=== PATIENT | male | born 1935 | race African-American/Black ===

== ENCOUNTER 2018-10-07 05:03 | Inpatient (IN) | payer MEDICARE ==
[~2018-10-07] VITALS: Ht 177.8 cm; Wt 68.9 kg
[2018-10-07] VITALS (7 sets, daily range): BP systolic 122–203; BP diastolic 57–186
--- NOTE | 2018-10-07 05:06 | NUR ---
ED Nurse Note: Patient presents [facility] from [facility], with complaints of fall and injury to left hand. Addendum: 10/07/18 at 0527 by MEGHANN ED Nurse Note: Right hand, fourth finger.
[2018-10-07] MEDS ORDERED: Tetanus/Diptheria/Pertussis IM ONE (05:15)
--- NOTE | 2018-10-07 05:27 | Emergency Room Report ---
History of Present Illness General Chief Complaint: Upper Extremity Injury Source: Patient Present Illness HPI Patient is a 82-year-old male who presents after increased finger pain. Patient reports having a recent fall. He states he had injury approximately 1/ 2 hours ago after tripping on a sidewalk. He reports increased pain to the right hand ring finger. He reports falling and hitting his head. He denies any loss of consciousness. He denies any headache. He denies taking any anticoagulation. He denies any numbness. He reports having prior history of CVA as well as hypertension. He states he has had an appendectomy in the past. patient reports having a prior vascular procedure due to CVA at [facility] in [place].Patient reports having increased shortness of breath. He cannot state when this began. He states he had been having increased trouble breathing for several days at least.He reports having prior left-sided weakness resulting from CVA. He normally walks with a cane. Allergies: Coded Allergies: No Known Allergies (Unverified , 10/07/18) Patient History Reviewed Nursing Documentation: PMH: Agreed; PSxH: Agreed Nursing Documentation-PMH Past Medical History: No History, Except For Hx Hypertension: Yes Hx Cerebrovascular Accident: Yes Review of Systems Constitutional: Denies: fever ENT: Reports: hearing loss - longstanding Respiratory: Denies: shortness of breath Cardiovascular: Denies: syncope Gastrointestinal: Denies: no symptoms, see HPI, nausea, vomiting Skin: Reports: other - laceration Neurological: Reports: no symptoms Endocrine: Denies: no symptoms, see HPI, excessive sweating, flushing, intolerance to temperature, increased thirst, increased urine, unexplained weight loss, other Physical Exam Vital Signs Date Time Temp Pulse Resp B/P (MAP) Pulse Ox O2 Delivery O2 Flow Rate FiO2 10/07/18 05:01 98.1 100 14 203/186 (192) 98 Room Air General Appearance: alert, GCS 15, Chronically Ill Head: normocephalic ENT: other - decreased hearing Neck: limited range of motion Respiratory: accessory muscle use, stridor Cardiovascular #1: normal inspection, regular rate, rhythm Gastrointestinal: normal inspection Musculoskeletal: other - kyphosis Neurologic: normal inspection, alert, oriented x3, responsive, motor weakness - left upper extremity slight weakness Psychiatric: normal inspection, judgement/insight normal Skin: normal color, laceration - finger laceration Procedures Joint Reduction Joint Reduction : Consent: Emergent Joint Reduction Site: other - finger Procedural Sedation: No Reduction Attempts: One Pre-Procedure NV Exam: Yes Post-Procedure NV Exam: Yes Post Joint Reduction Film: joint reduced Patient Tolerated: Well Complications: None Medical Decision Making Diagnostic Impression: Primary Impression: Laceration of finger of right hand Additional Impressions: Dislocated finger Stridor History of CVA (cerebrovascular accident) ER Course Patient is an 82-year-old male who presented after fall. Differential diagnosis include was not limited to fracture, dislocation, contusion, strain among others. Because of complexity of patient's case laboratory testing and imaging studies were ordered. X-ray imaging of the right hand 3 views interpreted by me showed dislocation to the ring finger PIP joint. Patient was noted to have laceration overlying this dislocation. Laceration was irrigated copiously with sterile water. Digital block was performed with 3 mL's of 0.5% bupivacaine. Patient tolerated well. Joint was reduced with axial traction. Wound was again irrigated. Patient given IV Ancef. He was noted to have some stridor and was given breathing treatment.Chest x-ray 1 view interpreted by me showed normal cardiac size with vascular congestion. CT of the head read by radiology showed no evidence of acute fracture or intracranial hemorrhage.Dr. Tripp Estevez was contacted for inpatient management. Dr.Raj Willard was contacted for orthopedic consult. Labs Test 10/07/18 06:14 White Blood Count 7.8 K/UL (4.8-10.8) Red Blood Count 3.45 M/UL (4.70-6.10) Hemoglobin 9.2 G/DL (14.2-18.0) Hematocrit 29.8 % (42.0-52.0) Mean Corpuscular Volume 86 FL (80-99) Mean Corpuscular Hemoglobin 26.8 PG (27.0-31.0) Mean Corpuscular Hemoglobin Concent 31.0 G/DL (32.0-36.0) Red Cell Distribution Width 14.0 % (11.6-14.8) Platelet Count 218 K/UL (150-450) Mean Platelet Volume 5.3 FL (6.5-10.1) Neutrophils (%) (Auto) 72.4 % (45.0-75.0) Lymphocytes (%) (Auto) 13.6 % (20.0-45.0) Monocytes (%) (Auto) 9.3 % (1.0-10.0) Eosinophils (%) (Auto) 3.6 % (0.0-3.0) Basophils (%) (Auto) 1.1 % (0.0-2.0) Prothrombin Time 10.2 SEC (9.30-11.50) Prothromb Time International Ratio 1.0 (0.9-1.1) Activated Partial Thromboplast Time 28 SEC (23-33) Sodium Level 140 MMOL/L (136-145) Potassium Level 4.2 MMOL/L (3.5-5.1) Chloride Level 108 MMOL/L (98-107) Carbon Dioxide Level 24 MMOL/L (21-32) Anion Gap 8 mmol/L (5-15) Blood Urea Nitrogen 20 mg/dL (7-18) Creatinine 1.9 MG/DL (0.55-1.30) Estimat Glomerular Filtration Rate mL/min (>60) Glucose Level 90 MG/DL (74-106) Calcium Level 8.8 MG/DL (8.5-10.1) Total Bilirubin 0.5 MG/DL (0.2-1.0) Aspartate Amino Transf (AST/SGOT) 36 U/L (15-37) Alanine Aminotransferase (ALT/SGPT) 27 U/L (12-78) Alkaline Phosphatase 55 U/L (46-116) Total Protein 7.0 G/DL (6.4-8.2) Albumin 3.2 G/DL (3.4-5.0) Globulin 3.8 g/dL Albumin/Globulin Ratio 0.8 (1.0-2.7) Last Vital Signs Date Time Temp Pulse Resp B/P (MAP) Pulse Ox O2 Delivery O2 Flow Rate FiO2 10/07/18 05:07 98.1 78 14 203/186 98 Room Air Status: improved Disposition: ADMITTED INPATIENT Condition: Stable Red Rios MD Oct 07, 2018 05:27
[2018-10-07] MEDS ORDERED: Bupivacaine 0.5% Inj 30 ml vial INJ ONE (05:30)
[2018-10-07] MEDS ORDERED: Albuterol/Ipratropium 3ml neb HHN ONE (06:00)
[2018-10-07] MEDS ORDERED: Bacitracin Oint 15gm Tube TOPIC ONE (06:03)
[2018-10-07] MEDS ORDERED: ceFAZolin 1gm/50ml Premix 50 ML IV ONE (06:15)
[2018-10-07 06:28] LABS: BASOPHILS % (AUTO) 1.1 % (0.0-2.0); EOSINOPHILS % (AUTO) 3.6 % (0.0-3.0); HEMATOCRIT 29.8 % (42.0-52.0); HEMOGLOBIN 9.2 G/DL (14.2-18.0); LYMPHOCYTES % (AUTO) 13.6 % (20.0-45.0); MEAN CORPUSCULAR VOLUME 86 FL (80-99); MONOCYTES % (AUTO) 9.3 % (1.0-10.0); NEUTROPHILS % (AUTO) 72.4 % (45.0-75.0); PLATELET COUNT 218 K/UL (150-450); RED BLOOD COUNT 3.45 M/UL (4.70-6.10); WHITE BLOOD COUNT 7.8 K/UL (4.8-10.8)
[2018-10-07 06:37] LABS: ANION GAP 8 mmol/L (5-15); BLOOD UREA NITROGEN 20 mg/dL (7-18); CALCIUM 8.8 MG/DL (8.5-10.1); CARBON DIOXIDE 24 MMOL/L (21-32); CHLORIDE 108 MMOL/L (98-107); CREATININE 1.9 MG/DL (0.55-1.30); POTASSIUM 4.2 MMOL/L (3.5-5.1); SODIUM 140 MMOL/L (136-145)
[2018-10-07 06:42] LABS: ALANINE AMINOTRANSFERASE 27 U/L (12-78); ALBUMIN 3.2 G/DL (3.4-5.0); ALBUMIN/GLOBULIN RATIO 0.8 (1.0-2.7); ALKALINE PHOSPHATASE 55 U/L (46-116); ASPARTATE AMINO TRANSFERASE 36 U/L (15-37); BILIRUBIN,TOTAL 0.5 MG/DL (0.2-1.0)
[2018-10-07] MEDS ORDERED: Bacitracin Oint 15gm Tube TOPIC STA (07:00)
--- NOTE | 2018-10-07 07:07 | NUR ---
HAND-OFF: Report given to Alban Coburn RN. Patient resting comfortably, belonging sheet completed without patient signature due to dressing.
[2018-10-07] MEDS ORDERED: Solu-MEDROL 125mg Inj IVP ONE (07:15)
--- NOTE | 2018-10-07 07:20 | Diagnostic Imaging Report ---
Indication: Headache Technique: Continuous helical CT scanning of the head was performed utilizing automated exposure control without intravenous contrast material. Axial and coronal reconstructions were obtained. Comparison: None CT dose: Total DLP 1337.05 mGycm; CTDI vol 70.38 mGy Findings: Evaluation limited due to patient motion. Note that subtle abnormalities can be missed. Within these limitations: There is no acute intracranial hemorrhage, mass effect or cortical edema. No shift of the midline structures. The ventricles, cisterns and sulci are prominent consistent with atrophy. Periventricular hypoattenuation is seen, a nonspecific finding. There is a more focal area of encephalomalacia in the right lateral frontal lobe which may be related to chronic ischemia or injury. There is left supraorbital soft tissue swelling. No depressed calvarial fracture. Mastoid air cells and paranasal sinuses clear. Globes are symmetric. No infiltration of the conal fat bilaterally. IMPRESSION: Exam limited by motion artifact. Within this limitations: No evidence of acute intracranial hemorrhage, mass effect or cortical edema. MRI may be obtained for more sensitive evaluation as clinically indicated. Atrophy and nonspecific periventricular hypoattenuation suggestive of chronic ischemic microvascular changes. Likely chronic infarct in the right frontal lobe. Left supraorbital soft tissue swelling. No depressed skull fracture. This corresponds with the statrad preliminary report. The CT scanner at [facility] is accredited by the [employer] and the scans are performed using protocols designed to limit radiation exposure to as low as reasonably achievable to attain images of sufficient resolution adequate for diagnostic evaluation.
--- NOTE | 2018-10-07 08:26 | NUR ---
ED Nurse Note: Received patient in bed receiving breathing treatment by RT at the bedside. pt denied pain. aao x3-4 but fatigued. splint present from previous shift on Rt hand. bp high as documented. ERMD made aware.
--- NOTE | 2018-10-07 08:26 | Diagnostic Imaging Report ---
Indication: Shortness of breath Technique: XRAY Chest 1v Comparison: None Findings: Heart appears borderline enlarged. Hilar prominence is noted which is most likely due to ectatic pulmonary vasculature. Atherosclerotic calcifications are noted in a tortuous aorta. There is mild interstitial prominence, nonspecific. No definite focal consolidation. No pleural effusion or pneumothorax. There are degenerative changes in the spine. No acute osseous abnormality. Impression: * Nonspecific mild interstitial prominence, possibly chronic. * No definite focal consolidation, pleural effusion, pneumothorax or evidence of alveolar edema. * Borderline cardiomegaly, possibly exaggerated by AP technique. * Bilateral hilar prominence most likely related to ectatic pulmonary vasculature. Recommend routine follow-up chest CT to exclude the possibility of mass or lymphadenopathy. * Atherosclerotic disease.
[2018-10-07] MEDS ORDERED: Albuterol ud Inhalation HHN ONE (08:30)
--- NOTE | 2018-10-07 08:30 | Diagnostic Imaging Report ---
Indication: Pain status post injury Technique: XRAY Hand Complete R Comparison: None Findings: There is a dislocation at the fourth proximal interphalangeal joint. No definite/displaced associated acute fracture. There are degenerative changes involving the interphalangeal joints. Alignment of the carpal bones is intact. No radiopaque foreign body. Impression: Dislocation at the fourth proximal interphalangeal joint. No definite/displaced associated acute fracture. Osteoarthrosis. This corresponds with the preliminary interpretation of the treating ER physician, as documented in the electronic medical record.
--- NOTE | 2018-10-07 08:32 | Diagnostic Imaging Report ---
Indication: pain, dislocation s/p reduction Technique: XRAY Hand Ltd 2v R Comparison: Earlier the same day Findings: Status post assess for reduction and splinting of the previously seen dislocation at the fourth proximal interphalangeal joint. No definite/displaced acute fractures identified. Additional findings unchanged from exam earlier today. Impression: Successful reduction of the previously seen dislocation at the fourth proximal interphalangeal joint. No definite/displaced acute fracture.
--- NOTE | 2018-10-07 09:00 | NUR ---
ED Nurse Note: maria teresa Gann, RN accepting RN Nate is on the phone with doctor at this moment. he will call me back.
--- NOTE | 2018-10-07 09:03 | NUR ---
ED Nurse Note: BP 163/71. HEATHERD made aware.
[2018-10-07] MEDS ORDERED: UNOBMED (09:04)
--- NOTE | 2018-10-07 09:15 | NUR ---
ED Nurse Note: report given to [employer] [facility]
--- NOTE | 2018-10-07 09:25 | NUR ---
ED Nurse Note: pt left unit with 1 coating technician and 1 RN in stable condition.
[2018-10-07] MEDS ORDERED: Miralax 17gm pkt ORAL PRN (11:00)
[2018-10-07] MEDS ORDERED: Morphine Sulfate 2mg/ml Inj(IV/IM USE ONLY) IVP PRN (11:00)
[2018-10-07] MEDS ORDERED: Albuterol/Ipratropium 3ml neb HHN PRN (11:00)
[2018-10-07] MEDS: Heparin 5000 units/ml inj SUBQ SCH ×2 (11:30→21:23)
--- NOTE | 2018-10-07 12:21 | Consultation ---
History of Present Illness General Date patient seen: Oct 07, 2018 Present Illness HPI 82-year-old male with hx of HTN, CVA with left sided weaknes , presented to after increased finger pain. He states he had injury approximately 1/2 hours ago after tripping on a sidewalk. He reports falling and hitting his head. Patient reports having increased shortness of breath. He states he had been having increased trouble breathing for several days at least. His CXR showed possible infiltrate. His labs revealed ATN as well. He is admitted to telemetry for further evaluation. Allergies: Coded Allergies: No Known Allergies (Unverified , 10/07/18) Medication History Miscellaneous Medications Unable to Obtain Medications (Unable To Obtain Meds), (Reported) Patient History Healthcare decision maker Resuscitation status Full Code Advanced Directive on File Past Medical/Surgical History Past Medical/Surgical History: (1) History of hypertension (2) Laceration of finger of right hand (3) History of CVA (cerebrovascular accident) Review of Systems All Other Systems: negative except mentioned in HPI Physical Exam General Appearance: thin Lines, tubes and drains: peripheral, PICC HEENT: normocephalic, atraumatic Neck: non-tender, supple Respiratory/Chest: chest wall non-tender, lungs clear Breasts: no masses Cardiovascular/Chest: normal peripheral pulses Abdomen: normal bowel sounds Genitourinary/Rectal: normal genital exam Extremities: normal range of motion Neurologic: custodian manager II-XII grossly normal Last 24 Hour Vital Signs Date Time Temp Pulse Resp B/P (MAP) Pulse Ox O2 Delivery O2 Flow Rate FiO2 10/07/18 12:00 97.6 84 18 169/80 (109) 94 10/07/18 10:53 Room Air 10/07/18 08:51 73 13 100 Room Air 10/07/18 08:42 79 193/67 10/07/18 08:26 98.3 79 18 193/66 100 Room Air 10/07/18 08:24 72 16 100 Room Air 10/07/18 08:12 66 18 Room Air 10/07/18 08:12 98.3 66 18 199/60 99 Room Air 10/07/18 07:26 98.1 78 18 184/57 99 Room Air 10/07/18 06:01 73 20 99 Room Air 21 8/9/19 05:52 89 18 99 Room Air 21 10/07/18 05:52 89 18 99 Room Air 21 10/07/18 05:07 98.1 78 14 203/186 98 Room Air 10/07/18 05:01 98.1 100 14 203/186 (192) 98 Room Air Laboratory Tests Test 10/07/18 06:14 White Blood Count 7.8 K/UL (4.8-10.8) Red Blood Count 3.45 M/UL (4.70-6.10) L Hemoglobin 9.2 G/DL (14.2-18.0) L Hematocrit 29.8 % (42.0-52.0) L Mean Corpuscular Volume 86 FL (80-99) Mean Corpuscular Hemoglobin 26.8 PG (27.0-31.0) L Mean Corpuscular Hemoglobin Concent 31.0 G/DL (32.0-36.0) L Red Cell Distribution Width 14.0 % (11.6-14.8) Platelet Count 218 K/UL (150-450) Mean Platelet Volume 5.3 FL (6.5-10.1) L Neutrophils (%) (Auto) 72.4 % (45.0-75.0) Lymphocytes (%) (Auto) 13.6 % (20.0-45.0) L Monocytes (%) (Auto) 9.3 % (1.0-10.0) Eosinophils (%) (Auto) 3.6 % (0.0-3.0) H Basophils (%) (Auto) 1.1 % (0.0-2.0) Prothrombin Time 10.2 SEC (9.30-11.50) Prothromb Time International Ratio 1.0 (0.9-1.1) Activated Partial Thromboplast Time 28 SEC (23-33) Sodium Level 140 MMOL/L (136-145) Potassium Level 4.2 MMOL/L (3.5-5.1) Chloride Level 108 MMOL/L (98-107) H Carbon Dioxide Level 24 MMOL/L (21-32) Anion Gap 8 mmol/L (5-15) Blood Urea Nitrogen 20 mg/dL (7-18) H Creatinine 1.9 MG/DL (0.55-1.30) H Estimat Glomerular Filtration Rate mL/min (>60) Glucose Level 90 MG/DL (74-106) Calcium Level 8.8 MG/DL (8.5-10.1) Total Bilirubin 0.5 MG/DL (0.2-1.0) Aspartate Amino Transf (AST/SGOT) 36 U/L (15-37) Alanine Aminotransferase (ALT/SGPT) 27 U/L (12-78) Alkaline Phosphatase 55 U/L (46-116) Total Protein 7.0 G/DL (6.4-8.2) Albumin 3.2 G/DL (3.4-5.0) L Globulin 3.8 g/dL Albumin/Globulin Ratio 0.8 (1.0-2.7) L Microbiology Date/Time Source Procedure Growth Status 10/07/18 08:50 Rectum Received Height (Feet): 5 Height (Inches): 10.00 Weight (Pounds): 150 Medications Current Medications Medications (Trade) Dose Ordered Sig/Austin Route PRN Reason Start Time Stop Time Status Last Admin Dose Admin Acetaminophen (Tylenol) 650 mg Q4H PRN ORAL T>100.5 10/07/18 11:00 11/06/18 10:59 Albuterol/ Ipratropium (Albuterol/ Ipratropium) 3 ml Q4H PRN HHN Shortness of Breath 10/07/18 11:00 10/12/18 10:59 Dextrose (Dextrose 50%) 25 ml Q30M PRN IV Hypoglycemia 10/07/18 11:00 11/06/18 10:59 Dextrose (Dextrose 50%) 50 ml Q30M PRN IV Hypoglycemia 10/07/18 11:00 11/06/18 10:59 Heparin Sodium (Porcine) (Heparin 5000 units/ml) 5,000 units EVERY 12 HOURS SUBQ 10/07/18 11:00 11/06/18 10:59 10/07/18 11:30 Morphine Sulfate (Morphine Sulfate) 2 mg Q4H PRN IVP Severe Pain (Pain Scale 7-10) 10/07/18 11:00 10/14/18 10:59 Ondansetron HCl (Zofran) 4 mg Q6H PRN IVP Nausea & Vomiting 10/07/18 11:00 11/06/18 10:59 Polyethylene Glycol (Miralax) 17 gm DAILYPRN PRN ORAL Constipation 10/07/18 11:00 11/06/18 10:59 Vancomycin HCl (Vanco rx to dose) 1 ea DAILY PRN MISC . 10/07/18 11:15 11/06/18 11:14 Vancomycin HCl/ Dextrose 275 ml @ 137.5 mls/ hr ONCE ONCE IVPB 10/07/18 12:30 10/07/18 14:29 Assessment/Plan Problem List: (1) History of hypertension ICD Codes: Z86.79 - Personal history of other diseases of the circulatory system SNOMED: 710834638 (2) Pneumonia ICD Codes: J18.9 - Pneumonia, unspecified organism SNOMED: 842831641 (3) History of CVA (cerebrovascular accident) ICD Codes: Z86.73 - Personal history of transient ischemic attack (TIA), and cerebral infarction without residual deficits SNOMED: 841114040, 123888701 Assessment/Plan: check sputum iv abc respiratory treatment CT of chest to evaluate the abnormality on the CXR social service consult dvt prophylaxis CT of neck to evaluate possible stridor in ER Renal w/u Casie Frye MD Oct 07, 2018 12:21
[2018-10-07] MEDS ORDERED: NORVASC10 MG ORAL (12:27)
[2018-10-07] MEDS ORDERED: Vancomycin 1.5gm Premix IVPB ONE (12:30)
[2018-10-07] MEDS ORDERED: cefTRIAXone 1 GM in D5W 55 ML IVPB SCH (13:00)
[2018-10-07 13:02] LABS: CREATINE KINASE 821 U/L (26-308)
--- NOTE | 2018-10-07 13:04 | Consultation ---
History of Present Illness General Date patient seen: Oct 07, 2018 Chief Complaint: Upper Extremity Injury Present Illness HPI 82 y/o M with hx of CVA w L side weakness, HTN, appendectomy presents to ED on with increased R 4th finger pain; he had an injury ~30 darlene prior to arrival to ED where he tripped on sidewalk and hit his head; denied loss of consciousness. Also SOB for several days. Denied headache, numbness Allergies: Coded Allergies: No Known Allergies (Unverified , 10/07/18) Medication History Scheduled Amlodipine Besylate (Norvasc), 10 MG ORAL DAILY, (Reported) Miscellaneous Medications Unable to Obtain Medications (Unable To Obtain Meds), (Reported) Patient History Healthcare decision maker Resuscitation status Full Code Advanced Directive on File Patient History Narrative Pmhx: as above Shx: reviewed Fhx: non contributory Review of Systems All Other Systems: negative except mentioned in HPI Physical Exam Physical Exam Narrative General Appearance: thin Lines, tubes and drains: peripheral, PICC HEENT: normocephalic, atraumatic Neck: non-tender, supple Respiratory/Chest: chest wall non-tender, lungs clear Cardiovascular/Chest: normal peripheral pulses Abdomen: normal bowel sounds Extremities: , laceration - R 4th finger laceration Last 24 Hour Vital Signs Date Time Temp Pulse Resp B/P (MAP) Pulse Ox O2 Delivery O2 Flow Rate FiO2 10/07/18 12:00 97.6 84 18 169/80 (109) 94 10/07/18 10:53 Room Air 10/07/18 08:51 73 13 100 Room Air 10/07/18 08:42 79 193/67 10/07/18 08:26 98.3 79 18 193/66 100 Room Air 10/07/18 08:24 72 16 100 Room Air 10/07/18 08:12 66 18 Room Air 10/07/18 08:12 98.3 66 18 199/60 99 Room Air 10/07/18 07:26 98.1 78 18 184/57 99 Room Air 10/07/18 06:01 73 20 99 Room Air 10/07/18 05:52 89 18 99 Room Air 10/07/18 05:52 89 18 99 Room Air 10/07/18 05:07 98.1 78 14 203/186 98 Room Air 10/07/18 05:01 98.1 100 14 203/186 (192) 98 Room Air Laboratory Tests Test 10/07/18 06:14 White Blood Count 7.8 K/UL (4.8-10.8) Red Blood Count 3.45 M/UL (4.70-6.10) L Hemoglobin 9.2 G/DL (14.2-18.0) L Hematocrit 29.8 % (42.0-52.0) L Mean Corpuscular Volume 86 FL (80-99) Mean Corpuscular Hemoglobin 26.8 PG (27.0-31.0) L Mean Corpuscular Hemoglobin Concent 31.0 G/DL (32.0-36.0) L Red Cell Distribution Width 14.0 % (11.6-14.8) Platelet Count 218 K/UL (150-450) Mean Platelet Volume 5.3 FL (6.5-10.1) L Neutrophils (%) (Auto) 72.4 % (45.0-75.0) Lymphocytes (%) (Auto) 13.6 % (20.0-45.0) L Monocytes (%) (Auto) 9.3 % (1.0-10.0) Eosinophils (%) (Auto) 3.6 % (0.0-3.0) H Basophils (%) (Auto) 1.1 % (0.0-2.0) Prothrombin Time 10.2 SEC (9.30-11.50) Prothromb Time International Ratio 1.0 (0.9-1.1) Activated Partial Thromboplast Time 28 SEC (23-33) Sodium Level 140 MMOL/L (136-145) Potassium Level 4.2 MMOL/L (3.5-5.1) Chloride Level 108 MMOL/L (98-107) H Carbon Dioxide Level 24 MMOL/L (21-32) Anion Gap 8 mmol/L (5-15) Blood Urea Nitrogen 20 mg/dL (7-18) H Creatinine 1.9 MG/DL (0.55-1.30) H Estimat Glomerular Filtration Rate mL/min (>60) Glucose Level 90 MG/DL (74-106) Uric Acid Pending Calcium Level 8.8 MG/DL (8.5-10.1) Total Bilirubin 0.5 MG/DL (0.2-1.0) Aspartate Amino Transf (AST/SGOT) 36 U/L (15-37) Alanine Aminotransferase (ALT/SGPT) 27 U/L (12-78) Alkaline Phosphatase 55 U/L (46-116) Total Creatine Kinase Pending Total Protein 7.0 G/DL (6.4-8.2) Albumin 3.2 G/DL (3.4-5.0) L Globulin 3.8 g/dL Albumin/Globulin Ratio 0.8 (1.0-2.7) L Microbiology Date/Time Source Procedure Growth Status 10/07/18 08:50 Rectum Received Height (Feet): 5 Height (Inches): 10.00 Weight (Pounds): 150 Medications Current Medications Medications (Trade) Dose Ordered Sig/[place] Route PRN Reason Start Time Stop Time Status Last Admin Dose Admin Acetaminophen (Tylenol) 650 mg Q4H PRN ORAL T>100.5 10/07/18 11:00 11/06/18 10:59 Albuterol/ Ipratropium (Albuterol/ Ipratropium) 3 ml Q4H PRN HHN Shortness of Breath 10/07/18 11:00 10/12/18 10:59 Ceftriaxone Sodium 1 gm/ Dextrose 55 ml @ 110 mls/hr Q24H IVPB 10/07/18 13:00 10/14/18 12:59 Dextrose (Dextrose 50%) 25 ml Q30M PRN IV Hypoglycemia 10/07/18 11:00 11/06/18 10:59 Dextrose (Dextrose 50%) 50 ml Q30M PRN IV Hypoglycemia 10/07/18 11:00 11/06/18 10:59 Heparin Sodium (Porcine) (Heparin 5000 units/ml) 5,000 units EVERY 12 HOURS SUBQ 10/07/18 11:00 11/06/18 10:59 10/07/18 11:30 Morphine Sulfate (Morphine Sulfate) 2 mg Q4H PRN IVP Severe Pain (Pain Scale 7-10) 10/07/18 11:00 10/14/18 10:59 Ondansetron HCl (Zofran) 4 mg Q6H PRN IVP Nausea & Vomiting 10/07/18 11:00 11/06/18 10:59 Polyethylene Glycol (Miralax) 17 gm DAILYPRN PRN ORAL Constipation 10/07/18 11:00 11/06/18 10:59 Vancomycin HCl (Vanco rx to dose) 1 ea DAILY PRN MISC . 10/07/18 11:15 11/06/18 11:14 Vancomycin HCl/ Dextrose 275 ml @ 137.5 mls/ hr ONCE ONCE IVPB 10/07/18 12:30 10/07/18 14:29 Assessment/Plan Assessment/Plan: Abx: Cefepime x1 10/07 Ceftriaxone 10/07- IV Vancomycin 10/07- Assessment: Afebrile No leukocytosis R 4th finger green-2ry to PIP dislocation and laceration, s/p reduction -repeat R hand xray: Successful reduction of the previously seen dislocation at the fourth proximal interphalangeal joint. No definite/displaced acute fracture. -xray R hand: Dislocation at the fourth proximal interphalangeal joint. No definite/displaced associated acute fracture.Osteoarthrosis. s/p Fall -Head CT: Exam limited by motion artifact. Within this limitations:No evidence of acute intracranial hemorrhage, mass effect or cortical edema. MRI maybe obtained for more sensitive evaluation as clinically indicated. Atrophy and nonspecific periventricular hypoattenuation suggestive of chronic ischemic microvascular changes. Likely chronic infarct in the right frontal lobe. Left supraorbital soft tissue swelling. No depressed skull fracture. Dyspnea -CXR: Nonspecific mild interstitial prominence, possibly chronic. No definite focal consolidation, pleural effusion, pneumothorax or evidence of alveolar edema. Borderline cardiomegaly, possibly exaggerated by AP technique.Bilateral hilar prominence most likely related to ectatic pulmonary vasculature. CVA w L side weakness HTN appendectomy Plan: -Switch prophylatic IV Vancomycin and Ceftriaxone #3 to PO Keflex -f/u cx -Monitor CBC/CMP, temperatures -wound care Thank you for this consultation. Will continue to follow along with you. Discussed with Marly Peralta M.D. Oct 07, 2018 13:04
--- NOTE | 2018-10-07 14:22 | History & Physical ---
History and Physical History & Physicial Tripp Estevez MD Oct 07, 2018 14:22
[2018-10-07] MEDS ORDERED: Cefepime HCl 2 GM in D5W 110 ML IV SCH (15:00)
--- NOTE | 2018-10-07 15:04 | NUR ---
Social Work This Sw received a consult due to patient is homeless. This SW met with patient who remains alert/oriented, making his own decisions. Patient remains ambulatory with cane and managing his own ADLs independently. 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 bus). This SW recommended Board/Care placement and contacted [facility] ([phone]) [facility] who explains she has openings and will evaluate patient on Wednesday AM. Patient receives $1800/month in Social Security. Guerita explains she can transport patient to the facility (will need to evaluate patient first). [facility] [place] [address] Pending P.T to evaluate, according to [facility]. If patient requires SNF, please contact Guerita prior to Wednesday AM to inform. [facility] informed.
--- NOTE | 2018-10-07 15:19 | Consultation ---
Consult Note Consult Note asked to eval for renal failure and anemia Patient is a 82-year-old male who presents after increased finger pain. Patient reports having a recent fall. He states he had injury approximately 1/ 2 hours ago after tripping on a sidewalk. He reports increased pain to the right hand ring finger. He reports falling and hitting his head. He denies any loss of consciousness. He denies any headache. He denies taking any anticoagulation. He denies any numbness. He reports having prior history of CVA as well as hypertension. He states he has had an appendectomy in the past. patient reports having a prior vascular procedure due to CVA at [facility] in [place].Patient reports having increased shortness of breath. He cannot state when this began. He states he had been having increased trouble breathing for several days at least.He reports having prior left-sided weakness resulting from CVA. He normally walks with a cane. No Known Allergies (Unverified , 10/07/18) Hx Hypertension: Yes Hx Cerebrovascular Accident: Yes patient interviewed- examined data reviewed Assessment/Plan Renal Failure- ? acute obn top of chronic Anemia HTN h/o CVA Rt 4th finger laceration: reason for admission Anemia hammonds U Na U Analysis BP control Avoid Nephrotoxics Andrade Keenan MD Oct 07, 2018 15:19
[2018-10-07 15:49] LABS: APPEARANCE,URINE CLEAR; BILIRUBIN, URINE NEGATIVE (NEGATIVE); COLOR,URINE PALE YELLOW; GLUCOSE, URINE (UA) NEGATIVE (NEGATIVE); KETONES,URINE 1+ (NEGATIVE); LEUKOCYTE ESTERASE ,URINE NEGATIVE (NEGATIVE); NITRITE,URINE NEGATIVE (NEGATIVE); PH,URINE 6 (4.5-8.0); PROTEIN,URINE 1+ (NEGATIVE); UROBILINOGEN,URINE NORMAL MG/DL (0.0-1.0)
--- NOTE | 2018-10-07 17:00 | Consultation ---
DATE OF CONSULTATION: 10/07/2018 CONSULTING PHYSICIAN: Edgar Willard M.D. REFERRING PHYSICIAN: Tripp Estevez M.D. CHIEF COMPLAINT: Right index PIP joint dislocation. HISTORY OF PRESENT ILLNESS: The patient is a pleasant 82-year-old gentleman, who sustained a mechanical fall, diagnosed with the dislocation of the index finger with an open laceration. He underwent irrigation and debridement and primary closure and reduction in the ER. Orthopedic consultation obtained for further care and recommendation. PAST MEDICAL HISTORY: Significant for COPD. PAST SURGICAL HISTORY: Reviewed in the intake chart. MEDICATIONS: Reviewed in the intake chart. ALLERGIES: Reviewed in the intake chart. SOCIAL HISTORY: Reviewed in the intake chart. PHYSICAL EXAMINATION: GENERAL: The patient is currently in the ER bed. He is resting comfortably in bed. He is getting a breathing treatment. EXTREMITIES: Right hand examination shows a dressing in place. IMAGING: Preop pre-reduction films showed dorsal dislocation of the PIP joint, index finger. Postreduction films showed that the fracture is reduced. ASSESSMENT: Right dorsal dislocation of PIP joint, index finger. DISCUSSION: At this point, it looks like the reduction was successful. He should be maintained on oral Keflex. He needs follow up in about 10 to 14 days for suture removal. Signs and symptoms for infection discussed with the patient, particularly given his recent COPD exacerbation has increased risk of infection, but I think it is pretty vascular and it should respond with IV antibiotics. I have discussed the case with Dr. Estevez. Please re-consult with me as needed during this admission if any new issues arise. Edgar Willard M.D. DR: VALERIA JOB#: [id number] CC:
[2018-10-07] MEDS ORDERED: HydrALAZINE 25mg tab ORAL SCH (18:00)
--- NOTE | 2018-10-07 19:06 | Diagnostic Imaging Report ---
Indication:Elevated Bun and Creatinine. Technique: Grayscale and duplex Doppler imaging of the kidneys performed. Comparison: None Findings: Kidneys are echogenic. There are multiple cysts bilaterally. There is no hydronephrosis.. The right kidney measures 9.4 cm. in length. The left kidney measures 9.4 cm. in length. The IVC is patent. Urinary bladder is unremarkable. Prostate is 4.4 x 3.1 x 4.7 cm and appears heterogeneous. IMPRESSION: Medical renal disease Prostate enlargement
--- NOTE | 2018-10-07 19:30 | NUR ---
NURSE NOTES: Received report from [employer] [place]. Pt is resting in bed. In no acute distress. IV line intact and patent. Bed in lowest position, call light within reach. Will continue plan of care.
[2018-10-07] MEDS: HydrALAZINE 25mg tab ORAL SCH (21:22)
[2018-10-07] MEDS: Cephalexin 500mg cap ORAL SCH (21:22)
[2018-10-07] MEDS ORDERED: Vancomycin 1 GM in D5W 275 ML IV SCH (23:00)
--- NOTE | 2018-10-07 23:30 | History and Physical Report ---
DATE OF ADMISSION: 10/07/2018 CHIEF COMPLAINT: Fall with sustained injury to the right hand. HISTORY OF PRESENT ILLNESS: This is an 82-year-old very delightful gentleman with past medical history significant for hypertension, history of CVA with left-sided weakness, and appendectomy, who has presented to the emergency room complaining about the right fourth finger pain after fall sustaining injury to the right hand. The patient fell about 30 minutes prior to arrival to the emergency room, trip and fall on the sidewalk, hit his head. Denies any loss of consciousness. Denies any bowel or urinary incontinence. Denies any double vision. He complained about the shortness of breath, however, denies any chest pain, nausea, or vomiting. Shortly after initial evaluation in the emergency room, the patient was admitted to the hospital with mechanical fall with right hand fourth finger laceration and the PIP dislocation status post reduction. PAST MEDICAL HISTORY/PAST SURGICAL HISTORY: As above. History of hypertension, CVA with the left-sided weakness, and appendectomy. MEDICATIONS AT HOME: Significant for Norvasc 10 mg p.o. daily. ALLERGIES: No known drug allergies. SOCIAL HISTORY: Denies any smoking, alcohol, or drugs at this time. FAMILY HISTORY: Noncontributory. REVIEW OF SYSTEMS: Mostly as above. Denies any dysuria, frequency, or hematuria. Denies any hemoptysis or hematochezia. Denies any suicidal or homicidal ideation. PHYSICAL EXAMINATION: VITAL SIGNS: On admission from the ER, temperature 98.1, pulse of 100, respirations 14, and initial blood pressure 203/186, repeat blood pressure was 196/80. GENERAL: The patient is awake and responsive, in no acute distress. HEAD AND NECK: Pupils are reactive to light. Extraocular movements intact. NECK: Supple. No JVD. LUNGS: Good air entry. No wheezing or rales. HEART: Reveals S1, S2. Distant heart sounds. No gallops. ABDOMEN: Soft, nondistended, and nontender. Positive bowel sounds. EXTREMITIES: No cyanosis, clubbing, or edema. Right hand fourth finger with laceration and dislocation, finger has been reduced. RECTAL/GENITOURINARY: Refused and deferred. PSYCHIATRIC: Mood and affect is intact. LABORATORY DATA: On admission from the ER is significant for WBC of 7.8, hemoglobin 9.2, hematocrit 29, and platelets is 218,000. Sodium 140, potassium 4.2, chloride 108, bicarbonate 24, BUN 20, and creatinine 1.9. Glucose is 90. Uric acid is 6.7. Calcium is 8.8. Total CK is 821. PT of 10, INR 1.0, and PTT of 28. The patient's x-ray of the hand was noted to be dislocation of the fourth proximal interference joint. No definitive displaced or associated acute fracture or osteoarthritis. The patient had a CT of the head was done, noted to have limitation due to the movement artifact. No evidence of acute intracranial hemorrhage, mass effect, or cortical edema. MRI may be obtained for more sensitivity evaluation, atrophy with nonspecific periventricular hypoattenuation suggestive of the chronic ischemic microvascular disease, chronic infarction in the right frontal lobe, and left supraorbital soft tissue swelling. No depressed skull fracture. Chest x-ray, nonspecific mild interstitial prominence, possible chronic. No definitive focal consolidation, pleural effusion, or pneumothorax. Borderline cardiomegaly, possibly exaggerated by AP technique, and bilateral hilum prominence, most likely related to the cachectic pulmonary vasculature. ASSESSMENT: 1. Status post mechanical fall with the right hand fourth finger laceration as well as dislocation status post reduction. 2. Hypertension, uncontrolled. 3. History of CVA with left hemiparesis. 4. Chronic kidney disease. 5. Anemia. PLAN: Admit the patient to monitor unit. We will follow up with Dr. Frye consultation as well as Dr. Newsome from Infectious Disease. Follow up with 2D echo. Code status is Full Code. DVT prophylaxis with heparin subcutaneous. We will follow up with the anemia workup. We will hold off on aspirin at this time due to the patient's anemia. Follow up with the PT and OT evaluation. Consider discharge to the nursing facility once the patient is ready to go. Tripp Estevez M.D. DR: MELONIE JOB#: [id number] CC:
[2018-10-08] VITALS (7 sets, daily range): BP systolic 149–164; BP diastolic 60–86
[2018-10-08] MEDS: Cephalexin 500mg cap ORAL SCH ×3 (05:53→22:33)
[2018-10-08] MEDS: HydrALAZINE 25mg tab ORAL SCH (05:57)
--- NOTE | 2018-10-08 06:57 | NUR ---
NURSE NOTES: Noted pt's BP was 189/91, gave Hydralazine dose as ordered. Checked BP again after 30 mins, BP decreased to 164/79. Notified Dr. Frye who is in the unit. New orders noted and carried out. also said not to give anything else for now.
--- NOTE | 2018-10-08 06:58 | Pulmonology Progress Note ---
Assessment/Plan Problems: (1) Pneumonia (2) History of hypertension (3) History of CVA (cerebrovascular accident) Assessment/Plan increase amlodipine f/u on CT chest and neck respiratory treatment check electrolytes dvt prophylaxis Subjective ROS Limited/Unobtainable: No Constitutional: Reports: no symptoms HEENT: Repors: no symptoms Respiratory: Reports: no symptoms Allergies: Coded Allergies: No Known Allergies (Unverified , 10/07/18) Objective Last 24 Hour Vital Signs Date Time Temp Pulse Resp B/P (MAP) Pulse Ox O2 Delivery O2 Flow Rate FiO2 10/08/18 05:57 189/91 10/08/18 04:00 71 10/08/18 04:00 98.2 71 18 152/86 (108) 98 10/08/18 00:00 75 10/08/18 00:00 98.6 75 20 149/74 (99) 96 10/07/18 21:22 109/70 10/07/18 21:00 Room Air 10/07/18 20:00 98.8 86 20 157/71 (99) 97 10/07/18 20:00 86 10/07/18 16:00 98.8 85 20 122/90 (101) 95 10/07/18 16:00 84 10/07/18 15:47 84 169/80 10/07/18 12:00 81 10/07/18 12:00 97.6 84 18 169/80 (109) 94 10/07/18 10:53 Room Air 10/07/18 09:25 98.3 79 13 163/82 100 Room Air 10/07/18 08:51 73 13 100 Room Air 21 10/07/18 08:42 79 193/67 10/07/18 08:26 98.3 79 18 193/66 100 Room Air 10/07/18 08:24 72 16 100 Room Air 21 10/07/18 08:12 66 18 Room Air 21 10/07/18 08:12 98.3 66 18 199/60 99 Room Air 21 10/07/18 07:26 98.1 78 18 184/57 99 Room Air 21 Intake and Output 10/07/18 10/08/18 19:00 07:00 Intake Total 140 ml Balance 140 ml Intake Oral 140 ml # Voids 2 General Appearance: WD/WN Respiratory/Chest: chest wall non-tender, normal breath sounds Cardiovascular: normal peripheral pulses, normal rate, regular rhythm Abdomen: normal bowel sounds, soft, non tender Genitourinary: normal external genitalia Extremities: no clubbing 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 Lymphatic: no neck adenopathy Microbiology Date/Time Source Procedure Growth Status 10/07/18 08:50 Rectum Received Laboratory Tests 10/07/18 15:22: Urine Color Pale yellow, Urine Appearance Clear, Urine pH 6, Urine Specific [place] 1.005, Urine Protein 1+H, Urine Glucose (UA) Negative, Urine Ketones 1+H , Urine Blood Negative, Urine Nitrite Negative, Urine Bilirubin Negative, Urine Urobilinogen Normal, Urine Leukocyte Esterase Negative, Urine RBC 0-2H, Urine WBC 0-2, Urine Squamous Epithelial Cells None, Urine Bacteria Occasional, Urine Random Sodium 91 Current Medications Medications (Trade) Dose Ordered Sig/[place] Route PRN Reason Start Time Stop Time Status Last Admin Dose Admin Acetaminophen (Tylenol) 650 mg Q4H PRN ORAL T>100.5 10/07/18 11:00 11/06/18 10:59 Albuterol/ Ipratropium (Albuterol/ Ipratropium) 3 ml Q4H PRN HHN Shortness of Breath 10/07/18 11:00 10/12/18 10:59 Amlodipine Besylate (Norvasc) 5 mg DAILY ORAL 10/08/18 09:00 11/07/18 08:59 Cephalexin (Keflex) 500 mg EVERY 8 HOURS ORAL 10/07/18 22:00 10/14/18 21:59 10/08/18 05:53 Dextrose (Dextrose 50%) 25 ml Q30M PRN IV Hypoglycemia 10/07/18 11:00 11/06/18 10:59 Dextrose (Dextrose 50%) 50 ml Q30M PRN IV Hypoglycemia 10/07/18 11:00 11/06/18 10:59 Heparin Sodium (Porcine) (Heparin 5000 units/ml) 5,000 units EVERY 12 HOURS SUBQ 10/07/18 11:00 11/06/18 10:59 10/07/18 21:23 Hydralazine HCl (Apresoline) 50 mg Q8HR ORAL 10/07/18 22:00 11/06/18 17:59 10/08/18 05:57 Morphine Sulfate (Morphine Sulfate) 2 mg Q4H PRN IVP Severe Pain (Pain Scale 7-10) 10/07/18 11:00 10/14/18 10:59 Ondansetron HCl (Zofran) 4 mg Q6H PRN IVP Nausea & Vomiting 10/07/18 11:00 11/06/18 10:59 Polyethylene Glycol (Miralax) 17 gm DAILYPRN PRN ORAL Constipation 10/07/18 11:00 11/06/18 10:59 Casie Frye MD Oct 08, 2018 06:58
[2018-10-08 07:15] LABS: BASOPHILS % (AUTO) 0.7 % (0.0-2.0); EOSINOPHILS % (AUTO) 0.4 % (0.0-3.0); HEMATOCRIT 29.1 % (42.0-52.0); HEMOGLOBIN 9.4 G/DL (14.2-18.0); LYMPHOCYTES % (AUTO) 11.5 % (20.0-45.0); MEAN CORPUSCULAR VOLUME 86 FL (80-99); MONOCYTES % (AUTO) 9.1 % (1.0-10.0); NEUTROPHILS % (AUTO) 78.4 % (45.0-75.0); PLATELET COUNT 232 K/UL (150-450); RED BLOOD COUNT 3.39 M/UL (4.70-6.10); RED CELL DISTRIBUTION WIDTH 13.8 % (11.6-14.8); WHITE BLOOD COUNT 9.9 K/UL (4.8-10.8)
--- NOTE | 2018-10-08 07:20 | NUR ---
NURSE NOTES: Report received from [employer] [place]. Patient asleep, easily awakened by voice. In RA. Denies any pain or SOB. Bed on lowest position, side rails upx2, brakes engaged. Call light within easy reach.
--- NOTE | 2018-10-08 07:24 | NUR ---
HAND-OFF: Report given to [employer] [place].
[2018-10-08 08:13] LABS: ALANINE AMINOTRANSFERASE 25 U/L (12-78); ALBUMIN 2.7 G/DL (3.4-5.0); ALBUMIN/GLOBULIN RATIO 0.8 (1.0-2.7); ALKALINE PHOSPHATASE 47 U/L (46-116); ANION GAP 7 mmol/L (5-15); ASPARTATE AMINO TRANSFERASE 29 U/L (15-37); BILIRUBIN,TOTAL 0.4 MG/DL (0.2-1.0); BLOOD UREA NITROGEN 20 mg/dL (7-18); CALCIUM 8.3 MG/DL (8.5-10.1); CARBON DIOXIDE 26 MMOL/L (21-32); CHLORIDE 111 MMOL/L (98-107); CREATININE 1.7 MG/DL (0.55-1.30); LACTATE DEHYDROGENASE 269 U/L (81-234); POTASSIUM 4.3 MMOL/L (3.5-5.1); SODIUM 144 MMOL/L (136-145)
[2018-10-08 08:19] LABS: LACTATE DEHYDROGENASE 282 U/L (81-234)
[2018-10-08 08:45] LABS: CREATINE KINASE 553 U/L (26-308); GAMMA GLUTAMYL TRANSPEPTIDASE 8 U/L (5-85); PHOSPHORUS 3.3 MG/DL (2.5-4.9)
[2018-10-08 08:49] LABS: % IRON SATURATION 23 % (15-50); IRON 42 ug/dL (50-175); TOTAL IRON BINDING CAPACITY 185 ug/dL (250-450)
[2018-10-08 09:00] LABS: % IRON SATURATION 22 % (15-50); IRON 43 ug/dL (50-175); TOTAL IRON BINDING CAPACITY 193 ug/dL (250-450)
--- NOTE | 2018-10-08 09:14 | Nephrology Progress Note ---
Assessment/Plan Problem List: (1) Renal failure (ARF), acute on chronic (2) History of hypertension (3) Anemia (4) History of CVA (cerebrovascular accident) Assessment Renal Failure- ? acute obn top of chronic Anemia HTN h/o CVA Rt 4th finger laceration: reason for admission Plan Anemia hammonds bit of low folate U Na U Analysis BP control, further adjustment done Avoid Nephrotoxics Subjective ROS Limited/Unobtainable: No Constitutional: Reports: malaise Objective Objective Last 24 Hour Vital Signs Date Time Temp Pulse Resp B/P (MAP) Pulse Ox O2 Delivery O2 Flow Rate FiO2 10/08/18 08:00 98.4 83 18 153/82 (105) 95 10/08/18 06:45 82 164/79 (107) 10/08/18 05:57 189/91 10/08/18 04:00 71 10/08/18 04:00 98.2 71 18 152/86 (108) 98 10/08/18 00:00 75 10/08/18 00:00 98.6 75 20 149/74 (99) 96 10/07/18 21:22 109/70 10/07/18 21:00 Room Air 10/07/18 20:00 98.8 86 20 157/71 (99) 97 10/07/18 20:00 86 10/07/18 16:00 98.8 85 20 122/90 (101) 95 10/07/18 16:00 84 10/07/18 15:47 84 169/80 10/07/18 12:00 81 10/07/18 12:00 97.6 84 18 169/80 (109) 94 10/07/18 10:53 Room Air 10/07/18 09:25 98.3 79 13 163/82 100 Room Air 21 Intake and Output 10/07/18 10/08/18 19:00 07:00 Intake Total 140 ml Balance 140 ml Intake Oral 140 ml # Voids 2 Laboratory Tests 10/07/18 15:22: Urine Color Pale yellow, Urine Appearance Clear, Urine pH 6, Urine Specific [place] 1.005, Urine Protein 1+H, Urine Glucose (UA) Negative, Urine Ketones 1+H , Urine Blood Negative, Urine Nitrite Negative, Urine Bilirubin Negative, Urine Urobilinogen Normal, Urine Leukocyte Esterase Negative, Urine RBC 0-2H, Urine WBC 0-2, Urine Squamous Epithelial Cells None, Urine Bacteria Occasional, Urine Random Sodium 91 10/08/18 06:25: White Blood Count 9.9, Red Blood Count 3.39L, Hemoglobin 9.4L, Hematocrit 29.1L , Mean Corpuscular Volume 86, Mean Corpuscular Hemoglobin 27.6, Mean Corpuscular Hemoglobin Concent 32.2, Red Cell Distribution Width 13.8, Platelet Count 232, Mean Platelet Volume 5.8L, Neutrophils (%) (Auto) 78.4H, Lymphocytes (%) (Auto) 11.5L, Monocytes (%) (Auto) 9.1, Eosinophils (%) (Auto) 0.4, Basophils (%) (Auto) 0.7, Neutrophils % (Manual) [Pending], Lymphocytes % ( Manual) [Pending], Platelet Estimate [Pending], Platelet Morphology [Pending], Erythrocyte Sedimentation Rate [Pending], Reticulocyte Count [Pending], Prothrombin Time 10.2, Prothromb Time International Ratio 1.0, Activated Partial Thromboplast Time 29, Sodium Level 144, Potassium Level 4.3, Chloride Level 111H, Carbon Dioxide Level 26, Anion Gap 7, Blood Urea Nitrogen 20H, Creatinine 1.7H, Estimat Glomerular Filtration Rate , Glucose Level 86, Hemoglobin A1c 6.1H, Uric Acid 6.5, Calcium Level 8.3L, Phosphorus Level 3.3, Magnesium Level 2.0, Iron Level 43L, Total Iron Binding Capacity 193L, Percent Iron Saturation 22, Unsaturated Iron Binding 150, Total Bilirubin 0.4, Gamma Glutamyl Transpeptidase 8, Aspartate Amino Transf (AST/SGOT) 29, Alanine Aminotransferase (ALT/SGPT) 25, Alkaline Phosphatase 47, Lactate Dehydrogenase 282H, Total Creatine Kinase 553H, Total Protein 6.3L, Albumin 2.7L, Globulin 3.6 , Albumin/Globulin Ratio 0.8L, Carcinoembryonic Antigen [Pending], Vitamin B12 Level 257, Folate 10.9, Thyroid Stimulating Hormone (TSH) 2.276 10/08/18 07:15: Prothrombin Time 10.2, Prothromb Time International Ratio 1.0, Activated Partial Thromboplast Time 28 Height (Feet): 5 Height (Inches): 10.00 Weight (Pounds): 150 General Appearance: no apparent distress Neck: limited range of motion Cardiovascular: normal rate Respiratory/Chest: decreased breath sounds Abdomen: soft Extremities: other - injured fingred dressed Andrade Keenan MD Oct 08, 2018 09:14
[2018-10-08] MEDS: Heparin 5000 units/ml inj SUBQ SCH ×2 (09:27→21:28)
[2018-10-08] MEDS: Metoprolol Tartrate 12.5mg TAB ORAL SCH ×2 (09:29→21:29)
--- NOTE | 2018-10-08 10:32 | Cardiology Progress Note ---
Assessment/Plan Assessment/Plan nonsyncopal fall hx of cva an cea will start on statin and if no surgey will need ecotrin started [id number] Objective Last 24 Hour Vital Signs Date Time Temp Pulse Resp B/P (MAP) Pulse Ox O2 Delivery O2 Flow Rate FiO2 10/08/18 09:29 83 153/82 10/08/18 09:26 83 153/82 10/08/18 09:00 Room Air 10/08/18 08:00 98.4 83 18 153/82 (105) 95 10/08/18 06:45 82 164/79 (107) 10/08/18 05:57 189/91 10/08/18 04:00 71 10/08/18 04:00 98.2 71 18 152/86 (108) 98 10/08/18 00:00 75 10/08/18 00:00 98.6 75 20 149/74 (99) 96 10/07/18 21:22 109/70 10/07/18 21:00 Room Air 10/07/18 20:00 98.8 86 20 157/71 (99) 97 10/07/18 20:00 86 10/07/18 16:00 98.8 85 20 122/90 (101) 95 10/07/18 16:00 84 10/07/18 15:47 84 169/80 10/07/18 12:00 81 10/07/18 12:00 97.6 84 18 169/80 (109) 94 10/07/18 10:53 Room Air Intake and Output 10/07/18 10/08/18 18:59 06:59 Intake Total 140 ml Balance 140 ml Intake Oral 140 ml # Voids 2 Laboratory Tests Test 10/07/18 15:22 10/08/18 06:25 10/08/18 07:15 Urine Color Pale yellow Urine Appearance Clear Urine pH 6 (4.5-8.0) Urine Specific [place] 1.005 (1.005-1.035) Urine Protein 1+ (NEGATIVE) H Urine Glucose (UA) Negative (NEGATIVE) Urine Ketones 1+ (NEGATIVE) H Urine Blood Negative (NEGATIVE) Urine Nitrite Negative (NEGATIVE) Urine Bilirubin Negative (NEGATIVE) Urine Urobilinogen Normal MG/DL (0.0-1.0) Urine Leukocyte Esterase Negative (NEGATIVE) Urine RBC 0-2 /HPF (0 - 0) H Urine WBC 0-2 /HPF (0 - 0) Urine Squamous Epithelial Cells None /LPF (NONE/OCC) Urine Bacteria Occasional /HPF (NONE) Urine Random Sodium 91 mmol/L (20-110) White Blood Count 9.9 K/UL (4.8-10.8) Red Blood Count 3.39 M/UL (4.70-6.10) L Hemoglobin 9.4 G/DL (14.2-18.0) L Hematocrit 29.1 % (42.0-52.0) L Mean Corpuscular Volume 86 FL (80-99) Mean Corpuscular Hemoglobin 27.6 PG (27.0-31.0) Mean Corpuscular Hemoglobin Concent 32.2 G/DL (32.0-36.0) Red Cell Distribution Width 13.8 % (11.6-14.8) Platelet Count 232 K/UL (150-450) Mean Platelet Volume 5.8 FL (6.5-10.1) L Neutrophils (%) (Auto) 78.4 % (45.0-75.0) H Lymphocytes (%) (Auto) 11.5 % (20.0-45.0) L Monocytes (%) (Auto) 9.1 % (1.0-10.0) Eosinophils (%) (Auto) 0.4 % (0.0-3.0) Basophils (%) (Auto) 0.7 % (0.0-2.0) Differential Total Cells Counted 100 Neutrophils % (Manual) 83 % (45-75) H Lymphocytes % (Manual) 16 % (20-45) L Monocytes % (Manual) 1 % (1-10) Eosinophils % (Manual) 0 % (0-3) Basophils % (Manual) 0 % (0-2) Band Neutrophils 0 % (0-8) Platelet Estimate Adequate Platelet Morphology Normal Red Blood Cell Morphology Normal Erythrocyte Sedimentation Rate Pending Reticulocyte Count Pending Prothrombin Time 10.2 SEC (9.30-11.50) 10.2 SEC (9.30-11.50) Prothromb Time International Ratio 1.0 (0.9-1.1) 1.0 (0.9-1.1) Activated Partial Thromboplast Time 29 SEC (23-33) 28 SEC (23-33) Sodium Level 144 MMOL/L (136-145) Potassium Level 4.3 MMOL/L (3.5-5.1) Chloride Level 111 MMOL/L (98-107) H Carbon Dioxide Level 26 MMOL/L (21-32) Anion Gap 7 mmol/L (5-15) Blood Urea Nitrogen 20 mg/dL (7-18) H Creatinine 1.7 MG/DL (0.55-1.30) H Estimat Glomerular Filtration Rate mL/min (>60) Glucose Level 86 MG/DL (74-106) Hemoglobin A1c 6.1 % (4.3-6.0) H Uric Acid 6.5 MG/DL (2.6-7.2) Calcium Level 8.3 MG/DL (8.5-10.1) L Phosphorus Level 3.3 MG/DL (2.5-4.9) Magnesium Level 2.0 MG/DL (1.8-2.4) Iron Level 43 ug/dL (50-175) L Total Iron Binding Capacity 193 ug/dL (250-450) L Percent Iron Saturation 22 % (15-50) Unsaturated Iron Binding 150 ug/dL (112-346) Total Bilirubin 0.4 MG/DL (0.2-1.0) Gamma Glutamyl Transpeptidase 8 U/L (5-85) Aspartate Amino Transf (AST/SGOT) 29 U/L (15-37) Alanine Aminotransferase (ALT/SGPT) 25 U/L (12-78) Alkaline Phosphatase 47 U/L (46-116) Lactate Dehydrogenase 282 U/L (81-234) H Total Creatine Kinase 553 U/L (26-308) H Total Protein 6.3 G/DL (6.4-8.2) L Albumin 2.7 G/DL (3.4-5.0) L Globulin 3.6 g/dL Albumin/Globulin Ratio 0.8 (1.0-2.7) L Carcinoembryonic Antigen Pending Vitamin B12 Level 257 PG/ML (193-986) Folate 10.9 NG/ML (8.6-58.9) Thyroid Stimulating Hormone (TSH) 2.276 uiU/mL (0.358-3.740) Ferritin 119 NG/ML (8-388) Microbiology Date/Time Source Procedure Growth Status 10/07/18 08:50 Rectum Received Layton Croft MD Oct 08, 2018 10:32
--- NOTE | 2018-10-08 12:06 | Infectious Diseases Prog Note ---
Assessment/Plan Assessment/Plan Abx: Cefepime x1 10/07 Ceftriaxone 10/07- IV Vancomycin 10/07- Assessment: Afebrile No leukocytosis R 4th finger green-2ry to PIP dislocation and laceration, s/p reduction -repeat R hand xray: Successful reduction of the previously seen dislocation at the fourth proximal interphalangeal joint. No definite/displaced acute fracture. -xray R hand: Dislocation at the fourth proximal interphalangeal joint. No definite/displaced associated acute fracture.Osteoarthrosis. s/p Fall -Head CT: Exam limited by motion artifact. Within this limitations:No evidence of acute intracranial hemorrhage, mass effect or cortical edema. MRI maybe obtained for more sensitive evaluation as clinically indicated. Atrophy and nonspecific periventricular hypoattenuation suggestive of chronic ischemic microvascular changes. Likely chronic infarct in the right frontal lobe. Left supraorbital soft tissue swelling. No depressed skull fracture. Dyspnea -CXR: Nonspecific mild interstitial prominence, possibly chronic. No definite focal consolidation, pleural effusion, pneumothorax or evidence of alveolar edema. Borderline cardiomegaly, possibly exaggerated by AP technique.Bilateral hilar prominence most likely related to ectatic pulmonary vasculature. LILLIE, improving -u/a neg -Renal US: Slightly increased echogenicity within the kidneys which can be seen in the setting of medical renal disease. No hydronephrosis. Cyst within the right renal upper pole. No stones. Unremarkable appearance of the bladder. CVA w L side weakness HTN appendectomy Plan: -Continue prophylactic PO Keflex #2/3 -10/07 IV Vancomycin, Ceftriaxone #1 -f/u cx -Monitor CBC/CMP, temperatures -wound care Thank you for this consultation. Will continue to follow along with you. Discussed with RN. Subjective Allergies: Coded Allergies: No Known Allergies (Unverified , 10/07/18) Objective Vital Signs Last 24 Hour Vital Signs Date Time Temp Pulse Resp B/P (MAP) Pulse Ox O2 Delivery O2 Flow Rate FiO2 10/08/18 09:29 83 153/82 10/08/18 09:26 83 153/82 10/08/18 09:00 Room Air 10/08/18 08:00 98.4 83 18 153/82 (105) 95 10/08/18 08:00 87 10/08/18 06:45 82 164/79 (107) 10/08/18 05:57 189/91 10/08/18 04:00 71 10/08/18 04:00 98.2 71 18 152/86 (108) 98 10/08/18 00:00 75 10/08/18 00:00 98.6 75 20 149/74 (99) 96 10/07/18 21:22 109/70 10/07/18 21:00 Room Air 10/07/18 20:00 98.8 86 20 157/71 (99) 97 10/07/18 20:00 86 10/07/18 16:00 98.8 85 20 122/90 (101) 95 10/07/18 16:00 84 10/07/18 15:47 84 169/80 Height (Feet): 5 Height (Inches): 10.00 Weight (Pounds): 150 Objective General Appearance: thin Lines, tubes and drains: peripheral, PICC HEENT: normocephalic, atraumatic Neck: non-tender, supple Respiratory/Chest: chest wall non-tender, lungs clear Cardiovascular/Chest: normal peripheral pulses Abdomen: normal bowel sounds Extremities: , laceration - R 4th finger laceration Microbiology Date/Time Source Procedure Growth Status 10/07/18 08:50 Rectum Received Laboratory Tests Test 10/07/18 15:22 10/08/18 06:25 10/08/18 07:15 Urine Color Pale yellow Urine Appearance Clear Urine pH 6 (4.5-8.0) Urine Specific [place] 1.005 (1.005-1.035) Urine Protein 1+ (NEGATIVE) H Urine Glucose (UA) Negative (NEGATIVE) Urine Ketones 1+ (NEGATIVE) H Urine Blood Negative (NEGATIVE) Urine Nitrite Negative (NEGATIVE) Urine Bilirubin Negative (NEGATIVE) Urine Urobilinogen Normal MG/DL (0.0-1.0) Urine Leukocyte Esterase Negative (NEGATIVE) Urine RBC 0-2 /HPF (0 - 0) H Urine WBC 0-2 /HPF (0 - 0) Urine Squamous Epithelial Cells None /LPF (NONE/OCC) Urine Bacteria Occasional /HPF (NONE) Urine Random Sodium 91 mmol/L (20-110) White Blood Count 9.9 K/UL (4.8-10.8) Red Blood Count 3.39 M/UL (4.70-6.10) L Hemoglobin 9.4 G/DL (14.2-18.0) L Hematocrit 29.1 % (42.0-52.0) L Mean Corpuscular Volume 86 FL (80-99) Mean Corpuscular Hemoglobin 27.6 PG (27.0-31.0) Mean Corpuscular Hemoglobin Concent 32.2 G/DL (32.0-36.0) Red Cell Distribution Width 13.8 % (11.6-14.8) Platelet Count 232 K/UL (150-450) Mean Platelet Volume 5.8 FL (6.5-10.1) L Neutrophils (%) (Auto) 78.4 % (45.0-75.0) H Lymphocytes (%) (Auto) 11.5 % (20.0-45.0) L Monocytes (%) (Auto) 9.1 % (1.0-10.0) Eosinophils (%) (Auto) 0.4 % (0.0-3.0) Basophils (%) (Auto) 0.7 % (0.0-2.0) Differential Total Cells Counted 100 Neutrophils % (Manual) 83 % (45-75) H Lymphocytes % (Manual) 16 % (20-45) L Monocytes % (Manual) 1 % (1-10) Eosinophils % (Manual) 0 % (0-3) Basophils % (Manual) 0 % (0-2) Band Neutrophils 0 % (0-8) Platelet Estimate Adequate Platelet Morphology Normal Red Blood Cell Morphology Normal Erythrocyte Sedimentation Rate 33 MM/HR (0-20) H Reticulocyte Count 0.9 % (0.5-2.0) Prothrombin Time 10.2 SEC (9.30-11.50) 10.2 SEC (9.30-11.50) Prothromb Time International Ratio 1.0 (0.9-1.1) 1.0 (0.9-1.1) Activated Partial Thromboplast Time 29 SEC (23-33) 28 SEC (23-33) Sodium Level 144 MMOL/L (136-145) Potassium Level 4.3 MMOL/L (3.5-5.1) Chloride Level 111 MMOL/L (98-107) H Carbon Dioxide Level 26 MMOL/L (21-32) Anion Gap 7 mmol/L (5-15) Blood Urea Nitrogen 20 mg/dL (7-18) H Creatinine 1.7 MG/DL (0.55-1.30) H Estimat Glomerular Filtration Rate mL/min (>60) Glucose Level 86 MG/DL (74-106) Hemoglobin A1c 6.1 % (4.3-6.0) H Uric Acid 6.5 MG/DL (2.6-7.2) Calcium Level 8.3 MG/DL (8.5-10.1) L Phosphorus Level 3.3 MG/DL (2.5-4.9) Magnesium Level 2.0 MG/DL (1.8-2.4) Iron Level 43 ug/dL (50-175) L Total Iron Binding Capacity 193 ug/dL (250-450) L Percent Iron Saturation 22 % (15-50) Unsaturated Iron Binding 150 ug/dL (112-346) Total Bilirubin 0.4 MG/DL (0.2-1.0) Gamma Glutamyl Transpeptidase 8 U/L (5-85) Aspartate Amino Transf (AST/SGOT) 29 U/L (15-37) Alanine Aminotransferase (ALT/SGPT) 25 U/L (12-78) Alkaline Phosphatase 47 U/L (46-116) Lactate Dehydrogenase 282 U/L (81-234) H Total Creatine Kinase 553 U/L (26-308) H Total Protein 6.3 G/DL (6.4-8.2) L Albumin 2.7 G/DL (3.4-5.0) L Globulin 3.6 g/dL Albumin/Globulin Ratio 0.8 (1.0-2.7) L Carcinoembryonic Antigen Pending Vitamin B12 Level 257 PG/ML (193-986) Folate 10.9 NG/ML (8.6-58.9) Thyroid Stimulating Hormone (TSH) 2.276 uiU/mL (0.358-3.740) Ferritin 119 NG/ML (8-388) Current Medications Medications (Trade) Dose Ordered Sig/[place] Route PRN Reason Start Time Stop Time Status Last Admin Dose Admin Acetaminophen (Tylenol) 650 mg Q4H PRN ORAL T>100.5 10/07/18 11:00 11/06/18 10:59 Albuterol/ Ipratropium (Albuterol/ Ipratropium) 3 ml Q4H PRN HHN Shortness of Breath 10/07/18 11:00 10/12/18 10:59 Amlodipine Besylate (Norvasc) 5 mg BID ORAL 10/08/18 09:00 11/07/18 08:59 10/08/18 09:26 Cephalexin (Keflex) 500 mg EVERY 8 HOURS ORAL 10/07/18 22:00 10/14/18 21:59 10/08/18 05:53 Clonidine HCl (Catapres Tab) 0.1 mg Q4H PRN ORAL SBP>160 10/08/18 06:59 11/07/18 06:58 Dextrose (Dextrose 50%) 25 ml Q30M PRN IV Hypoglycemia 10/07/18 11:00 11/06/18 10:59 Dextrose (Dextrose 50%) 50 ml Q30M PRN IV Hypoglycemia 10/07/18 11:00 11/06/18 10:59 Folic Acid (Folate) 2 mg DAILY ORAL 10/08/18 09:15 11/07/18 09:14 10/08/18 09:29 Heparin Sodium (Porcine) (Heparin 5000 units/ml) 5,000 units EVERY 12 HOURS SUBQ 10/07/18 11:00 11/06/18 10:59 10/08/18 09:27 Hydralazine HCl (Apresoline) 50 mg Q8HR ORAL 10/08/18 14:00 11/06/18 17:59 Metoprolol Tartrate (Lopressor) 12.5 mg Q12HR ORAL 10/08/18 09:15 11/07/18 09:14 10/08/18 09:29 Morphine Sulfate (Morphine Sulfate) 2 mg Q4H PRN IVP Severe Pain (Pain Scale 7-10) 10/07/18 11:00 10/14/18 10:59 Ondansetron HCl (Zofran) 4 mg Q6H PRN IVP Nausea & Vomiting 10/07/18 11:00 11/06/18 10:59 Polyethylene Glycol (Miralax) 17 gm DAILYPRN PRN ORAL Constipation 10/07/18 11:00 11/06/18 10:59 Sodium Chloride 1,000 ml @ 75 mls/hr [id number] ONCE IV 10/08/18 09:15 10/08/18 22:34 10/08/18 09:30 Marly Newsome M.D. Oct 08, 2018 12:06
[2018-10-08] MEDS ORDERED: HydrALAZINE 50mg tab ORAL SCH (14:00)
[2018-10-08] MEDS: HydrALAZINE 50mg tab ORAL SCH ×2 (14:24→22:33)
--- NOTE | 2018-10-08 17:05 | Internal Med Progress Note ---
Subjective Date of Service: Oct 08, 2018 Physician Name Farzad Sams Attending Physician Tripp Estevez MD Current Medications Medications (Trade) Dose Ordered Sig/[place] Route PRN Reason Start Time Stop Time Status Last Admin Dose Admin Acetaminophen (Tylenol) 650 mg Q4H PRN ORAL T>100.5 10/07/18 11:00 11/06/18 10:59 Albuterol/ Ipratropium (Albuterol/ Ipratropium) 3 ml Q4H PRN HHN Shortness of Breath 10/07/18 11:00 10/12/18 10:59 Amlodipine Besylate (Norvasc) 5 mg BID ORAL 10/08/18 09:00 11/07/18 08:59 10/08/18 09:26 Cephalexin (Keflex) 500 mg EVERY 8 HOURS ORAL 10/07/18 22:00 10/14/18 21:59 10/08/18 14:21 Clonidine HCl (Catapres Tab) 0.1 mg Q4H PRN ORAL SBP>160 10/08/18 06:59 11/07/18 06:58 Dextrose (Dextrose 50%) 25 ml Q30M PRN IV Hypoglycemia 10/07/18 11:00 11/06/18 10:59 Dextrose (Dextrose 50%) 50 ml Q30M PRN IV Hypoglycemia 10/07/18 11:00 11/06/18 10:59 Folic Acid (Folate) 2 mg DAILY ORAL 10/08/18 09:15 11/07/18 09:14 10/08/18 09:29 Heparin Sodium (Porcine) (Heparin 5000 units/ml) 5,000 units EVERY 12 HOURS SUBQ 10/07/18 11:00 11/06/18 10:59 10/08/18 09:27 Hydralazine HCl (Apresoline) 50 mg Q8HR ORAL 10/08/18 14:00 11/06/18 17:59 10/08/18 14:24 Metoprolol Tartrate (Lopressor) 12.5 mg Q12HR ORAL 10/08/18 09:15 11/07/18 09:14 10/08/18 09:29 Morphine Sulfate (Morphine Sulfate) 2 mg Q4H PRN IVP Severe Pain (Pain Scale 7-10) 10/07/18 11:00 10/14/18 10:59 Ondansetron HCl (Zofran) 4 mg Q6H PRN IVP Nausea & Vomiting 10/07/18 11:00 11/06/18 10:59 Polyethylene Glycol (Miralax) 17 gm DAILYPRN PRN ORAL Constipation 10/07/18 11:00 11/06/18 10:59 Sodium Chloride 1,000 ml @ 75 mls/hr [id number] ONCE IV 10/08/18 09:15 10/08/18 22:34 10/08/18 09:30 Allergies: Coded Allergies: No Known Allergies (Unverified , 10/07/18) Subjective 82 YO M admitted after mechanical fall. Now fractured finger. Cover for Int Koffi-Dr Estevez Objective Last Vital Signs Date Time Temp Pulse Resp B/P (MAP) Pulse Ox O2 Delivery O2 Flow Rate FiO2 10/08/18 14:24 156/65 10/08/18 09:29 83 10/08/18 09:00 Room Air 10/08/18 08:00 98.4 18 95 10/07/18 09:25 21 Laboratory Tests Test 10/08/18 06:25 10/08/18 07:15 White Blood Count 9.9 K/UL (4.8-10.8) Red Blood Count 3.39 M/UL (4.70-6.10) L Hemoglobin 9.4 G/DL (14.2-18.0) L Hematocrit 29.1 % (42.0-52.0) L Mean Corpuscular Volume 86 FL (80-99) Mean Corpuscular Hemoglobin 27.6 PG (27.0-31.0) Mean Corpuscular Hemoglobin Concent 32.2 G/DL (32.0-36.0) Red Cell Distribution Width 13.8 % (11.6-14.8) Platelet Count 232 K/UL (150-450) Mean Platelet Volume 5.8 FL (6.5-10.1) L Neutrophils (%) (Auto) 78.4 % (45.0-75.0) H Lymphocytes (%) (Auto) 11.5 % (20.0-45.0) L Monocytes (%) (Auto) 9.1 % (1.0-10.0) Eosinophils (%) (Auto) 0.4 % (0.0-3.0) Basophils (%) (Auto) 0.7 % (0.0-2.0) Differential Total Cells Counted 100 Neutrophils % (Manual) 83 % (45-75) H Lymphocytes % (Manual) 16 % (20-45) L Monocytes % (Manual) 1 % (1-10) Eosinophils % (Manual) 0 % (0-3) Basophils % (Manual) 0 % (0-2) Band Neutrophils 0 % (0-8) Platelet Estimate Adequate Platelet Morphology Normal Red Blood Cell Morphology Normal Erythrocyte Sedimentation Rate 33 MM/HR (0-20) H Reticulocyte Count 0.9 % (0.5-2.0) Prothrombin Time 10.2 SEC (9.30-11.50) 10.2 SEC (9.30-11.50) Prothromb Time International Ratio 1.0 (0.9-1.1) 1.0 (0.9-1.1) Activated Partial Thromboplast Time 29 SEC (23-33) 28 SEC (23-33) Sodium Level 144 MMOL/L (136-145) Potassium Level 4.3 MMOL/L (3.5-5.1) Chloride Level 111 MMOL/L (98-107) H Carbon Dioxide Level 26 MMOL/L (21-32) Anion Gap 7 mmol/L (5-15) Blood Urea Nitrogen 20 mg/dL (7-18) H Creatinine 1.7 MG/DL (0.55-1.30) H Estimat Glomerular Filtration Rate mL/min (>60) Glucose Level 86 MG/DL (74-106) Hemoglobin A1c 6.1 % (4.3-6.0) H Uric Acid 6.5 MG/DL (2.6-7.2) Calcium Level 8.3 MG/DL (8.5-10.1) L Phosphorus Level 3.3 MG/DL (2.5-4.9) Magnesium Level 2.0 MG/DL (1.8-2.4) Iron Level 43 ug/dL (50-175) L Total Iron Binding Capacity 193 ug/dL (250-450) L Percent Iron Saturation 22 % (15-50) Unsaturated Iron Binding 150 ug/dL (112-346) Total Bilirubin 0.4 MG/DL (0.2-1.0) Gamma Glutamyl Transpeptidase 8 U/L (5-85) Aspartate Amino Transf (AST/SGOT) 29 U/L (15-37) Alanine Aminotransferase (ALT/SGPT) 25 U/L (12-78) Alkaline Phosphatase 47 U/L (46-116) Lactate Dehydrogenase 282 U/L (81-234) H Total Creatine Kinase 553 U/L (26-308) H Total Protein 6.3 G/DL (6.4-8.2) L Albumin 2.7 G/DL (3.4-5.0) L Globulin 3.6 g/dL Albumin/Globulin Ratio 0.8 (1.0-2.7) L Carcinoembryonic Antigen Pending Vitamin B12 Level 257 PG/ML (193-986) Folate 10.9 NG/ML (8.6-58.9) Thyroid Stimulating Hormone (TSH) 2.276 uiU/mL (0.358-3.740) Ferritin 119 NG/ML (8-388) Microbiology Date/Time Source Procedure Growth Status 10/07/18 08:50 Rectum Received Intake and Output 10/07/18 10/08/18 18:59 06:59 Intake Total 140 ml Balance 140 ml Intake Oral 140 ml # Voids 2 Objective PHYSICAL EXAMINATION: GENERAL: The patient is awake and responsive, in no acute distress. HEAD AND NECK: Pupils are reactive to light. Extraocular movements intact. NECK: Supple. No JVD. LUNGS: Good air entry. No wheezing or rales. HEART: Reveals S1, S2. Distant heart sounds. No gallops. ABDOMEN: Soft, nondistended, and nontender. Positive bowel sounds. EXTREMITIES: No cyanosis, clubbing, or edema. Right hand fourth finger with laceration and dislocation, finger has been reduced. RECTAL/GENITOURINARY: Refused and deferred. PSYCHIATRIC: Mood and affect is intact. Assessment/Plan Assessment/Plan ASSESSMENT: 1. Status post mechanical fall with the right hand fourth finger laceration as well as dislocation status post reduction. 2. Hypertension, uncontrolled. 3. History of CVA with left hemiparesis. 4. Chronic kidney disease. 5. Anemia. PLAN: 1. Admit the patient to monitor unit. 2. Dr. Frye pulmonary consultation as well as 3. Dr. Newsome from Infectious Disease. 4. Follow up with 2D echo. 5. Code status is Full Code. 6. DVT prophylaxis with heparin subcutaneous. We will follow up with the 7. anemia workup in progress. We will hold aspirin at this time due to the patient's anemia. Follow up with the PT and OT evaluation. 8. discharge planning: [facility] facility Farzad Sams MD Oct 08, 2018 17:05
--- NOTE | 2018-10-08 19:40 | NUR ---
HAND-OFF: Report given to [facility]. Patient in stable condition.
--- NOTE | 2018-10-08 19:41 | NUR ---
NURSE NOTES: Received pt from [facility]. Pt is awake and resting in bed in no acute distress. IV site intact and running. Bed locked in lowest position, call light within reach. Bed alarm on. Will continue with plan of care.
--- NOTE | 2018-10-08 21:00 | Consultation ---
DATE OF CONSULTATION: 10/08/2018 CARDIOLOGY CONSULTATION CONSULTING PHYSICIAN: Layton Croft M.D. REFERRING PHYSICIANS: 1. Casie Frye M.D. 2. Tripp Estevez M.D. REASON FOR REFERRAL: Fall, questionable syncope. HISTORY OF PRESENT ILLNESS: This is an elderly gentleman, who is admitted to the hospital because of a fall. He indicates he actually was walking on sidewalk, tripped and fell, hit his head and his finger, and had injury sustained to those. He absolutely denies any lightheadedness, syncope, or near syncope. He does get some lightheadedness occasionally when he does stand up, but he indicates that that has nothing to do with his fall yesterday. He does not have any chest pain or pressure. There is no PND. No orthopnea. He uses one pillow. He is visiting. He is here from [place]. PAST MEDICAL HISTORY: Positive for high blood pressure and history of a stroke. No history of heart attack. No cancer. No hepatitis or tuberculosis. No asthma or emphysema. No ulcers. No kidney problems, liver problems, thyroid problems, anemia, arthritis, HIV, AIDS, or blood clots. He does have some prostatic enlargement apparently. He had a stroke and he ended up having carotid endarterectomy on the right side. ALLERGIES: He has no known drug allergies. SOCIAL HISTORY: He used to smoke many years ago, does not anymore. No drinking alcoholic beverages. REVIEW OF SYSTEMS: GASTROINTESTINAL: He denies. GENITOURINARY: He denies. PULMONARY: He does have a cough . CONSTITUTIONAL: Negative. NEUROLOGIC: Left-sided weakness. PHYSICAL EXAMINATION: GENERAL: Shows to be elderly gentleman, in no respiratory distress. HEENT: Unremarkable. NECK: Supple. There is a carotid scar on the right side of carotid area. LUNGS: Clear. CARDIAC: Regular rate and rhythm. No heaves or thrills. ABDOMEN: Soft, nontender. Positive bowel sounds. EXTREMITIES: Upper extremities, less and lower extremities seem to be fine. LABORATORY VALUES: White count of 9.9, hemoglobin of 9.4, and platelet count of 232,000. Sodium is 144, potassium 4.3, chloride 111, bicarb of 26, BUN of 20, creatinine of 1.7 down from 1.9, and A1c of 6.1. Uric acid was 6.5. B12 is 218. TSH of 2.2. Folic acid of 8. Albumin of 2.7. Total CK 503. LDH of 282. His coags, INR of 1 and PTT of 28. He had a CT scan of his head that showed no evidence of acute intracranial hemorrhage, mass effect, or atrophy; nonspecific periventricular hypoattenuation, chronic infarct of the right frontal lobe. He had an echocardiogram apparently [id number] aortic regurgitation, the aortic valve area of 1.4, peak of 19 and mean of 10 mmHg across the aortic valve. His telemetry is showing sinus rhythm. There are no electrocardiograms for review at this time. ASSESSMENT AND PLAN: 1. Non-syncopal fall. 2. Right dorsal dislocation of PIP joint of the index finger. 3. History of CVA with carotid endarterectomy. 4. History of hypertension. Dr. Frye and Dr. Estevez, this patient was seen in cardiac consultation. No syncope is noted. Telemetry is unremarkable. An EKG will be ordered. Otherwise, I doubt that there was major cardiac component to this fall. His blood pressure is elevated at this time and his home medications include amlodipine that has already been started although he still appears to be somewhat poorly controlled. He will not be receiving SURAJ inhibitors in light of his renal insufficiency. Dr. Keenan has seen the patient. Hydralazine had been started and we will follow the patient along. In light of the fact that he has had history of a stroke, he should be on some statins as well as some aspirin, which I will write for. Layton Croft M.D. DR: AZAEL JOB#: [id number] CC:
[2018-10-09] VITALS (7 sets, daily range): BP systolic 112–180; BP diastolic 69–85
[2018-10-09] MEDS: Cephalexin 500mg cap ORAL SCH ×3 (06:12→22:33)
[2018-10-09] MEDS: HydrALAZINE 50mg tab ORAL SCH ×3 (06:15→22:33)
--- NOTE | 2018-10-09 07:12 | NUR ---
NURSE NOTES: Report received from [facility]. Patient AOx4. IN RA. Denies any pain or SOB. IV patent and SL. Bed on lowest position, side rails upx2, brakes engaged. Call light within easy reach.
[2018-10-09 07:30] LABS: BASOPHILS % (AUTO) 0.7 % (0.0-2.0); EOSINOPHILS % (AUTO) 5.2 % (0.0-3.0); HEMATOCRIT 32.8 % (42.0-52.0); HEMOGLOBIN 10.2 G/DL (14.2-18.0); LYMPHOCYTES % (AUTO) 15.6 % (20.0-45.0); MEAN CORPUSCULAR VOLUME 86 FL (80-99); MONOCYTES % (AUTO) 8.5 % (1.0-10.0); NEUTROPHILS % (AUTO) 70.1 % (45.0-75.0); PLATELET COUNT 256 K/UL (150-450); RED BLOOD COUNT 3.79 M/UL (4.70-6.10); RED CELL DISTRIBUTION WIDTH 13.5 % (11.6-14.8); WHITE BLOOD COUNT 8.2 K/UL (4.8-10.8)
--- NOTE | 2018-10-09 07:46 | NUR ---
HAND-OFF: Report given to [facility]. Pt is resting in bed in no acute distress. Bed locked in lowest position, call light within reach. Endorsed plan of care.
[2018-10-09 07:51] LABS: ANION GAP 8 mmol/L (5-15); BLOOD UREA NITROGEN 20 mg/dL (7-18); CALCIUM 8.9 MG/DL (8.5-10.1); CARBON DIOXIDE 24 MMOL/L (21-32); CHLORIDE 109 MMOL/L (98-107); CREATININE 1.5 MG/DL (0.55-1.30); POTASSIUM 3.9 MMOL/L (3.5-5.1); SODIUM 141 MMOL/L (136-145)
[2018-10-09] MEDS: Metoprolol Tartrate 12.5mg TAB ORAL SCH ×2 (09:00→21:31)
[2018-10-09] MEDS: Heparin 5000 units/ml inj SUBQ SCH ×2 (09:04→21:35)
--- NOTE | 2018-10-09 10:49 | Nephrology Progress Note ---
Assessment/Plan Problem List: (1) Renal failure (ARF), acute on chronic Assessment: improved (2) History of hypertension (3) Anemia (4) History of CVA (cerebrovascular accident) Assessment Renal Failure- ? acute obn top of chronic Anemia HTN h/o CVA Rt 4th finger laceration: reason for admission Plan Anemia hammonds bit of low folate U Na U Analysis BP control, further adjustment done Avoid Nephrotoxics ? DC planning? Subjective ROS Limited/Unobtainable: No Objective Objective Last 24 Hour Vital Signs Date Time Temp Pulse Resp B/P (MAP) Pulse Ox O2 Delivery O2 Flow Rate FiO2 10/09/18 09:00 68 177/76 10/09/18 09:00 68 177/76 10/09/18 08:00 96.1 68 18 177/76 (109) 98 10/09/18 06:15 185/96 10/09/18 04:00 71 10/09/18 04:00 97.9 71 18 150/81 (104) 98 10/09/18 00:00 75 10/09/18 00:00 97.5 75 18 116/85 (95) 97 10/08/18 22:33 180/71 10/08/18 21:29 74 171/81 10/08/18 21:00 Room Air 10/08/18 20:00 84 10/08/18 20:00 98.8 84 18 150/60 (90) 97 10/08/18 18:09 75 157/62 10/08/18 16:00 75 10/08/18 16:00 98.9 75 20 157/62 (93) 98 10/08/18 14:24 156/65 10/08/18 12:00 66 10/08/18 12:00 98.3 65 18 156/65 (95) 96 Intake and Output 10/08/18 10/09/18 19:00 07:00 Intake Total 360 ml 120 ml Output Total 600 ml Balance -240 ml 120 ml Intake Oral 360 ml 120 ml Output Urine Total 600 ml # Voids 2 2 Laboratory Tests 10/09/18 05:50: White Blood Count 8.2, Red Blood Count 3.79L, Hemoglobin 10.2L, Hematocrit 32.8L , Mean Corpuscular Volume 86, Mean Corpuscular Hemoglobin 26.8L, Mean Corpuscular Hemoglobin Concent 31.0L, Red Cell Distribution Width 13.5, Platelet Count 256, Mean Platelet Volume 5.5L, Neutrophils (%) (Auto) 70.1, Lymphocytes (%) (Auto) 15.6L, Monocytes (%) (Auto) 8.5, Eosinophils (%) (Auto) 5.2H, Basophils (%) (Auto) 0.7, Sodium Level 141, Potassium Level 3.9, Chloride Level 109H, Carbon Dioxide Level 24, Anion Gap 8, Blood Urea Nitrogen 20H, Creatinine 1.5H, Estimat Glomerular Filtration Rate , Glucose Level 82, Calcium Level 8.9 Height (Feet): 5 Height (Inches): 10.00 Weight (Pounds): 150 General Appearance: no apparent distress Objective no change Andrade Keenan MD Oct 09, 2018 10:49
--- NOTE | 2018-10-09 13:47 | Diagnostic Imaging Report ---
CT CHEST WITHOUT CONTRAST AND CT NECK WITHOUT CONTRAST INDICATION: Concern for mass TECHNIQUE: Continuous helical transaxial imaging of the chest was obtained. Coronal 2-D reformats were also obtained. Study obtained in a Siemens sensation [address] Automatic Exposure Control was utilized. Total Dose length Product (DLP): 1170.[address] Dose Index Volume (CTDIvol): 16.96,21.75 mGy COMPARISON: None FINDINGS: CT NECK: Airway is patent. No mass identified. There are multilevel discogenic degenerative changes of the visualized spine characterized by disc space narrowing, endplate osteophyte formation, subchondral sclerosis, and uncovertebral hypertrophy leading to mild to moderate bilateral foraminal narrowing, worse at the levels of C3-C4 and C4-C5.. No prevertebral soft tissue swelling. CT CHEST: Lungs and pleura: Moderate emphysema. There is mild interstitial edema. Left greater than right small pleural effusions. Scattered tiny pulmonary nodules less than 2 mm. There is a solid 3 mm left lower lobe nodule (8:42). There is a 5 mm and 4 mm solid subpleural nodule cluster in the left lower lobe (18:39). Heart and mediastinum: Mild cardiomegaly. Mild coronary atherosclerotic calcifications. Aortic valve is calcified. Trace pericardial fluid. Airway: Patent without debris. Mild diffuse peribronchial thickening. Lymph nodes: No enlarged lymph nodes. Vasculature: Ascending aorta is normal in caliber. Main pulmonary artery is normal in caliber. There is moderate aortic atherosclerotic calcifications. Upper abdomen: Right renal cyst. Colonic diverticulosis. Bones and soft tissue:There are multilevel discogenic degenerative changes of the visualized spine. IMPRESSION: 1. No evidence of cervical soft tissue mass. 2. Mild interstitial edema with small bilateral pleural effusions. 3. Moderate emphysema with scattered tiny pulmonary nodules, likely infectious/inflammatory given evidence of small airways disease. Follow-up CT in one year is recommended for surveillance of larger nodules. These findings are concordant with the [facility] preliminary report. The CT scanner at [facility] is accredited by the [employer] and the scans are performed using protocols designed to limit radiation exposure to as low as reasonably achievable to attain images of sufficient resolution adequate for diagnostic evaluation
--- NOTE | 2018-10-09 15:11 | Internal Med Progress Note ---
Subjective Date of Service: Oct 09, 2018 Physician Name SamsFarzad Attending Physician Tripp Estevez MD Current Medications Medications (Trade) Dose Ordered Sig/[place] Route PRN Reason Start Time Stop Time Status Last Admin Dose Admin Acetaminophen (Tylenol) 650 mg Q4H PRN ORAL T>100.5 10/07/18 11:00 11/06/18 10:59 Albuterol/ Ipratropium (Albuterol/ Ipratropium) 3 ml Q4H PRN HHN Shortness of Breath 10/07/18 11:00 10/12/18 10:59 10/09/18 14:09 Amlodipine Besylate (Norvasc) 5 mg BID ORAL 10/08/18 09:00 11/07/18 08:59 10/09/18 09:00 Cephalexin (Keflex) 500 mg EVERY 8 HOURS ORAL 10/07/18 22:00 10/14/18 21:59 10/09/18 13:47 Clonidine HCl (Catapres Tab) 0.1 mg Q4H PRN ORAL SBP>160 10/08/18 06:59 11/07/18 06:58 Dextrose (Dextrose 50%) 25 ml Q30M PRN IV Hypoglycemia 10/07/18 11:00 11/06/18 10:59 Dextrose (Dextrose 50%) 50 ml Q30M PRN IV Hypoglycemia 10/07/18 11:00 11/06/18 10:59 Folic Acid (Folate) 2 mg DAILY ORAL 10/08/18 09:15 11/07/18 09:14 10/09/18 09:01 Heparin Sodium (Porcine) (Heparin 5000 units/ml) 5,000 units EVERY 12 HOURS SUBQ 10/07/18 11:00 11/06/18 10:59 10/09/18 09:04 Hydralazine HCl (Apresoline) 50 mg Q8HR ORAL 10/08/18 14:00 11/06/18 17:59 10/09/18 13:47 Metoprolol Tartrate (Lopressor) 12.5 mg Q12HR ORAL 10/08/18 09:15 11/07/18 09:14 10/09/18 09:00 Morphine Sulfate (Morphine Sulfate) 2 mg Q4H PRN IVP Severe Pain (Pain Scale 7-10) 10/07/18 11:00 10/14/18 10:59 Ondansetron HCl (Zofran) 4 mg Q6H PRN IVP Nausea & Vomiting 10/07/18 11:00 11/06/18 10:59 Polyethylene Glycol (Miralax) 17 gm DAILYPRN PRN ORAL Constipation 10/07/18 11:00 11/06/18 10:59 Allergies: Coded Allergies: No Known Allergies (Unverified , 10/07/18) ROS Limited/Unobtainable: No Constitutional: Reports: no symptoms HEENT: Reports: no symptoms Cardiovascular: Reports: no symptoms Respiratory: Reports: no symptoms Gastrointestinal/Abdominal: Reports: no symptoms Genitourinary: Reports: no symptoms Neurologic/Psychiatric: Reports: no symptoms Subjective 82 YO M admitted after mechanical fall. Now fractured finger. Cover for Int Koffi-Dr Estevez Objective Last Vital Signs Date Time Temp Pulse Resp B/P (MAP) Pulse Ox O2 Delivery O2 Flow Rate FiO2 10/09/18 14:20 81 16 100 Room Air 21 10/09/18 13:47 135/74 10/09/18 12:00 97.0 Laboratory Tests Test 10/09/18 05:50 White Blood Count 8.2 K/UL (4.8-10.8) Red Blood Count 3.79 M/UL (4.70-6.10) L Hemoglobin 10.2 G/DL (14.2-18.0) L Hematocrit 32.8 % (42.0-52.0) L Mean Corpuscular Volume 86 FL (80-99) Mean Corpuscular Hemoglobin 26.8 PG (27.0-31.0) L Mean Corpuscular Hemoglobin Concent 31.0 G/DL (32.0-36.0) L Red Cell Distribution Width 13.5 % (11.6-14.8) Platelet Count 256 K/UL (150-450) Mean Platelet Volume 5.5 FL (6.5-10.1) L Neutrophils (%) (Auto) 70.1 % (45.0-75.0) Lymphocytes (%) (Auto) 15.6 % (20.0-45.0) L Monocytes (%) (Auto) 8.5 % (1.0-10.0) Eosinophils (%) (Auto) 5.2 % (0.0-3.0) H Basophils (%) (Auto) 0.7 % (0.0-2.0) Sodium Level 141 MMOL/L (136-145) Potassium Level 3.9 MMOL/L (3.5-5.1) Chloride Level 109 MMOL/L (98-107) H Carbon Dioxide Level 24 MMOL/L (21-32) Anion Gap 8 mmol/L (5-15) Blood Urea Nitrogen 20 mg/dL (7-18) H Creatinine 1.5 MG/DL (0.55-1.30) H Estimat Glomerular Filtration Rate mL/min (>60) Glucose Level 82 MG/DL (74-106) Calcium Level 8.9 MG/DL (8.5-10.1) Microbiology Date/Time Source Procedure Growth Status 10/07/18 08:50 Nasal Nares Left MRSA Culture - Final NO METHICILLIN RESISTANT STAPH AUREUS... Complete 10/07/18 08:50 Rectum VRE Culture - Final NO VANCOMYCIN RESISTANT ENTEROCOCCUS ... Complete 10/07/18 08:50 Rectum - Final NO CARBAPENEM-RESISTANT ENTEROBACTERI... Complete Intake and Output 10/08/18 10/09/18 18:59 06:59 Intake Total 360 ml Output Total 600 ml Balance -240 ml Intake Oral 360 ml Output Urine Total 600 ml # Voids 2 2 Objective PHYSICAL EXAMINATION: GENERAL: The patient is awake and responsive, in no acute distress. HEAD AND NECK: Pupils are reactive to light. Extraocular movements intact. NECK: Supple. No JVD. LUNGS: Good air entry. No wheezing or rales. HEART: Reveals S1, S2. Distant heart sounds. No gallops. ABDOMEN: Soft, nondistended, and nontender. Positive bowel sounds. EXTREMITIES: No cyanosis, clubbing, or edema. Right hand fourth finger with laceration and dislocation, finger has been reduced. RECTAL/GENITOURINARY: Refused and deferred. PSYCHIATRIC: Mood and affect is intact. Assessment/Plan Assessment/Plan ASSESSMENT: 1. Status post mechanical fall with the right hand fourth finger laceration as well as dislocation status post reduction. 2. Hypertension, uncontrolled. 3. History of CVA with left hemiparesis. 4. Chronic kidney disease. 5. Anemia. PLAN: 1. Admit the patient to monitor unit. 2. Dr. Frye pulmonary consultation as well as 3. Dr. Newsome from Infectious Disease. 4. Follow up with 2D echo. 5. Code status is Full Code. 6. DVT prophylaxis with heparin subcutaneous. We will follow up with the 7. anemia workup in progress. We will hold aspirin at this time due to the patient's anemia. Follow up with the PT and OT evaluation. 8. discharge planning: snf facility Farzad Sams MD Oct 09, 2018 15:11
--- NOTE | 2018-10-09 15:34 | NUR ---
PT Note PT garcia completed, treatment initiated. Patient has muscle weakness, L>R with decreased postural stability. Patient needs PT services to increase his muscle strength and balance to improve his safety in mobility and gait to minimize his risk for falls. Addendum: 10/09/18 at 1534 by ERMIAS MOORE PT Amended: Links added.
--- NOTE | 2018-10-09 17:20 | Cardiology Progress Note ---
Assessment/Plan Assessment/Plan 1. Non-syncopal fall. 2. Right dorsal dislocation of PIP joint of the index finger. 3. History of CVA with carotid endarterectomy. 4. History of hypertension. seems to be doign ok cr imporved ct of chest and neck noted bp seem ok on combo of norvasc anxc hydaraalzine to start on acei or arbs when ok with dr bellamy Subjective Cardiovascular: Denies: chest pain, lightheadedness, palpitations Respiratory: Denies: shortness of breath Gastrointestinal/Abdominal: Denies: abdominal pain Genitourinary: Reports: frequency Objective Last 24 Hour Vital Signs Date Time Temp Pulse Resp B/P (MAP) Pulse Ox O2 Delivery O2 Flow Rate FiO2 10/09/18 16:00 85 10/09/18 14:20 81 16 100 Room Air 21 10/09/18 14:11 79 19 97 Room Air 21 10/09/18 14:09 79 18 97 Room Air 21 10/09/18 13:47 135/74 10/09/18 12:00 65 10/09/18 12:00 97.0 67 18 135/74 (94) 96 10/09/18 09:40 65 145/71 (95) 10/09/18 09:00 Room Air 10/09/18 09:00 68 177/76 10/09/18 09:00 68 177/76 10/09/18 08:00 96.1 68 18 177/76 (109) 98 10/09/18 08:00 84 10/09/18 06:15 185/96 10/09/18 04:00 71 10/09/18 04:00 97.9 71 18 150/81 (104) 98 10/09/18 00:00 75 10/09/18 00:00 97.5 75 18 116/85 (95) 97 10/08/18 22:33 180/71 10/08/18 21:29 74 171/81 10/08/18 21:00 Room Air 10/08/18 20:00 84 10/08/18 20:00 98.8 84 18 150/60 (90) 97 10/08/18 18:09 75 157/62 Respiratory/Chest: normal breath sounds Abdomen: soft Extremities: no swelling Intake and Output 8/10/19 8/11/19 18:59 06:59 Intake Total 360 ml Output Total 600 ml Balance -240 ml Intake Oral 360 ml Output Urine Total 600 ml # Voids 2 2 Laboratory Tests Test 10/09/18 05:50 White Blood Count 8.2 K/UL (4.8-10.8) Red Blood Count 3.79 M/UL (4.70-6.10) L Hemoglobin 10.2 G/DL (14.2-18.0) L Hematocrit 32.8 % (42.0-52.0) L Mean Corpuscular Volume 86 FL (80-99) Mean Corpuscular Hemoglobin 26.8 PG (27.0-31.0) L Mean Corpuscular Hemoglobin Concent 31.0 G/DL (32.0-36.0) L Red Cell Distribution Width 13.5 % (11.6-14.8) Platelet Count 256 K/UL (150-450) Mean Platelet Volume 5.5 FL (6.5-10.1) L Neutrophils (%) (Auto) 70.1 % (45.0-75.0) Lymphocytes (%) (Auto) 15.6 % (20.0-45.0) L Monocytes (%) (Auto) 8.5 % (1.0-10.0) Eosinophils (%) (Auto) 5.2 % (0.0-3.0) H Basophils (%) (Auto) 0.7 % (0.0-2.0) Sodium Level 141 MMOL/L (136-145) Potassium Level 3.9 MMOL/L (3.5-5.1) Chloride Level 109 MMOL/L (98-107) H Carbon Dioxide Level 24 MMOL/L (21-32) Anion Gap 8 mmol/L (5-15) Blood Urea Nitrogen 20 mg/dL (7-18) H Creatinine 1.5 MG/DL (0.55-1.30) H Estimat Glomerular Filtration Rate mL/min (>60) Glucose Level 82 MG/DL (74-106) Calcium Level 8.9 MG/DL (8.5-10.1) Microbiology Date/Time Source Procedure Growth Status 10/07/18 08:50 Nasal Nares Left MRSA Culture - Final NO METHICILLIN RESISTANT STAPH AUREUS... Complete 10/07/18 08:50 Rectum VRE Culture - Final NO VANCOMYCIN RESISTANT ENTEROCOCCUS ... Complete 10/07/18 08:50 Rectum - Final NO CARBAPENEM-RESISTANT ENTEROBACTERI... Complete Layton Croft MD Oct 09, 2018 17:20
--- NOTE | 2018-10-09 19:15 | NUR ---
HAND-OFF: Report given to DOT [facility]. Patient in stable condition.
--- NOTE | 2018-10-09 19:16 | NUR ---
NURSE NOTES: Received pt from DOT [facility]. Pt is awake and resting in bed. Will continue with plan of care.
--- NOTE | 2018-10-09 19:25 | Pulmonology Progress Note ---
Assessment/Plan Problems: (1) Pneumonia (2) History of hypertension (3) History of CVA (cerebrovascular accident) Assessment/Plan doing better respiratory treatment check electrolytes dvt prophylaxis no new complains Subjective ROS Limited/Unobtainable: No HEENT: Repors: no symptoms Respiratory: Reports: no symptoms Cardiovascular: Reports: no symptoms Allergies: Coded Allergies: No Known Allergies (Unverified , 10/07/18) Objective Last 24 Hour Vital Signs Date Time Temp Pulse Resp B/P (MAP) Pulse Ox O2 Delivery O2 Flow Rate FiO2 10/09/18 18:50 79 112/67 10/09/18 16:00 98.7 79 18 112/69 (83) 97 10/09/18 16:00 85 10/09/18 14:20 81 16 100 Room Air 21 10/09/18 14:11 79 19 97 Room Air 21 10/09/18 14:09 79 18 97 Room Air 21 10/09/18 13:47 135/74 10/09/18 12:00 65 10/09/18 12:00 97.0 67 18 135/74 (94) 96 10/09/18 09:40 65 145/71 (95) 10/09/18 09:00 Room Air 10/09/18 09:00 68 177/76 10/09/18 09:00 68 177/76 10/09/18 08:00 96.1 68 18 177/76 (109) 98 10/09/18 08:00 84 10/09/18 06:15 185/96 10/09/18 04:00 71 10/09/18 04:00 97.9 71 18 150/81 (104) 98 10/09/18 00:00 75 10/09/18 00:00 97.5 75 18 116/85 (95) 97 10/08/18 22:33 180/71 10/08/18 21:29 74 171/81 10/08/18 21:00 Room Air 10/08/18 20:00 84 10/08/18 20:00 98.8 84 18 150/60 (90) 97 Intake and Output 10/08/18 10/09/18 18:59 06:59 Intake Total 360 ml Output Total 600 ml Balance -240 ml Intake Oral 360 ml Output Urine Total 600 ml # Voids 2 2 General Appearance: WD/WN HEENT: normocephalic, anicteric Respiratory/Chest: chest wall non-tender, lungs clear Cardiovascular: normal peripheral pulses, normal rate Abdomen: normal bowel sounds, soft, non tender Genitourinary: normal external genitalia Extremities: no clubbing Skin: no rash 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 Complete 10/07/18 08:50 Rectum VRE Culture - Final NO VANCOMYCIN RESISTANT ENTEROCOCCUS ... Complete 10/07/18 08:50 Rectum - Final NO CARBAPENEM-RESISTANT ENTEROBACTERI... Complete Laboratory Tests 10/09/18 05:50: White Blood Count 8.2, Red Blood Count 3.79L, Hemoglobin 10.2L, Hematocrit 32.8L , Mean Corpuscular Volume 86, Mean Corpuscular Hemoglobin 26.8L, Mean Corpuscular Hemoglobin Concent 31.0L, Red Cell Distribution Width 13.5, Platelet Count 256, Mean Platelet Volume 5.5L, Neutrophils (%) (Auto) 70.1, Lymphocytes (%) (Auto) 15.6L, Monocytes (%) (Auto) 8.5, Eosinophils (%) (Auto) 5.2H, Basophils (%) (Auto) 0.7, Sodium Level 141, Potassium Level 3.9, Chloride Level 109H, Carbon Dioxide Level 24, Anion Gap 8, Blood Urea Nitrogen 20H, Creatinine 1.5H, Estimat Glomerular Filtration Rate , Glucose Level 82, Calcium Level 8.9 Current Medications Medications (Trade) Dose Ordered Sig/[place] Route PRN Reason Start Time Stop Time Status Last Admin Dose Admin Acetaminophen (Tylenol) 650 mg Q4H PRN ORAL T>100.5 10/07/18 11:00 11/06/18 10:59 Albuterol/ Ipratropium (Albuterol/ Ipratropium) 3 ml Q4H PRN HHN Shortness of Breath 10/07/18 11:00 10/12/18 10:59 10/09/18 14:09 Amlodipine Besylate (Norvasc) 5 mg BID ORAL 10/08/18 09:00 11/07/18 08:59 10/09/18 18:50 Cephalexin (Keflex) 500 mg EVERY 8 HOURS ORAL 10/07/18 22:00 10/14/18 21:59 10/09/18 13:47 Clonidine HCl (Catapres Tab) 0.1 mg Q4H PRN ORAL SBP>160 10/08/18 06:59 11/07/18 06:58 Dextrose (Dextrose 50%) 25 ml Q30M PRN IV Hypoglycemia 10/07/18 11:00 11/06/18 10:59 Dextrose (Dextrose 50%) 50 ml Q30M PRN IV Hypoglycemia 10/07/18 11:00 11/06/18 10:59 Folic Acid (Folate) 2 mg DAILY ORAL 10/08/18 09:15 11/07/18 09:14 10/09/18 09:01 Heparin Sodium (Porcine) (Heparin 5000 units/ml) 5,000 units EVERY 12 HOURS SUBQ 10/07/18 11:00 11/06/18 10:59 10/09/18 09:04 Hydralazine HCl (Apresoline) 50 mg Q8HR ORAL 10/08/18 14:00 11/06/18 17:59 10/09/18 13:47 Metoprolol Tartrate (Lopressor) 12.5 mg Q12HR ORAL 10/08/18 09:15 11/07/18 09:14 10/09/18 09:00 Morphine Sulfate (Morphine Sulfate) 2 mg Q4H PRN IVP Severe Pain (Pain Scale 7-10) 10/07/18 11:00 10/14/18 10:59 Ondansetron HCl (Zofran) 4 mg Q6H PRN IVP Nausea & Vomiting 10/07/18 11:00 11/06/18 10:59 Polyethylene Glycol (Miralax) 17 gm DAILYPRN PRN ORAL Constipation 10/07/18 11:00 11/06/18 10:59 Casie Frye MD Oct 09, 2018 19:25
[2018-10-10] VITALS: BP 143/71
[2018-10-10 04:00] VITALS: BP 147/77
[2018-10-10] MEDS: Cephalexin 500mg cap ORAL SCH ×3 (06:04→21:28)
[2018-10-10] MEDS: HydrALAZINE 50mg tab ORAL SCH ×3 (06:04→21:28)
--- NOTE | 2018-10-10 07:25 | NUR ---
HAND-OFF: Report given to DOT [facility]. Endorsed plan of care.
[2018-10-10 07:50] LABS: BASOPHILS % (AUTO) 1.1 % (0.0-2.0); EOSINOPHILS % (AUTO) 5.5 % (0.0-3.0); HEMATOCRIT 34.5 % (42.0-52.0); HEMOGLOBIN 10.8 G/DL (14.2-18.0); LYMPHOCYTES % (AUTO) 13.6 % (20.0-45.0); MEAN CORPUSCULAR VOLUME 86 FL (80-99); MONOCYTES % (AUTO) 9.8 % (1.0-10.0); PLATELET COUNT 263 K/UL (150-450); RED CELL DISTRIBUTION WIDTH 13.6 % (11.6-14.8)
[2018-10-10 08:00] VITALS: BP 132/73
[2018-10-10 08:06] LABS: ANION GAP 9 mmol/L (5-15); BLOOD UREA NITROGEN 18 mg/dL (7-18); CALCIUM 8.6 MG/DL (8.5-10.1); CARBON DIOXIDE 25 MMOL/L (21-32); CHLORIDE 107 MMOL/L (98-107); CREATININE 1.4 MG/DL (0.55-1.30); SODIUM 141 MMOL/L (136-145)
--- NOTE | 2018-10-10 08:14 | NUR ---
NURSE NOTES: Received patient from Elodia Coleman. Patient awake in bed eating his breakfast. No c/o pain or discomfort. Safety precautions in place. side rails X2 Up.Bed locked to lowest position Call darby within patients reach. Will continue to follow.
[2018-10-10] MEDS: Metoprolol Tartrate 12.5mg TAB ORAL SCH ×2 (08:47→21:28)
[2018-10-10] MEDS: Heparin 5000 units/ml inj SUBQ SCH ×2 (08:49→21:29)
--- NOTE | 2018-10-10 11:13 | Pulmonology Progress Note ---
Assessment/Plan Problems: (1) Pneumonia (2) History of hypertension (3) History of CVA (cerebrovascular accident) Assessment/Plan doing better respiratory treatment check electrolytes dvt prophylaxis no new complains Subjective ROS Limited/Unobtainable: No Constitutional: Reports: no symptoms HEENT: Repors: no symptoms Respiratory: Reports: no symptoms Allergies: Coded Allergies: No Known Allergies (Unverified , 10/07/18) Objective Last 24 Hour Vital Signs Date Time Temp Pulse Resp B/P (MAP) Pulse Ox O2 Delivery O2 Flow Rate FiO2 10/10/18 09:00 Room Air Room Air 10/10/18 08:47 92 132/73 10/10/18 08:47 92 132/73 10/10/18 08:00 92 10/10/18 08:00 96.7 92 20 132/73 (92) 98 10/10/18 06:50 71 15 98 Room Air 21 10/10/18 06:04 153/86 10/10/18 04:00 97.7 69 18 147/77 (100) 96 10/10/18 04:00 69 10/10/18 00:00 98.0 75 20 143/71 (95) 97 10/10/18 00:00 75 10/09/18 23:44 185/86 10/09/18 22:33 182/80 10/09/18 21:31 79 187/89 10/09/18 21:17 81 18 98 Room Air 21 10/09/18 21:00 Room Air Room Air 10/09/18 20:00 97.8 66 20 180/84 (116) 96 10/09/18 20:00 66 10/09/18 18:50 79 112/67 10/09/18 16:00 98.7 79 18 112/69 (83) 97 10/09/18 16:00 85 10/09/18 14:20 81 16 100 Room Air 21 10/09/18 14:11 79 19 97 Room Air 21 10/09/18 14:09 79 18 97 Room Air 21 10/09/18 13:47 135/74 10/09/18 12:00 65 10/09/18 12:00 97.0 67 18 135/74 (94) 96 Intake and Output 10/09/18 10/10/18 19:00 07:00 Intake Total 240 ml 720 ml Balance 240 ml 720 ml Intake Oral 240 ml 720 ml # Voids 5 General Appearance: WD/WN HEENT: normocephalic Respiratory/Chest: lungs clear, normal breath sounds Cardiovascular: normal rate, regular rhythm Abdomen: normal bowel sounds, soft, non tender Extremities: no cyanosis 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 Laboratory Tests 10/10/18 06:53: White Blood Count 7.0, Red Blood Count 4.00L, Hemoglobin 10.8L, Hematocrit 34.5L , Mean Corpuscular Volume 86, Mean Corpuscular Hemoglobin 26.9L, Mean Corpuscular Hemoglobin Concent 31.2L, Red Cell Distribution Width 13.6, Platelet Count 263, Mean Platelet Volume 5.8L, Neutrophils (%) (Auto) 70.0, Lymphocytes (%) (Auto) 13.6L, Monocytes (%) (Auto) 9.8, Eosinophils (%) (Auto) 5.5H, Basophils (%) (Auto) 1.1, Sodium Level 141, Potassium Level 4.0, Chloride Level 107, Carbon Dioxide Level 25, Anion Gap 9, Blood Urea Nitrogen 18, Creatinine 1.4H, Estimat Glomerular Filtration Rate , Glucose Level 90, Calcium Level 8.6 Current Medications Medications (Trade) Dose Ordered Sig/[place] Route PRN Reason Start Time Stop Time Status Last Admin Dose Admin Acetaminophen (Tylenol) 650 mg Q4H PRN ORAL T>100.5 10/07/18 11:00 11/06/18 10:59 Albuterol/ Ipratropium (Albuterol/ Ipratropium) 3 ml Q4H PRN HHN Shortness of Breath 10/07/18 11:00 10/12/18 10:59 10/09/18 14:09 Amlodipine Besylate (Norvasc) 5 mg BID ORAL 10/08/18 09:00 11/07/18 08:59 10/10/18 08:47 Cephalexin (Keflex) 500 mg EVERY 8 HOURS ORAL 10/07/18 22:00 10/14/18 21:59 10/10/18 06:04 Clonidine HCl (Catapres Tab) 0.1 mg Q4H PRN ORAL SBP>160 10/08/18 06:59 11/07/18 06:58 10/09/18 23:44 Dextrose (Dextrose 50%) 25 ml Q30M PRN IV Hypoglycemia 10/07/18 11:00 11/06/18 10:59 Dextrose (Dextrose 50%) 50 ml Q30M PRN IV Hypoglycemia 10/07/18 11:00 11/06/18 10:59 Folic Acid (Folate) 2 mg DAILY ORAL 10/08/18 09:15 11/07/18 09:14 10/10/18 08:47 Heparin Sodium (Porcine) (Heparin 5000 units/ml) 5,000 units EVERY 12 HOURS SUBQ 10/07/18 11:00 11/06/18 10:59 10/10/18 08:49 Hydralazine HCl (Apresoline) 50 mg Q8HR ORAL 10/08/18 14:00 11/06/18 17:59 10/10/18 06:04 Metoprolol Tartrate (Lopressor) 12.5 mg Q12HR ORAL 10/08/18 09:15 11/07/18 09:14 10/10/18 08:47 Morphine Sulfate (Morphine Sulfate) 2 mg Q4H PRN IVP Severe Pain (Pain Scale 7-10) 10/07/18 11:00 10/14/18 10:59 Ondansetron HCl (Zofran) 4 mg Q6H PRN IVP Nausea & Vomiting 10/07/18 11:00 11/06/18 10:59 Polyethylene Glycol (Miralax) 17 gm DAILYPRN PRN ORAL Constipation 10/07/18 11:00 11/06/18 10:59 Casie Frye MD Oct 10, 2018 11:13
[2018-10-10] MEDS ORDERED: APRESOLINE50 MG ORAL (11:15)
[2018-10-10] MEDS ORDERED: KEFLEX500 M1 ORAL (11:15)
[2018-10-10] MEDS ORDERED: NORVASC5 MG ORAL (11:15)
[2018-10-10 12:00] VITALS: BP 148/56
--- NOTE | 2018-10-10 12:08 | Nephrology Progress Note ---
Assessment/Plan Problem List: (1) Renal failure (ARF), acute on chronic Assessment: improved (2) History of hypertension (3) Anemia (4) History of CVA (cerebrovascular accident) Assessment Renal Failure- ? acute obn top of chronic Anemia HTN h/o CVA Rt 4th finger laceration: reason for admission Plan Anemia hammonds bit of low folate U Na U Analysis BP control, further adjustment done Avoid Nephrotoxics ? DC planning? Subjective ROS Limited/Unobtainable: No Objective Objective Last 24 Hour Vital Signs Date Time Temp Pulse Resp B/P (MAP) Pulse Ox O2 Delivery O2 Flow Rate FiO2 10/10/18 12:00 96.8 51 20 148/56 (86) 98 10/10/18 09:00 Room Air Room Air 10/10/18 08:47 92 132/73 10/10/18 08:47 92 132/73 10/10/18 08:00 92 10/10/18 08:00 96.7 92 20 132/73 (92) 98 10/10/18 06:50 71 15 98 Room Air 21 10/10/18 06:04 153/86 10/10/18 04:00 97.7 69 18 147/77 (100) 96 10/10/18 04:00 69 10/10/18 00:00 98.0 75 20 143/71 (95) 97 10/10/18 00:00 75 10/09/18 23:44 185/86 10/09/18 22:33 182/80 10/09/18 21:31 79 187/89 10/09/18 21:17 81 18 98 Room Air 21 10/09/18 21:00 Room Air Room Air 10/09/18 20:00 97.8 66 20 180/84 (116) 96 10/09/18 20:00 66 10/09/18 18:50 79 112/67 10/09/18 16:00 98.7 79 18 112/69 (83) 97 10/09/18 16:00 85 10/09/18 14:20 81 16 100 Room Air 21 10/09/18 14:11 79 19 97 Room Air 21 10/09/18 14:09 79 18 97 Room Air 21 10/09/18 13:47 135/74 Intake and Output 10/09/18 10/10/18 19:00 07:00 Intake Total 240 ml 720 ml Balance 240 ml 720 ml Intake Oral 240 ml 720 ml # Voids 5 Laboratory Tests 10/10/18 06:53: White Blood Count 7.0, Red Blood Count 4.00L, Hemoglobin 10.8L, Hematocrit 34.5L , Mean Corpuscular Volume 86, Mean Corpuscular Hemoglobin 26.9L, Mean Corpuscular Hemoglobin Concent 31.2L, Red Cell Distribution Width 13.6, Platelet Count 263, Mean Platelet Volume 5.8L, Neutrophils (%) (Auto) 70.0, Lymphocytes (%) (Auto) 13.6L, Monocytes (%) (Auto) 9.8, Eosinophils (%) (Auto) 5.5H, Basophils (%) (Auto) 1.1, Sodium Level 141, Potassium Level 4.0, Chloride Level 107, Carbon Dioxide Level 25, Anion Gap 9, Blood Urea Nitrogen 18, Creatinine 1.4H, Estimat Glomerular Filtration Rate , Glucose Level 90, Calcium Level 8.6 Height (Feet): 5 Height (Inches): 10.00 Weight (Pounds): 150 General Appearance: no apparent distress Objective no change Andrade Keenan MD Oct 10, 2018 12:08
--- NOTE | 2018-10-10 12:21 | Infectious Diseases Prog Note ---
Assessment/Plan Assessment/Plan Assessment: Afebrile No leukocytosis R 4th finger green-2ry to PIP dislocation and laceration, s/p reduction -repeat R hand xray: Successful reduction of the previously seen dislocation at the fourth proximal interphalangeal joint. No definite/displaced acute fracture. -xray R hand: Dislocation at the fourth proximal interphalangeal joint. No definite/displaced associated acute fracture.Osteoarthrosis. s/p Fall -Head CT: Exam limited by motion artifact. Within this limitations:No evidence of acute intracranial hemorrhage, mass effect or cortical edema. MRI maybe obtained for more sensitive evaluation as clinically indicated. Atrophy and nonspecific periventricular hypoattenuation suggestive of chronic ischemic microvascular changes. Likely chronic infarct in the right frontal lobe. Left supraorbital soft tissue swelling. No depressed skull fracture. -CT chest: No discrete mass.Pulmonary emphysema.Cardiomegaly. Small pericardial fluid.Small left and trace right pleural effusions. Right renal cyst. -CT neck: No discrete mass. Pulmonary emphysema. Cervical spondylosis with central canal and foraminal stenosis. Dyspnea -CXR: Nonspecific mild interstitial prominence, possibly chronic. No definite focal consolidation, pleural effusion, pneumothorax or evidence of alveolar edema. Borderline cardiomegaly, possibly exaggerated by AP technique.Bilateral hilar prominence most likely related to ectatic pulmonary vasculature. LILLIE, improving -u/a neg -Renal US: Slightly increased echogenicity within the kidneys which can be seen in the setting of medical renal disease. No hydronephrosis. Cyst within the right renal upper pole. No stones. Unremarkable appearance of the bladder. CVA w L side weakness HTN appendectomy Plan: -Continue prophylactic PO Keflex #4/5 -10/07 IV Vancomycin, Ceftriaxone #1, Cefepime x1 -f/u cx -Monitor CBC/CMP, temperatures -wound care Thank you for this consultation. Will continue to follow along with you. Discussed with RN. Subjective Allergies: Coded Allergies: No Known Allergies (Unverified , 10/07/18) Subjective afebrile no leukocytosis Objective Vital Signs Last 24 Hour Vital Signs Date Time Temp Pulse Resp B/P (MAP) Pulse Ox O2 Delivery O2 Flow Rate FiO2 10/10/18 09:00 Room Air Room Air 10/10/18 08:47 92 132/73 10/10/18 08:47 92 132/73 10/10/18 08:00 92 8/12/19 08:00 96.7 92 20 132/73 (92) 98 10/10/18 06:50 71 15 98 Room Air 21 10/10/18 06:04 153/86 10/10/18 04:00 97.7 69 18 147/77 (100) 96 10/10/18 04:00 69 10/10/18 00:00 98.0 75 20 143/71 (95) 97 10/10/18 00:00 75 10/09/18 23:44 185/86 10/09/18 22:33 182/80 10/09/18 21:31 79 187/89 10/09/18 21:17 81 18 98 Room Air 21 10/09/18 21:00 Room Air Room Air 10/09/18 20:00 97.8 66 20 180/84 (116) 96 10/09/18 20:00 66 10/09/18 18:50 79 112/67 10/09/18 16:00 98.7 79 18 112/69 (83) 97 10/09/18 16:00 85 10/09/18 14:20 81 16 100 Room Air 21 10/09/18 14:11 79 19 97 Room Air 21 10/09/18 14:09 79 18 97 Room Air 21 10/09/18 13:47 135/74 10/09/18 12:00 65 10/09/18 12:00 97.0 67 18 135/74 (94) 96 Height (Feet): 5 Height (Inches): 10.00 Weight (Pounds): 150 Objective General Appearance: thin Lines, tubes and drains: peripheral, PICC HEENT: normocephalic, atraumatic Neck: non-tender, supple Respiratory/Chest: chest wall non-tender, lungs clear Cardiovascular/Chest: normal peripheral pulses Abdomen: normal bowel sounds Extremities: , laceration - R 4th finger laceration Laboratory Tests Test 10/10/18 06:53 White Blood Count 7.0 K/UL (4.8-10.8) Red Blood Count 4.00 M/UL (4.70-6.10) L Hemoglobin 10.8 G/DL (14.2-18.0) L Hematocrit 34.5 % (42.0-52.0) L Mean Corpuscular Volume 86 FL (80-99) Mean Corpuscular Hemoglobin 26.9 PG (27.0-31.0) L Mean Corpuscular Hemoglobin Concent 31.2 G/DL (32.0-36.0) L Red Cell Distribution Width 13.6 % (11.6-14.8) Platelet Count 263 K/UL (150-450) Mean Platelet Volume 5.8 FL (6.5-10.1) L Neutrophils (%) (Auto) 70.0 % (45.0-75.0) Lymphocytes (%) (Auto) 13.6 % (20.0-45.0) L Monocytes (%) (Auto) 9.8 % (1.0-10.0) Eosinophils (%) (Auto) 5.5 % (0.0-3.0) H Basophils (%) (Auto) 1.1 % (0.0-2.0) Sodium Level 141 MMOL/L (136-145) Potassium Level 4.0 MMOL/L (3.5-5.1) Chloride Level 107 MMOL/L (98-107) Carbon Dioxide Level 25 MMOL/L (21-32) Anion Gap 9 mmol/L (5-15) Blood Urea Nitrogen 18 mg/dL (7-18) Creatinine 1.4 MG/DL (0.55-1.30) H Estimat Glomerular Filtration Rate mL/min (>60) Glucose Level 90 MG/DL (74-106) Calcium Level 8.6 MG/DL (8.5-10.1) Current Medications Medications (Trade) Dose Ordered Sig/[place] Route PRN Reason Start Time Stop Time Status Last Admin Dose Admin Acetaminophen (Tylenol) 650 mg Q4H PRN ORAL T>100.5 10/07/18 11:00 11/06/18 10:59 Albuterol/ Ipratropium (Albuterol/ Ipratropium) 3 ml Q4H PRN HHN Shortness of Breath 10/07/18 11:00 10/12/18 10:59 10/09/18 14:09 Amlodipine Besylate (Norvasc) 5 mg BID ORAL 10/08/18 09:00 11/07/18 08:59 10/10/18 08:47 Cephalexin (Keflex) 500 mg EVERY 8 HOURS ORAL 10/07/18 22:00 10/14/18 21:59 10/10/18 06:04 Clonidine HCl (Catapres Tab) 0.1 mg Q4H PRN ORAL SBP>160 10/08/18 06:59 11/07/18 06:58 10/09/18 23:44 Dextrose (Dextrose 50%) 25 ml Q30M PRN IV Hypoglycemia 10/07/18 11:00 11/06/18 10:59 Dextrose (Dextrose 50%) 50 ml Q30M PRN IV Hypoglycemia 10/07/18 11:00 11/06/18 10:59 Folic Acid (Folate) 2 mg DAILY ORAL 10/08/18 09:15 11/07/18 09:14 10/10/18 08:47 Heparin Sodium (Porcine) (Heparin 5000 units/ml) 5,000 units EVERY 12 HOURS SUBQ 10/07/18 11:00 11/06/18 10:59 10/10/18 08:49 Hydralazine HCl (Apresoline) 50 mg Q8HR ORAL 10/08/18 14:00 11/06/18 17:59 10/10/18 06:04 Metoprolol Tartrate (Lopressor) 12.5 mg Q12HR ORAL 10/08/18 09:15 11/07/18 09:14 10/10/18 08:47 Morphine Sulfate (Morphine Sulfate) 2 mg Q4H PRN IVP Severe Pain (Pain Scale 7-10) 10/07/18 11:00 10/14/18 10:59 Ondansetron HCl (Zofran) 4 mg Q6H PRN IVP Nausea & Vomiting 10/07/18 11:00 11/06/18 10:59 Polyethylene Glycol (Miralax) 17 gm DAILYPRN PRN ORAL Constipation 10/07/18 11:00 11/06/18 10:59 Marly Newsome M.D. Oct 10, 2018 12:21
--- NOTE | 2018-10-10 13:31 | Internal Med Progress Note ---
Subjective Date of Service: Oct 10, 2018 Physician Name Farzad Sams Attending Physician Tripp Estevez MD Current Medications Medications (Trade) Dose Ordered Sig/[place] Route PRN Reason Start Time Stop Time Status Last Admin Dose Admin Acetaminophen (Tylenol) 650 mg Q4H PRN ORAL T>100.5 10/07/18 11:00 11/06/18 10:59 Albuterol/ Ipratropium (Albuterol/ Ipratropium) 3 ml Q4H PRN HHN Shortness of Breath 10/07/18 11:00 10/12/18 10:59 10/09/18 14:09 Amlodipine Besylate (Norvasc) 5 mg BID ORAL 10/08/18 09:00 11/07/18 08:59 10/10/18 08:47 Cephalexin (Keflex) 500 mg EVERY 8 HOURS ORAL 10/07/18 22:00 10/14/18 21:59 10/10/18 13:07 Clonidine HCl (Catapres Tab) 0.1 mg Q4H PRN ORAL SBP>160 10/08/18 06:59 11/07/18 06:58 10/09/18 23:44 Dextrose (Dextrose 50%) 25 ml Q30M PRN IV Hypoglycemia 10/07/18 11:00 11/06/18 10:59 Dextrose (Dextrose 50%) 50 ml Q30M PRN IV Hypoglycemia 10/07/18 11:00 11/06/18 10:59 Folic Acid (Folate) 2 mg DAILY ORAL 10/08/18 09:15 11/07/18 09:14 10/10/18 08:47 Heparin Sodium (Porcine) (Heparin 5000 units/ml) 5,000 units EVERY 12 HOURS SUBQ 10/07/18 11:00 11/06/18 10:59 10/10/18 08:49 Hydralazine HCl (Apresoline) 50 mg Q8HR ORAL 10/08/18 14:00 11/06/18 17:59 10/10/18 13:07 Metoprolol Tartrate (Lopressor) 12.5 mg Q12HR ORAL 10/08/18 09:15 11/07/18 09:14 10/10/18 08:47 Morphine Sulfate (Morphine Sulfate) 2 mg Q4H PRN IVP Severe Pain (Pain Scale 7-10) 10/07/18 11:00 10/14/18 10:59 Ondansetron HCl (Zofran) 4 mg Q6H PRN IVP Nausea & Vomiting 10/07/18 11:00 11/06/18 10:59 Polyethylene Glycol (Miralax) 17 gm DAILYPRN PRN ORAL Constipation 10/07/18 11:00 11/06/18 10:59 Allergies: Coded Allergies: No Known Allergies (Unverified , 10/07/18) ROS Limited/Unobtainable: No Constitutional: Reports: no symptoms HEENT: Reports: no symptoms Cardiovascular: Reports: no symptoms Respiratory: Reports: no symptoms Gastrointestinal/Abdominal: Reports: no symptoms Genitourinary: Reports: no symptoms Neurologic/Psychiatric: Reports: no symptoms Subjective 82 YO M admitted after mechanical fall. Now fractured finger. Cover for Int Med-Dr Estevez Objective Last Vital Signs Date Time Temp Pulse Resp B/P (MAP) Pulse Ox O2 Delivery O2 Flow Rate FiO2 10/10/18 13:07 148/56 10/10/18 12:00 58 10/10/18 12:00 96.8 20 98 10/10/18 09:00 Room Air Room Air 10/10/18 06:50 21 Laboratory Tests Test 10/10/18 06:53 White Blood Count 7.0 K/UL (4.8-10.8) Red Blood Count 4.00 M/UL (4.70-6.10) L Hemoglobin 10.8 G/DL (14.2-18.0) L Hematocrit 34.5 % (42.0-52.0) L Mean Corpuscular Volume 86 FL (80-99) Mean Corpuscular Hemoglobin 26.9 PG (27.0-31.0) L Mean Corpuscular Hemoglobin Concent 31.2 G/DL (32.0-36.0) L Red Cell Distribution Width 13.6 % (11.6-14.8) Platelet Count 263 K/UL (150-450) Mean Platelet Volume 5.8 FL (6.5-10.1) L Neutrophils (%) (Auto) 70.0 % (45.0-75.0) Lymphocytes (%) (Auto) 13.6 % (20.0-45.0) L Monocytes (%) (Auto) 9.8 % (1.0-10.0) Eosinophils (%) (Auto) 5.5 % (0.0-3.0) H Basophils (%) (Auto) 1.1 % (0.0-2.0) Sodium Level 141 MMOL/L (136-145) Potassium Level 4.0 MMOL/L (3.5-5.1) Chloride Level 107 MMOL/L (98-107) Carbon Dioxide Level 25 MMOL/L (21-32) Anion Gap 9 mmol/L (5-15) Blood Urea Nitrogen 18 mg/dL (7-18) Creatinine 1.4 MG/DL (0.55-1.30) H Estimat Glomerular Filtration Rate mL/min (>60) Glucose Level 90 MG/DL (74-106) Calcium Level 8.6 MG/DL (8.5-10.1) Intake and Output 10/09/18 10/10/18 19:00 07:00 Intake Total 240 ml 720 ml Balance 240 ml 720 ml Intake Oral 240 ml 720 ml # Voids 5 Objective PHYSICAL EXAMINATION: GENERAL: The patient is awake and responsive, in no acute distress. HEAD AND NECK: Pupils are reactive to light. Extraocular movements intact. NECK: Supple. No JVD. LUNGS: Good air entry. No wheezing or rales. HEART: Reveals S1, S2. Distant heart sounds. No gallops. ABDOMEN: Soft, nondistended, and nontender. Positive bowel sounds. EXTREMITIES: No cyanosis, clubbing, or edema. Right hand fourth finger with laceration and dislocation, finger has been reduced. RECTAL/GENITOURINARY: Refused and deferred. PSYCHIATRIC: Mood and affect is intact. Assessment/Plan Assessment/Plan ASSESSMENT: 1. Status post mechanical fall with the right hand fourth finger laceration as well as dislocation status post reduction. 2. Hypertension, uncontrolled. 3. History of CVA with left hemiparesis. 4. Acute on Chronic kidney failure 5. Anemia. PLAN: 1. Admit the patient to monitor unit. 2. Dr. Frye pulmonary consultation as well as 3. Dr. Newsome from Infectious Disease. 4. Follow up with 2D echo. 5. Code status is Full Code. 6. DVT prophylaxis with heparin subcutaneous. We will follow up with the 7. anemia workup in progress. We will hold aspirin at this time due to the patient's anemia. Follow up with the PT and OT evaluation. 8. discharge planning: [facility] facility 9. Renal=Farzad Field MD Oct 10, 2018 13:31
--- NOTE | 2018-10-10 13:31 | Cardiology Report ---
APPROVED REPORT EXAM: Two-dimensional and M-mode echocardiogram with Doppler and color Doppler. INDICATION Left ventricular function M-Mode DIMENSIONS IVSd1.5 (0.7-1.1cm)Left Atrium (MM)4.4 (1.6-4.0cm) LVDd4.3 (3.5-5.6cm)Aortic Root3.0 (2.0-3.7cm) PWd1.5 (0.7-1.1cm)Aortic Cusp Exc.1.6 (1.5-2.0cm) LVDs2.0 (2.5-4.0cm) PWs2.8 cm Normal left ventricular chamber size, systolic function and wall motion. Left ventricular ejection fraction estimated to be 60 %. Mild left ventricular hypertrophy. Anterior Echo-free space, may be due to pericardial fat or effusion. Left atrial size at upper limits of normal. Right cardiac chamber sizes are within normal limits. Aortic valve calcification with decreased cusp excursion c/w aortic stenosis. Thickened mitral valve leaflets with normal excursion. Mitral annulus and aortic root calcification. Pulmonic valve not visualized. Normal tricuspid valve structure. IVC dilated at 2.4 cm without physiological collapse. A color flow and spectral Doppler study was performed and revealed: Mild to moderate aortic regurgitation. Peak aortic valve gradient of 19 mmHg and a mean of 10 mmHg. Aortic valve area 1.4 cm2 calculated by continuity equation. Trace mitral regurgitation. Mitral diastolic velocities suggest mild left ventricular diastolic dysfunction (Grade I). Trace tricuspid regurgitation. Tricuspid systolic velocities suggests peak right ventricular systolic pressure of 26 mmHg.
--- NOTE | 2018-10-10 14:45 | NUR ---
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 No definite/displaced associated acute fracture. Osteoarthrosis. CT Head: Atrophy and nonspecific periventricular hypoattenuation suggestive of chronic ischemic microvascular changes. Likely chronic infarct in the right frontal lobe. CXR: Atherosclerotic disease. Bilateral hilar prominence most likely related to ectatic pulmonary vasculature. Recommend routine follow-up chest CT to exclude the possibility of mass or lymphadenopathy. XRAY Hand Ltd 2v R: Successful reduction of the previously seen dislocation at the fourth proximal interphalangeal joint IS: TDAP IM Bupivacaine 0.5% INJ Albuterol/Ipratropium 3ml neb ceFAZolin 1gm IV Admitted to Telemetry Telemetry status DCP: Pending Hospital Stay
[2018-10-10 16:00] VITALS: BP 145/60
--- NOTE | 2018-10-10 19:18 | NUR ---
HAND-OFF: Report given to Elodia Augustine. patient stable at hand off. Plan of care endorsed.
--- NOTE | 2018-10-10 19:31 | NUR ---
NURSE NOTES: Pt received from [place] alert and oriented x2, hard of hearing bilaterally. No acute s/s of distress noted. Pt currently sitting on chair at edge of bed watching TV. IV site on 22L ac saline lock. Bed in lowest position, call light and belongings within reach.
--- NOTE | 2018-10-10 19:56 | Cardiology Progress Note ---
Assessment/Plan Assessment/Plan 1. Non-syncopal fall. 2. Right dorsal dislocation of PIP joint of the index finger. 3. History of CVA with carotid endarterectomy. 4. History of hypertension. seems to be doign ok cr imporved ct of chest and neck noted bp seem ok on combo of norvasc anxc hydaraalzine to start on acei or arbs when oked with dr bellamy dc plan when ok with dr bruner Subjective Cardiovascular: Denies: chest pain Respiratory: Denies: shortness of breath Gastrointestinal/Abdominal: Denies: abdominal pain Genitourinary: Denies: burning Objective Last 24 Hour Vital Signs Date Time Temp Pulse Resp B/P (MAP) Pulse Ox O2 Delivery O2 Flow Rate FiO2 10/10/18 17:19 76 145/60 10/10/18 16:00 76 10/10/18 16:00 96.9 72 20 145/60 (88) 99 10/10/18 13:07 148/56 10/10/18 12:00 58 10/10/18 12:00 96.8 51 20 148/56 (86) 98 10/10/18 09:00 Room Air Room Air 10/10/18 08:47 92 132/73 10/10/18 08:47 92 132/73 10/10/18 08:00 92 10/10/18 08:00 96.7 92 20 132/73 (92) 98 10/10/18 06:50 71 15 98 Room Air 21 10/10/18 06:04 153/86 10/10/18 04:00 97.7 69 18 147/77 (100) 96 10/10/18 04:00 69 10/10/18 00:00 98.0 75 20 143/71 (95) 97 10/10/18 00:00 75 10/09/18 23:44 185/86 10/09/18 22:33 182/80 10/09/18 21:31 79 187/89 10/09/18 21:17 81 18 98 Room Air 21 10/09/18 21:00 Room Air Room Air 10/09/18 20:00 97.8 66 20 180/84 (116) 96 10/09/18 20:00 66 General Appearance: no apparent distress, alert Neck: supple Cardiovascular: normal rate Respiratory/Chest: lungs clear Abdomen: normal bowel sounds, non tender, soft Extremities: no swelling Intake and Output 10/09/18 10/10/18 18:59 06:59 Intake Total 360 ml 720 ml Balance 360 ml 720 ml Intake Oral 360 ml 720 ml # Voids 5 Laboratory Tests Test 10/10/18 06:53 White Blood Count 7.0 K/UL (4.8-10.8) Red Blood Count 4.00 M/UL (4.70-6.10) L Hemoglobin 10.8 G/DL (14.2-18.0) L Hematocrit 34.5 % (42.0-52.0) L Mean Corpuscular Volume 86 FL (80-99) Mean Corpuscular Hemoglobin 26.9 PG (27.0-31.0) L Mean Corpuscular Hemoglobin Concent 31.2 G/DL (32.0-36.0) L Red Cell Distribution Width 13.6 % (11.6-14.8) Platelet Count 263 K/UL (150-450) Mean Platelet Volume 5.8 FL (6.5-10.1) L Neutrophils (%) (Auto) 70.0 % (45.0-75.0) Lymphocytes (%) (Auto) 13.6 % (20.0-45.0) L Monocytes (%) (Auto) 9.8 % (1.0-10.0) Eosinophils (%) (Auto) 5.5 % (0.0-3.0) H Basophils (%) (Auto) 1.1 % (0.0-2.0) Sodium Level 141 MMOL/L (136-145) Potassium Level 4.0 MMOL/L (3.5-5.1) Chloride Level 107 MMOL/L (98-107) Carbon Dioxide Level 25 MMOL/L (21-32) Anion Gap 9 mmol/L (5-15) Blood Urea Nitrogen 18 mg/dL (7-18) Creatinine 1.4 MG/DL (0.55-1.30) H Estimat Glomerular Filtration Rate mL/min (>60) Glucose Level 90 MG/DL (74-106) Calcium Level 8.6 MG/DL (8.5-10.1) Layton Croft MD Oct 10, 2018 19:56
[2018-10-10 20:00] VITALS: BP 139/70
[2018-10-11] VITALS (7 sets, daily range): BP systolic 108–150; BP diastolic 54–83
[2018-10-11] MEDS: Cephalexin 500mg cap ORAL SCH ×3 (05:52→21:26)
[2018-10-11] MEDS: HydrALAZINE 50mg tab ORAL SCH ×4 (05:52→21:25)
--- NOTE | 2018-10-11 07:28 | NUR ---
HAND-OFF: Report given to [facility]. Plan of care endorsed. No acute s/s of distress noted.
[2018-10-11 07:29] LABS: BASOPHILS % (AUTO) 1.7 % (0.0-2.0); EOSINOPHILS % (AUTO) 6.3 % (0.0-3.0); HEMATOCRIT 31.5 % (42.0-52.0); HEMOGLOBIN 9.9 G/DL (14.2-18.0); LYMPHOCYTES % (AUTO) 14.1 % (20.0-45.0); MEAN CORPUSCULAR VOLUME 85 FL (80-99); MONOCYTES % (AUTO) 10.4 % (1.0-10.0); NEUTROPHILS % (AUTO) 67.4 % (45.0-75.0); PLATELET COUNT 255 K/UL (150-450); RED BLOOD COUNT 3.69 M/UL (4.70-6.10); RED CELL DISTRIBUTION WIDTH 13.8 % (11.6-14.8); WHITE BLOOD COUNT 6.8 K/UL (4.8-10.8)
[2018-10-11 07:34] LABS: ANION GAP 10 mmol/L (5-15); BLOOD UREA NITROGEN 33 mg/dL (7-18); CALCIUM 8.2 MG/DL (8.5-10.1); CARBON DIOXIDE 22 MMOL/L (21-32); CHLORIDE 109 MMOL/L (98-107); CREATININE 1.8 MG/DL (0.55-1.30); POTASSIUM 4.2 MMOL/L (3.5-5.1); SODIUM 141 MMOL/L (136-145)
--- NOTE | 2018-10-11 08:02 | NUR ---
NURSE NOTES: Pt in bed with HOB in semi fowlers, pt has bathroom privileges, pt Ox3, denies pain, labs WNL, pt is able to ambulated with steady gait, IV asymptomatic, call light at bedside, pt makes needs known, no s/s of distress or sob noted. pt is scheduled to d/c on wednesday to b/c.
[2018-10-11] MEDS ORDERED: Lisinopril 10mg tab ORAL SCH (09:00)
[2018-10-11] MEDS: Metoprolol Tartrate 12.5mg TAB ORAL SCH ×2 (09:25→21:26)
[2018-10-11] MEDS: Heparin 5000 units/ml inj SUBQ SCH ×2 (09:26→21:27)
--- NOTE | 2018-10-11 09:34 | NUR ---
SS note Patient has been unsteady, risk for falls and will need SNF. Patient stating he does not have his income for Transitional Housing at this time as well.
[2018-10-11] MEDS ORDERED: Albuterol/Ipratropium 3ml neb HHN PRN (10:15)
[2018-10-11] MEDS ORDERED: Morphine Sulfate 2mg/ml Inj(IV/IM USE ONLY) IVP PRN (10:15)
[2018-10-11] MEDS ORDERED: Miralax 17gm pkt ORAL PRN (10:15)
--- NOTE | 2018-10-11 10:23 | NUR ---
NURSE NOTES: Patient awake, alert x3, on room air, no sing of distress and shortness of breath; no sing of chest pain; IV LAC 20G flushes well; vitals taken upon arrival to the unite; belonging lists singed by transferring and receiving nurse; patient's cane within reach; bed at lowest position, breaks engaged, side rails up x3, bed alarm on; call light within reach; will keep monitoring.
--- NOTE | 2018-10-11 10:30 | NUR ---
HAND-OFF: Report given to Miguelina in 4E room 420-2.
--- NOTE | 2018-10-11 11:04 | Infectious Diseases Prog Note ---
Assessment/Plan Assessment/Plan Assessment: Afebrile No leukocytosis R 4th finger green-2ry to PIP dislocation and laceration, s/p reduction -repeat R hand xray: Successful reduction of the previously seen dislocation at the fourth proximal interphalangeal joint. No definite/displaced acute fracture. -xray R hand: Dislocation at the fourth proximal interphalangeal joint. No definite/displaced associated acute fracture.Osteoarthrosis. s/p Fall -Head CT: Exam limited by motion artifact. Within this limitations:No evidence of acute intracranial hemorrhage, mass effect or cortical edema. MRI maybe obtained for more sensitive evaluation as clinically indicated. Atrophy and nonspecific periventricular hypoattenuation suggestive of chronic ischemic microvascular changes. Likely chronic infarct in the right frontal lobe. Left supraorbital soft tissue swelling. No depressed skull fracture. -CT chest: No discrete mass.Pulmonary emphysema.Cardiomegaly. Small pericardial fluid.Small left and trace right pleural effusions. Right renal cyst. -CT neck: No discrete mass. Pulmonary emphysema. Cervical spondylosis with central canal and foraminal stenosis. Dyspnea -CXR: Nonspecific mild interstitial prominence, possibly chronic. No definite focal consolidation, pleural effusion, pneumothorax or evidence of alveolar edema. Borderline cardiomegaly, possibly exaggerated by AP technique.Bilateral hilar prominence most likely related to ectatic pulmonary vasculature. LILLIE, improving -u/a neg -Renal US: Slightly increased echogenicity within the kidneys which can be seen in the setting of medical renal disease. No hydronephrosis. Cyst within the right renal upper pole. No stones. Unremarkable appearance of the bladder. CVA w L side weakness HTN appendectomy Plan: -Continue prophylactic PO Keflex #5/5 -10/07 IV Vancomycin, Ceftriaxone #1, Cefepime x1 -f/u cx -Monitor CBC/CMP, temperatures -wound care Thank you for this consultation. Will continue to follow along with you. Discussed with RN. Subjective Allergies: Coded Allergies: No Known Allergies (Unverified , 10/07/18) Subjective afebrile no leukocytosis Objective Vital Signs Last 24 Hour Vital Signs Date Time Temp Pulse Resp B/P (MAP) Pulse Ox O2 Delivery O2 Flow Rate FiO2 10/11/18 10:10 97.0 76 20 150/69 (96) 95 10/11/18 09:25 119/83 10/11/18 09:25 83 119/83 10/11/18 09:25 83 119/83 10/11/18 08:51 Room Air Room Air 10/11/18 08:10 97.3 83 20 119/83 (95) 95 10/11/18 05:52 148/67 10/11/18 04:00 98.1 71 18 148/67 (94) 95 10/11/18 04:00 74 10/11/18 00:00 70 10/11/18 00:00 97.2 77 18 141/73 (95) 97 10/10/18 21:28 139/70 10/10/18 21:28 74 139/70 10/10/18 21:00 Room Air Room Air 10/10/18 20:00 73 10/10/18 20:00 98.6 74 19 139/70 (93) 97 10/10/18 19:45 63 18 97 Room Air 21 10/10/18 17:19 76 145/60 10/10/18 16:00 76 10/10/18 16:00 96.9 72 20 145/60 (88) 99 10/10/18 13:07 148/56 10/10/18 12:00 58 10/10/18 12:00 96.8 51 20 148/56 (86) 98 Height (Feet): 5 Height (Inches): 10.00 Weight (Pounds): 150 Objective General Appearance: thin Lines, tubes and drains: peripheral, PICC HEENT: normocephalic, atraumatic Neck: non-tender, supple Respiratory/Chest: chest wall non-tender, lungs clear Cardiovascular/Chest: normal peripheral pulses Abdomen: normal bowel sounds Extremities: , laceration - R 4th finger laceration Laboratory Tests Test 10/11/18 06:45 White Blood Count 6.8 K/UL (4.8-10.8) Red Blood Count 3.69 M/UL (4.70-6.10) L Hemoglobin 9.9 G/DL (14.2-18.0) L Hematocrit 31.5 % (42.0-52.0) L Mean Corpuscular Volume 85 FL (80-99) Mean Corpuscular Hemoglobin 26.9 PG (27.0-31.0) L Mean Corpuscular Hemoglobin Concent 31.6 G/DL (32.0-36.0) L Red Cell Distribution Width 13.8 % (11.6-14.8) Platelet Count 255 K/UL (150-450) Mean Platelet Volume 5.6 FL (6.5-10.1) L Neutrophils (%) (Auto) 67.4 % (45.0-75.0) Lymphocytes (%) (Auto) 14.1 % (20.0-45.0) L Monocytes (%) (Auto) 10.4 % (1.0-10.0) H Eosinophils (%) (Auto) 6.3 % (0.0-3.0) H Basophils (%) (Auto) 1.7 % (0.0-2.0) Sodium Level 141 MMOL/L (136-145) Potassium Level 4.2 MMOL/L (3.5-5.1) Chloride Level 109 MMOL/L (98-107) H Carbon Dioxide Level 22 MMOL/L (21-32) Anion Gap 10 mmol/L (5-15) Blood Urea Nitrogen 33 mg/dL (7-18) H Creatinine 1.8 MG/DL (0.55-1.30) H Estimat Glomerular Filtration Rate mL/min (>60) Glucose Level 93 MG/DL (74-106) Calcium Level 8.2 MG/DL (8.5-10.1) L Current Medications Medications (Trade) Dose Ordered Sig/[place] Route PRN Reason Start Time Stop Time Status Last Admin Dose Admin Acetaminophen (Tylenol) 650 mg Q4H PRN ORAL T>100.5 10/11/18 10:14 11/10/18 10:13 Albuterol/ Ipratropium (Albuterol/ Ipratropium) 3 ml Q4H PRN HHN Shortness of Breath 10/11/18 10:15 10/16/18 10:14 Amlodipine Besylate (Norvasc) 5 mg BID ORAL 10/11/18 18:00 11/07/18 08:59 Cephalexin (Keflex) 500 mg EVERY 8 HOURS ORAL 10/11/18 14:00 10/14/18 21:59 Clonidine HCl (Catapres Tab) 0.1 mg Q4H PRN ORAL SBP>160 10/11/18 10:14 11/10/18 10:13 Dextrose (Dextrose 50%) 25 ml Q30M PRN IV Hypoglycemia 10/11/18 10:30 11/06/18 10:59 Dextrose (Dextrose 50%) 50 ml Q30M PRN IV Hypoglycemia 10/11/18 10:30 11/06/18 10:59 Folic Acid (Folate) 2 mg DAILY ORAL 10/12/18 09:00 11/07/18 09:14 Heparin Sodium (Porcine) (Heparin 5000 units/ml) 5,000 units EVERY 12 HOURS SUBQ 10/11/18 21:00 11/06/18 10:59 Hydralazine HCl (Apresoline) 50 mg Q8HR ORAL 10/11/18 14:00 11/06/18 17:59 Lisinopril (Zestril) 10 mg DAILY ORAL 10/12/18 09:00 11/10/18 08:59 Metoprolol Tartrate (Lopressor) 12.5 mg Q12HR ORAL 10/11/18 21:00 11/07/18 09:14 Morphine Sulfate (Morphine Sulfate) 2 mg Q4H PRN IVP Severe Pain (Pain Scale 7-10) 10/11/18 10:15 10/18/18 10:14 Ondansetron HCl (Zofran) 4 mg Q6H PRN IVP Nausea & Vomiting 10/11/18 11:00 11/06/18 10:59 Polyethylene Glycol (Miralax) 17 gm DAILYPRN PRN ORAL Constipation 10/11/18 10:15 11/10/18 10:14 Marly Newsome M.D. Oct 11, 2018 11:04
--- NOTE | 2018-10-11 11:30 | NUR ---
NURSE NOTES: Specimen collecting container provided to patient for OB Stool and Sputum. Patient is aware.
--- NOTE | 2018-10-11 12:07 | Nephrology Progress Note ---
Assessment/Plan Problem List: (1) Renal failure (ARF), acute on chronic Assessment: cr up to 1.8 (2) History of hypertension (3) Anemia (4) History of CVA (cerebrovascular accident) Assessment Renal Failure- ? acute obn top of chronic Anemia HTN h/o CVA Rt 4th finger laceration: reason for admission Plan watch serum Cr on Andrea I Anemia hammonds bit of low folate U Na U Analysis BP control, further adjustment done Avoid Nephrotoxics ? DC planning? Subjective ROS Limited/Unobtainable: No Objective Objective Last 24 Hour Vital Signs Date Time Temp Pulse Resp B/P (MAP) Pulse Ox O2 Delivery O2 Flow Rate FiO2 10/11/18 12:00 98.9 63 17 140/63 (88) 96 10/11/18 10:10 97.0 76 20 150/69 (96) 95 10/11/18 09:25 119/83 10/11/18 09:25 83 119/83 10/11/18 09:25 83 119/83 10/11/18 08:51 Room Air Room Air 10/11/18 08:10 97.3 83 20 119/83 (95) 95 10/11/18 05:52 148/67 10/11/18 04:00 98.1 71 18 148/67 (94) 95 10/11/18 04:00 74 10/11/18 00:00 70 10/11/18 00:00 97.2 77 18 141/73 (95) 97 10/10/18 21:28 139/70 10/10/18 21:28 74 139/70 10/10/18 21:00 Room Air Room Air 10/10/18 20:00 73 10/10/18 20:00 98.6 74 19 139/70 (93) 97 10/10/18 19:45 63 18 97 Room Air 21 10/10/18 17:19 76 145/60 10/10/18 16:00 76 10/10/18 16:00 96.9 72 20 145/60 (88) 99 10/10/18 13:07 148/56 Intake and Output 10/10/18 10/11/18 19:00 07:00 Intake Total 890 ml Output Total 300 ml 950 ml Balance 590 ml -950 ml Intake Oral 890 ml Output Urine Total 300 ml 950 ml # Voids 2 3 # Bowel Movements 1 Laboratory Tests 10/11/18 06:45: White Blood Count 6.8, Red Blood Count 3.69L, Hemoglobin 9.9L, Hematocrit 31.5L , Mean Corpuscular Volume 85, Mean Corpuscular Hemoglobin 26.9L, Mean Corpuscular Hemoglobin Concent 31.6L, Red Cell Distribution Width 13.8, Platelet Count 255, Mean Platelet Volume 5.6L, Neutrophils (%) (Auto) 67.4, Lymphocytes (%) (Auto) 14.1L, Monocytes (%) (Auto) 10.4H, Eosinophils (%) (Auto ) 6.3H, Basophils (%) (Auto) 1.7, Sodium Level 141, Potassium Level 4.2, Chloride Level 109H, Carbon Dioxide Level 22, Anion Gap 10, Blood Urea Nitrogen 33H, Creatinine 1.8H, Estimat Glomerular Filtration Rate , Glucose Level 93, Calcium Level 8.2L Height (Feet): 5 Height (Inches): 10.00 Weight (Pounds): 150 General Appearance: no apparent distress Objective no change Andrade Keenan MD Oct 11, 2018 12:07
--- NOTE | 2018-10-11 13:10 | NUR ---
NURSE NOTES: Patient refused to take Hydralazine 50mg for BP; RN explanied to patient for the risk of uncontrolled BP. Medication wasted. Will keep monitoring BP.
--- NOTE | 2018-10-11 14:07 | Pulmonology Progress Note ---
Assessment/Plan Problems: (1) Pneumonia (2) History of hypertension (3) History of CVA (cerebrovascular accident) Assessment/Plan doing better respiratory treatment check electrolytes dvt prophylaxis no new complains needs placement Subjective ROS Limited/Unobtainable: No Constitutional: Reports: no symptoms HEENT: Repors: no symptoms Respiratory: Reports: no symptoms Allergies: Coded Allergies: No Known Allergies (Unverified , 10/07/18) Objective Last 24 Hour Vital Signs Date Time Temp Pulse Resp B/P (MAP) Pulse Ox O2 Delivery O2 Flow Rate FiO2 10/11/18 12:00 98.9 63 17 140/63 (88) 96 10/11/18 10:10 97.0 76 20 150/69 (96) 95 10/11/18 09:25 119/83 10/11/18 09:25 83 119/83 10/11/18 09:25 83 119/83 10/11/18 08:51 Room Air Room Air 10/11/18 08:10 97.3 83 20 119/83 (95) 95 10/11/18 05:52 148/67 10/11/18 04:00 98.1 71 18 148/67 (94) 95 10/11/18 04:00 74 10/11/18 00:00 70 10/11/18 00:00 97.2 77 18 141/73 (95) 97 10/10/18 21:28 139/70 10/10/18 21:28 74 139/70 10/10/18 21:00 Room Air Room Air 10/10/18 20:00 73 10/10/18 20:00 98.6 74 19 139/70 (93) 97 10/10/18 19:45 63 18 97 Room Air 21 10/10/18 17:19 76 145/60 10/10/18 16:00 76 10/10/18 16:00 96.9 72 20 145/60 (88) 99 Intake and Output 10/10/18 10/11/18 19:00 07:00 Intake Total 890 ml Output Total 300 ml 950 ml Balance 590 ml -950 ml Intake Oral 890 ml Output Urine Total 300 ml 950 ml # Voids 2 3 # Bowel Movements 1 General Appearance: WD/WN HEENT: normocephalic, atraumatic Respiratory/Chest: chest wall non-tender, lungs clear Cardiovascular: normal peripheral pulses, normal rate Abdomen: normal bowel sounds, soft, non tender, no scars Extremities: no clubbing Skin: no rash Laboratory Tests 10/11/18 06:45: White Blood Count 6.8, Red Blood Count 3.69L, Hemoglobin 9.9L, Hematocrit 31.5L , Mean Corpuscular Volume 85, Mean Corpuscular Hemoglobin 26.9L, Mean Corpuscular Hemoglobin Concent 31.6L, Red Cell Distribution Width 13.8, Platelet Count 255, Mean Platelet Volume 5.6L, Neutrophils (%) (Auto) 67.4, Lymphocytes (%) (Auto) 14.1L, Monocytes (%) (Auto) 10.4H, Eosinophils (%) (Auto ) 6.3H, Basophils (%) (Auto) 1.7, Sodium Level 141, Potassium Level 4.2, Chloride Level 109H, Carbon Dioxide Level 22, Anion Gap 10, Blood Urea Nitrogen 33H, Creatinine 1.8H, Estimat Glomerular Filtration Rate , Glucose Level 93, Calcium Level 8.2L Current Medications Medications (Trade) Dose Ordered Sig/[place] Route PRN Reason Start Time Stop Time Status Last Admin Dose Admin Acetaminophen (Tylenol) 650 mg Q4H PRN ORAL T>100.5 10/11/18 10:14 11/10/18 10:13 Albuterol/ Ipratropium (Albuterol/ Ipratropium) 3 ml Q4H PRN HHN Shortness of Breath 10/11/18 10:15 10/16/18 10:14 Amlodipine Besylate (Norvasc) 5 mg BID ORAL 10/11/18 18:00 11/07/18 08:59 Cephalexin (Keflex) 500 mg EVERY 8 HOURS ORAL 10/11/18 14:00 10/14/18 21:59 10/11/18 13:02 Clonidine HCl (Catapres Tab) 0.1 mg Q4H PRN ORAL SBP>160 10/11/18 10:14 11/10/18 10:13 Dextrose (Dextrose 50%) 25 ml Q30M PRN IV Hypoglycemia 10/11/18 10:30 11/06/18 10:59 Dextrose (Dextrose 50%) 50 ml Q30M PRN IV Hypoglycemia 10/11/18 10:30 11/06/18 10:59 Folic Acid (Folate) 2 mg DAILY ORAL 10/12/18 09:00 11/07/18 09:14 Heparin Sodium (Porcine) (Heparin 5000 units/ml) 5,000 units EVERY 12 HOURS SUBQ 10/11/18 21:00 11/06/18 10:59 Hydralazine HCl (Apresoline) 50 mg Q8HR ORAL 10/11/18 14:00 11/06/18 17:59 Lisinopril (Zestril) 10 mg DAILY ORAL 10/12/18 09:00 11/10/18 08:59 Metoprolol Tartrate (Lopressor) 12.5 mg Q12HR ORAL 10/11/18 21:00 11/07/18 09:14 Morphine Sulfate (Morphine Sulfate) 2 mg Q4H PRN IVP Severe Pain (Pain Scale 7-10) 10/11/18 10:15 10/18/18 10:14 Ondansetron HCl (Zofran) 4 mg Q6H PRN IVP Nausea & Vomiting 10/11/18 11:00 11/06/18 10:59 Polyethylene Glycol (Miralax) 17 gm DAILYPRN PRN ORAL Constipation 10/11/18 10:15 11/10/18 10:14 Casie Frye MD Oct 11, 2018 14:07
--- NOTE | 2018-10-11 17:02 | Internal Med Progress Note ---
Subjective Physician Name Farzad Sams Attending Physician Tripp Estevez MD Current Medications Medications (Trade) Dose Ordered Sig/[place] Route PRN Reason Start Time Stop Time Status Last Admin Dose Admin Acetaminophen (Tylenol) 650 mg Q4H PRN ORAL T>100.5 10/11/18 10:14 11/10/18 10:13 Albuterol/ Ipratropium (Albuterol/ Ipratropium) 3 ml Q4H PRN HHN Shortness of Breath 10/11/18 10:15 10/16/18 10:14 Amlodipine Besylate (Norvasc) 5 mg BID ORAL 10/11/18 18:00 11/07/18 08:59 Cephalexin (Keflex) 500 mg EVERY 8 HOURS ORAL 10/11/18 14:00 10/14/18 21:59 10/11/18 13:02 Clonidine HCl (Catapres Tab) 0.1 mg Q4H PRN ORAL SBP>160 10/11/18 10:14 11/10/18 10:13 Dextrose (Dextrose 50%) 25 ml Q30M PRN IV Hypoglycemia 10/11/18 10:30 11/06/18 10:59 Dextrose (Dextrose 50%) 50 ml Q30M PRN IV Hypoglycemia 10/11/18 10:30 11/06/18 10:59 Folic Acid (Folate) 2 mg DAILY ORAL 10/12/18 09:00 11/07/18 09:14 Heparin Sodium (Porcine) (Heparin 5000 units/ml) 5,000 units EVERY 12 HOURS SUBQ 10/11/18 21:00 11/06/18 10:59 Hydralazine HCl (Apresoline) 50 mg Q8HR ORAL 10/11/18 14:00 11/06/18 17:59 Lisinopril (Zestril) 10 mg DAILY ORAL 10/12/18 09:00 11/10/18 08:59 Metoprolol Tartrate (Lopressor) 12.5 mg Q12HR ORAL 10/11/18 21:00 11/07/18 09:14 Morphine Sulfate (Morphine Sulfate) 2 mg Q4H PRN IVP Severe Pain (Pain Scale 7-10) 10/11/18 10:15 10/18/18 10:14 Ondansetron HCl (Zofran) 4 mg Q6H PRN IVP Nausea & Vomiting 10/11/18 11:00 11/06/18 10:59 Polyethylene Glycol (Miralax) 17 gm DAILYPRN PRN ORAL Constipation 10/11/18 10:15 11/10/18 10:14 Allergies: Coded Allergies: No Known Allergies (Unverified , 10/07/18) Subjective 82 YO M admitted after mechanical fall. Now fractured finger. Cover for Int [facility]-Dr Estevez Objective Last Vital Signs Date Time Temp Pulse Resp B/P (MAP) Pulse Ox O2 Delivery O2 Flow Rate FiO2 10/11/18 16:00 97.5 65 19 142/66 (91) 99 10/11/18 08:51 Room Air Room Air 10/10/18 19:45 21 Laboratory Tests Test 10/11/18 06:45 White Blood Count 6.8 K/UL (4.8-10.8) Red Blood Count 3.69 M/UL (4.70-6.10) L Hemoglobin 9.9 G/DL (14.2-18.0) L Hematocrit 31.5 % (42.0-52.0) L Mean Corpuscular Volume 85 FL (80-99) Mean Corpuscular Hemoglobin 26.9 PG (27.0-31.0) L Mean Corpuscular Hemoglobin Concent 31.6 G/DL (32.0-36.0) L Red Cell Distribution Width 13.8 % (11.6-14.8) Platelet Count 255 K/UL (150-450) Mean Platelet Volume 5.6 FL (6.5-10.1) L Neutrophils (%) (Auto) 67.4 % (45.0-75.0) Lymphocytes (%) (Auto) 14.1 % (20.0-45.0) L Monocytes (%) (Auto) 10.4 % (1.0-10.0) H Eosinophils (%) (Auto) 6.3 % (0.0-3.0) H Basophils (%) (Auto) 1.7 % (0.0-2.0) Sodium Level 141 MMOL/L (136-145) Potassium Level 4.2 MMOL/L (3.5-5.1) Chloride Level 109 MMOL/L (98-107) H Carbon Dioxide Level 22 MMOL/L (21-32) Anion Gap 10 mmol/L (5-15) Blood Urea Nitrogen 33 mg/dL (7-18) H Creatinine 1.8 MG/DL (0.55-1.30) H Estimat Glomerular Filtration Rate mL/min (>60) Glucose Level 93 MG/DL (74-106) Calcium Level 8.2 MG/DL (8.5-10.1) L Intake and Output 10/10/18 10/11/18 19:00 07:00 Intake Total 890 ml Output Total 300 ml 950 ml Balance 590 ml -950 ml Intake Oral 890 ml Output Urine Total 300 ml 950 ml # Voids 2 3 # Bowel Movements 1 Objective PHYSICAL EXAMINATION: GENERAL: The patient is awake and responsive, in no acute distress. HEAD AND NECK: Pupils are reactive to light. Extraocular movements intact. NECK: Supple. No JVD. LUNGS: Good air entry. No wheezing or rales. HEART: Reveals S1, S2. Distant heart sounds. No gallops. ABDOMEN: Soft, nondistended, and nontender. Positive bowel sounds. EXTREMITIES: No cyanosis, clubbing, or edema. Right hand fourth finger with laceration and dislocation, finger has been reduced. RECTAL/GENITOURINARY: Refused and deferred. PSYCHIATRIC: Mood and affect is intact. Assessment/Plan Assessment/Plan ASSESSMENT: 1. Status post mechanical fall with the right hand fourth finger laceration as well as dislocation status post reduction. 2. Hypertension, uncontrolled. 3. History of CVA with left hemiparesis. 4. Acute on Chronic kidney failure 5. Anemia. PLAN: 1. Admit the patient to monitor unit. 2. Dr. Frye pulmonary consultation as well as 3. Dr. Newsome from Infectious Disease. 4. Follow up with 2D echo. 5. Code status is Full Code. 6. DVT prophylaxis with heparin subcutaneous. We will follow up with the 7. anemia workup in progress. We will hold aspirin at this time due to the patient's anemia. Follow up with the PT and OT evaluation. 8. discharge planning: [facility] facility 9. Renal=Farzad Field MD Oct 11, 2018 17:02
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
--- NOTE | 2018-10-11 19:34 | NUR ---
HAND-OFF: Report given to DOT Plasencia.
--- NOTE | 2018-10-11 20:36 | NUR ---
NURSE NOTES: Patient in bed, awake, alert and verbally responsive. Able to make needs known. No complaint of pain or discomfort noted at this time. Skin is warm and dry to touch. NOted with dressing on the right hand. Kept clean and comfortable. Bed in low and locked position. IV site noted. Will continue plan of care.
[2018-10-12] VITALS: BP 142/61
[2018-10-12 03:36] VITALS: BP 148/60
[2018-10-12] MEDS: Cephalexin 500mg cap ORAL SCH ×2 (05:34→13:04)
[2018-10-12] MEDS: HydrALAZINE 50mg tab ORAL SCH (05:34)
--- NOTE | 2018-10-12 07:14 | NUR ---
HAND-OFF: Report given to Elodia Diaz.
[2018-10-12 07:24] LABS: BASOPHILS % (AUTO) 1.2 % (0.0-2.0); EOSINOPHILS % (AUTO) 6.5 % (0.0-3.0); HEMATOCRIT 29.7 % (42.0-52.0); HEMOGLOBIN 9.3 G/DL (14.2-18.0); LYMPHOCYTES % (AUTO) 18.8 % (20.0-45.0); MEAN CORPUSCULAR VOLUME 87 FL (80-99); MONOCYTES % (AUTO) 10.3 % (1.0-10.0); NEUTROPHILS % (AUTO) 63.2 % (45.0-75.0); PLATELET COUNT 250 K/UL (150-450); RED BLOOD COUNT 3.43 M/UL (4.70-6.10); RED CELL DISTRIBUTION WIDTH 13.7 % (11.6-14.8)
--- NOTE | 2018-10-12 07:25 | NUR ---
NURSE NOTES: Patient awake, alert x3; on room air, no sign of distress and shortness of breath; no sing of chest pain; LAC 20G flushes well; breaks engaged, bed at lowest position, side rails up x2; urinal and call light within reach; will collect OB Stool and sputum as patient provides it.
[2018-10-12 07:51] LABS: ALANINE AMINOTRANSFERASE 17 U/L (12-78); ALBUMIN 2.8 G/DL (3.4-5.0); ALBUMIN/GLOBULIN RATIO 0.8 (1.0-2.7); ALKALINE PHOSPHATASE 48 U/L (46-116); ANION GAP 9 mmol/L (5-15); ASPARTATE AMINO TRANSFERASE 21 U/L (15-37); BILIRUBIN,TOTAL 0.4 MG/DL (0.2-1.0); BLOOD UREA NITROGEN 31 mg/dL (7-18); CALCIUM 8.5 MG/DL (8.5-10.1); CARBON DIOXIDE 23 MMOL/L (21-32); CHLORIDE 111 MMOL/L (98-107); CREATININE 1.7 MG/DL (0.55-1.30); PHOSPHORUS 3.5 MG/DL (2.5-4.9); POTASSIUM 4.1 MMOL/L (3.5-5.1); SODIUM 143 MMOL/L (136-145)
[2018-10-12 08:00] VITALS: BP 164/72
[2018-10-12] MEDS: Metoprolol Tartrate 12.5mg TAB ORAL SCH ×2 (08:41→21:11)
[2018-10-12] MEDS: Heparin 5000 units/ml inj SUBQ SCH ×2 (08:43→21:16)
[2018-10-12] MEDS ORDERED: Lisinopril 10mg tab ORAL SCH (09:00)
[2018-10-12 12:00] VITALS: BP 158/59
--- NOTE | 2018-10-12 12:20 | Nephrology Progress Note ---
Assessment/Plan Problem List: (1) Renal failure (ARF), acute on chronic (2) History of hypertension (3) Anemia (4) History of CVA (cerebrovascular accident) Assessment Renal Failure- ? acute obn top of chronic Anemia HTN h/o CVA Rt 4th finger laceration: reason for admission Plan watch serum Cr on Andrea I Anemia hammonds bit of low folate U Na U Analysis BP control, further adjustment done Avoid Nephrotoxics ? DC planning? Subjective ROS Limited/Unobtainable: No Constitutional: Reports: malaise Objective Objective Last 24 Hour Vital Signs Date Time Temp Pulse Resp B/P (MAP) Pulse Ox O2 Delivery O2 Flow Rate FiO2 10/12/18 12:00 98.1 57 18 158/59 (92) 97 10/12/18 09:00 Room Air Room Air 10/12/18 08:42 164/72 10/12/18 08:42 68 164/72 10/12/18 08:41 68 164/72 10/12/18 08:35 69 18 96 Room Air 21 10/12/18 08:00 98.9 68 16 164/72 (102) 97 10/12/18 05:34 108/66 10/12/18 03:36 98.9 68 16 148/60 (89) 97 10/12/18 00:00 97.7 58 16 142/61 (88) 96 10/11/18 21:26 68 108/54 10/11/18 21:25 108/54 10/11/18 21:00 Room Air Room Air 10/11/18 20:06 68 18 97 Room Air 21 10/11/18 20:00 97.6 63 19 108/54 (72) 95 10/11/18 16:00 97.5 65 19 142/66 (91) 99 Intake and Output 10/11/18 10/12/18 19:00 07:00 Intake Total 240 ml Output Total 750 ml Balance -510 ml Intake Oral 240 ml Output Urine Total 750 ml # Voids 4 Laboratory Tests 10/12/18 05:26: White Blood Count 6.0, Red Blood Count 3.43L, Hemoglobin 9.3L, Hematocrit 29.7L , Mean Corpuscular Volume 87, Mean Corpuscular Hemoglobin 27.2, Mean Corpuscular Hemoglobin Concent 31.4L, Red Cell Distribution Width 13.7, Platelet Count 250, Mean Platelet Volume 5.5L, Neutrophils (%) (Auto) 63.2, Lymphocytes (%) (Auto) 18.8L, Monocytes (%) (Auto) 10.3H, Eosinophils (%) (Auto ) 6.5H, Basophils (%) (Auto) 1.2, Sodium Level 143, Potassium Level 4.1, Chloride Level 111H, Carbon Dioxide Level 23, Anion Gap 9, Blood Urea Nitrogen 31H, Creatinine 1.7H, Estimat Glomerular Filtration Rate , Glucose Level 85, Uric Acid 6.5, Calcium Level 8.5, Phosphorus Level 3.5, Magnesium Level 2.0, Total Bilirubin 0.4, Aspartate Amino Transf (AST/SGOT) 21, Alanine Aminotransferase (ALT/SGPT) 17, Alkaline Phosphatase 48, C-Reactive Protein, Quantitative 1.9H, Pro-B-Type Natriuretic Peptide 737H, Total Protein 6.3L, Albumin 2.8L, Globulin 3.5, Albumin/Globulin Ratio 0.8L Height (Feet): 5 Height (Inches): 10.00 Weight (Pounds): 152 General Appearance: no apparent distress Objective no change Andrade Keenan MD Oct 12, 2018 12:20
[2018-10-12] MEDS: HydrALAZINE 25mg tab ORAL SCH ×2 (13:05→21:12)
--- NOTE | 2018-10-12 13:07 | Internal Med Progress Note ---
Subjective Date of Service: Oct 12, 2018 Physician Name Farzad Sams Attending Physician Tripp Estevez MD Current Medications Medications (Trade) Dose Ordered Sig/[place] Route PRN Reason Start Time Stop Time Status Last Admin Dose Admin Acetaminophen (Tylenol) 650 mg Q4H PRN ORAL T>100.5 10/11/18 10:14 11/10/18 10:13 Albuterol/ Ipratropium (Albuterol/ Ipratropium) 3 ml Q4H PRN HHN Shortness of Breath 10/11/18 10:15 10/16/18 10:14 Cephalexin (Keflex) 500 mg EVERY 8 HOURS ORAL 10/11/18 14:00 10/14/18 21:59 10/12/18 05:34 Clonidine HCl (Catapres Tab) 0.1 mg Q4H PRN ORAL SBP>160 10/11/18 10:14 11/10/18 10:13 Dextrose (Dextrose 50%) 25 ml Q30M PRN IV Hypoglycemia 10/11/18 10:30 11/06/18 10:59 Dextrose (Dextrose 50%) 50 ml Q30M PRN IV Hypoglycemia 10/11/18 10:30 11/06/18 10:59 Folic Acid (Folate) 2 mg DAILY ORAL 10/12/18 09:00 11/07/18 09:14 10/12/18 08:42 Heparin Sodium (Porcine) (Heparin 5000 units/ml) 5,000 units EVERY 12 HOURS SUBQ 10/11/18 21:00 11/06/18 10:59 10/12/18 08:43 Hydralazine HCl (Apresoline) 75 mg Q8HR ORAL 10/12/18 14:00 11/06/18 17:59 Lisinopril (Zestril) 10 mg DAILY ORAL 10/12/18 09:00 11/10/18 08:59 10/12/18 08:42 Metoprolol Tartrate (Lopressor) 12.5 mg Q12HR ORAL 10/11/18 21:00 11/07/18 09:14 10/12/18 08:41 Morphine Sulfate (Morphine Sulfate) 2 mg Q4H PRN IVP Severe Pain (Pain Scale 7-10) 10/11/18 10:15 10/18/18 10:14 Nifedipine (Procardia XL) 30 mg BID ORAL 10/12/18 18:00 11/11/18 17:59 Ondansetron HCl (Zofran) 4 mg Q6H PRN IVP Nausea & Vomiting 10/11/18 11:00 11/06/18 10:59 Polyethylene Glycol (Miralax) 17 gm DAILYPRN PRN ORAL Constipation 10/11/18 10:15 11/10/18 10:14 Allergies: Coded Allergies: No Known Allergies (Unverified , 10/07/18) ROS Limited/Unobtainable: No Constitutional: Reports: no symptoms HEENT: Reports: no symptoms Cardiovascular: Reports: no symptoms Respiratory: Reports: no symptoms Gastrointestinal/Abdominal: Reports: no symptoms Genitourinary: Reports: no symptoms Neurologic/Psychiatric: Reports: no symptoms Subjective 82 YO M admitted after mechanical fall. Now fractured finger. Cover for Int Med-Dr Estevez Objective Last Vital Signs Date Time Temp Pulse Resp B/P (MAP) Pulse Ox O2 Delivery O2 Flow Rate FiO2 10/12/18 12:00 98.1 57 18 158/59 (92) 97 10/12/18 09:00 Room Air Room Air 10/12/18 08:35 21 Laboratory Tests Test 10/12/18 05:26 White Blood Count 6.0 K/UL (4.8-10.8) Red Blood Count 3.43 M/UL (4.70-6.10) L Hemoglobin 9.3 G/DL (14.2-18.0) L Hematocrit 29.7 % (42.0-52.0) L Mean Corpuscular Volume 87 FL (80-99) Mean Corpuscular Hemoglobin 27.2 PG (27.0-31.0) Mean Corpuscular Hemoglobin Concent 31.4 G/DL (32.0-36.0) L Red Cell Distribution Width 13.7 % (11.6-14.8) Platelet Count 250 K/UL (150-450) Mean Platelet Volume 5.5 FL (6.5-10.1) L Neutrophils (%) (Auto) 63.2 % (45.0-75.0) Lymphocytes (%) (Auto) 18.8 % (20.0-45.0) L Monocytes (%) (Auto) 10.3 % (1.0-10.0) H Eosinophils (%) (Auto) 6.5 % (0.0-3.0) H Basophils (%) (Auto) 1.2 % (0.0-2.0) Sodium Level 143 MMOL/L (136-145) Potassium Level 4.1 MMOL/L (3.5-5.1) Chloride Level 111 MMOL/L (98-107) H Carbon Dioxide Level 23 MMOL/L (21-32) Anion Gap 9 mmol/L (5-15) Blood Urea Nitrogen 31 mg/dL (7-18) H Creatinine 1.7 MG/DL (0.55-1.30) H Estimat Glomerular Filtration Rate mL/min (>60) Glucose Level 85 MG/DL (74-106) Uric Acid 6.5 MG/DL (2.6-7.2) Calcium Level 8.5 MG/DL (8.5-10.1) Phosphorus Level 3.5 MG/DL (2.5-4.9) Magnesium Level 2.0 MG/DL (1.8-2.4) Total Bilirubin 0.4 MG/DL (0.2-1.0) Aspartate Amino Transf (AST/SGOT) 21 U/L (15-37) Alanine Aminotransferase (ALT/SGPT) 17 U/L (12-78) Alkaline Phosphatase 48 U/L (46-116) C-Reactive Protein, Quantitative 1.9 mg/dL (0.00-0.90) H Pro-B-Type Natriuretic Peptide 737 pg/mL (0-125) H Total Protein 6.3 G/DL (6.4-8.2) L Albumin 2.8 G/DL (3.4-5.0) L Globulin 3.5 g/dL Albumin/Globulin Ratio 0.8 (1.0-2.7) L Intake and Output 10/11/18 10/12/18 19:00 07:00 Intake Total 240 ml Output Total 750 ml Balance -510 ml Intake Oral 240 ml Output Urine Total 750 ml # Voids 4 Objective PHYSICAL EXAMINATION: GENERAL: The patient is awake and responsive, in no acute distress. HEAD AND NECK: Pupils are reactive to light. Extraocular movements intact. NECK: Supple. No JVD. LUNGS: Good air entry. No wheezing or rales. HEART: Reveals S1, S2. Distant heart sounds. No gallops. ABDOMEN: Soft, nondistended, and nontender. Positive bowel sounds. EXTREMITIES: No cyanosis, clubbing, or edema. Right hand fourth finger with laceration and dislocation, finger has been reduced. RECTAL/GENITOURINARY: Refused and deferred. PSYCHIATRIC: Mood and affect is intact. Assessment/Plan Assessment/Plan ASSESSMENT: 1. Status post mechanical fall with the right hand fourth finger laceration as well as dislocation status post reduction. 2. Hypertension, uncontrolled. 3. History of CVA with left hemiparesis. 4. Acute on Chronic kidney failure 5. Anemia. 6. Homeless PLAN: 1. Admit the patient to monitor unit. 2. Dr. Frye pulmonary consultation as well as 3. Dr. Newsome from Infectious Disease. 4. Follow up with 2D echo. 5. Code status is Full Code. 6. DVT prophylaxis with heparin subcutaneous. We will follow up with the 7. anemia workup in progress. We will hold aspirin at this time due to the patient's anemia. Follow up with the PT and OT evaluation. 8. discharge planning: see social work note 9. Renal=Farzad Field MD Oct 12, 2018 13:06
--- NOTE | 2018-10-12 13:23 | Infectious Diseases Prog Note ---
Assessment/Plan Assessment/Plan Assessment: Afebrile No leukocytosis R 4th finger green-2ry to PIP dislocation and laceration, s/p reduction -repeat R hand xray: Successful reduction of the previously seen dislocation at the fourth proximal interphalangeal joint. No definite/displaced acute fracture. -xray R hand: Dislocation at the fourth proximal interphalangeal joint. No definite/displaced associated acute fracture.Osteoarthrosis. s/p Fall -Head CT: Exam limited by motion artifact. Within this limitations:No evidence of acute intracranial hemorrhage, mass effect or cortical edema. MRI maybe obtained for more sensitive evaluation as clinically indicated. Atrophy and nonspecific periventricular hypoattenuation suggestive of chronic ischemic microvascular changes. Likely chronic infarct in the right frontal lobe. Left supraorbital soft tissue swelling. No depressed skull fracture. -CT chest: No discrete mass.Pulmonary emphysema.Cardiomegaly. Small pericardial fluid.Small left and trace right pleural effusions. Right renal cyst. -CT neck: No discrete mass. Pulmonary emphysema. Cervical spondylosis with central canal and foraminal stenosis. Dyspnea -CXR: Nonspecific mild interstitial prominence, possibly chronic. No definite focal consolidation, pleural effusion, pneumothorax or evidence of alveolar edema. Borderline cardiomegaly, possibly exaggerated by AP technique.Bilateral hilar prominence most likely related to ectatic pulmonary vasculature. LILLIE, improving -u/a neg -Renal US: Slightly increased echogenicity within the kidneys which can be seen in the setting of medical renal disease. No hydronephrosis. Cyst within the right renal upper pole. No stones. Unremarkable appearance of the bladder. CVA w L side weakness HTN appendectomy Plan: -D/c prophylactic PO Keflex #6/5 -10/07 IV Vancomycin, Ceftriaxone #1, Cefepime x1 -f/u cx -Monitor CBC/CMP, temperatures -wound care Thank you for this consultation. Will continue to follow along with you. Discussed with RN. Subjective Allergies: Coded Allergies: No Known Allergies (Unverified , 10/07/18) Subjective afebrile no leukocytosis Objective Vital Signs Last 24 Hour Vital Signs Date Time Temp Pulse Resp B/P (MAP) Pulse Ox O2 Delivery O2 Flow Rate FiO2 10/12/18 13:05 158/59 10/12/18 12:00 98.1 57 18 158/59 (92) 97 10/12/18 09:00 Room Air Room Air 8/14/19 08:42 164/72 10/12/18 08:42 68 164/72 10/12/18 08:41 68 164/72 10/12/18 08:35 69 18 96 Room Air 21 10/12/18 08:00 98.9 68 16 164/72 (102) 97 10/12/18 05:34 108/66 10/12/18 03:36 98.9 68 16 148/60 (89) 97 10/12/18 00:00 97.7 58 16 142/61 (88) 96 10/11/18 21:26 68 108/54 10/11/18 21:25 108/54 10/11/18 21:00 Room Air Room Air 10/11/18 20:06 68 18 97 Room Air 21 10/11/18 20:00 97.6 63 19 108/54 (72) 95 10/11/18 16:00 97.5 65 19 142/66 (91) 99 Height (Feet): 5 Height (Inches): 10.00 Weight (Pounds): 152 Objective General Appearance: thin Lines, tubes and drains: peripheral, PICC HEENT: normocephalic, atraumatic Neck: non-tender, supple Respiratory/Chest: chest wall non-tender, lungs clear Cardiovascular/Chest: normal peripheral pulses Abdomen: normal bowel sounds Extremities: , laceration - R 4th finger laceration Laboratory Tests Test 10/12/18 05:26 White Blood Count 6.0 K/UL (4.8-10.8) Red Blood Count 3.43 M/UL (4.70-6.10) L Hemoglobin 9.3 G/DL (14.2-18.0) L Hematocrit 29.7 % (42.0-52.0) L Mean Corpuscular Volume 87 FL (80-99) Mean Corpuscular Hemoglobin 27.2 PG (27.0-31.0) Mean Corpuscular Hemoglobin Concent 31.4 G/DL (32.0-36.0) L Red Cell Distribution Width 13.7 % (11.6-14.8) Platelet Count 250 K/UL (150-450) Mean Platelet Volume 5.5 FL (6.5-10.1) L Neutrophils (%) (Auto) 63.2 % (45.0-75.0) Lymphocytes (%) (Auto) 18.8 % (20.0-45.0) L Monocytes (%) (Auto) 10.3 % (1.0-10.0) H Eosinophils (%) (Auto) 6.5 % (0.0-3.0) H Basophils (%) (Auto) 1.2 % (0.0-2.0) Sodium Level 143 MMOL/L (136-145) Potassium Level 4.1 MMOL/L (3.5-5.1) Chloride Level 111 MMOL/L (98-107) H Carbon Dioxide Level 23 MMOL/L (21-32) Anion Gap 9 mmol/L (5-15) Blood Urea Nitrogen 31 mg/dL (7-18) H Creatinine 1.7 MG/DL (0.55-1.30) H Estimat Glomerular Filtration Rate mL/min (>60) Glucose Level 85 MG/DL (74-106) Uric Acid 6.5 MG/DL (2.6-7.2) Calcium Level 8.5 MG/DL (8.5-10.1) Phosphorus Level 3.5 MG/DL (2.5-4.9) Magnesium Level 2.0 MG/DL (1.8-2.4) Total Bilirubin 0.4 MG/DL (0.2-1.0) Aspartate Amino Transf (AST/SGOT) 21 U/L (15-37) Alanine Aminotransferase (ALT/SGPT) 17 U/L (12-78) Alkaline Phosphatase 48 U/L (46-116) C-Reactive Protein, Quantitative 1.9 mg/dL (0.00-0.90) H Pro-B-Type Natriuretic Peptide 737 pg/mL (0-125) H Total Protein 6.3 G/DL (6.4-8.2) L Albumin 2.8 G/DL (3.4-5.0) L Globulin 3.5 g/dL Albumin/Globulin Ratio 0.8 (1.0-2.7) L Current Medications Medications (Trade) Dose Ordered Sig/[place] Route PRN Reason Start Time Stop Time Status Last Admin Dose Admin Acetaminophen (Tylenol) 650 mg Q4H PRN ORAL T>100.5 10/11/18 10:14 11/10/18 10:13 Albuterol/ Ipratropium (Albuterol/ Ipratropium) 3 ml Q4H PRN HHN Shortness of Breath 10/11/18 10:15 10/16/18 10:14 Cephalexin (Keflex) 500 mg EVERY 8 HOURS ORAL 10/11/18 14:00 10/14/18 21:59 10/12/18 13:04 Clonidine HCl (Catapres Tab) 0.1 mg Q4H PRN ORAL SBP>160 10/11/18 10:14 11/10/18 10:13 Dextrose (Dextrose 50%) 25 ml Q30M PRN IV Hypoglycemia 10/11/18 10:30 11/06/18 10:59 Dextrose (Dextrose 50%) 50 ml Q30M PRN IV Hypoglycemia 10/11/18 10:30 11/06/18 10:59 Folic Acid (Folate) 2 mg DAILY ORAL 10/12/18 09:00 11/07/18 09:14 10/12/18 08:42 Heparin Sodium (Porcine) (Heparin 5000 units/ml) 5,000 units EVERY 12 HOURS SUBQ 10/11/18 21:00 11/06/18 10:59 10/12/18 08:43 Hydralazine HCl (Apresoline) 75 mg Q8HR ORAL 10/12/18 14:00 11/06/18 17:59 10/12/18 13:05 Lisinopril (Zestril) 10 mg DAILY ORAL 10/12/18 09:00 11/10/18 08:59 10/12/18 08:42 Metoprolol Tartrate (Lopressor) 12.5 mg Q12HR ORAL 10/11/18 21:00 11/07/18 09:14 10/12/18 08:41 Morphine Sulfate (Morphine Sulfate) 2 mg Q4H PRN IVP Severe Pain (Pain Scale 7-10) 10/11/18 10:15 10/18/18 10:14 Nifedipine (Procardia XL) 30 mg BID ORAL 10/12/18 18:00 11/11/18 17:59 Ondansetron HCl (Zofran) 4 mg Q6H PRN IVP Nausea & Vomiting 10/11/18 11:00 11/06/18 10:59 Polyethylene Glycol (Miralax) 17 gm DAILYPRN PRN ORAL Constipation 10/11/18 10:15 11/10/18 10:14 Marly Newsome M.D. Oct 12, 2018 13:23
--- NOTE | 2018-10-12 13:52 | Pulmonology Progress Note ---
Assessment/Plan Problems: (1) Pneumonia (2) History of hypertension (3) History of CVA (cerebrovascular accident) Assessment/Plan no new complains doing better respiratory treatment check electrolytes dvt prophylaxis no new complains needs placement Subjective ROS Limited/Unobtainable: No Constitutional: Reports: no symptoms HEENT: Repors: no symptoms Respiratory: Reports: no symptoms Allergies: Coded Allergies: No Known Allergies (Unverified , 10/07/18) Objective Last 24 Hour Vital Signs Date Time Temp Pulse Resp B/P (MAP) Pulse Ox O2 Delivery O2 Flow Rate FiO2 10/12/18 13:05 158/59 10/12/18 12:00 98.1 57 18 158/59 (92) 97 10/12/18 09:00 Room Air Room Air 10/12/18 08:42 164/72 10/12/18 08:42 68 164/72 10/12/18 08:41 68 164/72 10/12/18 08:35 69 18 96 Room Air 21 10/12/18 08:00 98.9 68 16 164/72 (102) 97 10/12/18 05:34 108/66 10/12/18 03:36 98.9 68 16 148/60 (89) 97 10/12/18 00:00 97.7 58 16 142/61 (88) 96 10/11/18 21:26 68 108/54 10/11/18 21:25 108/54 10/11/18 21:00 Room Air Room Air 10/11/18 20:06 68 18 97 Room Air 21 10/11/18 20:00 97.6 63 19 108/54 (72) 95 10/11/18 16:00 97.5 65 19 142/66 (91) 99 Intake and Output 10/11/18 10/12/18 19:00 07:00 Intake Total 240 ml Output Total 750 ml Balance -510 ml Intake Oral 240 ml Output Urine Total 750 ml # Voids 4 General Appearance: WD/WN HEENT: normocephalic, atraumatic, anicteric Respiratory/Chest: chest wall non-tender, lungs clear Cardiovascular: normal peripheral pulses, normal rate Abdomen: normal bowel sounds, soft, non tender Extremities: no cyanosis Laboratory Tests 10/12/18 05:26: White Blood Count 6.0, Red Blood Count 3.43L, Hemoglobin 9.3L, Hematocrit 29.7L , Mean Corpuscular Volume 87, Mean Corpuscular Hemoglobin 27.2, Mean Corpuscular Hemoglobin Concent 31.4L, Red Cell Distribution Width 13.7, Platelet Count 250, Mean Platelet Volume 5.5L, Neutrophils (%) (Auto) 63.2, Lymphocytes (%) (Auto) 18.8L, Monocytes (%) (Auto) 10.3H, Eosinophils (%) (Auto ) 6.5H, Basophils (%) (Auto) 1.2, Sodium Level 143, Potassium Level 4.1, Chloride Level 111H, Carbon Dioxide Level 23, Anion Gap 9, Blood Urea Nitrogen 31H, Creatinine 1.7H, Estimat Glomerular Filtration Rate , Glucose Level 85, Uric Acid 6.5, Calcium Level 8.5, Phosphorus Level 3.5, Magnesium Level 2.0, Total Bilirubin 0.4, Aspartate Amino Transf (AST/SGOT) 21, Alanine Aminotransferase (ALT/SGPT) 17, Alkaline Phosphatase 48, C-Reactive Protein, Quantitative 1.9H, Pro-B-Type Natriuretic Peptide 737H, Total Protein 6.3L, Albumin 2.8L, Globulin 3.5, Albumin/Globulin Ratio 0.8L Current Medications Medications (Trade) Dose Ordered Sig/[place] Route PRN Reason Start Time Stop Time Status Last Admin Dose Admin Acetaminophen (Tylenol) 650 mg Q4H PRN ORAL T>100.5 10/11/18 10:14 11/10/18 10:13 Albuterol/ Ipratropium (Albuterol/ Ipratropium) 3 ml Q4H PRN HHN Shortness of Breath 10/11/18 10:15 10/16/18 10:14 Clonidine HCl (Catapres Tab) 0.1 mg Q4H PRN ORAL SBP>160 10/11/18 10:14 11/10/18 10:13 Dextrose (Dextrose 50%) 25 ml Q30M PRN IV Hypoglycemia 10/11/18 10:30 11/06/18 10:59 Dextrose (Dextrose 50%) 50 ml Q30M PRN IV Hypoglycemia 10/11/18 10:30 11/06/18 10:59 Folic Acid (Folate) 2 mg DAILY ORAL 10/12/18 09:00 11/07/18 09:14 10/12/18 08:42 Heparin Sodium (Porcine) (Heparin 5000 units/ml) 5,000 units EVERY 12 HOURS SUBQ 10/11/18 21:00 11/06/18 10:59 10/12/18 08:43 Hydralazine HCl (Apresoline) 75 mg Q8HR ORAL 10/12/18 14:00 11/06/18 17:59 10/12/18 13:05 Lisinopril (Zestril) 10 mg DAILY ORAL 10/12/18 09:00 11/10/18 08:59 10/12/18 08:42 Metoprolol Tartrate (Lopressor) 12.5 mg Q12HR ORAL 10/11/18 21:00 11/07/18 09:14 10/12/18 08:41 Morphine Sulfate (Morphine Sulfate) 2 mg Q4H PRN IVP Severe Pain (Pain Scale 7-10) 10/11/18 10:15 10/18/18 10:14 Nifedipine (Procardia XL) 30 mg BID ORAL 10/12/18 18:00 11/11/18 17:59 Ondansetron HCl (Zofran) 4 mg Q6H PRN IVP Nausea & Vomiting 10/11/18 11:00 11/06/18 10:59 Polyethylene Glycol (Miralax) 17 gm DAILYPRN PRN ORAL Constipation 10/11/18 10:15 11/10/18 10:14 Casie Frye MD Oct 12, 2018 13:52
[2018-10-12 16:00] VITALS: BP_SYST 156; BP_SYST 162; BP_DIAS 65
--- NOTE | 2018-10-12 19:17 | NUR ---
HAND-OFF: Report given to DOT Plasencia.
--- NOTE | 2018-10-12 19:26 | NUR ---
CASE MANAGEMENT: REVIEW SI: PNA . T 97.3 HR 57 RR 18 BP 164/72 SAT 97% ROOM AIR H/H 9.3/29.7 BUN 31 CR IS: HEPARIN SUBQ Q12HR PROCARDIA PO BID HYDRALAZINE PO Q8HR METOPROLOL PO Q12HR ALBUTEROL HHN Q4HR PRN MED/SURG STATUS DCP: PATIENT IS FROM [facility]
--- NOTE | 2018-10-12 19:42 | Cardiology Progress Note ---
Assessment/Plan Assessment/Plan 1. Non-syncopal fall. 2. Right dorsal dislocation of PIP joint of the index finger. 3. History of CVA with carotid endarterectomy. 4. History of hypertension. seems to be doign ok cr worsend on the acei will dc and use the hydralzine dc plan when ok with dr bruner Subjective Cardiovascular: Denies: chest pain, irregular heart rate, lightheadedness Respiratory: Denies: shortness of breath Gastrointestinal/Abdominal: Denies: abdominal pain Genitourinary: Denies: no symptoms Objective Last 24 Hour Vital Signs Date Time Temp Pulse Resp B/P (MAP) Pulse Ox O2 Delivery O2 Flow Rate FiO2 10/12/18 17:06 90 156/65 10/12/18 16:00 97.3 90 18 156/65 (95) 97 10/12/18 13:05 158/59 10/12/18 12:00 98.1 57 18 158/59 (92) 97 10/12/18 09:00 Room Air Room Air 10/12/18 08:42 164/72 10/12/18 08:42 68 164/72 10/12/18 08:41 68 164/72 10/12/18 08:35 69 18 96 Room Air 21 10/12/18 08:00 98.9 68 16 164/72 (102) 97 10/12/18 05:34 108/66 10/12/18 03:36 98.9 68 16 148/60 (89) 97 10/12/18 00:00 97.7 58 16 142/61 (88) 96 10/11/18 21:26 68 108/54 10/11/18 21:25 108/54 10/11/18 21:00 Room Air Room Air 10/11/18 20:06 68 18 97 Room Air 21 10/11/18 20:00 97.6 63 19 108/54 (72) 95 General Appearance: no apparent distress, alert Neck: supple Cardiovascular: normal rate Respiratory/Chest: lungs clear Abdomen: normal bowel sounds, non tender, soft Extremities: no swelling Intake and Output 10/11/18 10/12/18 19:00 07:00 Intake Total 240 ml Output Total 750 ml Balance -510 ml Intake Oral 240 ml Output Urine Total 750 ml # Voids 4 Laboratory Tests Test 10/12/18 05:26 White Blood Count 6.0 K/UL (4.8-10.8) Red Blood Count 3.43 M/UL (4.70-6.10) L Hemoglobin 9.3 G/DL (14.2-18.0) L Hematocrit 29.7 % (42.0-52.0) L Mean Corpuscular Volume 87 FL (80-99) Mean Corpuscular Hemoglobin 27.2 PG (27.0-31.0) Mean Corpuscular Hemoglobin Concent 31.4 G/DL (32.0-36.0) L Red Cell Distribution Width 13.7 % (11.6-14.8) Platelet Count 250 K/UL (150-450) Mean Platelet Volume 5.5 FL (6.5-10.1) L Neutrophils (%) (Auto) 63.2 % (45.0-75.0) Lymphocytes (%) (Auto) 18.8 % (20.0-45.0) L Monocytes (%) (Auto) 10.3 % (1.0-10.0) H Eosinophils (%) (Auto) 6.5 % (0.0-3.0) H Basophils (%) (Auto) 1.2 % (0.0-2.0) Sodium Level 143 MMOL/L (136-145) Potassium Level 4.1 MMOL/L (3.5-5.1) Chloride Level 111 MMOL/L (98-107) H Carbon Dioxide Level 23 MMOL/L (21-32) Anion Gap 9 mmol/L (5-15) Blood Urea Nitrogen 31 mg/dL (7-18) H Creatinine 1.7 MG/DL (0.55-1.30) H Estimat Glomerular Filtration Rate mL/min (>60) Glucose Level 85 MG/DL (74-106) Uric Acid 6.5 MG/DL (2.6-7.2) Calcium Level 8.5 MG/DL (8.5-10.1) Phosphorus Level 3.5 MG/DL (2.5-4.9) Magnesium Level 2.0 MG/DL (1.8-2.4) Total Bilirubin 0.4 MG/DL (0.2-1.0) Aspartate Amino Transf (AST/SGOT) 21 U/L (15-37) Alanine Aminotransferase (ALT/SGPT) 17 U/L (12-78) Alkaline Phosphatase 48 U/L (46-116) C-Reactive Protein, Quantitative 1.9 mg/dL (0.00-0.90) H Pro-B-Type Natriuretic Peptide 737 pg/mL (0-125) H Total Protein 6.3 G/DL (6.4-8.2) L Albumin 2.8 G/DL (3.4-5.0) L Globulin 3.5 g/dL Albumin/Globulin Ratio 0.8 (1.0-2.7) L Layton Croft MD Oct 12, 2018 19:42
[2018-10-12 20:00] VITALS: BP 144/63
--- NOTE | 2018-10-12 20:31 | NUR ---
NURSE NOTES: Patient in bed, awake, alert and verbally responsive. Able to make needs known. Respiration is even and unlabored. SKin is warm and dry to touch. Abdomen is soft and non distended. Kept clean and comfortable. No complaint of pain or discomfort at the moment. Bed in low and locked position. IV site noted. call light is at bedside. Will continue plan of care.
[2018-10-13] VITALS: BP 149/64
[2018-10-13 04:00] VITALS: BP 157/61
[2018-10-13] MEDS: HydrALAZINE 25mg tab ORAL SCH ×3 (05:29→21:06)
--- NOTE | 2018-10-13 07:04 | NUR ---
HAND-OFF: Report given to DOT Diaz.
--- NOTE | 2018-10-13 07:16 | NUR ---
NURSE NOTES: Patient alert x3, hard of hearing; on room air, no sing of distress and shortness of breath; no sing of chest pain; IV LAC flushes well; urinal and call light within reach; bed at lowest position, side rails up x2, breaks engaged; will care out plan of care.
[2018-10-13 08:00] VITALS: BP 127/55
[2018-10-13] MEDS: Heparin 5000 units/ml inj SUBQ SCH ×2 (08:09→21:04)
[2018-10-13] MEDS: Metoprolol Tartrate 12.5mg TAB ORAL SCH ×2 (08:09→21:07)
--- NOTE | 2018-10-13 10:52 | NUR ---
SS note Chart reviewed. (this SW discussed with patient plans for discharge). Patient getting angry, stating "you are all just greedy, you just want my money." This SW advised patient the requirement for Transitional Housing or Board and Care. Emmett addition, patient explains he will not be paying for this, does not want any further assistance for placement. Patient has been requiring assistance from nursing, with P.T notes showing patient is stand by assist with walker. Nursing also reports patient is not independent with ADLs, ambulation and requires SNF at this time.
--- NOTE | 2018-10-13 11:35 | NUR ---
NURSE NOTES: Patient working with PT, walking well on the ward way.
--- NOTE | 2018-10-13 11:43 | Infectious Diseases Prog Note ---
Assessment/Plan Assessment/Plan Assessment: Afebrile No leukocytosis R 4th finger green-2ry to PIP dislocation and laceration, s/p reduction -repeat R hand xray: Successful reduction of the previously seen dislocation at the fourth proximal interphalangeal joint. No definite/displaced acute fracture. -xray R hand: Dislocation at the fourth proximal interphalangeal joint. No definite/displaced associated acute fracture.Osteoarthrosis. s/p Fall -Head CT: Exam limited by motion artifact. Within this limitations:No evidence of acute intracranial hemorrhage, mass effect or cortical edema. MRI maybe obtained for more sensitive evaluation as clinically indicated. Atrophy and nonspecific periventricular hypoattenuation suggestive of chronic ischemic microvascular changes. Likely chronic infarct in the right frontal lobe. Left supraorbital soft tissue swelling. No depressed skull fracture. -CT chest: No discrete mass.Pulmonary emphysema.Cardiomegaly. Small pericardial fluid.Small left and trace right pleural effusions. Right renal cyst. -CT neck: No discrete mass. Pulmonary emphysema. Cervical spondylosis with central canal and foraminal stenosis. Dyspnea -CXR: Nonspecific mild interstitial prominence, possibly chronic. No definite focal consolidation, pleural effusion, pneumothorax or evidence of alveolar edema. Borderline cardiomegaly, possibly exaggerated by AP technique.Bilateral hilar prominence most likely related to ectatic pulmonary vasculature. LILLIE, improving -u/a neg -Renal US: Slightly increased echogenicity within the kidneys which can be seen in the setting of medical renal disease. No hydronephrosis. Cyst within the right renal upper pole. No stones. Unremarkable appearance of the bladder. CVA w L side weakness HTN appendectomy Plan: -Continue to monitor off abx -10/12 SP keflex #6 -10/07 IV Vancomycin, Ceftriaxone #1, Cefepime x1 -f/u cx -Monitor CBC/CMP, temperatures -wound care Thank you for this consultation. Will continue to follow along with you. Discussed with RN. Subjective Allergies: Coded Allergies: No Known Allergies (Unverified , 10/07/18) Subjective afebrile no leukocytosis Objective Vital Signs Last 24 Hour Vital Signs Date Time Temp Pulse Resp B/P (MAP) Pulse Ox O2 Delivery O2 Flow Rate FiO2 10/13/18 09:50 62 20 97 Room Air 21 10/13/18 09:00 Room Air Room Air 8/15/19 08:09 71 127/55 10/13/18 08:08 71 127/55 10/13/18 08:00 98.9 71 19 127/55 (79) 98 10/13/18 05:29 157/61 10/13/18 04:00 97.9 61 20 157/61 (93) 98 10/13/18 00:00 97.5 63 20 149/64 (92) 97 10/12/18 21:12 144/63 10/12/18 21:11 65 144/63 10/12/18 21:00 Room Air Room Air 10/12/18 21:00 65 18 95 Room Air 21 10/12/18 20:00 97.7 65 20 144/63 (90) 98 10/12/18 17:06 90 156/65 10/12/18 16:00 97.3 90 18 156/65 (95) 97 10/12/18 13:05 158/59 10/12/18 12:00 98.1 57 18 158/59 (92) 97 Height (Feet): 5 Height (Inches): 10.00 Weight (Pounds): 152 Objective General Appearance: thin Lines, tubes and drains: peripheral, PICC HEENT: normocephalic, atraumatic Neck: non-tender, supple Respiratory/Chest: chest wall non-tender, lungs clear Cardiovascular/Chest: normal peripheral pulses Abdomen: normal bowel sounds Extremities: , laceration - R 4th finger laceration Current Medications Medications (Trade) Dose Ordered Sig/[place] Route PRN Reason Start Time Stop Time Status Last Admin Dose Admin Acetaminophen (Tylenol) 650 mg Q4H PRN ORAL T>100.5 10/11/18 10:14 11/10/18 10:13 Albuterol/ Ipratropium (Albuterol/ Ipratropium) 3 ml Q4H PRN HHN Shortness of Breath 10/11/18 10:15 10/16/18 10:14 Clonidine HCl (Catapres Tab) 0.1 mg Q4H PRN ORAL SBP>160 10/11/18 10:14 11/10/18 10:13 Dextrose (Dextrose 50%) 25 ml Q30M PRN IV Hypoglycemia 10/11/18 10:30 11/06/18 10:59 Dextrose (Dextrose 50%) 50 ml Q30M PRN IV Hypoglycemia 10/11/18 10:30 11/06/18 10:59 Folic Acid (Folate) 2 mg DAILY ORAL 10/12/18 09:00 11/07/18 09:14 10/13/18 08:07 Heparin Sodium (Porcine) (Heparin 5000 units/ml) 5,000 units EVERY 12 HOURS SUBQ 10/11/18 21:00 11/06/18 10:59 10/13/18 08:09 Hydralazine HCl (Apresoline) 75 mg Q8HR ORAL 10/12/18 14:00 11/06/18 17:59 10/13/18 05:29 Metoprolol Tartrate (Lopressor) 12.5 mg Q12HR ORAL 10/11/18 21:00 11/07/18 09:14 10/13/18 08:09 Morphine Sulfate (Morphine Sulfate) 2 mg Q4H PRN IVP Severe Pain (Pain Scale 7-10) 10/11/18 10:15 10/18/18 10:14 Nifedipine (Procardia XL) 30 mg BID ORAL 10/12/18 18:00 11/11/18 17:59 10/13/18 08:08 Ondansetron HCl (Zofran) 4 mg Q6H PRN IVP Nausea & Vomiting 10/11/18 11:00 11/06/18 10:59 Polyethylene Glycol (Miralax) 17 gm DAILYPRN PRN ORAL Constipation 10/11/18 10:15 11/10/18 10:14 Marly Newsome M.D. Oct 13, 2018 11:43
[2018-10-13 12:00] VITALS: BP 121/63
--- NOTE | 2018-10-13 13:26 | Pulmonology Progress Note ---
Assessment/Plan Problems: (1) Pneumonia (2) History of hypertension (3) History of CVA (cerebrovascular accident) Assessment/Plan all reviewed no new complains doing better respiratory treatment check electrolytes dvt prophylaxis no new complains needs placement Subjective ROS Limited/Unobtainable: No Constitutional: Reports: no symptoms HEENT: Repors: no symptoms Respiratory: Reports: no symptoms Allergies: Coded Allergies: No Known Allergies (Unverified , 10/07/18) Objective Last 24 Hour Vital Signs Date Time Temp Pulse Resp B/P (MAP) Pulse Ox O2 Delivery O2 Flow Rate FiO2 10/13/18 12:00 98.8 66 18 121/63 (82) 98 10/13/18 09:50 62 20 97 Room Air 21 10/13/18 09:00 Room Air Room Air 10/13/18 08:09 71 127/55 10/13/18 08:08 71 127/55 10/13/18 08:00 98.9 71 19 127/55 (79) 98 10/13/18 05:29 157/61 10/13/18 04:00 97.9 61 20 157/61 (93) 98 10/13/18 00:00 97.5 63 20 149/64 (92) 97 10/12/18 21:12 144/63 10/12/18 21:11 65 144/63 10/12/18 21:00 Room Air Room Air 10/12/18 21:00 65 18 95 Room Air 21 10/12/18 20:00 97.7 65 20 144/63 (90) 98 10/12/18 17:06 90 156/65 10/12/18 16:00 97.3 90 18 156/65 (95) 97 Intake and Output 10/12/18 10/13/18 19:00 07:00 Output Total 400 ml Balance -400 ml Output Urine Total 400 ml # Voids 5 General Appearance: WD/WN HEENT: atraumatic, anicteric Respiratory/Chest: chest wall non-tender, lungs clear Cardiovascular: normal peripheral pulses, regular rhythm Abdomen: normal bowel sounds, no organomegaly Extremities: no cyanosis Skin: no rash Current Medications Medications (Trade) Dose Ordered Sig/[place] Route PRN Reason Start Time Stop Time Status Last Admin Dose Admin Acetaminophen (Tylenol) 650 mg Q4H PRN ORAL T>100.5 10/11/18 10:14 11/10/18 10:13 Albuterol/ Ipratropium (Albuterol/ Ipratropium) 3 ml Q4H PRN HHN Shortness of Breath 10/11/18 10:15 10/16/18 10:14 Clonidine HCl (Catapres Tab) 0.1 mg Q4H PRN ORAL SBP>160 10/11/18 10:14 11/10/18 10:13 Dextrose (Dextrose 50%) 25 ml Q30M PRN IV Hypoglycemia 10/11/18 10:30 11/06/18 10:59 Dextrose (Dextrose 50%) 50 ml Q30M PRN IV Hypoglycemia 10/11/18 10:30 11/06/18 10:59 Folic Acid (Folate) 2 mg DAILY ORAL 10/12/18 09:00 11/07/18 09:14 10/13/18 08:07 Heparin Sodium (Porcine) (Heparin 5000 units/ml) 5,000 units EVERY 12 HOURS SUBQ 10/11/18 21:00 11/06/18 10:59 10/13/18 08:09 Hydralazine HCl (Apresoline) 75 mg Q8HR ORAL 10/12/18 14:00 11/06/18 17:59 10/13/18 05:29 Metoprolol Tartrate (Lopressor) 12.5 mg Q12HR ORAL 10/11/18 21:00 11/07/18 09:14 10/13/18 08:09 Morphine Sulfate (Morphine Sulfate) 2 mg Q4H PRN IVP Severe Pain (Pain Scale 7-10) 10/11/18 10:15 10/18/18 10:14 Nifedipine (Procardia XL) 30 mg BID ORAL 10/12/18 18:00 11/11/18 17:59 10/13/18 08:08 Ondansetron HCl (Zofran) 4 mg Q6H PRN IVP Nausea & Vomiting 10/11/18 11:00 11/06/18 10:59 Polyethylene Glycol (Miralax) 17 gm DAILYPRN PRN ORAL Constipation 10/11/18 10:15 11/10/18 10:14 Casie Frye MD Oct 13, 2018 13:26
--- NOTE | 2018-10-13 14:21 | Nephrology Progress Note ---
Assessment/Plan Problem List: (1) Renal failure (ARF), acute on chronic (2) History of hypertension (3) Anemia (4) History of CVA (cerebrovascular accident) Assessment Renal Failure- ? acute obn top of chronic Anemia HTN h/o CVA Rt 4th finger laceration: reason for admission Plan watch serum Cr on Andrea I Anemia hammonds bit of low folate U Na U Analysis BP control, further adjustment done Avoid Nephrotoxics ? DC planning? Subjective ROS Limited/Unobtainable: No Constitutional: Reports: malaise Objective Objective Last 24 Hour Vital Signs Date Time Temp Pulse Resp B/P (MAP) Pulse Ox O2 Delivery O2 Flow Rate FiO2 10/13/18 13:42 121/63 10/13/18 12:00 98.8 66 18 121/63 (82) 98 10/13/18 09:50 62 20 97 Room Air 21 10/13/18 09:00 Room Air Room Air 10/13/18 08:09 71 127/55 10/13/18 08:08 71 127/55 10/13/18 08:00 98.9 71 19 127/55 (79) 98 10/13/18 05:29 157/61 10/13/18 04:00 97.9 61 20 157/61 (93) 98 10/13/18 00:00 97.5 63 20 149/64 (92) 97 10/12/18 21:12 144/63 10/12/18 21:11 65 144/63 10/12/18 21:00 Room Air Room Air 10/12/18 21:00 65 18 95 Room Air 21 10/12/18 20:00 97.7 65 20 144/63 (90) 98 10/12/18 17:06 90 156/65 10/12/18 16:00 97.3 90 18 156/65 (95) 97 Intake and Output 10/12/18 10/13/18 19:00 07:00 Output Total 400 ml Balance -400 ml Output Urine Total 400 ml # Voids 5 Height (Feet): 5 Height (Inches): 10.00 Weight (Pounds): 152 General Appearance: no apparent distress Cardiovascular: normal rate Respiratory/Chest: lungs clear Abdomen: soft Objective no change Andrade Keenan MD Oct 13, 2018 14:21
--- NOTE | 2018-10-13 15:54 | NUR ---
NURSE NOTES: Dressing on the right hand changed with kerlix.
[2018-10-13 16:00] VITALS: BP_SYST 141; BP_SYST 157; BP_DIAS 59; BP_DIAS 61
--- NOTE | 2018-10-13 19:30 | NUR ---
NURSE NOTES: Received report from DOT [place]. Patient awake and alert. On room air, no signs of distress or labored breathing. IV intact, patent, and saline locked. Right ring finger has splint and right hand wrapped in kerlix. Bed in lowest position with call light in reach. Will continue to monitor.
--- NOTE | 2018-10-13 19:39 | NUR ---
HAND-OFF: Report given to DOT Gray.
[2018-10-13 20:00] VITALS: BP 153/62
--- NOTE | 2018-10-13 23:24 | Internal Med Progress Note ---
Subjective Physician Name Tripp Estevez Attending Physician Tripp Estevez MD Current Medications Medications (Trade) Dose Ordered Sig/Austin Route PRN Reason Start Time Stop Time Status Last Admin Dose Admin Acetaminophen (Tylenol) 650 mg Q4H PRN ORAL T>100.5 10/11/18 10:14 11/10/18 10:13 Albuterol/ Ipratropium (Albuterol/ Ipratropium) 3 ml Q4H PRN HHN Shortness of Breath 10/11/18 10:15 10/16/18 10:14 Clonidine HCl (Catapres Tab) 0.1 mg Q4H PRN ORAL SBP>160 10/11/18 10:14 11/10/18 10:13 Dextrose (Dextrose 50%) 25 ml Q30M PRN IV Hypoglycemia 10/11/18 10:30 11/06/18 10:59 Dextrose (Dextrose 50%) 50 ml Q30M PRN IV Hypoglycemia 10/11/18 10:30 11/06/18 10:59 Folic Acid (Folate) 2 mg DAILY ORAL 10/12/18 09:00 11/07/18 09:14 10/13/18 08:07 Heparin Sodium (Porcine) (Heparin 5000 units/ml) 5,000 units EVERY 12 HOURS SUBQ 10/11/18 21:00 11/06/18 10:59 10/13/18 21:04 Hydralazine HCl (Apresoline) 75 mg Q8HR ORAL 10/12/18 14:00 11/06/18 17:59 10/13/18 21:06 Metoprolol Tartrate (Lopressor) 12.5 mg Q12HR ORAL 10/11/18 21:00 11/07/18 09:14 10/13/18 21:07 Morphine Sulfate (Morphine Sulfate) 2 mg Q4H PRN IVP Severe Pain (Pain Scale 7-10) 10/11/18 10:15 10/18/18 10:14 Nifedipine (Procardia XL) 30 mg BID ORAL 10/12/18 18:00 11/11/18 17:59 10/13/18 17:16 Ondansetron HCl (Zofran) 4 mg Q6H PRN IVP Nausea & Vomiting 10/11/18 11:00 11/06/18 10:59 Polyethylene Glycol (Miralax) 17 gm DAILYPRN PRN ORAL Constipation 10/11/18 10:15 11/10/18 10:14 Allergies: Coded Allergies: No Known Allergies (Unverified , 10/07/18) Subjective Awake, alert, responsive, denies any shortness of breath or chest pain. Objective Last Vital Signs Date Time Temp Pulse Resp B/P (MAP) Pulse Ox O2 Delivery O2 Flow Rate FiO2 10/13/18 21:07 72 153/62 10/13/18 20:28 20 94 Nasal Cannula 2.0 28 10/13/18 16:00 98.9 Intake and Output 10/12/18 10/13/18 19:00 07:00 Output Total 400 ml Balance -400 ml Output Urine Total 400 ml # Voids 5 Objective GENERAL: The patient is awake and responsive, in no acute distress. HEAD AND NECK: Pupils are reactive to light. Extraocular movements intact. NECK: Supple. No JVD. LUNGS: Good air entry. No wheezing or rales. HEART: Reveals S1, S2. Distant heart sounds. No gallops. ABDOMEN: Soft, nondistended, and nontender. Positive bowel sounds. EXTREMITIES: No cyanosis, clubbing, or edema. Right hand fourth finger with laceration and dislocation, finger has been reduced. RECTAL/GENITOURINARY: Refused and deferred. PSYCHIATRIC: Mood and affect is intact. Assessment/Plan Assessment/Plan 1. Status post mechanical fall with the right hand fourth finger laceration as well as dislocation status post reduction. 2. Hypertension, uncontrolled. 3. History of CVA with left hemiparesis. 4. Acute on Chronic kidney failure 5. Anemia. 6. Homeless PLAN: 1. in Medical unit. 2. Dr. Frye pulmonary consultation as well as 3. Dr. Newsome from Infectious Disease. 4. Dr. Clark from Nephrology. 5. Code status is Full Code. 6. DVT prophylaxis with heparin subcutaneous. 7. Discharge planning: Patient declined SNF placement. 8. Will monitor off antibiotics. Tripp Estevez MD Oct 13, 2018 23:24
[2018-10-14] VITALS: BP 147/59
[2018-10-14 06:42] VITALS: BP 152/57
[2018-10-14] MEDS: HydrALAZINE 25mg tab ORAL SCH ×3 (06:42→21:23)
--- NOTE | 2018-10-14 08:05 | NUR ---
HAND-OFF: Report given to DOT Godinez.
--- NOTE | 2018-10-14 08:06 | NUR ---
NURSE NOTES: Received patient from DOT Temple in bed resting. Patient is on RA. No signs of pain and distress noted. IV intact and patent, fluids running. Patient is alert and oriented x4. Bed in lowest position, brakes engaged for safety. Call light within reach. All needs attended to. Will continue with the plan of care.
--- NOTE | 2018-10-14 08:22 | Pulmonology Progress Note ---
Assessment/Plan Assessment/Plan ASSESSMENT Status post mechanical fall with right fourth finger laceration and dislocation , status post reduction Emphysema Multiply pulmonary nodules CVA with left-sided hemiparesis Hypertension [id number] Chronic kidney disease Aortic stenosis Anemia PLAN OF CARE MS floor fall precaution pain management PT Rx O2 HHN as needed fup with CT chest in 1 year, given multiple pulmonary nodules DVT prophylaxis ECHO with pEF 60% and evidence of aortic stenosis BP management with multiple antihypertensive meds aspirin on hold , given anemia CT of the head revealed chronic infarct right frontal lobe renal ultrasound revealed medical renal disease avoid nephrotoxic , correct electrolytes as needed , monitor renal parameters supportive care case discussed and evaluated by supervising physician Subjective Allergies: Coded Allergies: No Known Allergies (Unverified , 10/07/18) Subjective no signs of resp distress, no cough, remains afebrile working with PT Objective Last 24 Hour Vital Signs Date Time Temp Pulse Resp B/P (MAP) Pulse Ox O2 Delivery O2 Flow Rate FiO2 10/14/18 07:26 65 18 96 Room Air 21 10/14/18 07:26 96 Room Air 21 10/14/18 06:42 66 152/57 (88) 10/14/18 06:42 152/57 10/14/18 00:00 98.0 73 17 147/59 (88) 96 10/13/18 21:07 72 153/62 10/13/18 21:06 153/62 10/13/18 21:00 Room Air Room Air 10/13/18 20:28 72 20 94 Nasal Cannula 2.0 28 10/13/18 20:28 94 Nasal Cannula 2.0 28 10/13/18 20:00 97.8 72 17 153/62 (92) 98 10/13/18 17:16 65 141/59 10/13/18 16:00 98.9 65 16 141/59 (86) 96 10/13/18 13:42 121/63 10/13/18 12:00 98.8 66 18 121/63 (82) 98 10/13/18 09:50 62 20 97 Room Air 21 10/13/18 09:00 Room Air Room Air Intake and Output 10/13/18 10/14/18 18:59 06:59 Intake Total 800 ml Output Total 1350 ml 600 ml Balance -550 ml -600 ml Intake Oral 800 ml Output Urine Total 1350 ml 600 ml General Appearance: no acute distress HEENT: normocephalic, atraumatic, anicteric, mucous membranes moist Respiratory/Chest: lungs clear, no respiratory distress, no accessory muscle use Cardiovascular: normal rate Abdomen: normal bowel sounds, soft, non tender Extremities: no edema Neurologic/Psychiatric: alert, oriented x 3, responsive, other - left hemiparesis Musculoskeletal: atrophy - BLE Current Medications Medications (Trade) Dose Ordered Sig/[place] Route PRN Reason Start Time Stop Time Status Last Admin Dose Admin Acetaminophen (Tylenol) 650 mg Q4H PRN ORAL T>100.5 10/11/18 10:14 11/10/18 10:13 Albuterol/ Ipratropium (Albuterol/ Ipratropium) 3 ml Q4H PRN HHN Shortness of Breath 10/11/18 10:15 10/16/18 10:14 Clonidine HCl (Catapres Tab) 0.1 mg Q4H PRN ORAL SBP>160 10/11/18 10:14 11/10/18 10:13 Dextrose (Dextrose 50%) 25 ml Q30M PRN IV Hypoglycemia 10/11/18 10:30 11/06/18 10:59 Dextrose (Dextrose 50%) 50 ml Q30M PRN IV Hypoglycemia 10/11/18 10:30 11/06/18 10:59 Folic Acid (Folate) 2 mg DAILY ORAL 10/12/18 09:00 11/07/18 09:14 10/13/18 08:07 Heparin Sodium (Porcine) (Heparin 5000 units/ml) 5,000 units EVERY 12 HOURS SUBQ 10/11/18 21:00 11/06/18 10:59 10/13/18 21:04 Hydralazine HCl (Apresoline) 75 mg Q8HR ORAL 10/12/18 14:00 11/06/18 17:59 10/14/18 06:42 Metoprolol Tartrate (Lopressor) 12.5 mg Q12HR ORAL 10/11/18 21:00 11/07/18 09:14 10/13/18 21:07 Morphine Sulfate (Morphine Sulfate) 2 mg Q4H PRN IVP Severe Pain (Pain Scale 7-10) 10/11/18 10:15 10/18/18 10:14 Nifedipine (Procardia XL) 30 mg BID ORAL 8/14/19 18:00 11/11/18 17:59 10/13/18 17:16 Ondansetron HCl (Zofran) 4 mg Q6H PRN IVP Nausea & Vomiting 10/11/18 11:00 11/06/18 10:59 Polyethylene Glycol (Miralax) 17 gm DAILYPRN PRN ORAL Constipation 10/11/18 10:15 11/10/18 10:14 Kadi San NP Oct 14, 2018 08:22
[2018-10-14 09:00] VITALS: BP 147/75
[2018-10-14] MEDS: Metoprolol Tartrate 12.5mg TAB ORAL SCH ×2 (09:15→20:17)
[2018-10-14] MEDS: Heparin 5000 units/ml inj SUBQ SCH ×2 (09:17→20:18)
[2018-10-14] MEDS ORDERED: Albuterol/Ipratropium 3ml neb HHN PRN (10:38)
--- NOTE | 2018-10-14 10:47 | Nephrology Progress Note ---
Assessment/Plan Problem List: (1) Renal failure (ARF), acute on chronic (2) History of hypertension (3) Anemia (4) History of CVA (cerebrovascular accident) Assessment Renal Failure- ? acute obn top of chronic Anemia HTN h/o CVA Rt 4th finger laceration: reason for admission Plan watch serum Cr on Andrea I Anemia hammonds bit of low folate U Na U Analysis BP control, further adjustment done Avoid Nephrotoxics ? DC planning? Subjective ROS Limited/Unobtainable: No Constitutional: Reports: malaise Objective Objective Last 24 Hour Vital Signs Date Time Temp Pulse Resp B/P (MAP) Pulse Ox O2 Delivery O2 Flow Rate FiO2 10/14/18 09:16 72 147/75 10/14/18 09:15 72 147/75 10/14/18 09:00 97.9 72 18 147/75 (99) 98 10/14/18 09:00 Room Air Room Air 10/14/18 07:26 65 18 96 Room Air 21 10/14/18 07:26 96 Room Air 21 10/14/18 06:42 66 152/57 (88) 10/14/18 06:42 152/57 10/14/18 00:00 98.0 73 17 147/59 (88) 96 10/13/18 21:07 72 153/62 10/13/18 21:06 153/62 10/13/18 21:00 Room Air Room Air 10/13/18 20:28 72 20 94 Nasal Cannula 2.0 28 10/13/18 20:28 94 Nasal Cannula 2.0 28 10/13/18 20:00 97.8 72 17 153/62 (92) 98 10/13/18 17:16 65 141/59 10/13/18 16:00 98.9 65 16 141/59 (86) 96 10/13/18 13:42 121/63 10/13/18 12:00 98.8 66 18 121/63 (82) 98 Intake and Output 10/13/18 10/14/18 19:00 07:00 Intake Total 800 ml Output Total 1350 ml 600 ml Balance -550 ml -600 ml Intake Oral 800 ml Output Urine Total 1350 ml 600 ml Height (Feet): 5 Height (Inches): 10.00 Weight (Pounds): 152 General Appearance: no apparent distress Objective no change Andrade Keenan MD Oct 14, 2018 10:47
[2018-10-14 12:00] VITALS: BP 155/73
--- NOTE | 2018-10-14 12:04 | NUR ---
SS note This Sw faxed referral to [facility] @ [phone]. . [phone].
--- NOTE | 2018-10-14 13:12 | NUR ---
SS note This SW spoke with [facility], [facility] ([phone]) explains they do not have any openings today, but will evaluate patient and place a waiting list. SW to follow.
--- NOTE | 2018-10-14 13:56 | NUR ---
RD ASSESSMENT & RECOMMENDATIONS SEE CARE ACTIVITY FOR COMPLETE ASSESSMENT DAILY ESTIMATED NEEDS: Needs based on Cardiac 69kg 25-30 kcals/kg 0014-7158 total kcals 1-1.2 g protein/kg 69-83 g total protein 20-25 mL/kg 7242-3201 total fluid mLs NUTRITION DIAGNOSIS: Decreased sodium needs r/t Cardiac history as evidenced by h/o CVA, BP is elev. PO DIET RECOMMENDATIONS: Maintain Low Na diet ADDITIONAL RECOMMENDATIONS: 1) Rec mealtime assistance/ set up d/t finger dislocation 2) FERTILIZER LOADER eval d/t h/o CVA 3) Monitor BG, A1C 6.1 (current BG wnl) 4) Adm w/ ARF, monitor lytes- need for dietary change
--- NOTE | 2018-10-14 15:02 | NUR ---
SS note Ca from [facility] explains patient does not meet criteria due to patient requires assistance with ADLs at this time. Pending open bed at this time at [facility]; documentation will need to be made showing patient remains independent with all ADLS. Nursing informed who explains patient is independent with ADLs, should be safe for discharge to [facility] when bed available.
--- NOTE | 2018-10-14 15:19 | Infectious Diseases Prog Note ---
Assessment/Plan Assessment/Plan Assessment: Afebrile No leukocytosis R 4th finger green-2ry to PIP dislocation and laceration, s/p reduction -repeat R hand xray: Successful reduction of the previously seen dislocation at the fourth proximal interphalangeal joint. No definite/displaced acute fracture. -xray R hand: Dislocation at the fourth proximal interphalangeal joint. No definite/displaced associated acute fracture.Osteoarthrosis. s/p Fall -Head CT: Exam limited by motion artifact. Within this limitations:No evidence of acute intracranial hemorrhage, mass effect or cortical edema. MRI maybe obtained for more sensitive evaluation as clinically indicated. Atrophy and nonspecific periventricular hypoattenuation suggestive of chronic ischemic microvascular changes. Likely chronic infarct in the right frontal lobe. Left supraorbital soft tissue swelling. No depressed skull fracture. -CT chest: No discrete mass.Pulmonary emphysema.Cardiomegaly. Small pericardial fluid.Small left and trace right pleural effusions. Right renal cyst. -CT neck: No discrete mass. Pulmonary emphysema. Cervical spondylosis with central canal and foraminal stenosis. Dyspnea -CXR: Nonspecific mild interstitial prominence, possibly chronic. No definite focal consolidation, pleural effusion, pneumothorax or evidence of alveolar edema. Borderline cardiomegaly, possibly exaggerated by AP technique.Bilateral hilar prominence most likely related to ectatic pulmonary vasculature. LILLIE, improving -u/a neg -Renal US: Slightly increased echogenicity within the kidneys which can be seen in the setting of medical renal disease. No hydronephrosis. Cyst within the right renal upper pole. No stones. Unremarkable appearance of the bladder. CVA w L side weakness HTN appendectomy Plan: -Continue to monitor off abx -10/12 SP keflex #6 -10/07 IV Vancomycin, Ceftriaxone #1, Cefepime x1 -f/u cx -Monitor CBC/CMP, temperatures -wound care Thank you for this consultation. Will continue to follow along with you. Discussed with RN. Subjective Allergies: Coded Allergies: No Known Allergies (Unverified , 10/07/18) Subjective afebrile no leukocytosis Objective Vital Signs Last 24 Hour Vital Signs Date Time Temp Pulse Resp B/P (MAP) Pulse Ox O2 Delivery O2 Flow Rate FiO2 10/14/18 13:52 155/73 10/14/18 12:00 97.7 66 18 155/73 (100) 97 10/14/18 09:16 72 147/75 10/14/18 09:15 72 147/75 10/14/18 09:00 97.9 72 18 147/75 (99) 98 10/14/18 09:00 Room Air Room Air 10/14/18 07:26 65 18 96 Room Air 21 10/14/18 07:26 96 Room Air 21 10/14/18 06:42 66 152/57 (88) 10/14/18 06:42 152/57 10/14/18 00:00 98.0 73 17 147/59 (88) 96 10/13/18 21:07 72 153/62 10/13/18 21:06 153/62 10/13/18 21:00 Room Air Room Air 10/13/18 20:28 72 20 94 Nasal Cannula 2.0 28 10/13/18 20:28 94 Nasal Cannula 2.0 28 10/13/18 20:00 97.8 72 17 153/62 (92) 98 10/13/18 17:16 65 141/59 10/13/18 16:00 98.9 65 16 141/59 (86) 96 Height (Feet): 5 Height (Inches): 10.00 Weight (Pounds): 152 Objective General Appearance: thin Lines, tubes and drains: peripheral, PICC HEENT: normocephalic, atraumatic Neck: non-tender, supple Respiratory/Chest: chest wall non-tender, lungs clear Cardiovascular/Chest: normal peripheral pulses Abdomen: normal bowel sounds Extremities: , laceration - R 4th finger laceration Current Medications Medications (Trade) Dose Ordered Sig/[place] Route PRN Reason Start Time Stop Time Status Last Admin Dose Admin Acetaminophen (Tylenol) 650 mg Q4H PRN ORAL T>100.5 10/11/18 10:14 11/10/18 10:13 Albuterol/ Ipratropium (Albuterol/ Ipratropium) 3 ml Q4H PRN HHN Shortness of Breath 10/14/18 10:38 10/19/18 10:37 Clonidine HCl (Catapres Tab) 0.1 mg Q4H PRN ORAL SBP>160 10/11/18 10:14 11/10/18 10:13 Dextrose (Dextrose 50%) 25 ml Q30M PRN IV Hypoglycemia 10/11/18 10:30 11/06/18 10:59 Dextrose (Dextrose 50%) 50 ml Q30M PRN IV Hypoglycemia 10/11/18 10:30 11/06/18 10:59 Folic Acid (Folate) 2 mg DAILY ORAL 10/12/18 09:00 11/07/18 09:14 10/14/18 09:15 Heparin Sodium (Porcine) (Heparin 5000 units/ml) 5,000 units EVERY 12 HOURS SUBQ 10/11/18 21:00 11/06/18 10:59 10/14/18 09:17 Hydralazine HCl (Apresoline) 75 mg Q8HR ORAL 10/12/18 14:00 11/06/18 17:59 10/14/18 13:52 Metoprolol Tartrate (Lopressor) 12.5 mg Q12HR ORAL 10/11/18 21:00 11/07/18 09:14 10/14/18 09:15 Morphine Sulfate (Morphine Sulfate) 2 mg Q4H PRN IVP Severe Pain (Pain Scale 7-10) 10/11/18 10:15 10/18/18 10:14 Nifedipine (Procardia XL) 30 mg BID ORAL 10/12/18 18:00 11/11/18 17:59 10/14/18 09:16 Ondansetron HCl (Zofran) 4 mg Q6H PRN IVP Nausea & Vomiting 10/11/18 11:00 11/06/18 10:59 Polyethylene Glycol (Miralax) 17 gm DAILYPRN PRN ORAL Constipation 10/11/18 10:15 11/10/18 10:14 Marly Newsome M.D. Oct 14, 2018 15:19
[2018-10-14 16:00] VITALS: BP 151/72
--- NOTE | 2018-10-14 17:38 | NUR ---
DISCHARGE PLANNING DISCHARGE ORDER NOTED Patient has been accepted to; [facility] [address] [address] Bed: 10-B Skilled [phone] for Nurse to Nurse report [facility] ETA for transportation: 19:00
--- NOTE | 2018-10-14 19:41 | NUR ---
NURSE NOTES: Pt received in bed, head of bed elevated, no c/o pain or signs of distress, able to make needs known, IV intact, call light within reach, will continue to monitor.
--- NOTE | 2018-10-14 19:44 | NUR ---
HAND-OFF: Report given to DOT Courtney.
[2018-10-14 20:00] VITALS: BP 153/60
--- NOTE | 2018-10-14 21:55 | NUR ---
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 I called [facility] and spoke with ALLISON Lindsay Nurse and Renetta Charge Nurse and was told they don't have the pt's name on their list of admissions and that bed 10B is taken. They said to call tomorrow at 9am and speak with the Quality Assurance Assessor of the Day about admitting patient. Ambulance has left.
--- NOTE | 2018-10-14 23:32 | Internal Med Progress Note ---
Subjective Physician Name Tripp Estevez Attending Physician Tripp Estevez MD Current Medications Medications (Trade) Dose Ordered Sig/[place] Route PRN Reason Start Time Stop Time Status Last Admin Dose Admin Acetaminophen (Tylenol) 650 mg Q4H PRN ORAL T>100.5 10/11/18 10:14 11/10/18 10:13 Albuterol/ Ipratropium (Albuterol/ Ipratropium) 3 ml Q4H PRN HHN Shortness of Breath 10/14/18 10:38 10/19/18 10:37 Clonidine HCl (Catapres Tab) 0.1 mg Q4H PRN ORAL SBP>160 10/11/18 10:14 11/10/18 10:13 Dextrose (Dextrose 50%) 25 ml Q30M PRN IV Hypoglycemia 10/11/18 10:30 11/06/18 10:59 Dextrose (Dextrose 50%) 50 ml Q30M PRN IV Hypoglycemia 10/11/18 10:30 11/06/18 10:59 Folic Acid (Folate) 2 mg DAILY ORAL 10/12/18 09:00 11/07/18 09:14 10/14/18 09:15 Heparin Sodium (Porcine) (Heparin 5000 units/ml) 5,000 units EVERY 12 HOURS SUBQ 10/11/18 21:00 11/06/18 10:59 10/14/18 20:18 Hydralazine HCl (Apresoline) 75 mg Q8HR ORAL 10/12/18 14:00 11/06/18 17:59 10/14/18 21:23 Metoprolol Tartrate (Lopressor) 12.5 mg Q12HR ORAL 10/11/18 21:00 11/07/18 09:14 10/14/18 20:17 Morphine Sulfate (Morphine Sulfate) 2 mg Q4H PRN IVP Severe Pain (Pain Scale 7-10) 10/11/18 10:15 10/18/18 10:14 Nifedipine (Procardia XL) 30 mg BID ORAL 10/12/18 18:00 11/11/18 17:59 10/14/18 17:28 Ondansetron HCl (Zofran) 4 mg Q6H PRN IVP Nausea & Vomiting 10/11/18 11:00 11/06/18 10:59 Polyethylene Glycol (Miralax) 17 gm DAILYPRN PRN ORAL Constipation 10/11/18 10:15 11/10/18 10:14 Allergies: Coded Allergies: No Known Allergies (Unverified , 10/07/18) Subjective Awake, alert, responsive, denies any shortness of breath or chest pain. Objective Last Vital Signs Date Time Temp Pulse Resp B/P (MAP) Pulse Ox O2 Delivery O2 Flow Rate FiO2 10/14/18 21:32 67 18 97 Room Air 21 10/14/18 21:23 161/79 10/14/18 20:00 98.8 10/13/18 20:28 2.0 Intake and Output 10/13/18 10/14/18 19:00 07:00 Intake Total 800 ml Output Total 1350 ml 600 ml Balance -550 ml -600 ml Intake Oral 800 ml Output Urine Total 1350 ml 600 ml Objective GENERAL: The patient is awake and responsive, in no acute distress. HEAD AND NECK: Pupils are reactive to light. Extraocular movements intact. NECK: Supple. No JVD. LUNGS: Good air entry. No wheezing or rales. HEART: Reveals S1, S2. Distant heart sounds. No gallops. ABDOMEN: Soft, nondistended, and nontender. Positive bowel sounds. EXTREMITIES: No cyanosis, clubbing, or edema. Right hand fourth finger with laceration and dislocation, finger has been reduced. RECTAL/GENITOURINARY: Refused and deferred. PSYCHIATRIC: Mood and affect is intact. Assessment/Plan Assessment/Plan 1. Status post mechanical fall with the right hand fourth finger laceration as well as dislocation status post reduction. 2. Hypertension, uncontrolled. 3. History of CVA with left hemiparesis. 4. Acute on Chronic kidney failure 5. Anemia. 6. Homeless PLAN: 1. in Medical unit. 2. Dr. Frye pulmonary consultation as well as 3. Dr. Newsome from Infectious Disease. 4. Dr. Clark from Nephrology. 5. Code status is Full Code. 6. DVT prophylaxis with heparin subcutaneous. 7. Discharge planning: Patient declined SNF placement, will talk to him again. 8. Will monitor off antibiotics. Tripp Estevez MD Oct 14, 2018 23:32
[2018-10-15] VITALS: BP 167/67
[2018-10-15 04:00] VITALS: BP 149/70
[2018-10-15] MEDS: HydrALAZINE 25mg tab ORAL SCH ×2 (05:57→13:49)
--- NOTE | 2018-10-15 07:15 | NUR ---
HAND-OFF: Report given to DOT Trim[place].
[2018-10-15 08:00] VITALS: BP 113/68
--- NOTE | 2018-10-15 08:10 | NUR ---
NURSE NOTES: Pt sitting on the chair. A/o x 4, calm. Denies pain. no SOB noted. splint on right finger, denies pain, no numbness, no tingling, skins intact. fall precaution maintained. call light within reach. will continue to monitor.
[2018-10-15] MEDS: Metoprolol Tartrate 12.5mg TAB ORAL SCH (09:03)
[2018-10-15] MEDS: Heparin 5000 units/ml inj SUBQ SCH (09:09)
--- NOTE | 2018-10-15 10:08 | Pulmonology Progress Note ---
Assessment/Plan Assessment/Plan ASSESSMENT Status post mechanical fall with right fourth finger laceration and dislocation , status post reduction Emphysema Multiply pulmonary nodules CVA with left-sided hemiparesis Hypertension [id number] Chronic kidney disease Aortic stenosis Anemia PLAN OF CARE MS floor fall precaution pain management PT Rx O2 HHN as needed fup with CT chest in 1 year, given multiple pulmonary nodules DVT prophylaxis ECHO with pEF 60% and evidence of aortic stenosis BP management with multiple antihypertensive meds aspirin on hold , given anemia , HH stable CT of the head revealed chronic infarct right frontal lobe renal ultrasound revealed medical renal disease avoid nephrotoxic , correct electrolytes as needed , monitor renal parameters supportive care dc plan case discussed and evaluated by supervising physician Subjective Allergies: Coded Allergies: No Known Allergies (Unverified , 10/07/18) Subjective no signs of resp distress, no cough, remains afebrile working with PT Objective Last 24 Hour Vital Signs Date Time Temp Pulse Resp B/P (MAP) Pulse Ox O2 Delivery O2 Flow Rate FiO2 10/15/18 09:21 98 Room Air 21 10/15/18 09:20 72 20 98 Room Air 21 10/15/18 09:03 78 144/73 10/15/18 09:03 78 144/73 10/15/18 09:00 Room Air Room Air 10/15/18 08:00 98.5 78 19 113/68 (83) 98 10/15/18 05:57 169/69 10/15/18 04:00 96.9 74 19 149/70 (96) 98 10/15/18 00:00 97.9 72 19 167/67 (100) 98 10/14/18 21:32 67 18 97 Room Air 21 10/14/18 21:32 97 Room Air 21 10/14/18 21:23 161/79 10/14/18 21:00 Room Air Room Air 10/14/18 20:17 71 153/60 10/14/18 20:00 98.8 71 21 153/60 (91) 95 10/14/18 17:28 71 151/72 10/14/18 16:00 98.5 71 18 151/72 (98) 97 10/14/18 13:52 155/73 10/14/18 12:00 97.7 66 18 155/73 (100) 97 Intake and Output 10/14/18 10/15/18 19:00 07:00 Intake Total 1200 ml 500 ml Output Total 1480 ml 850 ml Balance -280 ml -350 ml Intake Oral 1200 ml 500 ml Output Urine Total 1480 ml 850 ml Objective General Appearance: no acute distress HEENT: normocephalic, atraumatic, anicteric, mucous membranes moist Respiratory/Chest: lungs clear, no respiratory distress, no accessory muscle use Cardiovascular: normal rate Abdomen: normal bowel sounds, soft, non tender Extremities: no edema Neurologic/Psychiatric: alert, oriented x 3, responsive, left hemiparesis Musculoskeletal: atrophy - BLE Current Medications Medications (Trade) Dose Ordered Sig/[place] Route PRN Reason Start Time Stop Time Status Last Admin Dose Admin Acetaminophen (Tylenol) 650 mg Q4H PRN ORAL T>100.5 10/11/18 10:14 11/10/18 10:13 Albuterol/ Ipratropium (Albuterol/ Ipratropium) 3 ml Q4H PRN HHN Shortness of Breath 10/14/18 10:38 10/19/18 10:37 Clonidine HCl (Catapres Tab) 0.1 mg Q4H PRN ORAL SBP>160 10/11/18 10:14 11/10/18 10:13 Dextrose (Dextrose 50%) 25 ml Q30M PRN IV Hypoglycemia 10/11/18 10:30 11/06/18 10:59 Dextrose (Dextrose 50%) 50 ml Q30M PRN IV Hypoglycemia 10/11/18 10:30 11/06/18 10:59 Folic Acid (Folate) 2 mg DAILY ORAL 10/12/18 09:00 11/07/18 09:14 10/15/18 09:04 Heparin Sodium (Porcine) (Heparin 5000 units/ml) 5,000 units EVERY 12 HOURS SUBQ 10/11/18 21:00 11/06/18 10:59 10/15/18 09:09 Hydralazine HCl (Apresoline) 75 mg Q8HR ORAL 10/12/18 14:00 11/06/18 17:59 10/15/18 05:57 Metoprolol Tartrate (Lopressor) 12.5 mg Q12HR ORAL 10/11/18 21:00 11/07/18 09:14 10/15/18 09:03 Morphine Sulfate (Morphine Sulfate) 2 mg Q4H PRN IVP Severe Pain (Pain Scale 7-10) 10/11/18 10:15 10/18/18 10:14 Nifedipine (Procardia XL) 30 mg BID ORAL 10/12/18 18:00 11/11/18 17:59 10/15/18 09:03 Ondansetron HCl (Zofran) 4 mg Q6H PRN IVP Nausea & Vomiting 10/11/18 11:00 11/06/18 10:59 Polyethylene Glycol (Miralax) 17 gm DAILYPRN PRN ORAL Constipation 10/11/18 10:15 11/10/18 10:14 Kadi San NP Oct 15, 2018 10:08
--- NOTE | 2018-10-15 10:11 | Nephrology Progress Note ---
Assessment/Plan Problem List: (1) Renal failure (ARF), acute on chronic (2) History of hypertension (3) Anemia (4) History of CVA (cerebrovascular accident) Assessment Renal Failure- ? acute obn top of chronic Anemia HTN h/o CVA Rt 4th finger laceration: reason for admission Plan watch serum Cr on Andrea I Anemia hammonds bit of low folate U Na U Analysis BP control, further adjustment done Avoid Nephrotoxics ? DC planning? Subjective ROS Limited/Unobtainable: No Objective Objective Last 24 Hour Vital Signs Date Time Temp Pulse Resp B/P (MAP) Pulse Ox O2 Delivery O2 Flow Rate FiO2 10/15/18 09:21 98 Room Air 21 10/15/18 09:20 72 20 98 Room Air 21 10/15/18 09:03 78 144/73 10/15/18 09:03 78 144/73 10/15/18 09:00 Room Air Room Air 10/15/18 08:00 98.5 78 19 113/68 (83) 98 10/15/18 05:57 169/69 10/15/18 04:00 96.9 74 19 149/70 (96) 98 10/15/18 00:00 97.9 72 19 167/67 (100) 98 10/14/18 21:32 67 18 97 Room Air 21 10/14/18 21:32 97 Room Air 21 10/14/18 21:23 161/79 10/14/18 21:00 Room Air Room Air 10/14/18 20:17 71 153/60 10/14/18 20:00 98.8 71 21 153/60 (91) 95 10/14/18 17:28 71 151/72 10/14/18 16:00 98.5 71 18 151/72 (98) 97 10/14/18 13:52 155/73 10/14/18 12:00 97.7 66 18 155/73 (100) 97 Intake and Output 10/14/18 10/15/18 19:00 07:00 Intake Total 1200 ml 500 ml Output Total 1480 ml 850 ml Balance -280 ml -350 ml Intake Oral 1200 ml 500 ml Output Urine Total 1480 ml 850 ml Height (Feet): 5 Height (Inches): 10.00 Weight (Pounds): 152 General Appearance: no apparent distress Objective no change Andrade Keenan MD Oct 15, 2018 10:11
--- NOTE | 2018-10-15 11:58 | NUR ---
NURSE NOTES: Report given to Marta RN at [facility]. pt stable condition, VS stable. denies pain, no SOB noted. no family contact/pt refused. splint on right 4th finger, no numbness no tingling, no redness. IV remove. Prescriptions and Belonging with pts. will Dc pt per order.
--- NOTE | 2018-10-15 11:59 | Infectious Diseases Prog Note ---
Assessment/Plan Assessment/Plan Afebrile No leukocytosis R 4th finger green-2ry to PIP dislocation and laceration, s/p reduction -repeat R hand xray: Successful reduction of the previously seen dislocation at the fourth proximal interphalangeal joint. No definite/displaced acute fracture. -xray R hand: Dislocation at the fourth proximal interphalangeal joint. No definite/displaced associated acute fracture.Osteoarthrosis. s/p Fall -Head CT: Exam limited by motion artifact. Within this limitations:No evidence of acute intracranial hemorrhage, mass effect or cortical edema. MRI maybe obtained for more sensitive evaluation as clinically indicated. Atrophy and nonspecific periventricular hypoattenuation suggestive of chronic ischemic microvascular changes. Likely chronic infarct in the right frontal lobe. Left supraorbital soft tissue swelling. No depressed skull fracture. -CT chest: No discrete mass.Pulmonary emphysema.Cardiomegaly. Small pericardial fluid.Small left and trace right pleural effusions. Right renal cyst. -CT neck: No discrete mass. Pulmonary emphysema. Cervical spondylosis with central canal and foraminal stenosis. Dyspnea -CXR: Nonspecific mild interstitial prominence, possibly chronic. No definite focal consolidation, pleural effusion, pneumothorax or evidence of alveolar edema. Borderline cardiomegaly, possibly exaggerated by AP technique.Bilateral hilar prominence most likely related to ectatic pulmonary vasculature. LILLIE, improving -u/a neg -Renal US: Slightly increased echogenicity within the kidneys which can be seen in the setting of medical renal disease. No hydronephrosis. Cyst within the right renal upper pole. No stones. Unremarkable appearance of the bladder. CVA w L side weakness HTN appendectomy Plan: -Monitor off abx -10/12 SP keflex #6 -10/07 IV Vancomycin, Ceftriaxone #1, Cefepime x1 -f/u cx -Monitor CBC/CMP, temperatures -wound care Thank you for this consultation. Will continue to follow along with you. Subjective Allergies: Coded Allergies: No Known Allergies (Unverified , 10/07/18) Subjective Comfortable on RA Afebrile No leukocytosis Objective Vital Signs Last 24 Hour Vital Signs Date Time Temp Pulse Resp B/P (MAP) Pulse Ox O2 Delivery O2 Flow Rate FiO2 10/15/18 09:21 98 Room Air 21 10/15/18 09:20 72 20 98 Room Air 21 10/15/18 09:03 78 144/73 10/15/18 09:03 78 144/73 10/15/18 09:00 Room Air Room Air 10/15/18 08:00 98.5 78 19 113/68 (83) 98 10/15/18 05:57 169/69 10/15/18 04:00 96.9 74 19 149/70 (96) 98 10/15/18 00:00 97.9 72 19 167/67 (100) 98 10/14/18 21:32 67 18 97 Room Air 21 10/14/18 21:32 97 Room Air 21 10/14/18 21:23 161/79 10/14/18 21:00 Room Air Room Air 10/14/18 20:17 71 153/60 10/14/18 20:00 98.8 71 21 153/60 (91) 95 10/14/18 17:28 71 151/72 10/14/18 16:00 98.5 71 18 151/72 (98) 97 10/14/18 13:52 155/73 10/14/18 12:00 97.7 66 18 155/73 (100) 97 Height (Feet): 5 Height (Inches): 10.00 Weight (Pounds): 152 Objective General Appearance: GEN HEENT: normocephalic, atraumatic, MMM Respiratory/Chest: chest wall non-tender, lungs clear, No W Cardiovascular/Chest: RRR, S1, S2 Abdomen: normal bowel sounds, ND, NT Extremities: , laceration - R 4th finger laceration Current Medications Medications (Trade) Dose Ordered Sig/[place] Route PRN Reason Start Time Stop Time Status Last Admin Dose Admin Acetaminophen (Tylenol) 650 mg Q4H PRN ORAL T>100.5 10/11/18 10:14 11/10/18 10:13 Albuterol/ Ipratropium (Albuterol/ Ipratropium) 3 ml Q4H PRN HHN Shortness of Breath 10/14/18 10:38 10/19/18 10:37 Clonidine HCl (Catapres Tab) 0.1 mg Q4H PRN ORAL SBP>160 10/11/18 10:14 11/10/18 10:13 Dextrose (Dextrose 50%) 25 ml Q30M PRN IV Hypoglycemia 10/11/18 10:30 11/06/18 10:59 Dextrose (Dextrose 50%) 50 ml Q30M PRN IV Hypoglycemia 10/11/18 10:30 11/06/18 10:59 Folic Acid (Folate) 2 mg DAILY ORAL 10/12/18 09:00 11/07/18 09:14 10/15/18 09:04 Heparin Sodium (Porcine) (Heparin 5000 units/ml) 5,000 units EVERY 12 HOURS SUBQ 10/11/18 21:00 11/06/18 10:59 10/15/18 09:09 Hydralazine HCl (Apresoline) 75 mg Q8HR ORAL 10/12/18 14:00 11/06/18 17:59 10/15/18 05:57 Metoprolol Tartrate (Lopressor) 12.5 mg Q12HR ORAL 10/11/18 21:00 11/07/18 09:14 10/15/18 09:03 Morphine Sulfate (Morphine Sulfate) 2 mg Q4H PRN IVP Severe Pain (Pain Scale 7-10) 10/11/18 10:15 10/18/18 10:14 Nifedipine (Procardia XL) 30 mg BID ORAL 10/12/18 18:00 11/11/18 17:59 10/15/18 09:03 Ondansetron HCl (Zofran) 4 mg Q6H PRN IVP Nausea & Vomiting 10/11/18 11:00 11/06/18 10:59 Polyethylene Glycol (Miralax) 17 gm DAILYPRN PRN ORAL Constipation 10/11/18 10:15 11/10/18 10:14 Jj Burgos MD Oct 15, 2018 11:59
[2018-10-15 12:00] VITALS: BP 149/86
[2018-10-15 13:49] VITALS: BP 149/86
--- NOTE | 2018-10-17 08:20 | Discharge Summary ---
Discharge Summary Discharge Summary _ DATE OF ADMISSION: 10/07/2018 DATE OF DISCHARGE: 10/15/2018 DISCHARGED BY: Dr. Estevez REASON FOR ADMISSION: 82 years old male with past medical history of hypertension, CVA with left- sided weakness, appendectomy, presented to emergency department complaining of the right fourth finger pain after a fall . Patient fell about 30 minutes prior to arrival to emergency department. He tripped and fell on the sidewalk and hit his head and right hand. He denied loss of consciousness. He denied bowel or bladder incontinence. He denied double vision. He complained about shortness of breath , however denied chest pain nausea,, or vomiting. CT of the head revealed no evidence of acute intracranial hemorrhage, mass- effect or cortical edema. Chronic infarct in the right frontal lobe noted. Left supraorbital soft tissue swelling. No depressed skull fracture. Patient undergone irrigation and debridement and primary closure with reduction of the fourth PIP joint in the emergency department. Post reduction films showed that the fracture was successfully reduced. Patient subsequently was admitted for mechanical fall with right hand fourth finger laceration and PIP dislocation, status post reduction. CONSULTANTS: retail store associate Dr. Croft pulmonary /critical care Dr. Frye ID specialist Dr. Newsome tractor crane operator Dr. Keenan orthopedic surgeon Dr. Willard [facility] COURSE: Patient initially admitted to monitored floor.. Echocardiogram revealed preserved ejection fraction of 60% and evidence of aortic stenosis. Blood pressure was managed with multiple antihypertensive medications per retail store associate. Supplemental oxygen provided as needed to keep pulse oximetry above 92%. Bronchodilator therapy provided as needed. CT of the chest revealed moderate emphysema, mild interstitial edema. Left greater than right small pleural effusion. Scattered tiny pulmonary nodules less than 2 mm. Solid 3 mm left lower lobe nodule. 5 mm and 4 mm solid subpleural nodule cluster in the left lower lobe. No evidence of cervical soft tissue mass. Follow-up CT in 1 year was recommended for surveillance of larger nodules. Orthopedic surgeon seen the patient. Reduction of PIP joint was successful. Orthopedic surgeon recommended continue patient on oral Keflex. Patient need to follow-up in 10 to 14 days for suture removal. Infectious disease specialist followed. Patient completed treatment with prophylactic Keflex. Patient remained afebrile , no leukocytosis.. Renal ultrasound revealed chronic medical renal disease. Renal parameters and electrolytes were closely monitored. Electrolytes corrected as needed, and nephrotoxins were avoided. Orthotic Assistant follow. Supportive care provided. Hemoglobin and hematocrit were closely monitored with goal to keep hemoglobin above 7. Anemia work-up was consistent with anemia of chronic disease. Hemoglobin and hematocrit remained at the baseline . Prior to discharge hemoglobin 9.3 a, nd hematocrit 29.7. Patient was working with physical therapist. Fall precaution maintained. Patient clinically stabilized and was ready for discharge. Placement was found and arranged at the senior care facility. Patient subsequently was transferred to senior care facility for continuation of care. FINAL DIAGNOSES: Status post mechanical fall Right hand fourth finger open laceration Right dorsal dislocation of PIP joint, fourth finger, s/p reduction Hypertension, uncontrolled History of CVA with left hemiparesis Aortic stenosis Emphysema Multiply pulmonary nodules Acute on chronic kidney disease Anemia Homeless DISCHARGE MEDICATIONS: See Medication Reconciliation list. DISCHARGE INSTRUCTIONS: Patient was discharged to the senior care facility. Follow up with medical doctor at the facility. Kadi San NP Oct 17, 2018 08:20
== END 2018-10-15 16:55 | DRG 563 ==
LOC: EDBD 05:03 → EMR 05:17 → 2E 06:51 → EDBEDREQ 06:57 → 4E 10-11 10:02
PROC: 0RSWXZZ Reposition Right Finger Phalangeal Joint, External Approach (ICD-10-PCS; principal; 2018-10-07)
DX: S63.284A Dislocation of proximal interphalangeal joint of right ring finger, initial encounter (principal); N17.9 Acute kidney failure, unspecified; I69.354 Hemiplegia and hemiparesis following cerebral infarction affecting left non-dominant side; S61.214A Laceration without foreign body of right ring finger without damage to nail, initial encounter; I12.9 Hypertensive chronic kidney disease with stage 1 through stage 4 chronic kidney disease, or unspecified chronic kidney disease; N18.9 Chronic kidney disease, unspecified; I35.0 Nonrheumatic aortic (valve) stenosis; J43.9 Emphysema, unspecified; R91.8 Other nonspecific abnormal finding of lung field; Z59.0 Homelessness; W01.0XXA Fall on same level from slipping, tripping and stumbling without subsequent striking against object, initial encounter; Y92.480 Sidewalk as the place of occurrence of the external cause; D63.8 Anemia in other chronic diseases classified elsewhere
CPT/HCPCS: 36415; 70450; 70490; 71045; 71250; 76770; 80048; 80053; 81001; 82378; 82550; 82607; 82728; 82746; 82977; 83036; 83540; 83550; 83615; 83735; 83880; 84100; 84300; 84443; 84550; 85007; 85025; 85044; 85060; 85610; 85651; 85730; 86140; 87081; 90471; 90715; 93306; 94640; 94664; 96365; 96375; 99285; J7620

== ENCOUNTER 2018-11-06 21:53 | Inpatient (IN) | payer MEDICARE ==
[~2018-11-06] VITALS: Ht 177.8 cm; Wt 61.3 kg
[~2018-11-06 21:53] MED LIST: APRESOLINE50 MG ORAL; KEFLEX500 M1 ORAL; NORVASC10 MG ORAL; NORVASC5 MG ORAL; UNOBMED
--- NOTE | 2018-11-06 21:55 | NUR ---
ED Nurse Note: Pt LATASHA PACHECO from [facility] c/o numbess in hands and feet after receiving heparin and nifedipine at 1800. Per EMS, pt became aggessive after med administration. Pt denies pain. Pt is AO x 4times, VSS, on room air no distress. ERMD seen Pt at bedside.
[2018-11-06] MEDS ORDERED: LORazepam Inj 2mg/ml 1ml IV ONE (22:15)
--- NOTE | 2018-11-06 22:20 | Emergency Room Report ---
History of Present Illness General Chief Complaint: General Complaint Source: Patient, Medical Record Present Illness HPI This an 83-year-old male with history of CVA and hypertension. He presents with chief complaint of numbness to his lower extremity. He said that he never had this problem before. He woke up and felt numb to his lower extremity. Said he felt like he is walking on clouds. He thinks that he was poisoned by the [facility] staff. He said he got heparin and nifedipine today. Afterward this happened. He denies any focal deficit. No nausea no vomiting. No fever chills. Nursing staff said he is aggressive and want a psychiatric evaluation. Allergies: Coded Allergies: No Known Allergies (Unverified , 10/07/18) Patient History Past Medical History: see triage record, HTN, CVA/TIA Past Surgical History: other Pertinent Family History: none Social History: Denies: smoking Immunizations: other Reviewed Nursing Documentation: PMH: Agreed; PSxH: Agreed Nursing Documentation-PMH Hx Hypertension: Yes Hx Cancer: No Hx Gastrointestinal Problems: No Hx Neurological Problems: Yes Hx Cerebrovascular Accident: Yes - 09/2017 Hx Weakness: Yes Review of Systems Eye: Denies: eye pain, blurred vision ENT: Denies: ear pain, nose congestion, throat swelling Respiratory: Denies: cough, shortness of breath Cardiovascular: Denies: chest pain, palpitations Gastrointestinal: Denies: abdominal pain, diarrhea, nausea, vomiting Musculoskeletal: Denies: back pain, joint pain Skin: Denies: rash Neurological: Denies: headache, numbness Endocrine: Denies: increased thirst, increased urine Hematologic/Lymphatic: Denies: easy bruising All Other Systems: negative except mentioned in HPI Physical Exam Vital Signs Date Time Temp Pulse Resp B/P (MAP) Pulse Ox O2 Delivery O2 Flow Rate FiO2 11/06/18 21:54 98.2 80 18 182/80 (114) 98 Room Air Vitals with high blood pressure Sp02 EP Interpretation: reviewed, normal General Appearance: well appearing, no apparent distress, alert Head: normocephalic, atraumatic Eyes: bilateral eye PERRL, bilateral eye EOMI ENT: hearing grossly normal, normal pharynx Neck: full range of motion, supple, no meningismus Respiratory: chest non-tender, lungs clear, normal breath sounds Cardiovascular #1: regular rate, rhythm, no murmur Gastrointestinal: normal bowel sounds, non tender, no mass, no organomegaly, no bruit, non-distended Musculoskeletal: back normal, normal range of motion Neurologic: alert, oriented x3 Psychiatric: other - Pt is loud and aggressive Medical Decision Making Diagnostic Impression: Primary Impression: Agitation Additional Impressions: Peripheral neuropathy Hypertension Qualified Codes: I10 - Essential (primary) hypertension ER Course Pt presents with neuropathy and agitation. CT head negative. Labs unremarkable. Will admit for further work-up and psychiatric evaluation. I discussed the case with Dr. Estevez who will admit. CT/MRI/US Diagnostic Results CT/MRI/US Diagnostic Results : Imaging Test Ordered: CT head Impression Neg per radiologist. Last Vital Signs Date Time Temp Pulse Resp B/P (MAP) Pulse Ox O2 Delivery O2 Flow Rate FiO2 11/06/18 21:54 98.2 80 18 182/80 (114) 98 Room Air Status: improved Disposition: ADMITTED INPATIENT Condition: Serious El Watson MD Nov 06, 2018 22:20
--- NOTE | 2018-11-06 22:31 | NUR ---
ED Nurse Note: Blood sample sent to lab.
[2018-11-06 22:46] LABS: HEMATOCRIT 34.8 % (42.0-52.0); HEMOGLOBIN 11.6 G/DL (14.2-18.0); MEAN CORPUSCULAR VOLUME 81 FL (80-99); PLATELET COUNT 223 K/UL (150-450); RED BLOOD COUNT 4.28 M/UL (4.70-6.10); RED CELL DISTRIBUTION WIDTH 12.4 % (11.6-14.8); WHITE BLOOD COUNT 10.4 K/UL (4.8-10.8)
[2018-11-06 22:47] LABS: ANION GAP 11 mmol/L (5-15); BLOOD UREA NITROGEN 33 mg/dL (7-18); CALCIUM 9.5 MG/DL (8.5-10.1); CARBON DIOXIDE 22 MMOL/L (21-32); CHLORIDE 110 MMOL/L (98-107); CREATININE 1.9 MG/DL (0.55-1.30); POTASSIUM 5.1 MMOL/L (3.5-5.1); SODIUM 143 MMOL/L (136-145)
--- NOTE | 2018-11-06 22:49 | NUR ---
ED Nurse Note: Pt went to CT scan.
[2018-11-06 23:05] VITALS: BP 181/67
--- NOTE | 2018-11-06 23:18 | Diagnostic Imaging Report ---
CT HEAD Without Contrast: COMPARISON: CT head 10/07/18 IMPRESSION: No CT evidence of acute intracranial process. No mastoid effusion or sinus fluid level in the visualized segments. No depressed calvarial fracture. INCIDENTAL FINDINGS: Stable volume loss, chronic microvascular ischemic change, and right frontal encephalomalacia. Stable ventricular size/configuration.
--- NOTE | 2018-11-06 23:40 | NUR ---
ED Nurse Note: Urine sample sent to lab.
[2018-11-06 23:49] LABS: APPEARANCE,URINE CLEAR; BILIRUBIN, URINE NEGATIVE (NEGATIVE); COLOR,URINE PALE YELLOW; GLUCOSE, URINE (UA) NEGATIVE (NEGATIVE); KETONES,URINE NEGATIVE (NEGATIVE); LEUKOCYTE ESTERASE ,URINE NEGATIVE (NEGATIVE); NITRITE,URINE NEGATIVE (NEGATIVE); PH,URINE 6 (4.5-8.0); PROTEIN,URINE NEGATIVE (NEGATIVE); UROBILINOGEN,URINE NORMAL MG/DL (0.0-1.0)
[2018-11-07] VITALS (7 sets, daily range): BP systolic 144–186; BP diastolic 55–79
--- NOTE | 2018-11-07 00:33 | NUR ---
ED Nurse Note: Report given to DOT Courtney. Pt will admit room 406-2, belongings and skin condition report to floor RN.
--- NOTE | 2018-11-07 01:15 | NUR ---
NURSE NOTES: Pt received alert and oriented X4, compliant, pt with belongings at bedside, laptop and cell phone, no c/o pain or signs of distress, needed assistance walking and getting into bed, will contact MD Estevez for admitting orders, will continue to monitor.
[2018-11-07] MEDS: HydrALAZINE 50mg tab ORAL SCH ×4 (05:24→22:01)
[2018-11-07] MEDS ORDERED: Cephalexin 500mg cap ORAL SCH (06:00)
--- NOTE | 2018-11-07 07:30 | NUR ---
NURSE NOTES: Received pt from [facility]. Pt is alert and orient x4. pt is in RA, No SOB or acute respiratory distress noted. pt has intact iv access LH 20G SL. Pt is eating breakfast independently. all needs attended, bed is locked and is in the lowest position. call light with easy reach. will continue to monitor.
--- NOTE | 2018-11-07 07:42 | NUR ---
HAND-OFF: Report given to DOT White.
[2018-11-07] MEDS: Heparin 5000 units/ml inj SUBQ SCH ×2 (08:36→08:43)
[2018-11-07] MEDS ORDERED: Flu Vac High-Dose for Pts 65 Years and Older IM ONE (09:00)
--- NOTE | 2018-11-07 13:19 | NUR ---
NURSE NOTES: pt explained he never had flu and PNA vaccine before and asked to do upon D/C. noted and carried out. pharmacist GRADY is aware.
--- NOTE | 2018-11-07 13:49 | Consultation ---
History of Present Illness General Date patient seen: Nov 07, 2018 Chief Complaint: General Complaint Present Illness HPI 82-year-old male with hx of HTN, CVA with left sided weakness, with recent admission to [facility] was brought in to ER with CC of paresthesia in fingers and episode of agitation in the jail. He claims that he got Heparin SQ which caused all of his symptoms. His labs revealed ATN as well. He is admitted to med/surg for further management. Allergies: Coded Allergies: No Known Allergies (Unverified , 10/07/18) Medication History Scheduled Amlodipine Besylate (Norvasc), 10 MG ORAL DAILY, (Reported) Amlodipine Besylate (Norvasc), 5 MG ORAL BID Cephalexin (Cephalexin), 500 MG ORAL EVERY 8 HOURS Hydralazine HCl (Hydralazine HCl), 50 MG ORAL Q8HR Miscellaneous Medications Unable to Obtain Medications (Unable To Obtain Meds), (Reported) Patient History Healthcare decision maker Resuscitation status Full Code Advanced Directive on File Past Medical/Surgical History Past Medical/Surgical History: (1) History of hypertension (2) Hypertension (3) Peripheral neuropathy (4) History of CVA (cerebrovascular accident) Review of Systems All Other Systems: negative except mentioned in HPI Physical Exam General Appearance: cachetic, thin Lines, tubes and drains: peripheral HEENT: normocephalic, atraumatic Neck: non-tender, normal alignment Respiratory/Chest: chest wall non-tender, lungs clear Breasts: no masses Cardiovascular/Chest: normal peripheral pulses Abdomen: normal bowel sounds, non tender Genitourinary/Rectal: normal genital exam Extremities: normal range of motion Skin Exam: normal pigmentation 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: 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 normal Last 24 Hour Vital Signs Date Time Temp Pulse Resp B/P (MAP) Pulse Ox O2 Delivery O2 Flow Rate FiO2 11/07/18 13:10 161/64 11/07/18 12:00 97.7 68 18 161/64 (96) 98 11/07/18 09:00 Room Air 11/07/18 08:35 94 144/75 11/07/18 08:00 99.0 94 20 144/75 (98) 98 11/07/18 05:24 150/76 11/07/18 04:00 98.9 91 19 150/76 (100) 96 11/07/18 01:23 Room Air 11/07/18 01:16 98.0 97 18 17779 100 Room Air 11/07/18 00:56 98.0 97 18 177 100 Room Air 11/07/18 00:53 17779 11/07/18 00:17 186/74 11/07/18 00:11 98.2 95 16 186/74 100 Room Air 11/06/18 23:49 181/67 11/06/18 23:05 98.2 83 19 181/ 100 Room Air 11/06/18 23:01 89 18 Room Air 11/06/18 21:54 98.2 80 18 182/80 (114) 98 Room Air Intake and Output 11/06/18 11/07/18 19:00 07:00 Intake Total 540 ml Output Total 450 ml Balance 90 ml Intake Oral 540 ml Output Urine Total 450 ml # Voids 2 # Bowel Movements 1 Laboratory Tests Test 11/06/18 22:20 11/06/18 23:30 White Blood Count 10.4 K/UL (4.8-10.8) Red Blood Count 4.28 M/UL (4.70-6.10) L Hemoglobin 11.6 G/DL (14.2-18.0) L Hematocrit 34.8 % (42.0-52.0) L Mean Corpuscular Volume 81 FL (80-99) Mean Corpuscular Hemoglobin 27.1 PG (27.0-31.0) Mean Corpuscular Hemoglobin Concent 33.3 G/DL (32.0-36.0) Red Cell Distribution Width 12.4 % (11.6-14.8) Platelet Count 223 K/UL (150-450) Mean Platelet Volume 5.5 FL (6.5-10.1) L Neutrophils (%) (Auto) % (45.0-75.0) Lymphocytes (%) (Auto) % (20.0-45.0) Monocytes (%) (Auto) % (1.0-10.0) Eosinophils (%) (Auto) % (0.0-3.0) Basophils (%) (Auto) % (0.0-2.0) Differential Total Cells Counted 100 Neutrophils % (Manual) 82 % (45-75) H Lymphocytes % (Manual) 8 % (20-45) L Monocytes % (Manual) 5 % (1-10) Eosinophils % (Manual) 0 % (0-3) Basophils % (Manual) 1 % (0-2) Band Neutrophils 4 % (0-8) Platelet Estimate Adequate Platelet Morphology Normal Hypochromasia 1+ Anisocytosis 1+ Sodium Level 143 MMOL/L (136-145) Potassium Level 5.1 MMOL/L (3.5-5.1) Chloride Level 110 MMOL/L (98-107) H Carbon Dioxide Level 22 MMOL/L (21-32) Anion Gap 11 mmol/L (5-15) Blood Urea Nitrogen 33 mg/dL (7-18) H Creatinine 1.9 MG/DL (0.55-1.30) H Estimat Glomerular Filtration Rate mL/min (>60) Glucose Level 110 MG/DL (74-106) H Calcium Level 9.5 MG/DL (8.5-10.1) Urine Color Pale yellow Urine Appearance Clear Urine pH 6 (4.5-8.0) Urine Specific [place] 1.015 (1.005-1.035) Urine Protein Negative (NEGATIVE) Urine Glucose (UA) Negative (NEGATIVE) Urine Ketones Negative (NEGATIVE) Urine Blood Negative (NEGATIVE) Urine Nitrite Negative (NEGATIVE) Urine Bilirubin Negative (NEGATIVE) Urine Urobilinogen Normal MG/DL (0.0-1.0) Urine Leukocyte Esterase Negative (NEGATIVE) Urine RBC 0 /HPF (0 - 0) Urine WBC 0 /HPF (0 - 0) Urine Squamous Epithelial Cells None /LPF (NONE/OCC) Urine Bacteria None /HPF (NONE) Microbiology Date/Time Source Procedure Growth Status 11/06/18 22:00 Rectum Received Height (Feet): 5 Height (Inches): 10.00 Weight (Pounds): 140 Medications Current Medications Medications (Trade) Dose Ordered Sig/[place] Route PRN Reason Start Time Stop Time Status Last Admin Dose Admin Amlodipine Besylate (Norvasc) 10 mg DAILY ORAL 11/07/18 09:00 12/07/18 08:59 11/07/18 08:35 Clonidine HCl (Catapres Tab) 0.1 mg Q4H PRN ORAL For High Blood Pressure 11/07/18 13:45 12/07/18 13:44 UNV Heparin Sodium (Porcine) (Heparin 5000 units/ml) 5,000 units EVERY 12 HOURS SUBQ 11/07/18 09:00 12/07/18 08:59 Hydralazine HCl (Apresoline) 100 mg Q8HR ORAL 11/07/18 14:00 12/07/18 05:59 UNV Influenza Virus Vacc Trival Recomb (Flu Vac High-Dose for Pts 65 Years and Older) 0.5 ml ONCE ONCE IM 11/07/18 09:00 11/07/18 09:01 UNV Pneumococcal Polyvalent Vaccine (Pneumovax) 0.5 ml ONCE ONCE IM 11/07/18 09:00 11/07/18 09:01 UNV Assessment/Plan Problem List: (1) Renal failure (ARF), acute on chronic ICD Codes: N17.9 - Acute kidney failure, unspecified; N18.9 - Chronic kidney disease, unspecified SNOMED: 549112521 (2) Anemia ICD Codes: D64.9 - Anemia, unspecified SNOMED: 051144163 (3) Peripheral neuropathy ICD Codes: G62.9 - Polyneuropathy, unspecified SNOMED: 682928818 (4) Agitation ICD Codes: R45.1 - Restlessness and agitation SNOMED: 084726418 (5) Hypertension ICD Codes: I10 - Essential (primary) hypertension SNOMED: 74088212 Qualifiers: Qualified Codes: I10 - Essential (primary) hypertension (6) History of CVA (cerebrovascular accident) ICD Codes: Z86.73 - Personal history of transient ischemic attack (TIA), and cerebral infarction without residual deficits SNOMED: 062523273 (7) History of hypertension ICD Codes: Z86.79 - Personal history of other diseases of the circulatory system SNOMED: 451123003 Assessment/Plan: symptomatic treatment monitor BP pt/ot increase hydralazine clonidine prn dc planning soon. Casie Frye MD Nov 07, 2018 13:49
--- NOTE | 2018-11-07 14:11 | NUR ---
NURSE NOTES: Dr HUMPHRIES notified that pt refuses HEP and he ordered to D/C HEP and change DVT to ambulate, noted and carried out. and Dr HUMPHRIES is aware about HTN, no new order to RN. He will F/U. Will continue to monitor.
[2018-11-07] MEDS ORDERED: MULTIVITAMINS1 EAC2 ORAL (14:21)
--- NOTE | 2018-11-07 14:31 | NUR ---
NURSE NOTES: Urin collected as order and sent to LAB. Waiting for result.
[2018-11-07 15:28] LABS: APPEARANCE,URINE CLEAR; BILIRUBIN, URINE NEGATIVE (NEGATIVE); COLOR,URINE YELLOW; GLUCOSE, URINE (UA) NEGATIVE (NEGATIVE); KETONES,URINE NEGATIVE (NEGATIVE); LEUKOCYTE ESTERASE ,URINE NEGATIVE (NEGATIVE); NITRITE,URINE NEGATIVE (NEGATIVE); PH,URINE 5 (4.5-8.0); PROTEIN,URINE NEGATIVE (NEGATIVE); UROBILINOGEN,URINE NORMAL MG/DL (0.0-1.0)
[2018-11-07 16:34] LABS: CREATINE KINASE 181 U/L (26-308)
--- NOTE | 2018-11-07 17:07 | NUR ---
CASE MANAGEMENT:[facility] 83 [facility] ALTERED MENTAL STATUS 98.2 80 18 182/80 98% ON RA H/H-11.6/34.8 BUN+33 CR+1.9 IS: IV ATIVAN CT HEAD : TO TELEMETRY PLAN: NEURO CHECKS Q4HRS
--- NOTE | 2018-11-07 19:19 | NUR ---
HAND-OFF: Report given to ROBERT ARELLANO RN.
--- NOTE | 2018-11-07 19:40 | History & Physical ---
History and Physical History & Physicial Cover for Int Med-Dr Estevez no. [id number] Farzad Sams MD Nov 07, 2018 19:40
--- NOTE | 2018-11-07 19:46 | NUR ---
NURSE NOTES: Received report from DOT White. Patient a/a/o breathing unlabored without distress, discomfort, or sob. Denies pain at this time. IV noted on left hand 20g intact, dry, clean, and patent. Condom cath intact draining urine. Walker at the bedside. Bed placed at the lowest with alarm, brake, and siderails up for safety. Call light placed within reach. Will continue to monitor and provide care as ordered.
--- NOTE | 2018-11-07 22:30 | History and Physical Report ---
DATE OF ADMISSION: 11/06/2018 CHIEF COMPLAINT: The patient is an 83-year-old male, who presents with a chief complaint of bilateral lower extremity numbness and altered mental status. HISTORY OF PRESENT ILLNESS: The patient was admitted to [facility] from October 07, 2018 to October 15, 2018. The patient was diagnosed with dislocation of the right fourth finger PIP joint. The patient was discharged to [facility]. Please see history and physical and discharge summary dictated at that time. The patient presented to [facility] after staff at [facility] stated that the patient had altered mental status. Upon arrival at [facility] emergency room, the patient was complaining of numbness to his bilateral lower extremities. The patient states that his feet are completely numb. The patient states he feels like he is walking on clouds. The patient also demonstrated some paranoia stating that he thought he had been poisoned by the long-term staff. The patient was admitted to [facility] for altered mental status and peripheral neuropathy. PAST MEDICAL HISTORY: Significant for: 1. Cerebrovascular disease, status post cerebrovascular accident. 2. Left hemiparesis. 3. Hypertension. PAST SURGICAL HISTORY: Significant for appendectomy. CURRENT MEDICATIONS: 1. Multivitamins. 2. Norvasc 10 mg p.o. daily. ALLERGIES: No known drug allergies. SOCIAL HISTORY: The patient denies alcohol or tobacco use. The patient is a resident of [facility] as above. PHYSICAL EXAMINATION: VITAL SIGNS: Temperature 98, respirations 18, pulse 97, and blood pressure 177/79. GENERAL: The patient is a well-developed and well nourished thin-appearing male, in no apparent distress. HEENT: Eyes, pupils are equal and responsive to light and accommodation. Extraocular movements are intact. NECK: Supple without lymphadenopathy. CHEST: Lungs are clear to auscultation bilaterally without wheezes or rales. CARDIOVASCULAR: Regular rhythm and rate. S1 and S2 are normal without murmurs, rubs, or gallops. ABDOMEN: Soft, nontender, and nondistended. Positive bowel sounds. No evidence of hepatosplenomegaly. Currently, no rebound or guarding noted. EXTREMITIES: Negative for clubbing, cyanosis, or edema. RECTAL/GENITAL: Not performed. NEUROLOGIC: Cranial nerves II through XII are grossly intact without focal deficits. Motor strength is 3/5 on the left and 5/5 on the right. LABORATORY STUDIES: WBC 10.4, hemoglobin 11.6, hematocrit 34.8, and platelets 220,000. Sodium 143, potassium 5.1, chloride 110, CO2 22, BUN 33, creatinine 1.9, and glucose 110. Urinalysis showed within normal limits. A CT scan of the brain was reported as no acute infarct or hemorrhage. ASSESSMENT: This is an 83-year-old male. 1. Altered mental status. 2. Paranoia. 3. Cerebrovascular disease. 4. Left hemiparesis. 5. Hypertension. TREATMENT: 1. Altered mental status. This may be metabolic encephalopathy versus acute psychosis. A Psychiatric consultation has been obtained with Dr. Aguirre. We will follow recommendation of Psychiatry. 2. Cerebrovascular disease. The patient has been started empirically on aspirin. 3. Left hemiparesis. 4. Hypertension. Continue Norvasc as above. Farzad Sams M.D. DR: ARTEM JOB#: [id number] CC:
[2018-11-08] VITALS: BP 156/70
[2018-11-08 04:00] VITALS: BP 147/54
[2018-11-08] MEDS: HydrALAZINE 50mg tab ORAL SCH ×3 (05:43→22:50)
[2018-11-08 06:38] LABS: HEMATOCRIT 30.7 % (42.0-52.0); HEMOGLOBIN 9.8 G/DL (14.2-18.0); MEAN CORPUSCULAR VOLUME 85 FL (80-99); PLATELET COUNT 182 K/UL (150-450); RED BLOOD COUNT 3.63 M/UL (4.70-6.10); RED CELL DISTRIBUTION WIDTH 13.3 % (11.6-14.8); WHITE BLOOD COUNT 6.8 K/UL (4.8-10.8)
[2018-11-08 06:51] LABS: ANION GAP 8 mmol/L (5-15); BLOOD UREA NITROGEN 31 mg/dL (7-18); CALCIUM 8.4 MG/DL (8.5-10.1); CARBON DIOXIDE 24 MMOL/L (21-32); CHLORIDE 110 MMOL/L (98-107); CREATININE 1.8 MG/DL (0.55-1.30); POTASSIUM 4.1 MMOL/L (3.5-5.1); SODIUM 142 MMOL/L (136-145)
--- NOTE | 2018-11-08 07:26 | NUR ---
HAND-OFF: Report given to DOT Chapman.
--- NOTE | 2018-11-08 07:28 | NUR ---
NURSE NOTES: Received pt in bed, sleeping. Room air. No s/s of distress/pain. IV on L hand 20g intact and patent, with saline lock. Side rails x2. Bed in the lowest and locked. Call light within reach. Will continue to monitor
[2018-11-08 08:00] VITALS: BP 155/62
--- NOTE | 2018-11-08 10:33 | Diagnostic Imaging Report ---
Indication: Abnormal renal function tests Technique: Grayscale and duplex images of the kidneys, retroperitoneum, and bladder were obtained. Comparison: 10/07/2018 Findings: Right kidney measures 9.2 cm in length. Left kidney measures 9.4 cm in length. Both kidneys demonstrate increased echogenicity.. No hydronephrosis. There is a prominent extrarenal pelvis on the right. There are multiple right renal cysts. Is also small left renal cyst.. Normal inferior vena cava. Bladder is distended, calculated volume 389 mL. Patient reportedly has a condom catheter Impression: Negative for hydronephrosis Bilateral echogenic kidneys, consistent with medical renal disease Bilateral renal cysts Distended bladder.
--- NOTE | 2018-11-08 11:27 | NUR ---
P.T Note: Pt refused to participate in P.T evaluation. Pt became irritable upon further attempt. Will reattempt with pt is cooperative. RN notified/aware.
--- NOTE | 2018-11-08 11:28 | Pulmonology Progress Note ---
Assessment/Plan Problems: (1) Renal failure (ARF), acute on chronic (2) Anemia (3) Peripheral neuropathy (4) Agitation (5) Hypertension (6) History of CVA (cerebrovascular accident) (7) History of hypertension Assessment/Plan pt is asymptomatic f/u PT/OT recommendations neuro evaluation check electrolytes renal US pending dc planning in 1-2 days. Subjective ROS Limited/Unobtainable: No Interval Events: pt is asymptomatic Constitutional: Reports: no symptoms HEENT: Repors: no symptoms Respiratory: Reports: no symptoms Allergies: Coded Allergies: No Known Allergies (Unverified , 10/07/18) Objective Last 24 Hour Vital Signs Date Time Temp Pulse Resp B/P (MAP) Pulse Ox O2 Delivery O2 Flow Rate FiO2 11/08/18 09:00 68 155/62 11/08/18 09:00 Room Air 11/08/18 08:00 98.2 68 18 155/62 (93) 97 11/08/18 05:43 132/67 11/08/18 04:00 98.2 63 18 147/54 (85) 96 11/08/18 00:00 97.7 71 18 156/70 (98) 97 11/07/18 22:01 160/75 11/07/18 21:00 Room Air 11/07/18 20:00 96.8 67 20 150/69 (96) 98 11/07/18 16:00 98.6 72 18 145/55 (85) 98 11/07/18 14:00 161/64 11/07/18 13:10 161/64 11/07/18 12:00 97.7 68 18 161/64 (96) 98 Intake and Output 11/07/18 11/08/18 19:00 07:00 Intake Total 820 ml 120 ml Output Total 600 ml 500 ml Balance 220 ml -380 ml Intake Oral 820 ml 120 ml Output Urine Total 600 ml 500 ml # Bowel Movements 2 General Appearance: WD/WN HEENT: normocephalic, atraumatic Respiratory/Chest: chest wall non-tender, lungs clear Cardiovascular: normal peripheral pulses, normal rate, no JVD Abdomen: soft, non tender, non distended Genitourinary: normal external genitalia Extremities: no clubbing Skin: no lesions, no ulcers 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 Lymphatic: no neck adenopathy Microbiology Date/Time Source Procedure Growth Status 11/06/18 22:00 Rectum Received Laboratory Tests 11/07/18 14:30: Urine Color Yellow, Urine Appearance Clear, Urine pH 5, Urine Specific [place] 1.015, Urine Protein Negative, Urine Glucose (UA) Negative, Urine Ketones Negative, Urine Blood Negative, Urine Nitrite Negative, Urine Bilirubin Negative , Urine Urobilinogen Normal, Urine Leukocyte Esterase Negative, Urine RBC 0-2H, Urine WBC 0-2, Urine Squamous Epithelial Cells None, Urine Bacteria Occasional, Urine Eosinophils None seen, Urine Osmolality 615H, Urine Random Creatinine [ Pending], Urine Random Microalbumin [Pending], Urine Random Sodium 113H, Urine Microalbumin/Creatinine Ratio [Pending] 11/07/18 15:30: Uric Acid 6.5, Total Creatine Kinase 181 11/08/18 05:50: White Blood Count 6.8, Red Blood Count 3.63L, Hemoglobin 9.8L, Hematocrit 30.7L , Mean Corpuscular Volume 85, Mean Corpuscular Hemoglobin 26.9L, Mean Corpuscular Hemoglobin Concent 31.8L, Red Cell Distribution Width 13.3, Platelet Count 182, Mean Platelet Volume 6.2L, Neutrophils (%) (Auto) , Lymphocytes (%) (Auto) , Monocytes (%) (Auto) , Eosinophils (%) (Auto) , Basophils (%) (Auto) , Differential Total Cells Counted 100, Neutrophils % ( Manual) 66, Lymphocytes % (Manual) 25, Monocytes % (Manual) 5, Eosinophils % ( Manual) 4H, Basophils % (Manual) 0, Band Neutrophils 0, Platelet Estimate Adequate, Platelet Morphology Normal, Red Blood Cell Morphology Normal, Sodium Level 142, Potassium Level 4.1, Chloride Level 110H, Carbon Dioxide Level 24, Anion Gap 8, Blood Urea Nitrogen 31H, Creatinine 1.8H, Estimat Glomerular Filtration Rate , Glucose Level 81, Calcium Level 8.4L Current Medications Medications (Trade) Dose Ordered Sig/[place] Route PRN Reason Start Time Stop Time Status Last Admin Dose Admin Amlodipine Besylate (Norvasc) 10 mg DAILY ORAL 11/07/18 09:00 12/07/18 08:59 11/07/18 08:35 Clonidine HCl (Catapres Tab) 0.1 mg Q4H PRN ORAL For High Blood Pressure 11/07/18 13:45 12/07/18 13:44 Hydralazine HCl (Apresoline) 100 mg Q8HR ORAL 11/07/18 14:00 12/07/18 05:59 11/08/18 05:43 Influenza Virus Vacc Trival Recomb (Flu Vac High-Dose for Pts 65 Years and Older) 0.5 ml ONCE ONCE IM 11/07/18 09:00 11/07/18 09:01 UNV Pneumococcal Polyvalent Vaccine (Pneumovax) 0.5 ml ONCE ONCE IM 11/07/18 09:00 11/07/18 09:01 UNV Risperidone (RisperDAL) 1 mg BEDTIME ORAL 11/08/18 21:00 12/08/18 20:59 Risperidone (RisperDAL) 1 mg EVERY 6 HOURS PRN ORAL agitation 11/07/18 22:30 12/07/18 22:29 Casie Frye MD Nov 08, 2018 11:28
[2018-11-08 12:00] VITALS: BP 148/64
--- NOTE | 2018-11-08 12:50 | NUR ---
NURSE NOTES: Pt went down for mri
--- NOTE | 2018-11-08 13:29 | NUR ---
MRI BRAIN W/O COMPLETED
--- NOTE | 2018-11-08 14:20 | NUR ---
NURSE NOTES: pt came from mri
--- NOTE | 2018-11-08 14:54 | NUR ---
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 97.3 HR 69 RR 18 B/P 148/64 BUN 31 CR 1.8 IS: RISPERDAL PO APRESOLINE PO RENAL US MED/SURG STATUS
--- NOTE | 2018-11-08 15:11 | Diagnostic Imaging Report ---
Indication: Syncope, altered mental status Technique: sagittal T1 fast spin echo, axial T1 FLAIR, axial T2 FLAIR, axial T2 FS PROPELLER, axial T2* GRE, axial diffusion weighted images. ADC and exponential ADC maps generated Comparison: Reference made to head CT dated 11/06/2018. No comparison MRIs Findings:There some image degradation due to motion artifact. There is an area of cortical susceptibility artifact in the posterior left parietal lobe on the GRE images. No definite corresponding signal abnormalities are seen on any of the other sequences No abnormal areas of restricted diffusion to suggest acute infarction. Frontal encephalomalacia on the right seen on recent CT scan is less evident on MRI . No acute hemorrhage or edema. No mass effect nor midline shift. There is age-related enlargement of the ventricles and extra-axial CSF spaces. The vascular flow voids are preserved. There is periventricular deep white matter high T2 signal which is asymmetrically abundant on the right. Visualized orbits and sinuses are unremarkable. Impression: Negative for acute intracranial bleed, mass effect, or infarct Cortical susceptibility artifact in the posterior left parietal lobe on the GRE images, without corresponding signal abnormality on other sequences. Most likely represents an area of prior petechial cortical hemorrhage Age-related volume loss Periventricular deep white matter high T2 signal, consistent with chronic microvascular ischemic changes
[2018-11-08 16:00] VITALS: BP 138/87
--- NOTE | 2018-11-08 17:29 | Internal Med Progress Note ---
Subjective Date of Service: Nov 08, 2018 Physician Name Farzad Sams Attending Physician Tripp Estevez MD Current Medications Medications (Trade) Dose Ordered Sig/[place] Route PRN Reason Start Time Stop Time Status Last Admin Dose Admin Amlodipine Besylate (Norvasc) 10 mg DAILY ORAL 11/07/18 09:00 12/07/18 08:59 11/07/18 08:35 Clonidine HCl (Catapres Tab) 0.1 mg Q4H PRN ORAL For High Blood Pressure 11/07/18 13:45 12/07/18 13:44 Clopidogrel Bisulfate (Plavix) 75 mg ONCE ORAL 11/08/18 16:59 11/08/18 18:00 11/08/18 17:23 Hydralazine HCl (Apresoline) 100 mg Q8HR ORAL 11/07/18 14:00 12/07/18 05:59 11/08/18 14:24 Influenza Virus Vacc Trival Recomb (Flu Vac High-Dose for Pts 65 Years and Older) 0.5 ml ONCE ONCE IM 11/07/18 09:00 11/07/18 09:01 UNV Pneumococcal Polyvalent Vaccine (Pneumovax) 0.5 ml ONCE ONCE IM 11/07/18 09:00 11/07/18 09:01 UNV Risperidone (RisperDAL) 1 mg BEDTIME ORAL 11/08/18 21:00 12/08/18 20:59 Risperidone (RisperDAL) 1 mg EVERY 6 HOURS PRN ORAL agitation 11/07/18 22:30 12/07/18 22:29 Allergies: Coded Allergies: No Known Allergies (Unverified , 10/07/18) ROS Limited/Unobtainable: Yes Subjective 83 YO M admitted with altered mental status. Now paranoia and agitation. Cover for Int Med-Dr Estevez Objective Last Vital Signs Date Time Temp Pulse Resp B/P (MAP) Pulse Ox O2 Delivery O2 Flow Rate FiO2 11/08/18 16:00 97.4 87 18 138/87 (104) 97 11/08/18 09:00 Room Air Laboratory Tests Test 11/08/18 05:50 White Blood Count 6.8 K/UL (4.8-10.8) Red Blood Count 3.63 M/UL (4.70-6.10) L Hemoglobin 9.8 G/DL (14.2-18.0) L Hematocrit 30.7 % (42.0-52.0) L Mean Corpuscular Volume 85 FL (80-99) Mean Corpuscular Hemoglobin 26.9 PG (27.0-31.0) L Mean Corpuscular Hemoglobin Concent 31.8 G/DL (32.0-36.0) L Red Cell Distribution Width 13.3 % (11.6-14.8) Platelet Count 182 K/UL (150-450) Mean Platelet Volume 6.2 FL (6.5-10.1) L Neutrophils (%) (Auto) % (45.0-75.0) Lymphocytes (%) (Auto) % (20.0-45.0) Monocytes (%) (Auto) % (1.0-10.0) Eosinophils (%) (Auto) % (0.0-3.0) Basophils (%) (Auto) % (0.0-2.0) Differential Total Cells Counted 100 Neutrophils % (Manual) 66 % (45-75) Lymphocytes % (Manual) 25 % (20-45) Monocytes % (Manual) 5 % (1-10) Eosinophils % (Manual) 4 % (0-3) H Basophils % (Manual) 0 % (0-2) Band Neutrophils 0 % (0-8) Platelet Estimate Adequate Platelet Morphology Normal Red Blood Cell Morphology Normal Sodium Level 142 MMOL/L (136-145) Potassium Level 4.1 MMOL/L (3.5-5.1) Chloride Level 110 MMOL/L (98-107) H Carbon Dioxide Level 24 MMOL/L (21-32) Anion Gap 8 mmol/L (5-15) Blood Urea Nitrogen 31 mg/dL (7-18) H Creatinine 1.8 MG/DL (0.55-1.30) H Estimat Glomerular Filtration Rate mL/min (>60) Glucose Level 81 MG/DL (74-106) Calcium Level 8.4 MG/DL (8.5-10.1) L Microbiology Date/Time Source Procedure Growth Status 11/06/18 22:00 Rectum Received Intake and Output 11/07/18 11/08/18 19:00 07:00 Intake Total 820 ml 120 ml Output Total 600 ml 500 ml Balance 220 ml -380 ml Intake Oral 820 ml 120 ml Output Urine Total 600 ml 500 ml # Bowel Movements 2 Objective PHYSICAL EXAMINATION: GENERAL: The patient is a well-developed and well nourished thin-appearing male, in no apparent distress. HEENT: Eyes, pupils are equal and responsive to light and accommodation. Extraocular movements are intact. NECK: Supple without lymphadenopathy. CHEST: Lungs are clear to auscultation bilaterally without wheezes or rales. CARDIOVASCULAR: Regular rhythm and rate. S1 and S2 are normal without murmurs, rubs, or gallops. ABDOMEN: Soft, nontender, and nondistended. Positive bowel sounds. No evidence of hepatosplenomegaly. Currently, no rebound or guarding noted. EXTREMITIES: Negative for clubbing, cyanosis, or edema. RECTAL/GENITAL: Not performed. NEUROLOGIC: Cranial nerves II through XII are grossly intact without focal deficits. Motor strength is 3/5 on the left and 5/5 on the right. Assessment/Plan Assessment/Plan ASSESSMENT: This is an 83-year-old male. 1. Altered mental status. 2. Paranoia. 3. Cerebrovascular disease. 4. Left hemiparesis. 5. Hypertension. TREATMENT: 1. Altered mental status. This may be metabolic encephalopathy versus acute psychosis. A Psychiatric consultation has been obtained with Dr. Aguirre. We will follow recommendation of Psychiatry. 2. Cerebrovascular disease. The patient has been started empirically on aspirin. 3. Left hemiparesis. 4. Hypertension. Continue Norvasc as above. Farzad Sams MD Nov 08, 2018 17:29
--- NOTE | 2018-11-08 18:45 | Consultation ---
DATE OF CONSULTATION: 11/08/2018 NEUROLOGIC CONSULTATION CONSULTING PHYSICIAN: Scott Hardy M.D. CHIEF COMPLAINT: This is the second [facility] admission for this 83-year-old right-handed man with previous history of hypertension, cerebrovascular accident treated in [place] 3 years ago with left-sided weakness, and paranoia on Risperdal. I was asked to see the patient because of the chief complaint of numbness in his hands and feet and face beginning 2 days ago. The patient has the above history. He developed numbness in his hands and feet and face 2 days ago. However, by the time he got to the emergency room, apparently it disappeared. He is admitted to the hospital. He had a vascular study, which was fairly unremarkable. He is mildly anemic. His BUN and creatinine were elevated. His glucose is 110. Urinalysis is unremarkable. The patient was admitted and started on aspirin. He received clonidine (Catapres), amlodipine, hydralazine. He then went for a CT scan of the brain revealed right frontal encephalomalacia. Also had an MRI scan of the brain, which revealed cerebral atrophy and a cortical susceptibility artifact in the posterior left parietal lobe on the GRE images most likely represents an area of prior petechial cortical hemorrhage. He had cerebral atrophy. An ultrasound was also done. He had bilateral renal cysts, distended bladder, and echogenic kidneys. The patient was supposed to be seen by a psychiatrist. No family history of neurologic disease. PAST MEDICAL HISTORY/PAST MEDICAL ILLNESSES: 1. Appendicitis with an appendectomy. 2. Cerebrovascular disease. See above. 3. Hypertension. See above. 4. BPH. 5. Possible paranoid schizophrenia. 6. Renal disease, etiology unknown. ALLERGIES: He is allergic to Excedrin. SOCIAL HISTORY: He is . Has 2 children, in good health. He is retired. FAMILY HISTORY: His father of "occupational injuries." His mother of old age. REVIEW OF SYSTEMS: His appetite is decreased. He lost about 10 pounds, going from 150 to 140 pounds. The rest of the review of systems is noncontributory. PHYSICAL EXAMINATION: GENERAL: Revealed a well-developed, thin man, lying in bed, in no acute distress. The patient has significant hearing loss. VITAL SIGNS: Blood pressure is 148/64, pulse is 69 and regular, temperature is 97.3 degrees. HEENT: He has bilateral arcus senilis, cataracts, and has no teeth. NECK: He has limitation of motion. No tenderness. Carotids are +1. No bruits appreciated. LUNGS: Decreased lung sounds. CARDIOVASCULAR: PMI increased. JVP is not visualized. The patient had a normal S1. The S2 is physiologically split. There was no S3, S4, murmurs, or rubs appreciated. ABDOMEN: Scaphoid. Bowel sounds intact. No tenderness, masses, or organomegaly. BACK: Normal. EXTREMITIES: He had evidence of degenerative joint disease of the fingers. He also had stitches on the right fourth finger for previous laceration. NEUROLOGIC: MENTAL STATUS: Judgment could not be tested. Affect is appropriate. Memory, his past memory was intact to date of . Immediate recall was 3/3 words. Recent recall is 3/3 words. Intellect, similarities were concrete i.e. train and bicycle nothing in common, cat and dog they both bark. Orientation, time and year - he knew it was 11/08/2018Wednesday. Place - he knew he in [facility]. He was oriented to person. Language function, spoken speech was fluent without paraphasias. There was mild right or left confusion. He currently had trouble subtracting 19 from 36. Could not give me an answer. He could spell world backwards and forwards without too much difficulty. Cranial nerves II through XII were in fact except for the following: CRANIAL NERVES III, IV, AND : He had decreased conjugate upgaze. Pupils are approximately 3.5 mm, round, light reactive. CRANIAL NERVE VII: There is decreased smile on the left. CRANIAL NERVE VIII: He has significantly decreased auditory acuity bilaterally. MUSCLE EXAMINATION: Muscle bulk is symmetrically decreased. Tone reveals paratonia in the lower extremities and upper extremities. Strength is 5/5 on the right side, 5-/5 on the left side. REFLEXES: +2 in the left upper extremity, +1 in the right upper extremity, +2.5 left knee, +2 right knee pain, 0 right ankle, +1 left ankle. Toes are downgoing bilaterally. COORDINATION: Bjiecn-[id number], rapid alternating movements were intact. Srrw-yd-[id number] testing was basically normal, even on the left. GAIT AND STATION: He had a normal based gait. Romberg negative. He could not heel-to-toe walk. SENSORY EXAMINATION: Sensation was subjectively intact to pinprick, proprioception, vibration, fine touch. IMPRESSION: The patient may have posterior circulation disease. That is actually difficult to make a diagnosis on him. In any event, I would treat him with aspirin and Plavix. He should only be on Plavix for 3 months and then it should be stopped. Again, localization is difficult to make in this patient. PLAN: 1. I will speak to you about this case. 2. Add Plavix 75 mg. Thank you for this interesting case. Scott Hardy MD DR: LAYTON JOB#: [id number] CC:
--- NOTE | 2018-11-08 19:23 | NUR ---
HAND-OFF: Report given to DOT Quiles.
--- NOTE | 2018-11-08 19:45 | NUR ---
NURSE NOTES: Received report from DOT Chapman. Patient asleep. Breathing unlabored without distress, discomfort, or sob. Denies pain at this time. IV noted on left hand 20g intact, dry, clean, and patent. Walker at the bedside. Bed placed at the lowest with alarm, brake, and siderails up for safety. Call light placed within reach. Will continue to monitor and provide care as ordered.
[2018-11-08 20:00] VITALS: BP 137/73
--- NOTE | 2018-11-08 22:45 | Consultation ---
DATE OF CONSULTATION: 11/08/2018 CONSULTING PHYSICIAN: Nikkie Aguirre M.D. HISTORY OF PRESENT ILLNESS: The patient is an 83-year-old male with history of hypertension, CVA, psychotic disorder, hypertension, appendicitis with an appendectomy who was admitted to the hospital for medical stabilization. The patient has paranoid ideation. I started the patient on Risperdal last night. The patient is hard of hearing and gets anxious. He was able to provide history and has memory impairment. PAST PSYCHIATRIC HISTORY: He denies any psychiatric history. PAST MEDICAL HISTORY: Hypertension, pneumonia, BPH, CVA, anemia, renal failure. ALLERGIES: No known drug allergies. SUBSTANCE ABUSE HISTORY: No known history of illicit drug use or alcohol. MENTAL STATUS EXAMINATION: The patient is alert, oriented times self, place, and situation. Mood is anxious to neutral. Affect is constricted, congruent with mood. Thought process is linear and goal oriented. Thought content, no suicidal or homicidal ideations. Positive for paranoid ideation. Insight and judgment is fair. ASSESSMENT: [place] I Anxiety disorder. [place] II Deferred. [place] III As above. [place] IV Low to moderate. [place] V 50. PLAN: 1. Encourage the patient to participate in physical therapy and care. 2. Continue risperidone. 3. Provide the patient reality orientation and supportive therapy. Nikkie Aguirre M.D. DR: TABITHA JOB#: [id number] CC:
[2018-11-09] VITALS: BP 152/76
--- NOTE | 2018-11-09 03:30 | NUR ---
NURSE NOTES: Patient claims that he is missing wallet and pant. Patient did not allow RN to search through the belongings at this time. Just assisted him packing back the jackets. Charge nurse made aware and will endorse to the AM RN to follow up with missing belongings.
[2018-11-09 04:00] VITALS: BP 144/62
[2018-11-09] MEDS: HydrALAZINE 50mg tab ORAL SCH ×3 (05:51→21:20)
--- NOTE | 2018-11-09 07:22 | NUR ---
HAND-OFF: Report given to DOT Chapman. Endorsed about the missing belongings. Informed RN that patient did not allow searching through the belongings. AM RN will follow up with missing belongings.
--- NOTE | 2018-11-09 07:25 | NUR ---
NURSE NOTES: Received pt in bed, sleeping. Room air. No s/s of distress/pain. IV 20g on L hand 20g intact and patent, with saline lock. Side rails x2. Bed in the lowest, locked, and alarm on. Call light within reach. Will continue to monitor
[2018-11-09 08:00] VITALS: BP 142/65
--- NOTE | 2018-11-09 11:39 | Internal Med Progress Note ---
Subjective Date of Service: Nov 09, 2018 Physician Name Farzad Sams Attending Physician Tripp Estevez MD Current Medications Medications (Trade) Dose Ordered Sig/[place] Route PRN Reason Start Time Stop Time Status Last Admin Dose Admin Amlodipine Besylate (Norvasc) 10 mg DAILY ORAL 11/07/18 09:00 12/07/18 08:59 11/09/18 09:05 Clonidine HCl (Catapres Tab) 0.1 mg Q4H PRN ORAL For High Blood Pressure 11/07/18 13:45 12/07/18 13:44 Hydralazine HCl (Apresoline) 100 mg Q8HR ORAL 11/07/18 14:00 12/07/18 05:59 11/09/18 05:51 Influenza Virus Vacc Trival Recomb (Flu Vac High-Dose for Pts 65 Years and Older) 0.5 ml ONCE ONCE IM 11/07/18 09:00 11/07/18 09:01 UNV Pneumococcal Polyvalent Vaccine (Pneumovax) 0.5 ml ONCE ONCE IM 11/07/18 09:00 11/07/18 09:01 UNV Risperidone (RisperDAL) 1 mg BEDTIME ORAL 11/08/18 21:00 12/08/18 20:59 11/08/18 23:04 Risperidone (RisperDAL) 1 mg EVERY 6 HOURS PRN ORAL agitation 11/07/18 22:30 12/07/18 22:29 Allergies: Coded Allergies: No Known Allergies (Unverified , 10/07/18) ROS Limited/Unobtainable: No Constitutional: Reports: no symptoms HEENT: Reports: no symptoms Cardiovascular: Reports: no symptoms Respiratory: Reports: no symptoms Gastrointestinal/Abdominal: Reports: no symptoms Genitourinary: Reports: no symptoms Neurologic/Psychiatric: Reports: no symptoms Subjective 83 YO M admitted with altered mental status. Now paranoia and agitation. Cover for Int Koffi-Dr Estevez Objective Last Vital Signs Date Time Temp Pulse Resp B/P (MAP) Pulse Ox O2 Delivery O2 Flow Rate FiO2 11/09/18 09:05 80 142/65 11/09/18 09:00 Room Air 11/09/18 08:00 98.1 19 99 Microbiology Date/Time Source Procedure Growth Status 11/06/18 22:00 Nose MRSA Culture - Final NO METHICILLIN RESISTANT STAPH AUREUS... Complete 11/06/18 22:00 Rectum - Final NO CARBAPENEM-RESISTANT ENTEROBACTERI... Complete 11/06/18 22:00 Rectum VRE Culture - Final NO VANCOMYCIN RESISTANT ENTEROCOCCUS ... Complete Intake and Output 11/08/18 11/09/18 19:00 07:00 Intake Total 480 ml Output Total 400 ml 250 ml Balance 80 ml -250 ml Intake Oral 480 ml Output Urine Total 400 ml 250 ml # Voids 2 1 Objective PHYSICAL EXAMINATION: GENERAL: The patient is a well-developed and well nourished thin-appearing male, in no apparent distress. HEENT: Eyes, pupils are equal and responsive to light and accommodation. Extraocular movements are intact. NECK: Supple without lymphadenopathy. CHEST: Lungs are clear to auscultation bilaterally without wheezes or rales. CARDIOVASCULAR: Regular rhythm and rate. S1 and S2 are normal without murmurs, rubs, or gallops. ABDOMEN: Soft, nontender, and nondistended. Positive bowel sounds. No evidence of hepatosplenomegaly. Currently, no rebound or guarding noted. EXTREMITIES: Negative for clubbing, cyanosis, or edema. RECTAL/GENITAL: Not performed. NEUROLOGIC: Cranial nerves II through XII are grossly intact without focal deficits. Motor strength is 3/5 on the left and 5/5 on the right. Assessment/Plan Assessment/Plan ASSESSMENT: This is an 83-year-old male. 1. Altered mental status. 2. Paranoia. 3. Cerebrovascular disease. 4. Left hemiparesis. 5. Hypertension. TREATMENT: 1. Altered mental status. This may be metabolic encephalopathy versus acute psychosis. A Psychiatric consultation has been obtained with Dr. Aguirre. Continue risperdal per Psychiatry. 2. Cerebrovascular disease. The patient has been started empirically on aspirin. 3. Left hemiparesis. 4. Hypertension. Continue Norvasc as above. Farzad Sams MD Nov 09, 2018 11:39
[2018-11-09 12:00] VITALS: BP 138/62
--- NOTE | 2018-11-09 13:29 | NUR ---
P.T NOTE: P.T EVALUATION COMPLETED. BASED ON P.T EVALUATION, PATIENT IS FUNCTIONING INDEPENDENTLY AT HIS BASELINE THEREFORE SKILLED P.T SERVICE IS NO LONGER NEEDED AT THIS TIME. D/C P.T SERVICES. THANK YOU FOR THIS REFERRAL. Addendum: 11/09/18 at 1330 by PAMELA STILES PT Amended: Links added.
--- NOTE | 2018-11-09 13:40 | NUR ---
NURSE NOTES: Patient states that he lost his pants and his wallet was in the pants. RN looked through his belongings with the patient and there was no pants/wallet. Checked the belongings list and he did not have them when he came to the floor.
--- NOTE | 2018-11-09 14:01 | NUR ---
*-* DISCHARGE PLANNING *-* PATIENT HAS BEEN REFERRED BACK TO: [facility] P: [phone] F: [phone]
--- NOTE | 2018-11-09 15:15 | Diagnostic Imaging Report ---
APPROVED REPORT CPT Code: 90076 Vascular Symptoms Comments: AMS Doppler Spectral Velocity Analysis RightLeft arteries. The Doppler spectral flow analysis indicates the degree of stenosis is minimal in the common, internal and external carotid arteries. VERTEBRAL/SUBCLAVIAN- The vertebral and subclavian arteries are within normal limits, bilaterally.
[2018-11-09 16:00] VITALS: BP 149/63
--- NOTE | 2018-11-09 17:03 | NUR ---
TECHNICAL PROGRAMS MANAGER NOTES PT ACCEPTED BACK TO [facility] ROOM 38 BED A. WAITING FOR DC ORDER.
--- NOTE | 2018-11-09 19:24 | NUR ---
HAND-OFF: Report given to DOT Romo.
[2018-11-09 20:00] VITALS: BP 154/74
[2018-11-10] VITALS: BP 157/81
--- NOTE | 2018-11-10 00:30 | Progress Note ---
DATE: 11/09/2018 SUBJECTIVE: The patient is in bed, hard of hearing, very loud. The patient primarily believes that nurses are trying to hurt him. He is also easily agitated, has poor cognition. MENTAL STATUS EXAMINATION: The patient is alert and oriented times self, place. He has poor insight about the situation he is in. Mood is anxious. Affect is flat. Thought process is concrete. Thought content, no suicidal or homicidal ideation. ASSESSMENT: 1. Cognitive impairment. 2. Psychotic disorder. PLAN: 1. Increase the risperidone to 1.5 mg p.o. bedtime. 2. We will continue to follow the patient and readjust the medications. Nikkie Aguirre M.D. DR: Ines JOB#: [id number] CC:
[2018-11-10 03:39] VITALS: BP 146/74
[2018-11-10] MEDS: HydrALAZINE 50mg tab ORAL SCH ×3 (05:57→21:02)
[2018-11-10 06:44] LABS: BASOPHILS % (AUTO) 0.9 % (0.0-2.0); EOSINOPHILS % (AUTO) 3.2 % (0.0-3.0); HEMATOCRIT 32.6 % (42.0-52.0); HEMOGLOBIN 10.3 G/DL (14.2-18.0); LYMPHOCYTES % (AUTO) 21.3 % (20.0-45.0); MEAN CORPUSCULAR VOLUME 85 FL (80-99); MONOCYTES % (AUTO) 9.7 % (1.0-10.0); NEUTROPHILS % (AUTO) 64.9 % (45.0-75.0); PLATELET COUNT 190 K/UL (150-450); RED BLOOD COUNT 3.84 M/UL (4.70-6.10); RED CELL DISTRIBUTION WIDTH 13.3 % (11.6-14.8); WHITE BLOOD COUNT 7.2 K/UL (4.8-10.8)
[2018-11-10 07:06] LABS: ANION GAP 11 mmol/L (5-15); BLOOD UREA NITROGEN 32 mg/dL (7-18); CALCIUM 8.9 MG/DL (8.5-10.1); CARBON DIOXIDE 23 MMOL/L (21-32); CHLORIDE 113 MMOL/L (98-107); CREATININE 1.8 MG/DL (0.55-1.30); POTASSIUM 4.1 MMOL/L (3.5-5.1); SODIUM 147 MMOL/L (136-145)
--- NOTE | 2018-11-10 07:07 | NUR ---
HAND-OFF: Report given to DOT Mendenhall.
--- NOTE | 2018-11-10 07:56 | NUR ---
NURSE NOTES: received report from DOT Romo. patient in bed. sleeping. breathing even and unlabored. no facial grimacing. IV on LH saline lock intact. bed in the lowest position and locked. call light within reach. will continue to provide plan of care.
[2018-11-10 08:00] VITALS: BP 148/78
[2018-11-10 12:00] VITALS: BP 135/64
--- NOTE | 2018-11-10 12:42 | Pulmonology Progress Note ---
Assessment/Plan Problems: (1) Renal failure (ARF), acute on chronic (2) Anemia (3) Peripheral neuropathy (4) Agitation (5) Hypertension (6) History of CVA (cerebrovascular accident) (7) History of hypertension Assessment/Plan all reviewed pt is asymptomatic f/u PT/OT recommendations neuro evaluation check electrolytes dc planning in 1-2 days. medication reviewed Subjective ROS Limited/Unobtainable: No Interval Events: late note for Constitutional: Reports: no symptoms HEENT: Repors: no symptoms Respiratory: Reports: no symptoms Allergies: Coded Allergies: No Known Allergies (Unverified , 10/07/18) Objective Last 24 Hour Vital Signs Date Time Temp Pulse Resp B/P (MAP) Pulse Ox O2 Delivery O2 Flow Rate FiO2 11/10/18 12:00 97.8 62 18 135/64 (87) 94 11/10/18 09:08 80 148/78 11/10/18 09:00 Room Air 11/10/18 08:00 97.6 80 19 148/78 (101) 98 11/10/18 05:57 146/74 11/10/18 03:39 97.2 78 20 146/74 (98) 97 11/10/18 00:00 98.2 78 20 157/81 (106) 98 11/09/18 21:20 154/74 11/09/18 21:00 Room Air 11/09/18 20:00 98.2 78 20 154/74 (100) 100 11/09/18 16:00 97.9 85 21 149/63 (91) 97 11/09/18 13:31 138/62 Intake and Output 11/09/18 11/10/18 19:00 07:00 Intake Total 520 ml Output Total 850 ml Balance -330 ml Intake Oral 520 ml Output Urine Total 850 ml # Voids 3 # Bowel Movements 1 General Appearance: WD/WN, no acute distress HEENT: normocephalic, atraumatic Respiratory/Chest: chest wall non-tender, lungs clear Cardiovascular: normal peripheral pulses, normal rate Abdomen: soft, non tender Extremities: no cyanosis Skin: no rash Laboratory Tests 11/10/18 06:00: White Blood Count 7.2, Red Blood Count 3.84L, Hemoglobin 10.3L, Hematocrit 32.6L , Mean Corpuscular Volume 85, Mean Corpuscular Hemoglobin 26.9L, Mean Corpuscular Hemoglobin Concent 31.7L, Red Cell Distribution Width 13.3, Platelet Count 190, Mean Platelet Volume 6.0L, Neutrophils (%) (Auto) 64.9, Lymphocytes (%) (Auto) 21.3, Monocytes (%) (Auto) 9.7, Eosinophils (%) (Auto) 3.2H, Basophils (%) (Auto) 0.9, Sodium Level 147H, Potassium Level 4.1, Chloride Level 113H, Carbon Dioxide Level 23, Anion Gap 11, Blood Urea Nitrogen 32H, Creatinine 1.8H, Estimat Glomerular Filtration Rate , Glucose Level 88, Calcium Level 8.9 Current Medications Medications (Trade) Dose Ordered Sig/[place] Route PRN Reason Start Time Stop Time Status Last Admin Dose Admin Amlodipine Besylate (Norvasc) 10 mg DAILY ORAL 11/07/18 09:00 12/07/18 08:59 11/10/18 09:08 Clonidine HCl (Catapres Tab) 0.1 mg Q4H PRN ORAL For High Blood Pressure 11/07/18 13:45 12/07/18 13:44 Hydralazine HCl (Apresoline) 100 mg Q8HR ORAL 11/07/18 14:00 12/07/18 05:59 11/10/18 05:57 Influenza Virus Vacc Trival Recomb (Flu Vac High-Dose for Pts 65 Years and Older) 0.5 ml ONCE ONCE IM 11/07/18 09:00 11/07/18 09:01 UNV Pneumococcal Polyvalent Vaccine (Pneumovax) 0.5 ml ONCE ONCE IM 11/07/18 09:00 11/07/18 09:01 UNV Risperidone (RisperDAL) 1 mg EVERY 6 HOURS PRN ORAL agitation 11/07/18 22:30 12/07/18 22:29 Risperidone (RisperDAL) 1.5 mg BEDTIME ORAL 11/10/18 21:00 12/10/18 20:59 Casie Frye MD Nov 10, 2018 12:42
--- NOTE | 2018-11-10 12:43 | Pulmonology Progress Note ---
Assessment/Plan Problems: (1) Renal failure (ARF), acute on chronic (2) Anemia (3) Peripheral neuropathy (4) Agitation (5) Hypertension (6) History of CVA (cerebrovascular accident) (7) History of hypertension Assessment/Plan all reviewed pt is asymptomatic f/u PT/OT recommendations neuro evaluation check electrolytes dc planning in 1-2 days. medication reviewed Subjective ROS Limited/Unobtainable: No Interval Events: doing better Allergies: Coded Allergies: No Known Allergies (Unverified , 10/07/18) Objective Last 24 Hour Vital Signs Date Time Temp Pulse Resp B/P (MAP) Pulse Ox O2 Delivery O2 Flow Rate FiO2 11/10/18 12:00 97.8 62 18 135/64 (87) 94 11/10/18 09:08 80 148/78 11/10/18 09:00 Room Air 11/10/18 08:00 97.6 80 19 148/78 (101) 98 11/10/18 05:57 146/74 11/10/18 03:39 97.2 78 20 146/74 (98) 97 11/10/18 00:00 98.2 78 20 157/81 (106) 98 11/09/18 21:20 154/74 11/09/18 21:00 Room Air 11/09/18 20:00 98.2 78 20 154/74 (100) 100 11/09/18 16:00 97.9 85 21 149/63 (91) 97 11/09/18 13:31 138/62 Intake and Output 11/09/18 11/10/18 19:00 07:00 Intake Total 520 ml Output Total 850 ml Balance -330 ml Intake Oral 520 ml Output Urine Total 850 ml # Voids 3 # Bowel Movements 1 General Appearance: no acute distress HEENT: normocephalic, atraumatic Respiratory/Chest: chest wall non-tender, lungs clear Cardiovascular: normal peripheral pulses, normal rate Abdomen: normal bowel sounds, soft, non tender Genitourinary: normal external genitalia Extremities: no clubbing Skin: no rash Laboratory Tests 11/10/18 06:00: White Blood Count 7.2, Red Blood Count 3.84L, Hemoglobin 10.3L, Hematocrit 32.6L , Mean Corpuscular Volume 85, Mean Corpuscular Hemoglobin 26.9L, Mean Corpuscular Hemoglobin Concent 31.7L, Red Cell Distribution Width 13.3, Platelet Count 190, Mean Platelet Volume 6.0L, Neutrophils (%) (Auto) 64.9, Lymphocytes (%) (Auto) 21.3, Monocytes (%) (Auto) 9.7, Eosinophils (%) (Auto) 3.2H, Basophils (%) (Auto) 0.9, Sodium Level 147H, Potassium Level 4.1, Chloride Level 113H, Carbon Dioxide Level 23, Anion Gap 11, Blood Urea Nitrogen 32H, Creatinine 1.8H, Estimat Glomerular Filtration Rate , Glucose Level 88, Calcium Level 8.9 Current Medications Medications (Trade) Dose Ordered Sig/[place] Route PRN Reason Start Time Stop Time Status Last Admin Dose Admin Amlodipine Besylate (Norvasc) 10 mg DAILY ORAL 11/07/18 09:00 12/07/18 08:59 11/10/18 09:08 Clonidine HCl (Catapres Tab) 0.1 mg Q4H PRN ORAL For High Blood Pressure 11/07/18 13:45 12/07/18 13:44 Hydralazine HCl (Apresoline) 100 mg Q8HR ORAL 11/07/18 14:00 12/07/18 05:59 11/10/18 05:57 Influenza Virus Vacc Trival Recomb (Flu Vac High-Dose for Pts 65 Years and Older) 0.5 ml ONCE ONCE IM 11/07/18 09:00 11/07/18 09:01 UNV Pneumococcal Polyvalent Vaccine (Pneumovax) 0.5 ml ONCE ONCE IM 11/07/18 09:00 11/07/18 09:01 UNV Risperidone (RisperDAL) 1 mg EVERY 6 HOURS PRN ORAL agitation 11/07/18 22:30 12/07/18 22:29 Risperidone (RisperDAL) 1.5 mg BEDTIME ORAL 11/10/18 21:00 12/10/18 20:59 Casie Frye MD Nov 10, 2018 12:43
--- NOTE | 2018-11-10 14:11 | NUR ---
RD ASSESSMENT & RECOMMENDATIONS SEE CARE ACTIVITY FOR COMPLETE ASSESSMENT DAILY ESTIMATED NEEDS: Needs based on Cardiac 63kg 25-30 kcals/kg 2582-0712 total kcals 1-1.3 g protein/kg 63-82 g total protein 25-30 mL/kg 9468-6030 total fluid mLs NUTRITION DIAGNOSIS: * Decreased sodium needs r/t cardiac history, ARF as evidenced by h/o CVA, elev BPs, elev creat (1.8) CURRENT DIET:CARDIAC PO DIET RECOMMENDATIONS: LOW NA/ texture as tolerated ADDITIONAL RECOMMENDATIONS: 1) Standing weight for accuraet CBW 2) Monitor tolerance to current texture, need to downgrade -> edentulous, h/o CVA/ pt denies any chewing/swallowing deficits at this time 3) Ensure Enlive 1 bottle daily (350kcal/20g prot) w/ variable PO intake
--- NOTE | 2018-11-10 15:17 | NUR ---
DISCHARGE PLANNING DISCHARGE ORDER NOTED Patient has been accepted to; [facility] [address] [place] [address] Bed:38-A Skilled [phone] for Nurse to Nurse report [facility] ETA for transportation: 17:45
[2018-11-10 16:00] VITALS: BP 130/68
--- NOTE | 2018-11-10 16:37 | Internal Med Progress Note ---
Subjective Date of Service: Nov 10, 2018 Physician Name Farzad Sasm Attending Physician Tripp Estevez MD Current Medications Medications (Trade) Dose Ordered Sig/Austin Route PRN Reason Start Time Stop Time Status Last Admin Dose Admin Amlodipine Besylate (Norvasc) 10 mg DAILY ORAL 11/07/18 09:00 12/07/18 08:59 11/10/18 09:08 Clonidine HCl (Catapres Tab) 0.1 mg Q4H PRN ORAL For High Blood Pressure 11/07/18 13:45 12/07/18 13:44 Hydralazine HCl (Apresoline) 100 mg Q8HR ORAL 11/07/18 14:00 12/07/18 05:59 11/10/18 13:04 Influenza Virus Vacc Trival Recomb (Flu Vac High-Dose for Pts 65 Years and Older) 0.5 ml ONCE ONCE IM 11/07/18 09:00 11/07/18 09:01 UNV Pneumococcal Polyvalent Vaccine (Pneumovax) 0.5 ml ONCE ONCE IM 11/07/18 09:00 11/07/18 09:01 UNV Risperidone (RisperDAL) 1 mg EVERY 6 HOURS PRN ORAL agitation 11/07/18 22:30 12/07/18 22:29 Risperidone (RisperDAL) 1.5 mg BEDTIME ORAL 11/10/18 21:00 12/10/18 20:59 Allergies: Coded Allergies: No Known Allergies (Unverified , 10/07/18) ROS Limited/Unobtainable: Yes Subjective 83 YO M admitted with altered mental status. Now paranoia and agitation. Cover for Int Med-Dr Estevez Objective Last Vital Signs Date Time Temp Pulse Resp B/P (MAP) Pulse Ox O2 Delivery O2 Flow Rate FiO2 11/10/18 13:04 135/64 11/10/18 12:00 97.8 62 18 94 11/10/18 09:00 Room Air Laboratory Tests Test 11/10/18 06:00 White Blood Count 7.2 K/UL (4.8-10.8) Red Blood Count 3.84 M/UL (4.70-6.10) L Hemoglobin 10.3 G/DL (14.2-18.0) L Hematocrit 32.6 % (42.0-52.0) L Mean Corpuscular Volume 85 FL (80-99) Mean Corpuscular Hemoglobin 26.9 PG (27.0-31.0) L Mean Corpuscular Hemoglobin Concent 31.7 G/DL (32.0-36.0) L Red Cell Distribution Width 13.3 % (11.6-14.8) Platelet Count 190 K/UL (150-450) Mean Platelet Volume 6.0 FL (6.5-10.1) L Neutrophils (%) (Auto) 64.9 % (45.0-75.0) Lymphocytes (%) (Auto) 21.3 % (20.0-45.0) Monocytes (%) (Auto) 9.7 % (1.0-10.0) Eosinophils (%) (Auto) 3.2 % (0.0-3.0) H Basophils (%) (Auto) 0.9 % (0.0-2.0) Sodium Level 147 MMOL/L (136-145) H Potassium Level 4.1 MMOL/L (3.5-5.1) Chloride Level 113 MMOL/L (98-107) H Carbon Dioxide Level 23 MMOL/L (21-32) Anion Gap 11 mmol/L (5-15) Blood Urea Nitrogen 32 mg/dL (7-18) H Creatinine 1.8 MG/DL (0.55-1.30) H Estimat Glomerular Filtration Rate mL/min (>60) Glucose Level 88 MG/DL (74-106) Calcium Level 8.9 MG/DL (8.5-10.1) Intake and Output 11/09/18 11/10/18 19:00 07:00 Intake Total 520 ml Output Total 850 ml Balance -330 ml Intake Oral 520 ml Output Urine Total 850 ml # Voids 3 # Bowel Movements 1 Objective PHYSICAL EXAMINATION: GENERAL: The patient is a well-developed and well nourished thin-appearing male, in no apparent distress. HEENT: Eyes, pupils are equal and responsive to light and accommodation. Extraocular movements are intact. NECK: Supple without lymphadenopathy. CHEST: Lungs are clear to auscultation bilaterally without wheezes or rales. CARDIOVASCULAR: Regular rhythm and rate. S1 and S2 are normal without murmurs, rubs, or gallops. ABDOMEN: Soft, nontender, and nondistended. Positive bowel sounds. No evidence of hepatosplenomegaly. Currently, no rebound or guarding noted. EXTREMITIES: Negative for clubbing, cyanosis, or edema. RECTAL/GENITAL: Not performed. NEUROLOGIC: Cranial nerves II through XII are grossly intact without focal deficits. Motor strength is 3/5 on the left and 5/5 on the right. Assessment/Plan Assessment/Plan ASSESSMENT: This is an 83-year-old male. 1. Altered mental status. 2. Paranoia. 3. Cerebrovascular disease. 4. Left hemiparesis. 5. Hypertension. TREATMENT: 1. Altered mental status. This may be metabolic encephalopathy versus acute psychosis. A Psychiatric consultation has been obtained with Dr. Aguirre. Continue risperdal per Psychiatry. 2. Cerebrovascular disease. The patient has been started empirically on aspirin. 3. Left hemiparesis. 4. Hypertension. Continue Norvasc as above. Farzad Sams MD Nov 10, 2018 16:37
--- NOTE | 2018-11-10 16:46 | NUR ---
Social Service Note Patient is a resident of [facility]. Previous to placement in SNF, patient was homeless. Patient took the greyhound from [place] with no housing plan once arriving in [place]. Patient doesn't have emergency contact. 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 Patient is anticipated to return to SNF today. Once medically appropriate and doesn't require SNF level of care, SNF will assist patient with alternative placement options.
[2018-11-10] MEDS ORDERED: HYDRALAZINE HC100 MG ORAL (17:25)
[2018-11-10] MEDS ORDERED: HYDRALAZINE HCL25 M1 ORAL (17:25)
[2018-11-10] MEDS ORDERED: AMLODIPINE BESY10 MG ORAL (17:25)
[2018-11-10] MEDS ORDERED: RISPERDAL1 MG PO (17:26)
--- NOTE | 2018-11-10 17:40 | NUR ---
NURSE NOTES: spoke to pharmacist erum. high dose of flu vaccine is not available at this time. patient refused to get both flu vaccine and peumo vaccine at this time.
--- NOTE | 2018-11-10 17:49 | NUR ---
NURSE NOTES: called [facility] for report. nurse is not availble at this time.
--- NOTE | 2018-11-10 17:56 | NUR ---
NURSE NOTES: given report [facility]. spoke to Sena,Seed Tester.
[2018-11-10] MEDS ORDERED: Pneumococcal Vaccine 25mcg/0.5ml IM ONE (19:00)
--- NOTE | 2018-11-10 19:20 | NUR ---
NURSE NOTES: checked and counted beloingings with patient. patient missing shoes. patient said ER staffs took off his pant at the ER> no pants in the check list. RN informed patient RN will ask licensed master social worker for investigation tomorrow. patient refused to sign on belonging check list and discharge paper.
--- NOTE | 2018-11-10 19:21 | NUR ---
HAND-OFF: Report given to DOT Romo.
[2018-11-10 20:00] VITALS: BP 156/79
--- NOTE | 2018-11-10 20:01 | NUR ---
NURSE NOTES: Patient in bed, awake, alert and verbally responsive. Able to make needs known. Patient to be discharged tonight. Refusing to sign belongings list, missing debit card, shoes from the list. Claims also that his wallet that was tucked inside the pocket of the pants was there. At the moment refusing to be discharged. Charge nurse made aware.
--- NOTE | 2018-11-10 21:00 | NUR ---
NURSE NOTES: Primary MD was informed of patient refusal to be discharged.
--- NOTE | 2018-11-10 23:30 | Progress Note ---
DATE: 11/10/2018 SUBJECTIVE: The patient is very hard of hearing. He is paranoid and stated that he does not like to go back to . He would like to stay here in the hospital. He stated that he will refuse to go back to his facility. The patient is still paranoid, believes that the staff will hurt him. He is forgetful. MENTAL STATUS EXAMINATION: The patient is alert, and oriented times self, place, and poor insight into the situation he has. Mood is irritable. Affect is constricted, congruent with mood. Thought process is concrete. Thought content, no suicidal or homicidal ideations. ASSESSMENT: Paranoid ideation, dementia. PLAN: 1. We will continue the risperidone. 2. Encourage him to go back to his facility. 3. Provide him with reality orientation. Nikkie Aguirre M.D. DR: TABITHA JOB#: [id number] CC: MICHAEL
[2018-11-11] VITALS: BP 154/78
[2018-11-11 04:00] VITALS: BP 157/80
[2018-11-11] MEDS: HydrALAZINE 50mg tab ORAL SCH ×3 (06:03→21:42)
--- NOTE | 2018-11-11 07:19 | NUR ---
HAND-OFF: Report given to DOT Mendenhall.
--- NOTE | 2018-11-11 07:31 | NUR ---
NURSE NOTES: received report from Demetrius. patient in bed. sleeping. breathing even and unlabored. no facial grimacing. IV on LH 20 intact. bed in the lowest position. call light within reach. will continue to provide plan of care.
--- NOTE | 2018-11-11 10:33 | NUR ---
NURSE NOTES: patient refused to take VS and medications.refused to blood lab this morning. RN explained risks and benefits to the patient. still refused.
[2018-11-11 12:00] VITALS: BP 126/83
--- NOTE | 2018-11-11 12:20 | Pulmonology Progress Note ---
Assessment/Plan Problems: (1) Renal failure (ARF), acute on chronic (2) Anemia (3) Peripheral neuropathy (4) Agitation (5) Hypertension (6) History of CVA (cerebrovascular accident) (7) History of hypertension Assessment/Plan dc planning in progress pt is asymptomatic f/u PT/OT recommendations neuro evaluation meds evaluated and reviewed medication reviewed Subjective ROS Limited/Unobtainable: No Allergies: Coded Allergies: No Known Allergies (Unverified , 10/07/18) Objective Last 24 Hour Vital Signs Date Time Temp Pulse Resp B/P (MAP) Pulse Ox O2 Delivery O2 Flow Rate FiO2 11/11/18 12:00 98.0 79 18 126/83 (97) 97 11/11/18 09:00 Room Air 11/11/18 06:03 157/80 11/11/18 04:00 97.0 102 19 157/80 (105) 98 11/11/18 00:00 97.8 100 19 154/78 (103) 99 11/10/18 21:02 156/79 11/10/18 21:00 Room Air 11/10/18 20:00 98.1 84 19 156/79 (104) 98 11/10/18 16:00 98.1 66 19 130/68 (88) 98 11/10/18 13:04 135/64 Intake and Output 11/10/18 11/11/18 19:00 07:00 Intake Total 820 ml 820 ml Output Total 900 ml Balance 820 ml -80 ml Intake Oral 820 ml 820 ml Output Urine Total 900 ml # Voids 6 2 # Bowel Movements 1 General Appearance: cachetic HEENT: normocephalic, atraumatic Respiratory/Chest: chest wall non-tender, lungs clear, normal breath sounds Cardiovascular: normal peripheral pulses, normal rate Abdomen: normal bowel sounds, soft, non tender, no organomegaly Extremities: no cyanosis Skin: no rash Current Medications Medications (Trade) Dose Ordered Sig/[place] Route PRN Reason Start Time Stop Time Status Last Admin Dose Admin Amlodipine Besylate (Norvasc) 10 mg DAILY ORAL 11/07/18 09:00 12/07/18 08:59 11/10/18 09:08 Clonidine HCl (Catapres Tab) 0.1 mg Q4H PRN ORAL For High Blood Pressure 11/07/18 13:45 12/07/18 13:44 Hydralazine HCl (Apresoline) 100 mg Q8HR ORAL 11/07/18 14:00 12/07/18 05:59 11/11/18 06:03 Risperidone (RisperDAL) 1 mg EVERY 6 HOURS PRN ORAL agitation 11/07/18 22:30 12/07/18 22:29 Risperidone (RisperDAL) 1.5 mg BEDTIME ORAL 11/10/18 21:00 12/10/18 20:59 11/10/18 21:02 Casie Frye MD Nov 11, 2018 12:20
--- NOTE | 2018-11-11 13:53 | NUR ---
NURSE NOTES: patient refused to take meals and fluids. patient still got upset about lost belongings. RN offered foods and water. explained risks and benefits. patient refused care. notified charge nurse/vickie.
[2018-11-11 16:00] VITALS: BP 130/79
--- NOTE | 2018-11-11 16:26 | NUR ---
NURSE NOTES: associate manager affiliate marketing Mercedez could not have conversation with patient regarding discharge d/t patient was aggressive, yelling and agitated. notified Dr. Frye and received order of Ativan 2mg IM once. order noted and carried out.
[2018-11-11] MEDS ORDERED: LORazepam Inj 2mg/ml 1ml IM SCH (16:28)
--- NOTE | 2018-11-11 17:37 | Internal Med Progress Note ---
Subjective Physician Name Tripp Estevez Attending Physician Tripp Estevez MD Current Medications Medications (Trade) Dose Ordered Sig/[place] Route PRN Reason Start Time Stop Time Status Last Admin Dose Admin Amlodipine Besylate (Norvasc) 10 mg DAILY ORAL 11/07/18 09:00 12/07/18 08:59 11/10/18 09:08 Clonidine HCl (Catapres Tab) 0.1 mg Q4H PRN ORAL For High Blood Pressure 11/07/18 13:45 12/07/18 13:44 Hydralazine HCl (Apresoline) 100 mg Q8HR ORAL 11/07/18 14:00 12/07/18 05:59 11/11/18 06:03 Lorazepam (Ativan 2mg/ml 1ml) 2 mg ONCE IM 11/11/18 16:28 11/11/18 18:00 Risperidone (RisperDAL) 1 mg EVERY 6 HOURS PRN ORAL agitation 11/07/18 22:30 12/07/18 22:29 Risperidone (RisperDAL) 1.5 mg BEDTIME ORAL 11/10/18 21:00 12/10/18 20:59 11/10/18 21:02 Allergies: Coded Allergies: No Known Allergies (Unverified , 10/07/18) Subjective Awake, alert, responsive, anxious and combative. Objective Last Vital Signs Date Time Temp Pulse Resp B/P (MAP) Pulse Ox O2 Delivery O2 Flow Rate FiO2 11/11/18 16:00 98.1 81 18 130/79 (96) 98 11/11/18 09:00 Room Air Intake and Output 11/10/18 11/11/18 19:00 07:00 Intake Total 820 ml 820 ml Output Total 900 ml Balance 820 ml -80 ml Intake Oral 820 ml 820 ml Output Urine Total 900 ml # Voids 6 2 # Bowel Movements 1 Objective General: No acute distress, awake and alert HEENT: NCAT, sclera anicteric, PERRL, EOMI. Neck: Supple, no significant jugular venous distention, Lungs: Fair inspiratory effort, clear to auscultation bilaterally, no Wheeze or Rales. Heart: Regular rate and rhythm, normal S1/S2, no murmurs. Abdomen: soft, nontender, nondistended. Normoactive bowel sounds. / Rectal: Refused and deferred. Extremities: No Cyanosis , clubbing or edema. Neuro: A&O x 3, Able to move all extremities Skin: warm, no rash Psych: Anxiety mood and affect Assessment/Plan Assessment/Plan (1) Acute on chronic renal failure (2) Anemia (3) Peripheral neuropathy (4) dementia with paranoid idealization (5) Hypertension (6) History of CVA (cerebrovascular accident) (7) History of hypertension Plan: Follow-up with psychiatry recommendations, Dr. Carla OLGUIN planning to SNF. Monitor laboratory as needed. DVT prophylaxis with SCD. Tripp Estevez MD Nov 11, 2018 17:37
--- NOTE | 2018-11-11 18:38 | NUR ---
NURSE NOTES: given report to [facility]. spoke to SenaAutomatic Quilling Machine Operator
--- NOTE | 2018-11-11 19:26 | NUR ---
HAND-OFF: Report given to DOT Campbell.
[2018-11-11 20:00] VITALS: BP 131/82
--- NOTE | 2018-11-11 20:08 | NUR ---
NURSE NOTES: RECEIVED PT FROM DOT BYRD. WAITING FOR AMBULANCE TO ARRIVE. PT IS AWAKE, AAOX1, ON ROOM AIR, NO ACUTE DISTRESS NOTED. PT NOTED CALM, AMBULATING INSIDE HIS ROOM. IV ON LEFT HAND 20G IS INTACT AND PATENT. CALL LIGHT IS WITHIN REACH. WILL CONTINUE TO MONITOR.
--- NOTE | 2018-11-11 21:00 | NUR ---
NURSE NOTES: PATIENT REFUSED TO BE DISCHARGE BACK TO [facility]. CALLED AND INFORMED FACILITY. PT IS ALSO RESISTIVE TO CARE AND REFUSED ALL MEDICATIONS. MADE AWARE.
[2018-11-12] VITALS: BP 130/95
--- NOTE | 2018-11-12 02:30 | Progress Note ---
DATE: 11/11/2018 SUBJECTIVE: The patient is less confused. Continues to be anxious. The patient is an elderly gentleman with poor insight. MENTAL STATUS EXAMINATION: The patient is alert and oriented times self and place. Mood is agitated. Affect is flat. Thought process is concrete. Thought content, no suicidal or homicidal ideations. ASSESSMENT: 1. Cognitive impairment. 2. Paranoid ideation. PLAN: 1. We will continue current medications. 2. Provide the patient with reality orientation and supportive therapy. Nikkie Aguirre M.D. DR: JEREMY JOB#: [id number] CC:
[2018-11-12 04:00] VITALS: BP 158/64
[2018-11-12] MEDS: HydrALAZINE 50mg tab ORAL SCH ×3 (05:59→21:08)
--- NOTE | 2018-11-12 07:48 | NUR ---
HAND-OFF: Report given to DOT Muniz. Pt is in stable condition. Endorsed the plan of care.
[2018-11-12 08:00] VITALS: BP 140/68
--- NOTE | 2018-11-12 09:10 | Pulmonology Progress Note ---
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 peripheral neuropathy hx of CVA PLAN OF CARE MS floor CT head noted Carotid Duplex unremarkable MRI brain with findings of likely an area of prior petechial cortical hemorrhage neuro follows ; per neuro: prob posterior circulation disorder, neuro added Plavix for 3 months and then recommended dc, continue ASA ( however not on current meds list?) -discussed with nurse to contact neuro if still wants these medications BP management with Hydralazine and CCB DVT prophylaxis O2 HHN prn DVT prophylaxis with SCD monitor renal parameters lytes, correct lytes prn renal US+ echogenic kidneys, c/w medical renal disease psych follows psych meds optimized monitor HH with goal to keep Hgb above 7 supportive care case discussed and evaluated by supervising physician Subjective Allergies: Coded Allergies: No Known Allergies (Unverified , 10/07/18) Subjective denies dizziness, SOB, chest pain eating breakfast Objective Last 24 Hour Vital Signs Date Time Temp Pulse Resp B/P (MAP) Pulse Ox O2 Delivery O2 Flow Rate FiO2 11/12/18 08:00 98.1 69 16 140/68 (92) 95 11/12/18 05:59 158/64 11/12/18 04:00 97.8 64 19 158/64 (95) 96 11/12/18 00:00 96.8 98 20 130/95 (107) 96 11/11/18 21:42 131/82 11/11/18 21:00 Room Air 11/11/18 20:00 98.1 123 20 131/82 (98) 99 11/11/18 16:00 98.1 81 18 130/79 (96) 98 11/11/18 12:00 98.0 79 18 126/83 (97) 97 Intake and Output 11/11/18 11/12/18 19:00 07:00 Intake Total 880 ml 1760 ml Output Total 1800 ml Balance 880 ml -40 ml Intake Oral 880 ml 1760 ml Output Urine Total 1800 ml # Voids 8 11 # Bowel Movements 2 General Appearance: no acute distress, other - awake and responsive AA male HEENT: normocephalic, atraumatic, anicteric, mucous membranes moist Respiratory/Chest: lungs clear, no respiratory distress, no accessory muscle use Cardiovascular: normal peripheral pulses, normal rate Abdomen: normal bowel sounds, soft, non tender Extremities: no edema, pedal pulses normal Neurologic/Psychiatric: alert, responsive Musculoskeletal: atrophy Current Medications Medications (Trade) Dose Ordered Sig/[place] Route PRN Reason Start Time Stop Time Status Last Admin Dose Admin Amlodipine Besylate (Norvasc) 10 mg DAILY ORAL 11/07/18 09:00 12/07/18 08:59 11/10/18 09:08 Clonidine HCl (Catapres Tab) 0.1 mg Q4H PRN ORAL For High Blood Pressure 11/07/18 13:45 12/07/18 13:44 Hydralazine HCl (Apresoline) 100 mg Q8HR ORAL 11/07/18 14:00 12/07/18 05:59 11/12/18 05:59 Risperidone (RisperDAL) 1 mg EVERY 6 HOURS PRN ORAL agitation 11/07/18 22:30 12/07/18 22:29 Risperidone (RisperDAL) 1.5 mg BEDTIME ORAL 11/10/18 21:00 12/10/18 20:59 11/10/18 21:02 Kadi San NP Nov 12, 2018 09:10
[2018-11-12 12:00] VITALS: BP 111/61
--- NOTE | 2018-11-12 14:51 | Internal Med Progress Note ---
Subjective Date of Service: Nov 12, 2018 Physician Name Farzad Sams Attending Physician Tripp Estevez MD Current Medications Medications (Trade) Dose Ordered Sig/[place] Route PRN Reason Start Time Stop Time Status Last Admin Dose Admin Amlodipine Besylate (Norvasc) 10 mg DAILY ORAL 11/07/18 09:00 12/07/18 08:59 11/12/18 09:11 Clonidine HCl (Catapres Tab) 0.1 mg Q4H PRN ORAL For High Blood Pressure 11/07/18 13:45 12/07/18 13:44 Hydralazine HCl (Apresoline) 100 mg Q8HR ORAL 11/07/18 14:00 12/07/18 05:59 11/12/18 13:06 Risperidone (RisperDAL) 1 mg EVERY 6 HOURS PRN ORAL agitation 11/07/18 22:30 12/07/18 22:29 Risperidone (RisperDAL) 1.5 mg BEDTIME ORAL 11/10/18 21:00 12/10/18 20:59 11/10/18 21:02 Allergies: Coded Allergies: No Known Allergies (Unverified , 10/07/18) ROS Limited/Unobtainable: No Constitutional: Reports: no symptoms HEENT: Reports: no symptoms Cardiovascular: Reports: no symptoms Respiratory: Reports: no symptoms Gastrointestinal/Abdominal: Reports: no symptoms Genitourinary: Reports: no symptoms Neurologic/Psychiatric: Reports: no symptoms Subjective 83 YO M admitted with altered mental status. Now paranoia and agitation. Cover for Int Koffi-Dr Estevez Objective Last Vital Signs Date Time Temp Pulse Resp B/P (MAP) Pulse Ox O2 Delivery O2 Flow Rate FiO2 11/12/18 13:06 140/68 11/12/18 12:00 97.5 91 17 98 11/12/18 09:00 Room Air Intake and Output 11/11/18 11/12/18 18:59 06:59 Intake Total 880 ml 1760 ml Output Total 1800 ml Balance 880 ml -40 ml Intake Oral 880 ml 1760 ml Output Urine Total 1800 ml # Voids 8 11 # Bowel Movements 2 Objective PHYSICAL EXAMINATION: GENERAL: The patient is a well-developed and well nourished thin-appearing male, in no apparent distress. HEENT: Eyes, pupils are equal and responsive to light and accommodation. Extraocular movements are intact. NECK: Supple without lymphadenopathy. CHEST: Lungs are clear to auscultation bilaterally without wheezes or rales. CARDIOVASCULAR: Regular rhythm and rate. S1 and S2 are normal without murmurs, rubs, or gallops. ABDOMEN: Soft, nontender, and nondistended. Positive bowel sounds. No evidence of hepatosplenomegaly. Currently, no rebound or guarding noted. EXTREMITIES: Negative for clubbing, cyanosis, or edema. RECTAL/GENITAL: Not performed. NEUROLOGIC: Cranial nerves II through XII are grossly intact without focal deficits. Motor strength is 3/5 on the left and 5/5 on the right. Assessment/Plan Assessment/Plan ASSESSMENT: This is an 83-year-old male. 1. Altered mental status. 2. Paranoia. 3. Cerebrovascular disease. 4. Left hemiparesis. 5. Hypertension. TREATMENT: 1. Altered mental status. This may be metabolic encephalopathy versus acute psychosis. A Psychiatric consultation has been obtained with Dr. Aguirre. Continue risperdal per Psychiatry. 2. Cerebrovascular disease. The patient has been started empirically on aspirin. 3. Left hemiparesis. 4. Hypertension. Continue Norvasc as above. 5. Discharge planning: detention facility Farzad Sams MD Nov 12, 2018 14:51
--- NOTE | 2018-11-12 15:36 | NUR ---
NURSE NOTES: LUNCHROOM ATTENDANT Kadi wants me to communicated MD Hardy regarding Aspirin and Plavix medications that MD Hardy indicates its on its note. Patient isn't on those medications and I left a message to MD Hardy @[phone] asking if wants to order this medications to patient. Waiting call back.
[2018-11-12 16:00] VITALS: BP 118/61
--- NOTE | 2018-11-12 19:15 | NUR ---
HAND-OFF: Report given to DOT Tse.
--- NOTE | 2018-11-12 19:34 | NUR ---
NURSE NOTES: Patient in bed, awake, alert and verbally responsive. Able to make needs known. REspiration is even and unlabored. Bed in low and locked position. No complaint of pain or discomfort noted. Abdomen is soft and non distended. Bowel sounds noted. IV site noted. Call light is at bedside. Will continue plan of care.
[2018-11-12 20:00] VITALS: BP 168/69
[2018-11-13] VITALS: BP 150/58
--- NOTE | 2018-11-13 03:45 | Progress Note ---
DATE: 11/12/2018 SUBJECTIVE: The patient is debilitated, depressed, continues to have anxiety, debilitated, able to answers questions appropriately. MENTAL STATUS EXAMINATION: The patient is alert, oriented times, self, and place. Mood is anxious. Affect is flat. Thought process, there is a paucity of thought content. Thought content, no suicidal or homicidal ideations. ASSESSMENT: 1. Paranoid ideation. 2. Anxiety disorder. PLAN: We will continue to follow and readjust the medications. Nikkie Aguirre M.D. DR: BETO JOB#: [id number] CC:
[2018-11-13 04:00] VITALS: BP 148/57
[2018-11-13] MEDS: HydrALAZINE 50mg tab ORAL SCH ×3 (06:20→21:42)
--- NOTE | 2018-11-13 07:13 | NUR ---
HAND-OFF: Report given to DOT Basilio.
--- NOTE | 2018-11-13 07:44 | NUR ---
NURSE NOTES: Pt in bed in low position, call light next to pt, HOB in fowlers position, Iv intact but not running any fluids asymptomatic, pt has belongings at bedside, pt should be discharged soon, pt stable. Ox4, denies pain, wants to go back to sleep, no s/s of distress or SOB.
[2018-11-13 08:00] VITALS: BP 150/67
[2018-11-13 08:10] LABS: ANION GAP 11 mmol/L (5-15); BLOOD UREA NITROGEN 39 mg/dL (7-18); CALCIUM 8.8 MG/DL (8.5-10.1); CARBON DIOXIDE 23 MMOL/L (21-32); CHLORIDE 112 MMOL/L (98-107); POTASSIUM 4.1 MMOL/L (3.5-5.1); SODIUM 146 MMOL/L (136-145)
--- NOTE | 2018-11-13 10:26 | Pulmonology Progress Note ---
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 peripheral neuropathy hx of CVA PLAN OF CARE MS floor CT head noted Carotid Duplex unremarkable MRI brain with findings of likely an area of prior petechial cortical hemorrhage neuro follows ; per neuro: prob posterior circulation disorder, neuro added Plavix for 3 months and then recommended dc, continue ASA ( however not on current meds list?) -discussed with nurse to contact neuro if still wants these medications BP management with Hydralazine and CCB DVT prophylaxis O2 HHN prn DVT prophylaxis with SCD monitor renal parameters lytes, correct lytes prn renal US+ echogenic kidneys, c/w medical renal disease psych follows psych meds optimized monitor HH with goal to keep Hgb above 7 supportive care case discussed and evaluated by supervising physician Subjective Allergies: Coded Allergies: No Known Allergies (Unverified , 10/07/18) Subjective denies dizziness, SOB, chest pain pulse ox stable on RA Objective Last 24 Hour Vital Signs Date Time Temp Pulse Resp B/P (MAP) Pulse Ox O2 Delivery O2 Flow Rate FiO2 11/13/18 09:26 75 150/67 11/13/18 08:45 Room Air 11/13/18 08:00 99.8 75 21 150/67 (94) 98 11/13/18 06:20 148/57 11/13/18 04:00 99.0 80 19 148/57 (87) 98 11/13/18 00:00 99.0 97 19 150/58 (88) 97 11/12/18 21:08 169/69 11/12/18 21:00 Room Air 11/12/18 20:00 99.5 99 19 168/69 (102) 98 11/12/18 16:00 97.8 83 18 118/61 (80) 100 11/12/18 13:06 140/68 11/12/18 12:00 97.5 91 17 111/61 (78) 98 Intake and Output 11/12/18 11/13/18 19:00 07:00 Intake Total 400 ml 400 ml Balance 400 ml 400 ml Intake Oral 400 ml 400 ml # Voids 2 2 # Bowel Movements 1 Objective General Appearance: no acute distress awake and responsive AA male HEENT: normocephalic, atraumatic, anicteric, mucous membranes moist Respiratory/Chest: lungs clear, no respiratory distress, no accessory muscle use Cardiovascular: normal peripheral pulses, normal rate Abdomen: normal bowel sounds, soft, non tender Extremities: no edema, pedal pulses normal Neurologic/Psychiatric: alert, responsive Musculoskeletal: atrophy Laboratory Tests 11/13/18 06:55: Sodium Level 146H, Potassium Level 4.1, Chloride Level 112H, Carbon Dioxide Level 23, Anion Gap 11, Blood Urea Nitrogen 39H, Creatinine 2.0H, Estimat Glomerular Filtration Rate , Glucose Level 105, Calcium Level 8.8 Current Medications Medications (Trade) Dose Ordered Sig/Austin Route PRN Reason Start Time Stop Time Status Last Admin Dose Admin Amlodipine Besylate (Norvasc) 10 mg DAILY ORAL 11/07/18 09:00 12/07/18 08:59 11/13/18 09:26 Clonidine HCl (Catapres Tab) 0.1 mg Q4H PRN ORAL For High Blood Pressure 11/07/18 13:45 12/07/18 13:44 Hydralazine HCl (Apresoline) 100 mg Q8HR ORAL 11/07/18 14:00 12/07/18 05:59 11/13/18 06:20 Risperidone (RisperDAL) 1 mg EVERY 6 HOURS PRN ORAL agitation 11/07/18 22:30 12/07/18 22:29 Risperidone (RisperDAL) 1.5 mg BEDTIME ORAL 11/10/18 21:00 12/10/18 20:59 11/12/18 21:07 Kadi San NP Nov 13, 2018 10:26
[2018-11-13 12:00] VITALS: BP 137/56
--- NOTE | 2018-11-13 14:57 | Internal Med Progress Note ---
Subjective Date of Service: Nov 13, 2018 Physician Name Farzad Sams Attending Physician Tripp Estevez MD Current Medications Medications (Trade) Dose Ordered Sig/Austin Route PRN Reason Start Time Stop Time Status Last Admin Dose Admin Amlodipine Besylate (Norvasc) 10 mg DAILY ORAL 11/07/18 09:00 12/07/18 08:59 11/13/18 09:26 Clonidine HCl (Catapres Tab) 0.1 mg Q4H PRN ORAL For High Blood Pressure 11/07/18 13:45 12/07/18 13:44 Hydralazine HCl (Apresoline) 100 mg Q8HR ORAL 11/07/18 14:00 12/07/18 05:59 11/13/18 14:45 Risperidone (RisperDAL) 1 mg EVERY 6 HOURS PRN ORAL agitation 11/07/18 22:30 12/07/18 22:29 Risperidone (RisperDAL) 1.5 mg BEDTIME ORAL 11/10/18 21:00 12/10/18 20:59 11/12/18 21:07 Allergies: Coded Allergies: No Known Allergies (Unverified , 10/07/18) ROS Limited/Unobtainable: No Constitutional: Reports: no symptoms HEENT: Reports: no symptoms Cardiovascular: Reports: no symptoms Respiratory: Reports: no symptoms Gastrointestinal/Abdominal: Reports: no symptoms Genitourinary: Reports: no symptoms Neurologic/Psychiatric: Reports: no symptoms Subjective 83 YO M admitted with altered mental status. Now paranoia and agitation. Cover for Int Koffi-Dr Estevez Objective Last Vital Signs Date Time Temp Pulse Resp B/P (MAP) Pulse Ox O2 Delivery O2 Flow Rate FiO2 11/13/18 14:45 137/56 11/13/18 12:00 97.7 88 20 97 11/13/18 08:45 Room Air Laboratory Tests Test 11/13/18 06:55 Sodium Level 146 MMOL/L (136-145) H Potassium Level 4.1 MMOL/L (3.5-5.1) Chloride Level 112 MMOL/L (98-107) H Carbon Dioxide Level 23 MMOL/L (21-32) Anion Gap 11 mmol/L (5-15) Blood Urea Nitrogen 39 mg/dL (7-18) H Creatinine 2.0 MG/DL (0.55-1.30) H Estimat Glomerular Filtration Rate mL/min (>60) Glucose Level 105 MG/DL (74-106) Calcium Level 8.8 MG/DL (8.5-10.1) Intake and Output 11/12/18 11/13/18 18:59 06:59 Intake Total 400 ml 400 ml Balance 400 ml 400 ml Intake Oral 400 ml 400 ml # Voids 2 2 # Bowel Movements 1 Objective PHYSICAL EXAMINATION: GENERAL: The patient is a well-developed and well nourished thin-appearing male, in no apparent distress. HEENT: Eyes, pupils are equal and responsive to light and accommodation. Extraocular movements are intact. NECK: Supple without lymphadenopathy. CHEST: Lungs are clear to auscultation bilaterally without wheezes or rales. CARDIOVASCULAR: Regular rhythm and rate. S1 and S2 are normal without murmurs, rubs, or gallops. ABDOMEN: Soft, nontender, and nondistended. Positive bowel sounds. No evidence of hepatosplenomegaly. Currently, no rebound or guarding noted. EXTREMITIES: Negative for clubbing, cyanosis, or edema. RECTAL/GENITAL: Not performed. NEUROLOGIC: Cranial nerves II through XII are grossly intact without focal deficits. Motor strength is 3/5 on the left and 5/5 on the right. Assessment/Plan Assessment/Plan ASSESSMENT: This is an 83-year-old male. 1. Altered mental status. 2. Paranoia. 3. Cerebrovascular disease. 4. Left hemiparesis. 5. Hypertension. TREATMENT: 1. Altered mental status. This may be metabolic encephalopathy versus acute psychosis. A Psychiatric consultation has been obtained with Dr. Aguirre. Continue risperdal per Psychiatry. 2. Cerebrovascular disease. The patient has been started empirically on aspirin. 3. Left hemiparesis. 4. Hypertension. Continue Norvasc as above. 5. Discharge planning: Rehab on [facility] Farzad Sams MD Nov 13, 2018 14:57
[2018-11-13 16:00] VITALS: BP 138/64
--- NOTE | 2018-11-13 19:46 | NUR ---
NURSE NOTES: Patient in bed, awake, alert and verbally responsive. Able to make needs known. Respiration is even and unlabored. No complaint of pain or discomfort noted. Abdomen is soft and non distended. Respiration is even and unlabored. Skin is warm and dry to touch. NO iv noted, primary MD is aware.Bed in low and locked position. Provided safe environment. call light is at bedside. Will continue plan of care.
[2018-11-13 20:00] VITALS: BP 160/87
[2018-11-14 04:00] VITALS: BP 154/64
[2018-11-14] MEDS: HydrALAZINE 50mg tab ORAL SCH ×2 (05:11→14:00)
--- NOTE | 2018-11-14 05:13 | NUR ---
NURSE NOTES: Patient is anxious and suspicious of METHODS ENGINEER and RN's. Reality orientation was done with patient. Patient denies of current situation. Very suspicious of nurse giving medication. Charge nurse is aware.
--- NOTE | 2018-11-14 07:18 | NUR ---
NURSE NOTES: Received report from DOT Romo. Patient is AAO x 4. Patient is eating breakfast in bed. Patient is breathing even and unlabored on room air. Patient has no IV acces and primaryb md is aware. Skin is warm and dry to touch. Bed in low and locked position. Provided safe environment. call light is at bedside. Will continue plan of care.
--- NOTE | 2018-11-14 07:23 | NUR ---
HAND-OFF: Report given to DOT Gann.
[2018-11-14 08:00] VITALS: BP 96/49
--- NOTE | 2018-11-14 08:20 | NUR ---
NURSE NOTES: Patient moved to Room 408-2 with all of his belongings, including Lap Top and cane, as well as a bag of clothing. I explained to patient that we needed to move him to another room to allow placement for another patient. He replied "okay" . When I loaded his belongings on his bed to move him, he angrily stated "That is NOT all my belongings!!!". I showed him that the bedside dresser drawers were completely empty and no other belongings seen. Patient then threw his cane in the air, towards myself and primary RN, Azeem. I asked patient to please lower his tone of voice. Upon moving, I asked patient where he lived prior to coming to [place] (has discharge order from 11/10 and according to Social Service Notes, is a resident at [facility]). 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 Patient bed in low position after move from 4062
--- NOTE | 2018-11-14 11:30 | NUR ---
NURSE NOTES: Gave report to Joseluis Patel, nursing equipment maintenance supervisor at [facility].
[2018-11-14 12:00] VITALS: BP 136/71
--- NOTE | 2018-11-14 13:00 | NUR ---
NURSE NOTES: @12:30- Transport came to [facility] operator patient. Patient refused to go on [facility]. Patient states he need all belongings. Transport left at 12:50pm without patient. Nursing supervisor bottle machines and charge nurse were aware.
--- NOTE | 2018-11-14 13:07 | Pulmonology Progress Note ---
Assessment/Plan Problems: (1) Renal failure (ARF), acute on chronic (2) Anemia (3) Peripheral neuropathy (4) Agitation (5) Hypertension (6) History of CVA (cerebrovascular accident) (7) History of hypertension Assessment/Plan no new complains pt is asymptomatic f/u PT/OT recommendations neuro evaluation meds evaluated and reviewed medication reviewed dc to [facility] today Subjective ROS Limited/Unobtainable: No Constitutional: Reports: no symptoms HEENT: Repors: no symptoms Respiratory: Reports: no symptoms Allergies: Coded Allergies: No Known Allergies (Unverified , 10/07/18) Objective Last 24 Hour Vital Signs Date Time Temp Pulse Resp B/P (MAP) Pulse Ox O2 Delivery O2 Flow Rate FiO2 11/14/18 09:00 Room Air 11/14/18 08:37 68 96/49 11/14/18 08:00 97.0 68 20 96/49 (65) 98 11/14/18 05:11 154/61 11/14/18 04:00 98.5 75 20 154/64 (94) 96 11/13/18 21:42 160/87 11/13/18 20:25 Room Air 11/13/18 20:00 97.5 92 19 160/87 (111) 97 11/13/18 16:00 98.0 84 21 138/64 (88) 97 11/13/18 14:45 137/56 Intake and Output 11/13/18 11/14/18 19:00 07:00 Intake Total 700 ml 500 ml Output Total 300 ml Balance 400 ml 500 ml Intake Oral 700 ml 500 ml Output Urine Total 300 ml # Voids 3 General Appearance: cachetic HEENT: normocephalic, atraumatic Respiratory/Chest: chest wall non-tender, lungs clear Cardiovascular: normal peripheral pulses, normal rate Abdomen: normal bowel sounds, soft, non tender Genitourinary: normal external genitalia Skin: no rash Current Medications Medications (Trade) Dose Ordered Sig/Austin Route PRN Reason Start Time Stop Time Status Last Admin Dose Admin Amlodipine Besylate (Norvasc) 10 mg DAILY ORAL 11/07/18 09:00 12/07/18 08:59 11/13/18 09:26 Clonidine HCl (Catapres Tab) 0.1 mg Q4H PRN ORAL For High Blood Pressure 11/07/18 13:45 12/07/18 13:44 Hydralazine HCl (Apresoline) 100 mg Q8HR ORAL 11/07/18 14:00 12/07/18 05:59 11/14/18 05:11 Risperidone (RisperDAL) 1 mg EVERY 6 HOURS PRN ORAL agitation 11/07/18 22:30 12/07/18 22:29 Risperidone (RisperDAL) 1.5 mg BEDTIME ORAL 11/10/18 21:00 12/10/18 20:59 11/12/18 21:07 Casie Frye MD Nov 14, 2018 13:07
--- NOTE | 2018-11-14 13:12 | NUR ---
RD ASSESSMENT & RECOMMENDATIONS SEE CARE ACTIVITY FOR COMPLETE ASSESSMENT DAILY ESTIMATED NEEDS: Needs based on Cardiac 63kg 25-30 kcals/kg 9400-5731 total kcals 1-1.3 g protein/kg 63-82 g total protein 25-30 mL/kg 1383-2566 total fluid mLs NUTRITION DIAGNOSIS: * Decreased sodium needs r/t cardiac history, ARF as evidenced by h/o CVA, elev BPs, elev creat (1.8-> 2.0), elev BUN 39, elev NA (146). CURRENT DIET:CARDIAC PO DIET RECOMMENDATIONS: LOW NA/ texture as tolerated ADDITIONAL RECOMMENDATIONS: 1) Standing weight for accurate CBW 2) Monitor tolerance to current texture, need to downgrade -> edentulous, h/o CVA/ pt denies any chewing/swallowing deficits at this time 3) Ensure Enlive 1 bottle daily (350kcal/20g prot) w/ variable PO intake 4) IV fluids for possible water deficits (elev na, BUN, creat)
--- NOTE | 2018-11-14 13:58 | NUR ---
NURSE NOTES: @7504: spoke with Dr. Frye and rn field case manager about patient refusal to leave hospital per discharge order. Addendum: 11/14/18 at 1400 by Azeem Foster RN Order received and will be entered.
--- NOTE | 2018-11-14 14:40 | NUR ---
NURSE NOTES: Refusing to leave hospital: Patient has active discharge order, but refuses to leave with ambulance personnel, yelling "I'm not going there! ( in reference to [facility])" Patient states "Someone here stole my Debit Card!". Shouted at me, asking if "I am stupid" because I didn't pronounce his name correctly". Multiple staff, including myself, have offered to assist him with cancelling the card and reordering new card. Also states he is missing his pants. Nutrition Teacher told me that she has offered to obtain pants for him.
[2018-11-14 16:00] VITALS: BP 144/64
--- NOTE | 2018-11-14 17:10 | NUR ---
Correction Discharge: Patient is being discharged from medical care. Awake, alert and oriented x 4. Patient states concerns about belongings. Spoke to patient about pants and shoe being replaced at [facility] according to [facility]'s risk control field representative. Patient refused to signed discharge paper and belonging checklist. All medical devices such as IV and ID band were removed. Patient left on gurney with personal belongings to ambulance. Patient will be going to [facility].
--- NOTE | 2018-11-14 18:55 | Discharge Summary ---
Discharge Summary Discharge Summary _ DATE OF ADMISSION: 11/06/2018 DATE OF DISCHARGE: 11/14/2018 DISCHARGED BY: Dr. Estevez REASON FOR ADMISSION: 83 years old male, resident of care home facility, with past medical history of hypertension, CVA, presented with chief complaint of numbness in his lower extremities. Patient woke up and felt numb to his lower extremity. Patient reported that he thought he was poisoned by the custodial staff. Patient stated that he received nifedipine and heparin prior to his symptoms He denied any focal deficit. No nausea or vomiting. No fever or chills. Per nursing staff , patient was aggressive and required psychiatric evaluation. Upon evaluation vital signs revealed elevated blood pressure 182/80. Laboratory work-up revealed no leukocytosis, hemoglobin 11.6 ,hematocrit 34.8. Platelet count 223. BUN 33, creatinine 1.9. Glucose 110. Urinalysis revealed no evidence of urinary tract infection. CT of the head demonstrated stable volume loss, chronic microvascular ischemic changes, and right frontal encephalomalacia. No evidence of acute intracranial findings. No depressed calvarial fracture. Patient subsequently admitted for further management. CONSULTANTS: neurologist Dr. Hardy hospitalist Dr. Frye psychiatrist [facility] COURSE: Patient admitted to medical surgical floor. Carotid duplex was unremarkable. MRI of the brain revealed findings of likely area of prior petechial cortical hemorrhage. Neurologist followed. Per neurologist patient probably had posterior circulation disorder. Neurologist recommended Plavix for 3 months and then discontinue, and continue aspirin . Blood pressure was managed with hydralazine and calcium channel arnaldo. DVT prophylaxis provided. Supplemental oxygen and bronchodilator treatment were on board as needed. Pulse oximetry was stable on room air. DVT prophylaxis with SCD provided. Renal parameters and electrolytes were closely monitored. Electrolytes corrected as needed and nephrotoxins were avoided. Renal ultrasound revealed echogenic kidneys, consistent with medical renal disease. Psychiatrist follow. Psychiatrist diagnosed patient with dementia with paranoid ideation as well as anxiety disorder. Psychiatric medication regimen was optimized. Hemoglobin and hematocrit were closely monitored with goal to keep hemoglobin above 7. Supportive care provided. Patient clinically stabilized and was ready for transfer back to care home [facility] for continuation of care. 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 DISCHARGE INSTRUCTIONS: Patient was discharged to the care home facility. Follow up with medical doctor at the facility. Kadi San NP Nov 14, 2018 18:55
--- NOTE | 2018-11-14 20:15 | Progress Note ---
DATE: 11/14/2018 SUBJECTIVE: The patient is in bed, continues to be paranoid. Agreed to go to [facility]. The patient is paranoid and has cognitive impairment. Poor insight into his current condition. MENTAL STATUS EXAMINATION: The patient is alert and oriented x2. Mood is irritable. Affect is constricted. Congruent with mood. Thought process is concrete. Thought content, positive for paranoid ideation. Insight and judgment is poor. ASSESSMENT: 1. Psychotic disorder. 2. Cognitive impairment. 3. Anxiety. PLAN: We will continue the current medication. Provide the patient with reality orientation and supportive therapy. Nikkie Aguirre M.D. DR: Ines JOB#: [id number] CC:
== END 2018-11-14 17:10 | DRG 302 ==
LOC: EDUNIT# 21:53 → EDBD 21:53 → EMR 22:14 → 4E 23:06 → EDBEDREQ 23:53 → 4E 11-07 00:08
DX: I99.8 Other disorder of circulatory system (principal); G93.41 Metabolic encephalopathy; N17.9 Acute kidney failure, unspecified; I69.354 Hemiplegia and hemiparesis following cerebral infarction affecting left non-dominant side; F22 Delusional disorders; R45.1 Restlessness and agitation; G62.9 Polyneuropathy, unspecified; F03.90 Unspecified dementia, unspecified severity, without behavioral disturbance, psychotic disturbance, mood disturbance, and anxiety; F29 Unspecified psychosis not due to a substance or known physiological condition; I12.9 Hypertensive chronic kidney disease with stage 1 through stage 4 chronic kidney disease, or unspecified chronic kidney disease; N18.9 Chronic kidney disease, unspecified; F41.9 Anxiety disorder, unspecified; D64.9 Anemia, unspecified; N28.1 Cyst of kidney, acquired; Z88.6 Allergy status to analgesic agent; Z23 Encounter for immunization; H91.90 Unspecified hearing loss, unspecified ear
CPT/HCPCS: 36415; 70450; 70551; 76770; 80048; 81001; 82043; 82550; 82962; 83935; 84300; 84550; 85007; 85025; 87081; 89050; 90732; 93880; 96361; 96374; 96375; 96376; 99285

== ENCOUNTER 2018-12-20 10:30 | Emergency (ER) | payer MEDICARE ==
[~2018-12-20] VITALS: Ht 172.7 cm; Wt 65.8 kg
[~2018-12-20 10:30] MED LIST changes: +AMLODIPINE BESY10 MG ORAL; +HYDRALAZINE HC100 MG ORAL; +HYDRALAZINE HCL25 M1 ORAL; +MULTIVITAMINS1 EAC2 ORAL; +RISPERDAL1 MG PO
--- NOTE | 2018-12-20 10:40 | NUR ---
ED Nurse Note: PT BROUGHT IN TO ER BY JUNIOR FROM [facility]. AOX4. PER EMS, FACILITY CALLED DUE TO A FALL X 2 DAYS AGO. PT STATES HE TRIPPED AND FELL AND LANDED ON HIS BACK. PT DENIES HEAD TRAUMA/LOC. PT DENIES ANY PAIN. ON ASSESSMENT, SKIN IS CLEAN, DRY, AND INTACT. NO BRUISING OR OBVIOUS DEFORMITIES NOTED. FULL ROM OF ALL EXTREMITIES.
[2018-12-20] MEDS ORDERED: TYLENOL EXTRA500 MG ORAL (10:41)
[2018-12-20 10:45] VITALS: BP 154/76
--- NOTE | 2018-12-20 10:51 | NUR ---
ED Nurse Note: XRAY AT BEDSIDE.
--- NOTE | 2018-12-20 10:58 | NUR ---
ED Nurse Note: PT TO XRAY VIA BENY.
--- NOTE | 2018-12-20 11:39 | NUR ---
ED Nurse Note: PT BACK FROM [facility] VIA [facility].
--- NOTE | 2018-12-20 12:37 | Diagnostic Imaging Report ---
Indication: Back pain Technique: 3 views of the lumbar spine Comparison: None Findings: Osteoporosis and excessive bowel gas and colonic stool limits visualization of the lumbar spine. Bony alignment is grossly normal. Vertebral body heights are preserved. Disc spaces are preserved. There are anterior degenerative proliferative changes. There is also evidence of multilevel degenerative facet arthrosis. No definite acute fractures. No dislocations. Pedicles are intact. Impression: Limited as described. No definite acute bony trauma
--- NOTE | 2018-12-20 12:44 | Emergency Room Report ---
History of Present Illness General Chief Complaint: Multiple Trauma/Fall Source: Patient Present Illness HPI 83-year-old male presents with mechanical fall 2 days prior to arrival, patient denied his head, he fell backward after trip, he endorses right lower back pain aggravated with touch alleviated by not touching it, severity is mild, no bowel bladder retention/incontinence, no perianal numbness patient presents for evaluation. Allergies: Coded Allergies: No Known Allergies (Unverified , 10/07/18) Patient History Past Medical History: see triage record Reviewed Nursing Documentation: PMH: Agreed; PSxH: Agreed Nursing Documentation-PMH Past Medical History: No History, Except For Hx Cardiac Problems: Yes - anemia Hx Hypertension: Yes Hx Cancer: No Hx Gastrointestinal Problems: No Hx Neurological Problems: Yes Hx Cerebrovascular Accident: Yes - left side weakness Hx Weakness: Yes Review of Systems All Other Systems: negative except mentioned in HPI Physical Exam Vital Signs Date Time Temp Pulse Resp B/P (MAP) Pulse Ox O2 Delivery O2 Flow Rate FiO2 12/20/18 10:30 98.2 87 18 126/73 (90) 94 Room Air Sp02 EP Interpretation: reviewed, normal General Appearance: well appearing, no apparent distress, alert Head: normocephalic, atraumatic Eyes: bilateral eye PERRL, bilateral eye EOMI ENT: uvula midline, moist mucus membranes Neck: supple, thyroid normal, no bony tend, supple/symm/no masses Respiratory: lungs clear, no respiratory distress, no retraction, no accessory muscle use Cardiovascular #1: normal peripheral pulses, regular rate, rhythm, no edema, no gallop, no murmur Gastrointestinal: non tender, soft, no guarding, no rebound Musculoskeletal: normal inspection, other - No midline tenderness no step-offs , tenderness to palpation right paraspinal, right lower back Neurologic: alert, oriented x3 Psychiatric: mood/affect normal Skin: no rash, warm/dry Medical Decision Making Diagnostic Impression: Primary Impression: Multiple injuries due to trauma Additional Impression: Fall Qualified Codes: W19.XXXA - Unspecified fall, initial encounter ER Course 83-year-old male presents with mechanical fall, will evaluate for possible fractures patient did not hit his head no e/o of trauma to head, no c spine or midline back tenderness/step offs Patient with negative XRs of chest, ribs, and lumbarsacral spine. Patient states he is in no pain and is fine. Dispo back to [facility] Other X-Ray Diagnostic Results Other X-Ray Diagnostic Results #1: X-Ray ordered: Lumbar Sacral # of Views/Limited Vs Complete: 3 View Indication: Pain EP Interpretation: Yes Interpretation: no fractures Impression: No acute disease Electronically Signed by: Kyler Charlton MD Other X-Ray Diagnostic Results #2: X-Ray ordered: XR chest PA, Rib Series Right # of Views/Limited Vs Complete: Complete Indication: Pain EP Interpretation: Yes Interpretation: no fractures Impression: No acute disease Electronically Signed by: Kyler Charlton MD Last Vital Signs Date Time Temp Pulse Resp B/P (MAP) Pulse Ox O2 Delivery O2 Flow Rate FiO2 12/20/18 10:45 89 17 Room Air 12/20/18 10:45 98.4 154/76 98 Disposition: XFER SNF Condition: Stable Referrals: Tripp Estevez MD (PCP) Patient Instructions: Contusion, [id number], Fall Prevention in Hospitals, Adult Additional Instructions: The patient was provided with discharge instructions, notified to follow-up with a primary care doctor and or specialist in the next 24-48 hours, and to return to the ED if they have worsening of their symptoms. Please note that this report is being documented using [employer]icated [employer] technology. This can lead to erroneous entry secondary to incorrect interpretation by the dictating instrument. Kyler Charlton MD Dec 20, 2018 12:44
[2018-12-20 12:53] VITALS: BP 131/57
--- NOTE | 2018-12-20 13:45 | Diagnostic Imaging Report ---
Indication: Reason For Exam: PAIN Technique: One view of the chest, 2 views of the right ribs Comparison: 10/07/2018 Findings: Lungs pleural spaces are clear. The heart is enlarged. The aorta is tortuous ectatic and calcified. Upper mediastinum is unremarkable. There is mild thoracic scoliotic deformity. No pneumothorax Rib radiographs demonstrate no evidence of acute fracture. Impression: Negative
--- NOTE | 2018-12-20 13:52 | NUR ---
ED Nurse Note: [facility] CALLED FOR PT REPORT. REPORT GIVEN TO DOT ROBERTS. FACILITY READY TO ACCEPT PT AND AWARE OF [facility] ETA TO [facility] OF 1450.
--- NOTE | 2018-12-20 14:17 | NUR ---
ED Nurse Note: [facility] AT BEDSIDE. REPORT GIVEN TO EMS. DISCHARGE PAPERWORK EXPLAINED TO PT. PT VERBALIZES UNDERSTANDING AND ALL QUESTIONS ANSWERED. DISCHARGE PAPERWORK GIVEN TO EMS. PT TAKEN BACK TO [facility] VIA AMBULANCE WITH ALL BELONGINGS ACCOMPANIED BY EMS. VSS.
[2018-12-20 14:18] VITALS: BP 127/51
== END 2018-12-20 14:19 ==
LOC: EDBD 10:30 → EMR 12:00
DX: M54.5 Low back pain (principal); T14.90XA Injury, unspecified, initial encounter; R07.9 Chest pain, unspecified; I69.854 Hemiplegia and hemiparesis following other cerebrovascular disease affecting left non-dominant side; I10 Essential (primary) hypertension; W01.0XXA Fall on same level from slipping, tripping and stumbling without subsequent striking against object, initial encounter; Y92.9 Unspecified place or not applicable
CPT/HCPCS: 72020; 99284

== ENCOUNTER 2019-01-16 10:28 | Inpatient (IN) | payer MEDICARE ==
[~2019-01-16] VITALS: Ht 177.8 cm; Wt 62.8 kg
[~2019-01-16 10:28] MED LIST changes: +TYLENOL EXTRA500 MG ORAL
[2019-01-16] MEDS ORDERED: FOLIC ACID1 MG ORAL (10:33)
[2019-01-16] MEDS ORDERED: CATAPRES0.1 MG ORAL (10:33)
[2019-01-16 10:35] VITALS: BP 158/80
[2019-01-16] MEDS ORDERED: ZOFRAN4 M3 ORAL (10:35)
[2019-01-16] MEDS ORDERED: ADALAT20 MG ORAL (10:35)
[2019-01-16] MEDS ORDERED: POLYETHYLENE GL17 GM ORAL (10:35)
[2019-01-16] MEDS ORDERED: METOPROLOL TART25 MG ORAL (10:35)
[2019-01-16] MEDS ORDERED: Haloperidol 5mg/ml Inj ONE (10:47)
[2019-01-16] MEDS ORDERED: Haloperidol 5mg/ml Inj IM ONE (11:00)
[2019-01-16] MEDS ORDERED: LORazepam Inj 2mg/ml 1ml ONE (11:31)
[2019-01-16] MEDS ORDERED: LORazepam Inj 2mg/ml 1ml IM ONE (11:45)
[2019-01-16 11:58] LABS: APPEARANCE,URINE CLEAR; BILIRUBIN, URINE NEGATIVE (NEGATIVE); COLOR,URINE PALE YELLOW; GLUCOSE, URINE (UA) NEGATIVE (NEGATIVE); HEMATOCRIT 34.6 % (42.0-52.0); HEMOGLOBIN 11.2 G/DL (14.2-18.0); KETONES,URINE NEGATIVE (NEGATIVE); LEUKOCYTE ESTERASE ,URINE NEGATIVE (NEGATIVE); MEAN CORPUSCULAR VOLUME 83 FL (80-99); NITRITE,URINE NEGATIVE (NEGATIVE); PH,URINE 5 (4.5-8.0); PLATELET COUNT 233 K/UL (150-450); PROTEIN,URINE NEGATIVE (NEGATIVE); UROBILINOGEN,URINE NORMAL MG/DL (0.0-1.0); WHITE BLOOD COUNT 12.9 K/UL (4.8-10.8)
[2019-01-16] MEDS ORDERED: Morphine Sulfate 2mg/ml Inj(IV/IM USE ONLY) IVP PRN (12:15)
[2019-01-16] MEDS ORDERED: Zolpidem 5mg tab ORAL PRN (12:15)
[2019-01-16] MEDS ORDERED: LORazepam Inj 2mg/ml 1ml IV PRN (12:15)
[2019-01-16] MEDS ORDERED: Miralax 17gm pkt ORAL PRN (12:15)
[2019-01-16 12:19] LABS: ANION GAP 18 mmol/L (5-15); BLOOD UREA NITROGEN 30 mg/dL (7-18); CALCIUM 9.4 MG/DL (8.5-10.1); CARBON DIOXIDE 20 MMOL/L (21-32); CHLORIDE 109 MMOL/L (98-107); CREATININE 1.5 MG/DL (0.55-1.30); POTASSIUM 4.3 MMOL/L (3.5-5.1); SODIUM 147 MMOL/L (136-145)
[2019-01-16 12:25] LABS: ALANINE AMINOTRANSFERASE 19 U/L (12-78); ALBUMIN/GLOBULIN RATIO 0.9 (1.0-2.7); ALKALINE PHOSPHATASE 74 U/L (46-116); ASPARTATE AMINO TRANSFERASE 22 U/L (15-37); BILIRUBIN,TOTAL 0.4 MG/DL (0.2-1.0)
[2019-01-16 13:05] LABS: AMMONIA 15 umol/L (11-32)
--- NOTE | 2019-01-16 13:05 | Emergency Room Report ---
History of Present Illness General Chief Complaint: General Complaint Source: Patient Present Illness HPI 83-year-old male presents ED for evaluation. EMS from senior care facility. Nursing staff reported increased agitation x1 day and not taking his medications as directed. On arrival patient screaming and yelling. Documented history of psychosis. Patient denies hearing voices. Denies SI or HI. Denies fevers or chills. Denies chest pain or shortness of breath. No other aggravating relieving factors. Denies any other associated symptoms Allergies: Coded Allergies: No Known Allergies (Unverified , 10/07/18) Patient History Past Medical History: HTN, CVA/TIA Past Surgical History: none Pertinent Family History: none Social History: Denies: smoking, alcohol use, drug use Immunizations: UTD Reviewed Nursing Documentation: PMH: Agreed; PSxH: Agreed Nursing Documentation-PMH Past Medical History: No History, Except For Hx Hypertension: Yes Hx Cancer: No Hx Gastrointestinal Problems: No Hx Neurological Problems: Yes Hx Cerebrovascular Accident: Yes - left side weakness Hx Weakness: Yes Review of Systems All Other Systems: negative except mentioned in HPI Physical Exam Vital Signs Date Time Temp Pulse Resp B/P (MAP) Pulse Ox O2 Delivery O2 Flow Rate FiO2 01/16/19 10:28 97.7 100 16 169/81 (110) 94 Room Air Sp02 EP Interpretation: reviewed, normal General Appearance: alert, GCS 15, non-toxic, thin, other - agitated Head: normocephalic, atraumatic Eyes: bilateral eye normal inspection, bilateral eye PERRL ENT: hearing grossly normal, normal pharynx, no angioedema, normal voice Neck: full range of motion, supple/symm/no masses Respiratory: chest non-tender, lungs clear, normal breath sounds, speaking full sentences Cardiovascular #1: regular rate, rhythm, no edema Cardiovascular #2: 2+ carotid (R), 2+ carotid (L), 2+ radial (R), 2+ radial (L) , 2+ dorsalis pedis (R), 2+ dorsalis pedis (L) Gastrointestinal: normal bowel sounds, non tender, soft, non-distended, no guarding, no rebound Rectal: deferred Genitourinary: normal inspection, no CVA tenderness Musculoskeletal: back normal, gait/station normal, normal range of motion, non- tender Neurologic: alert, motor strength/tone normal, sensory intact, speech normal, other - agitated Psychiatric: no suicidal/homicidal ideation, no delusions, other - agitated Reflexes: 3+ bicep (R), 3+ bicep (L), 3+ tricep (R), 3+ tricep (L), 3+ knee (R) , 3+ knee (L) Lymphatic: no adenopathy Medical Decision Making Diagnostic Impression: Primary Impression: Acute encephalopathy Additional Impression: Renal failure (ARF), acute on chronic Qualified Codes: N17.9 - Acute kidney failure, unspecified; N18.9 - Chronic kidney disease, unspecified ER Course Hospital Course 83 yo M presents to ED with increased agitation. Differential diagnoses include: Pneumonia, UTI, dehydration, psychosis Clinical course Patient placed on stretcher. On court monitor with stable vitals are ED course. After initial history and physical, I ordered labs, chest x-ray, UA Initially very agitated, not allowing for lab draw and treatment. Patient given Haldol and Ativan for sedation. Labs - BUN/Cr elevated, Na 147, no leukocytosis, UA negative CXR - no acute process There is a documented diagnosis of psychosis on the SNF paperwork. However patient does not appear to be on any antipsychotics Case discussed with Dr Estevez and they agreed to admit patient to their service for further care and support I feel this is a highly complex case requiring extensive working including EKG/ Rhythm strip, Xray/CT/US, Blood/urine lab work, repeat exams while in ED, and administration of strong opiates/narcotics for pain control, admission to hospital or close patient follow up. Diagnosis - acute encephalopathy, acute on chronic renal failure Patient admitted to floor in serious condition Labs Test 01/16/19 11:45 White Blood Count 12.9 K/UL (4.8-10.8) Red Blood Count 4.20 M/UL (4.70-6.10) Hemoglobin 11.2 G/DL (14.2-18.0) Hematocrit 34.6 % (42.0-52.0) Mean Corpuscular Volume 83 FL (80-99) Mean Corpuscular Hemoglobin 26.6 PG (27.0-31.0) Mean Corpuscular Hemoglobin Concent 32.2 G/DL (32.0-36.0) Red Cell Distribution Width 12.0 % (11.6-14.8) Platelet Count 233 K/UL (150-450) Mean Platelet Volume 5.4 FL (6.5-10.1) Neutrophils (%) (Auto) % (45.0-75.0) Lymphocytes (%) (Auto) % (20.0-45.0) Monocytes (%) (Auto) % (1.0-10.0) Eosinophils (%) (Auto) % (0.0-3.0) Basophils (%) (Auto) % (0.0-2.0) Differential Total Cells Counted 100 Neutrophils % (Manual) 89 % (45-75) Lymphocytes % (Manual) 6 % (20-45) Monocytes % (Manual) 5 % (1-10) Eosinophils % (Manual) 0 % (0-3) Basophils % (Manual) 0 % (0-2) Band Neutrophils 0 % (0-8) Platelet Estimate Adequate Platelet Morphology Normal Red Blood Cell Morphology Normal Urine Color Pale yellow Urine Appearance Clear Urine pH 5 (4.5-8.0) Urine Specific [place] 1.020 (1.005-1.035) Urine Protein Negative (NEGATIVE) Urine Glucose (UA) Negative (NEGATIVE) Urine Ketones Negative (NEGATIVE) Urine Blood Negative (NEGATIVE) Urine Nitrite Negative (NEGATIVE) Urine Bilirubin Negative (NEGATIVE) Urine Urobilinogen Normal MG/DL (0.0-1.0) Urine Leukocyte Esterase Negative (NEGATIVE) Sodium Level 147 MMOL/L (136-145) Potassium Level 4.3 MMOL/L (3.5-5.1) Chloride Level 109 MMOL/L (98-107) Carbon Dioxide Level 20 MMOL/L (21-32) Anion Gap 18 mmol/L (5-15) Blood Urea Nitrogen 30 mg/dL (7-18) Creatinine 1.5 MG/DL (0.55-1.30) Estimat Glomerular Filtration Rate mL/min (>60) Glucose Level 105 MG/DL (74-106) Calcium Level 9.4 MG/DL (8.5-10.1) Total Bilirubin 0.4 MG/DL (0.2-1.0) Aspartate Amino Transf (AST/SGOT) 22 U/L (15-37) Alanine Aminotransferase (ALT/SGPT) 19 U/L (12-78) Alkaline Phosphatase 74 U/L (46-116) Total Protein 8.3 G/DL (6.4-8.2) Albumin 4.0 G/DL (3.4-5.0) Globulin 4.3 g/dL Albumin/Globulin Ratio 0.9 (1.0-2.7) Salicylates Level 1.0 ug/mL (2.8-20) Urine Opiates Screen Negative (NEGATIVE) Acetaminophen Level < 2 MCG/ML (10-30) Urine Barbiturates Screen Negative (NEGATIVE) Phencyclidine (PCP) Screen Negative (NEGATIVE) Urine Amphetamines Screen Negative (NEGATIVE) Urine Benzodiazepines Screen Negative (NEGATIVE) Urine Cocaine Screen Negative (NEGATIVE) Urine Marijuana (THC) Screen Negative (NEGATIVE) Serum Alcohol < 3 mg/dL Last Vital Signs Date Time Temp Pulse Resp B/P (MAP) Pulse Ox O2 Delivery O2 Flow Rate FiO2 01/16/19 10:35 97.7 16 158/80 94 Room Air 01/16/19 10:35 98 Status: improved Disposition: ADMITTED INPATIENT Condition: Serious Referrals: Tripp Estevez MD (PCP) Ranulfo Estrella MD Jan 16, 2019 13:05
[2019-01-16 14:56] VITALS: BP 197/87
[2019-01-16 16:00] VITALS: BP 197/88
--- NOTE | 2019-01-16 16:16 | Diagnostic Imaging Report ---
Indication: Cough Technique: One view of the chest Comparison: 10/07/2018 and 12/20/2018 Findings: Ovoid opacity projected in the left upper lung probably represents a prominent first costochondral junction and appears somewhat similar to the previous study. Inspiration is suboptimal. Lungs and pleural spaces otherwise grossly clear. The heart is upper limits normal in size. The aorta is tortuous and calcified. Impression: Ovoid opacity in the left upper lung, probably a prominent first costochondral junction and equivocally similar to the prior study but more conspicuous; mass lesion less likely but not completely excludable. No acute process otherwise Dr. Estevez notified of findings previously
--- NOTE | 2019-01-16 19:01 | History & Physical ---
History and Physical History & Physicial Dictated for Int Med-Dr Estevez no. [id number] Farzad Sams MD Jan 16, 2019 19:01
--- NOTE | 2019-01-16 19:45 | History and Physical Report ---
DATE OF ADMISSION: 01/16/2019 CHIEF COMPLAINT: The patient is an 83-year-old male, who presents with a chief complaint of altered mental status and increased agitation. HISTORY OF PRESENT ILLNESS: The patient was admitted to [facility] from 11/06/2018 to 11/14/2018. The patient was admitted with dislocated finger. Please see history and physical and discharge summary dictated at that time. The patient is a resident of [facility]. According to staff at [facility], the patient has become increasingly agitated over the last day. The patient has had altered. The patient was transported to [facility] emergency room for evaluation. The patient is admitted with increased agitation and altered mental status to rule out urinary tract infection versus psychosis. REVIEW OF SYSTEMS: Unable to assess secondary to the patient's agitation. PAST MEDICAL HISTORY: Significant for: 1. Cerebrovascular disease, status post cerebrovascular accident. 2. Left hemiparesis. 3. Hypertension. PAST SURGICAL HISTORY: Significant for appendectomy. CURRENT MEDICATIONS: 1. Amlodipine 10 mg p.o. daily. 2. Clonidine 0.1 mg p.o. q.6 h. p.r.n. 3. Folic acid 1 mg p.o. daily. 4. Hydralazine 100 mg p.o. three times daily. 5. Metoprolol 12.5 mg p.o. twice daily. 6. Nifedipine 30 mg p.o. q.8 h. 7. Zofran 4 mg p.o. q.6 h. p.r.n. nausea and vomiting. 8. Risperdal 1.5 mg p.o. twice daily. ALLERGIES: No known drug allergies. SOCIAL HISTORY: The patient is single and is a resident of [facility]. The patient denies tobacco or alcohol use. PHYSICAL EXAMINATION: VITAL SIGNS: Temperature 97.7, respirations 16, pulse 100, blood pressure 169/81. GENERAL: The patient is a thin-appearing male, who is agitated. HEENT: Eyes, pupils are equal and responsive to light and accommodation. Extraocular movements are intact. NECK: Supple without lymphadenopathy. CHEST: Lungs are clear to auscultation bilaterally without wheezes or rales. CARDIOVASCULAR: Regular rhythm and rate. S1 and S2 are normal without murmurs, rubs, or gallops. ABDOMEN: Soft, nontender, and nondistended. Positive bowel sounds. No evidence of hepatosplenomegaly. Currently, no rebound or guarding noted. EXTREMITIES: Negative for clubbing, cyanosis, or edema. RECTAL/GENITAL: Not performed. NEUROLOGIC: Cranial nerves II through XII are grossly intact without focal deficits. LABORATORY STUDIES: WBC 12.9, hemoglobin 11.2, hematocrit 34.6, and platelets 233,000. Sodium 147, potassium 4.3, chloride 109, CO2 20, BUN 30, creatinine 1.5, glucose 105. Urinalysis was within normal limits. ASSESSMENT: This is an 83-year-old male. 1. Altered mental status. 2. Increased agitation. 3. Alzheimer's dementia with psychotic features. 4. Hypertension. 5. Cerebrovascular disease. 6. Left hemiplegia. TREATMENT: 1. Altered mental status/increased agitation. A psychiatric consultation has been obtained with Dr. Aguirre. We will follow recommendations of Psychiatry. 2. Dementia with psychotic features. As above, a psychiatric consultation has been obtained with Dr. Aguirre. We will follow recommendations of Psychiatry. 3. Hypertension. Continue amlodipine as above. 4. Cerebrovascular disease/left hemiplegia. Farzad Sams M.D. DR: CALE JOB#: [id number] CC:
[2019-01-16 20:00] VITALS: BP 171/85
[2019-01-16] MEDS ORDERED: Metoprolol Tartrate 12.5mg TAB ORAL SCH (21:00)
[2019-01-17] VITALS (7 sets, daily range): BP systolic 105–162; BP diastolic 57–78
[2019-01-17 07:15] LABS: BASOPHILS % (AUTO) 1.1 % (0.0-2.0); EOSINOPHILS % (AUTO) 4.4 % (0.0-3.0); HEMATOCRIT 31.7 % (42.0-52.0); HEMOGLOBIN 10.3 G/DL (14.2-18.0); LYMPHOCYTES % (AUTO) 12.9 % (20.0-45.0); MEAN CORPUSCULAR VOLUME 81 FL (80-99); MONOCYTES % (AUTO) 9.3 % (1.0-10.0); NEUTROPHILS % (AUTO) 72.4 % (45.0-75.0); PLATELET COUNT 208 K/UL (150-450); RED CELL DISTRIBUTION WIDTH 11.8 % (11.6-14.8); WHITE BLOOD COUNT 6.8 K/UL (4.8-10.8)
[2019-01-17 07:54] LABS: ALANINE AMINOTRANSFERASE 16 U/L (12-78); ALBUMIN 3.3 G/DL (3.4-5.0); ALBUMIN/GLOBULIN RATIO 0.8 (1.0-2.7); ALKALINE PHOSPHATASE 67 U/L (46-116); ANION GAP 12 mmol/L (5-15); ASPARTATE AMINO TRANSFERASE 17 U/L (15-37); BILIRUBIN,TOTAL 0.7 MG/DL (0.2-1.0); BLOOD UREA NITROGEN 25 mg/dL (7-18); CALCIUM 8.8 MG/DL (8.5-10.1); CARBON DIOXIDE 24 MMOL/L (21-32); CHLORIDE 109 MMOL/L (98-107); CHOLESTEROL 169 MG/DL (< 200); CREATININE 1.3 MG/DL (0.55-1.30); HDL CHOLESTEROL 46 MG/DL (40-60); POTASSIUM 3.8 MMOL/L (3.5-5.1); SODIUM 144 MMOL/L (136-145); TRIGLYCERIDES 35 MG/DL (30-150)
[2019-01-17] MEDS: Lisinopril 20mg tab ORAL SCH (12:01)
--- NOTE | 2019-01-17 12:28 | Consultation ---
History of Present Illness General Chief Complaint: General Complaint Reason for Consultation: inpatient management Present Illness Allergies: Coded Allergies: No Known Allergies (Unverified , 10/07/18) Medication History Scheduled Amlodipine Besylate* (Amlodipine Besylate*), 10 MG ORAL DAILY, (Reported) Clonidine Hcl* (Catapres*), 0.1 MG ORAL EVERY 6 HOURS, (Reported) Folic Acid* (Folic Acid*), 1 MG ORAL DAILY, (Reported) Hydralazine Hcl* (Hydralazine Hcl*), 100 MG ORAL EVERY 8 HOURS, (Reported) Metoprolol Tartrate* (Metoprolol Tartrate*), 12.5 MG ORAL EVERY 12 HOURS, ( Reported) Nifedipine (Nifedipine*), 30 MG ORAL EVERY 8 HOURS, (Reported) Risperidone* (Risperdal*), 1.5 MG PO Q12HR, (Reported) Scheduled PRN Acetaminophen* (Tylenol Extra Strength*), 325 MG ORAL Q6H PRN for Mild Pain/ Temp > 100.5, (Reported) Ondansetron* (Zofran*), Unknown Dose ORAL Q6H PRN for Nausea & Vomiting, ( Reported) Polyethylene Glycol 3350* (Polyethylene Glycol 3350*), 17 GM ORAL BEDTIME PRN for Constipation, (Reported) Patient History Healthcare decision maker Resuscitation status Full Code Advanced Directive on File Past Medical/Surgical History Past Medical/Surgical History: (1) History of hypertension (2) History of CVA (cerebrovascular accident) Review of Systems Constitutional: Reports: no symptoms All Other Systems: negative except mentioned in HPI Physical Exam General Appearance: thin Lines, tubes and drains: peripheral HEENT: normocephalic, atraumatic Neck: non-tender, normal alignment Respiratory/Chest: chest wall non-tender, lungs clear Cardiovascular/Chest: normal peripheral pulses Abdomen: normal bowel sounds Genitourinary/Rectal: normal genital exam, normal rectal exam Skin Exam: normal pigmentation Neurologic: cardiac cath technologist II-XII grossly normal Last 24 Hour Vital Signs Date Time Temp Pulse Resp B/P (MAP) Pulse Ox O2 Delivery O2 Flow Rate FiO2 01/17/19 12:01 159/75 01/17/19 10:29 49 159/75 01/17/19 10:12 Room Air 01/17/19 08:43 96.8 60 14 162/78 (106) 98 01/17/19 08:00 97.6 63 18 162/78 (106) 100 01/17/19 04:00 97.3 62 20 105/63 (77) 98 01/17/19 00:00 97.5 56 17 155/70 (98) 98 01/16/19 21:00 Room Air 01/16/19 20:32 62 171/85 01/16/19 20:00 98.2 62 20 171/85 (113) 99 01/16/19 16:00 97.7 75 18 197/88 (124) 96 01/16/19 14:59 Room Air 01/16/19 14:56 98.1 88 18 197/87 (123) 97 01/16/19 14:20 98.7 16 170/70 94 Room Air Intake and Output 01/16/19 01/17/19 19:00 07:00 Intake Total 860 ml Output Total 1400 ml 350 ml Balance -540 ml -350 ml Intake Oral 360 ml IV Total 500 ml Output Urine Total 1400 ml 350 ml # Bowel Movements 1 Laboratory Tests Test 01/17/19 05:45 White Blood Count 6.8 K/UL (4.8-10.8) Red Blood Count 3.90 M/UL (4.70-6.10) L Hemoglobin 10.3 G/DL (14.2-18.0) L Hematocrit 31.7 % (42.0-52.0) L Mean Corpuscular Volume 81 FL (80-99) Mean Corpuscular Hemoglobin 26.5 PG (27.0-31.0) L Mean Corpuscular Hemoglobin Concent 32.6 G/DL (32.0-36.0) Red Cell Distribution Width 11.8 % (11.6-14.8) Platelet Count 208 K/UL (150-450) Mean Platelet Volume 5.5 FL (6.5-10.1) L Neutrophils (%) (Auto) 72.4 % (45.0-75.0) Lymphocytes (%) (Auto) 12.9 % (20.0-45.0) L Monocytes (%) (Auto) 9.3 % (1.0-10.0) Eosinophils (%) (Auto) 4.4 % (0.0-3.0) H Basophils (%) (Auto) 1.1 % (0.0-2.0) Sodium Level 144 MMOL/L (136-145) Potassium Level 3.8 MMOL/L (3.5-5.1) Chloride Level 109 MMOL/L (98-107) H Carbon Dioxide Level 24 MMOL/L (21-32) Anion Gap 12 mmol/L (5-15) Blood Urea Nitrogen 25 mg/dL (7-18) H Creatinine 1.3 MG/DL (0.55-1.30) Estimat Glomerular Filtration Rate mL/min (>60) Glucose Level 77 MG/DL (74-106) Calcium Level 8.8 MG/DL (8.5-10.1) Total Bilirubin 0.7 MG/DL (0.2-1.0) Aspartate Amino Transf (AST/SGOT) 17 U/L (15-37) Alanine Aminotransferase (ALT/SGPT) 16 U/L (12-78) Alkaline Phosphatase 67 U/L (46-116) Total Protein 7.2 G/DL (6.4-8.2) Albumin 3.3 G/DL (3.4-5.0) L Globulin 3.9 g/dL Albumin/Globulin Ratio 0.8 (1.0-2.7) L Triglycerides Level 35 MG/DL (30-150) Cholesterol Level 169 MG/DL (< 200) LDL Cholesterol 119 mg/dL (<100) H HDL Cholesterol 46 MG/DL (40-60) Cholesterol/HDL Ratio 3.7 (3.3-4.4) Thyroid Stimulating Hormone (TSH) 7.206 uiU/mL (0.358-3.740) Height (Feet): 5 Height (Inches): 10.00 Weight (Pounds): 136 Medications Current Medications Medications (Trade) Dose Ordered Sig/[place] Route PRN Reason Start Time Stop Time Status Last Admin Dose Admin Acetaminophen (Tylenol) 650 mg Q4H PRN ORAL fever 01/16/19 12:15 02/15/19 12:14 Amlodipine Besylate (Norvasc) 10 mg DAILY ORAL 01/17/19 09:00 02/16/19 08:59 01/17/19 10:29 Clonidine HCl (Catapres Tab) 0.1 mg Q6H PRN ORAL For High Blood Pressure 01/16/19 16:00 02/15/19 15:59 Dextrose (Dextrose 50%) 25 ml Q30M PRN IV Hypoglycemia 01/16/19 12:15 02/15/19 12:14 Dextrose (Dextrose 50%) 50 ml Q30M PRN IV Hypoglycemia 01/16/19 12:15 02/15/19 12:14 Lisinopril (Prinivil) 20 mg DAILY ORAL 01/17/19 10:30 02/16/19 10:29 01/17/19 12:01 Lorazepam (Ativan 2mg/ml 1ml) 0.5 mg Q4H PRN IV For Anxiety 01/16/19 12:15 01/23/19 12:14 Morphine Sulfate (Morphine Sulfate) 1 mg Q4H PRN IVP For Pain 01/16/19 12:15 01/23/19 12:14 Ondansetron HCl (Zofran) 4 mg Q6H PRN IVP Nausea & Vomiting 01/16/19 12:15 02/15/19 12:14 Polyethylene Glycol (Miralax) 17 gm HSPRN PRN ORAL Constipation 01/16/19 12:15 02/15/19 12:14 Risperidone (RisperDAL) 1.5 mg Q12HR ORAL 01/16/19 21:00 02/15/19 20:59 01/17/19 10:09 Zolpidem Tartrate (Ambien) 5 mg HSPRN PRN ORAL Insomnia 01/16/19 12:15 01/23/19 12:14 Assessment/Plan Problem List: (1) Acute encephalopathy ICD Codes: G93.40 - Encephalopathy, unspecified SNOMED: 72811905, 940642653 (2) History of hypertension ICD Codes: Z86.79 - Personal history of other diseases of the circulatory system SNOMED: 236564734 (3) History of CVA (cerebrovascular accident) ICD Codes: Z86.73 - Personal history of transient ischemic attack (TIA), and cerebral infarction without residual deficits SNOMED: 180419376 Assessment/Plan: resume psychiatric meds monitor BP pt/ot hold beta arnaldo dvt prophylaxis. Casie Frye MD Jan 17, 2019 12:28
--- NOTE | 2019-01-17 16:38 | Internal Med Progress Note ---
Subjective Date of Service: Jan 17, 2019 Physician Name Farzad Sams Attending Physician Tripp Estevez MD Current Medications Medications (Trade) Dose Ordered Sig/[place] Route PRN Reason Start Time Stop Time Status Last Admin Dose Admin Acetaminophen (Tylenol) 650 mg Q4H PRN ORAL fever 01/16/19 12:15 02/15/19 12:14 Amlodipine Besylate (Norvasc) 10 mg DAILY ORAL 01/17/19 09:00 02/16/19 08:59 01/17/19 10:29 Clonidine HCl (Catapres Tab) 0.1 mg Q6H PRN ORAL For High Blood Pressure 01/16/19 16:00 02/15/19 15:59 Dextrose (Dextrose 50%) 25 ml Q30M PRN IV Hypoglycemia 01/16/19 12:15 02/15/19 12:14 Dextrose (Dextrose 50%) 50 ml Q30M PRN IV Hypoglycemia 01/16/19 12:15 02/15/19 12:14 Lisinopril (Prinivil) 20 mg DAILY ORAL 01/17/19 10:30 02/16/19 10:29 01/17/19 12:01 Lorazepam (Ativan 2mg/ml 1ml) 0.5 mg Q4H PRN IV For Anxiety 01/16/19 12:15 01/23/19 12:14 Morphine Sulfate (Morphine Sulfate) 1 mg Q4H PRN IVP For Pain 01/16/19 12:15 01/23/19 12:14 Ondansetron HCl (Zofran) 4 mg Q6H PRN IVP Nausea & Vomiting 01/16/19 12:15 02/15/19 12:14 Polyethylene Glycol (Miralax) 17 gm HSPRN PRN ORAL Constipation 01/16/19 12:15 02/15/19 12:14 Risperidone (RisperDAL) 1.5 mg Q12HR ORAL 01/16/19 21:00 02/15/19 20:59 01/17/19 10:09 Zolpidem Tartrate (Ambien) 5 mg HSPRN PRN ORAL Insomnia 01/16/19 12:15 01/23/19 12:14 Allergies: Coded Allergies: No Known Allergies (Unverified , 10/07/18) ROS Limited/Unobtainable: Yes Subjective 83 YO M admitted with altered mental status and increased agitation. Cover for Int Med-Dr Estevez. Objective Last Vital Signs Date Time Temp Pulse Resp B/P (MAP) Pulse Ox O2 Delivery O2 Flow Rate FiO2 01/17/19 12:01 159/75 01/17/19 12:00 96.8 52 16 98 01/17/19 10:12 Room Air Laboratory Tests Test 01/17/19 05:45 White Blood Count 6.8 K/UL (4.8-10.8) Red Blood Count 3.90 M/UL (4.70-6.10) L Hemoglobin 10.3 G/DL (14.2-18.0) L Hematocrit 31.7 % (42.0-52.0) L Mean Corpuscular Volume 81 FL (80-99) Mean Corpuscular Hemoglobin 26.5 PG (27.0-31.0) L Mean Corpuscular Hemoglobin Concent 32.6 G/DL (32.0-36.0) Red Cell Distribution Width 11.8 % (11.6-14.8) Platelet Count 208 K/UL (150-450) Mean Platelet Volume 5.5 FL (6.5-10.1) L Neutrophils (%) (Auto) 72.4 % (45.0-75.0) Lymphocytes (%) (Auto) 12.9 % (20.0-45.0) L Monocytes (%) (Auto) 9.3 % (1.0-10.0) Eosinophils (%) (Auto) 4.4 % (0.0-3.0) H Basophils (%) (Auto) 1.1 % (0.0-2.0) Sodium Level 144 MMOL/L (136-145) Potassium Level 3.8 MMOL/L (3.5-5.1) Chloride Level 109 MMOL/L (98-107) H Carbon Dioxide Level 24 MMOL/L (21-32) Anion Gap 12 mmol/L (5-15) Blood Urea Nitrogen 25 mg/dL (7-18) H Creatinine 1.3 MG/DL (0.55-1.30) Estimat Glomerular Filtration Rate mL/min (>60) Glucose Level 77 MG/DL (74-106) Calcium Level 8.8 MG/DL (8.5-10.1) Total Bilirubin 0.7 MG/DL (0.2-1.0) Aspartate Amino Transf (AST/SGOT) 17 U/L (15-37) Alanine Aminotransferase (ALT/SGPT) 16 U/L (12-78) Alkaline Phosphatase 67 U/L (46-116) Total Protein 7.2 G/DL (6.4-8.2) Albumin 3.3 G/DL (3.4-5.0) L Globulin 3.9 g/dL Albumin/Globulin Ratio 0.8 (1.0-2.7) L Triglycerides Level 35 MG/DL (30-150) Cholesterol Level 169 MG/DL (< 200) LDL Cholesterol 119 mg/dL (<100) H HDL Cholesterol 46 MG/DL (40-60) Cholesterol/HDL Ratio 3.7 (3.3-4.4) Thyroid Stimulating Hormone (TSH) 7.206 uiU/mL (0.358-3.740) Intake and Output 01/16/19 01/17/19 19:00 07:00 Intake Total 860 ml Output Total 1400 ml 350 ml Balance -540 ml -350 ml Intake Oral 360 ml IV Total 500 ml Output Urine Total 1400 ml 350 ml # Bowel Movements 1 Objective PHYSICAL EXAMINATION: GENERAL: The patient is a thin-appearing male, who is agitated. HEENT: Eyes, pupils are equal and responsive to light and accommodation. Extraocular movements are intact. NECK: Supple without lymphadenopathy. CHEST: Lungs are clear to auscultation bilaterally without wheezes or rales. CARDIOVASCULAR: Regular rhythm and rate. S1 and S2 are normal without murmurs, rubs, or gallops. ABDOMEN: Soft, nontender, and nondistended. Positive bowel sounds. No evidence of hepatosplenomegaly. Currently, no rebound or guarding noted. EXTREMITIES: Negative for clubbing, cyanosis, or edema. RECTAL/GENITAL: Not performed. NEUROLOGIC: Cranial nerves II through XII are grossly intact without focal deficits. Assessment/Plan Assessment/Plan ASSESSMENT: This is an 83-year-old male. 1. Altered mental status. 2. Increased agitation. 3. Alzheimer's dementia with psychotic features. 4. Hypertension. 5. Cerebrovascular disease. 6. Left hemiplegia. TREATMENT: 1. Altered mental status/increased agitation. A psychiatric consultation has been obtained with Dr. Aguirre. We will follow recommendations of Psychiatry. 2. Dementia with psychotic features. As above, a psychiatric consultation has been obtained with Dr. Aguirre. We will follow recommendations of Psychiatry. 3. Hypertension. Continue amlodipine as above. 4. Cerebrovascular disease/left hemiplegia. Farzad Sams MD Jan 17, 2019 16:38
[2019-01-17] MEDS ORDERED: ALBUTEROL2.5 MG/3 M INH (18:45)
[2019-01-17] MEDS ORDERED: HEPARIN SO5000 UNIT2 SUBQ (18:48)
[2019-01-18] VITALS (7 sets, daily range): BP systolic 108–152; BP diastolic 57–84
[2019-01-18 08:13] LABS: BASOPHILS % (AUTO) 0.9 % (0.0-2.0); EOSINOPHILS % (AUTO) 3.8 % (0.0-3.0); HEMATOCRIT 30.7 % (42.0-52.0); HEMOGLOBIN 9.9 G/DL (14.2-18.0); MEAN CORPUSCULAR VOLUME 83 FL (80-99); MONOCYTES % (AUTO) 8.5 % (1.0-10.0); NEUTROPHILS % (AUTO) 73.8 % (45.0-75.0); PLATELET COUNT 210 K/UL (150-450); RED BLOOD COUNT 3.71 M/UL (4.70-6.10); RED CELL DISTRIBUTION WIDTH 12.9 % (11.6-14.8); WHITE BLOOD COUNT 7.3 K/UL (4.8-10.8)
[2019-01-18 08:20] LABS: ANION GAP 6 mmol/L (5-15); BLOOD UREA NITROGEN 33 mg/dL (7-18); CALCIUM 8.2 MG/DL (8.5-10.1); CARBON DIOXIDE 27 MMOL/L (21-32); CHLORIDE 108 MMOL/L (98-107); CREATININE 1.7 MG/DL (0.55-1.30); POTASSIUM 3.8 MMOL/L (3.5-5.1); SODIUM 140 MMOL/L (136-145)
[2019-01-18] MEDS: Lisinopril 20mg tab ORAL SCH (08:22)
[2019-01-18 08:34] LABS: LACTATE DEHYDROGENASE 174 U/L (81-234)
[2019-01-18 09:07] LABS: % IRON SATURATION 23 % (15-50); IRON 48 ug/dL (50-175); TOTAL IRON BINDING CAPACITY 207 ug/dL (250-450)
--- NOTE | 2019-01-18 11:25 | Internal Med Progress Note ---
Subjective Date of Service: Jan 18, 2019 Physician Name Farzad Sams Attending Physician Tripp Estevez MD Current Medications Medications (Trade) Dose Ordered Sig/[place] Route PRN Reason Start Time Stop Time Status Last Admin Dose Admin Acetaminophen (Tylenol) 650 mg Q4H PRN ORAL fever 01/16/19 12:15 02/15/19 12:14 Amlodipine Besylate (Norvasc) 10 mg DAILY ORAL 01/17/19 09:00 02/16/19 08:59 01/18/19 08:21 Clonidine HCl (Catapres Tab) 0.1 mg Q6H PRN ORAL For High Blood Pressure 01/16/19 16:00 02/15/19 15:59 Dextrose (Dextrose 50%) 25 ml Q30M PRN IV Hypoglycemia 01/16/19 12:15 02/15/19 12:14 Dextrose (Dextrose 50%) 50 ml Q30M PRN IV Hypoglycemia 01/16/19 12:15 02/15/19 12:14 Lisinopril (Prinivil) 20 mg DAILY ORAL 01/17/19 10:30 02/16/19 10:29 01/18/19 08:22 Lorazepam (Ativan 2mg/ml 1ml) 0.5 mg Q4H PRN IV For Anxiety 01/16/19 12:15 01/23/19 12:14 Morphine Sulfate (Morphine Sulfate) 1 mg Q4H PRN IVP For Pain 01/16/19 12:15 01/23/19 12:14 Olanzapine (ZyPREXA) 5 mg EVERY 4 HOURS PRN ORAL agitation 01/17/19 22:45 02/16/19 22:44 Ondansetron HCl (Zofran) 4 mg Q6H PRN IVP Nausea & Vomiting 01/16/19 12:15 02/15/19 12:14 Polyethylene Glycol (Miralax) 17 gm HSPRN PRN ORAL Constipation 01/16/19 12:15 02/15/19 12:14 Zolpidem Tartrate (Ambien) 5 mg HSPRN PRN ORAL Insomnia 01/16/19 12:15 01/23/19 12:14 Allergies: Coded Allergies: No Known Allergies (Unverified , 10/07/18) ROS Limited/Unobtainable: Yes Subjective 83 YO M admitted with altered mental status and increased agitation. Cover for Int Med-Dr Estevez. Objective Last Vital Signs Date Time Temp Pulse Resp B/P (MAP) Pulse Ox O2 Delivery O2 Flow Rate FiO2 01/18/19 09:00 Room Air 01/18/19 08:24 96.8 75 14 152/75 (100) 98 Laboratory Tests Test 01/18/19 07:20 White Blood Count 7.3 K/UL (4.8-10.8) Red Blood Count 3.71 M/UL (4.70-6.10) L Hemoglobin 9.9 G/DL (14.2-18.0) L Hematocrit 30.7 % (42.0-52.0) L Mean Corpuscular Volume 83 FL (80-99) Mean Corpuscular Hemoglobin 26.6 PG (27.0-31.0) L Mean Corpuscular Hemoglobin Concent 32.2 G/DL (32.0-36.0) Red Cell Distribution Width 12.9 % (11.6-14.8) Platelet Count 210 K/UL (150-450) Mean Platelet Volume 5.6 FL (6.5-10.1) L Neutrophils (%) (Auto) 73.8 % (45.0-75.0) Lymphocytes (%) (Auto) 13.0 % (20.0-45.0) L Monocytes (%) (Auto) 8.5 % (1.0-10.0) Eosinophils (%) (Auto) 3.8 % (0.0-3.0) H Basophils (%) (Auto) 0.9 % (0.0-2.0) Differential Total Cells Counted 100 Neutrophils % (Manual) 83 % (45-75) H Lymphocytes % (Manual) 8 % (20-45) L Monocytes % (Manual) 5 % (1-10) Eosinophils % (Manual) 3 % (0-3) Basophils % (Manual) 1 % (0-2) Band Neutrophils 0 % (0-8) Platelet Estimate Adequate Platelet Morphology Normal Acanthocytes 1+ Erythrocyte Sedimentation Rate 33 MM/HR (0-20) H Reticulocyte Count 0.7 % (0.5-2.0) Prothrombin Time 10.4 SEC (9.30-11.50) Prothromb Time International Ratio 1.0 (0.9-1.1) Activated Partial Thromboplast Time 26 SEC (23-33) Sodium Level 140 MMOL/L (136-145) Potassium Level 3.8 MMOL/L (3.5-5.1) Chloride Level 108 MMOL/L (98-107) H Carbon Dioxide Level 27 MMOL/L (21-32) Anion Gap 6 mmol/L (5-15) Blood Urea Nitrogen 33 mg/dL (7-18) H Creatinine 1.7 MG/DL (0.55-1.30) H Estimat Glomerular Filtration Rate mL/min (>60) Glucose Level 88 MG/DL (74-106) Calcium Level 8.2 MG/DL (8.5-10.1) L Iron Level 48 ug/dL (50-175) L Total Iron Binding Capacity 207 ug/dL (250-450) L Percent Iron Saturation 23 % (15-50) Unsaturated Iron Binding 159 ug/dL (112-346) Lactate Dehydrogenase 174 U/L (81-234) Carcinoembryonic Antigen Pending Vitamin B12 Level 242 PG/ML (193-986) Folate 19.5 NG/ML (8.6-58.9) Microbiology Date/Time Source Procedure Growth Status 01/16/19 14:10 Nasal Nares MRSA Culture - Final NO METHICILLIN RESISTANT STAPH AUREUS... Complete 01/16/19 14:10 Rectum VRE Culture - Final NO VANCOMYCIN RESISTANT ENTEROCOCCUS ... Complete Intake and Output 01/17/19 01/18/19 19:00 07:00 Intake Total 820 ml Output Total 400 ml Balance 820 ml -400 ml Intake Oral 820 ml Output Urine Total 400 ml Objective PHYSICAL EXAMINATION: GENERAL: The patient is a thin-appearing male, who is agitated. HEENT: Eyes, pupils are equal and responsive to light and accommodation. Extraocular movements are intact. NECK: Supple without lymphadenopathy. CHEST: Lungs are clear to auscultation bilaterally without wheezes or rales. CARDIOVASCULAR: Regular rhythm and rate. S1 and S2 are normal without murmurs, rubs, or gallops. ABDOMEN: Soft, nontender, and nondistended. Positive bowel sounds. No evidence of hepatosplenomegaly. Currently, no rebound or guarding noted. EXTREMITIES: Negative for clubbing, cyanosis, or edema. RECTAL/GENITAL: Not performed. NEUROLOGIC: Cranial nerves II through XII are grossly intact without focal deficits. Assessment/Plan Assessment/Plan ASSESSMENT: This is an 83-year-old male. 1. Altered mental status. 2. Increased agitation. 3. Alzheimer's dementia with psychotic features. 4. Hypertension. 5. Cerebrovascular disease. 6. Left hemiplegia. TREATMENT: 1. Altered mental status/increased agitation. A psychiatric consultation has been obtained with Dr. Aguirre. We will follow recommendations of Psychiatry. 2. Dementia with psychotic features. As above, a psychiatric consultation has been obtained with Dr. Aguirre. We will follow recommendations of Psychiatry. 3. Hypertension. Continue amlodipine as above. 4. Cerebrovascular disease/left hemiplegia. Farzad Sams MD Jan 18, 2019 11:25
--- NOTE | 2019-01-18 12:05 | Pulmonology Progress Note ---
Assessment/Plan Problems: (1) Acute encephalopathy (2) History of hypertension (3) History of CVA (cerebrovascular accident) Assessment/Plan no new complains doing better still confused renal function fluctuating no new complains Subjective ROS Limited/Unobtainable: No Constitutional: Reports: no symptoms HEENT: Repors: no symptoms Respiratory: Reports: no symptoms Allergies: Coded Allergies: No Known Allergies (Unverified , 10/07/18) Objective Last 24 Hour Vital Signs Date Time Temp Pulse Resp B/P (MAP) Pulse Ox O2 Delivery O2 Flow Rate FiO2 01/18/19 11:48 98.4 60 16 108/57 (74) 97 01/18/19 09:00 Room Air 01/18/19 08:24 96.8 75 14 152/75 (100) 98 01/18/19 08:22 152/75 01/18/19 08:21 75 152/75 01/18/19 08:00 96.8 75 14 152/75 (100) 96 01/18/19 04:00 98.6 55 20 127/58 (81) 96 01/18/19 00:00 97.2 56 20 120/60 (80) 96 01/17/19 21:00 Room Air 01/17/19 20:00 96.7 54 20 123/57 (79) 96 01/17/19 16:00 97.7 62 18 123/68 (86) 98 Intake and Output 01/17/19 01/18/19 19:00 07:00 Intake Total 820 ml Output Total 400 ml Balance 820 ml -400 ml Intake Oral 820 ml Output Urine Total 400 ml General Appearance: WD/WN HEENT: normocephalic, atraumatic Respiratory/Chest: chest wall non-tender, normal breath sounds Cardiovascular: normal peripheral pulses, normal rate Abdomen: normal bowel sounds, soft, non tender Genitourinary: normal external genitalia Extremities: no clubbing Skin: no rash Microbiology Date/Time Source Procedure Growth Status 01/16/19 14:10 Nasal Nares MRSA Culture - Final NO METHICILLIN RESISTANT STAPH AUREUS... Complete 01/16/19 14:10 Rectum VRE Culture - Final NO VANCOMYCIN RESISTANT ENTEROCOCCUS ... Complete Laboratory Tests 01/18/19 07:20: White Blood Count 7.3, Red Blood Count 3.71L, Hemoglobin 9.9L, Hematocrit 30.7L , Mean Corpuscular Volume 83, Mean Corpuscular Hemoglobin 26.6L, Mean Corpuscular Hemoglobin Concent 32.2, Red Cell Distribution Width 12.9, Platelet Count 210, Mean Platelet Volume 5.6L, Neutrophils (%) (Auto) 73.8, Lymphocytes ( %) (Auto) 13.0L, Monocytes (%) (Auto) 8.5, Eosinophils (%) (Auto) 3.8H, Basophils (%) (Auto) 0.9, Differential Total Cells Counted 100, Neutrophils % ( Manual) 83H, Lymphocytes % (Manual) 8L, Monocytes % (Manual) 5, Eosinophils % ( Manual) 3, Basophils % (Manual) 1, Band Neutrophils 0, Platelet Estimate Adequate, Platelet Morphology Normal, Acanthocytes 1+, Erythrocyte Sedimentation Rate 33H, Reticulocyte Count 0.7, Prothrombin Time 10.4, Prothromb Time International Ratio 1.0, Activated Partial Thromboplast Time 26, Sodium Level 140, Potassium Level 3.8, Chloride Level 108H, Carbon Dioxide Level 27, Anion Gap 6, Blood Urea Nitrogen 33H, Creatinine 1.7H, Estimat Glomerular Filtration Rate , Glucose Level 88, Calcium Level 8.2L, Iron Level 48L, Total Iron Binding Capacity 207L, Percent Iron Saturation 23, Unsaturated Iron Binding 159, Lactate Dehydrogenase 174, Carcinoembryonic Antigen [Pending] , Vitamin B12 Level 242, Folate 19.5 Current Medications Medications (Trade) Dose Ordered Sig/[place] Route PRN Reason Start Time Stop Time Status Last Admin Dose Admin Acetaminophen (Tylenol) 650 mg Q4H PRN ORAL fever 01/16/19 12:15 02/15/19 12:14 Amlodipine Besylate (Norvasc) 10 mg DAILY ORAL 01/17/19 09:00 02/16/19 08:59 01/18/19 08:21 Clonidine HCl (Catapres Tab) 0.1 mg Q6H PRN ORAL For High Blood Pressure 01/16/19 16:00 02/15/19 15:59 Dextrose (Dextrose 50%) 25 ml Q30M PRN IV Hypoglycemia 01/16/19 12:15 02/15/19 12:14 Dextrose (Dextrose 50%) 50 ml Q30M PRN IV Hypoglycemia 01/16/19 12:15 02/15/19 12:14 Lisinopril (Prinivil) 20 mg DAILY ORAL 01/17/19 10:30 02/16/19 10:29 01/18/19 08:22 Lorazepam (Ativan 2mg/ml 1ml) 0.5 mg Q4H PRN IV For Anxiety 01/16/19 12:15 01/23/19 12:14 Morphine Sulfate (Morphine Sulfate) 1 mg Q4H PRN IVP For Pain 01/16/19 12:15 01/23/19 12:14 Olanzapine (ZyPREXA) 5 mg EVERY 4 HOURS PRN ORAL agitation 01/17/19 22:45 02/16/19 22:44 Ondansetron HCl (Zofran) 4 mg Q6H PRN IVP Nausea & Vomiting 01/16/19 12:15 02/15/19 12:14 Polyethylene Glycol (Miralax) 17 gm HSPRN PRN ORAL Constipation 01/16/19 12:15 02/15/19 12:14 Zolpidem Tartrate (Ambien) 5 mg HSPRN PRN ORAL Insomnia 01/16/19 12:15 01/23/19 12:14 Casie Frye MD Jan 18, 2019 12:05
--- NOTE | 2019-01-18 20:31 | Consultation ---
DATE OF CONSULTATION: 01/18/2019 CONSULTING PHYSICIAN: Nikkie Aguirre M.D. HISTORY OF PRESENT ILLNESS: The patient is an 83-year-old, male with a history of multiple medical comorbidities including pneumonia, hypertension, anemia, renal failure, CVA who has been admitted to the hospital for altered mental status and increased agitation. The patient was placed on risperidone 1.5 [address] b[address]d. by Dr. Frye. The medication was changed last night from risperidone to Zyprexa as it has less cardiac side effects. Today during the evaluation, the patient is able to answer the questions. More alert, more engaged, and less confused. No agitation was noted today. PAST PSYCHIATRIC HISTORY: Significant for encephalopathy in the past as well as history of agitation. PAST MEDICAL HISTORY: Significant for CVA, left hemiparesis, hypertension. HOME PSYCHOTROPIC MEDICATIONS: Include risperidone 1.5 mg p.o. twice a day. ALLERGIES: No known drug allergies. SUBSTANCE ABUSE HISTORY: No known history of illicit drug use or alcohol. MENTAL STATUS EXAMINATION: The patient is alert, oriented times self, place. Mood is less agitated. Affect is constricted, congruent with mood. Thought process is concrete. Thought content, no suicidal or homicidal ideation. Cognition is impaired. Insight and judgment is impaired. ASSESSMENT: Hessel I Dementia with behavior disturbance. Acute encephalopathy, improved. Hessel II Deferred. Hessel III As above. Hessel IV Low. Hessel V 20. PLAN: 1. We will continue the patient on Zyprexa 5 mg every 4 hours p.r.n. 2. The patient should be discharged when medically cleared. Nikkie Aguirre M.D. DR: TABITHA JOB#: [id number] CC:
[2019-01-19] VITALS: BP 128/67
[2019-01-19 04:00] VITALS: BP 115/53
[2019-01-19 06:34] LABS: BASOPHILS % (AUTO) 1.1 % (0.0-2.0); EOSINOPHILS % (AUTO) 6.4 % (0.0-3.0); HEMATOCRIT 30.7 % (42.0-52.0); HEMOGLOBIN 9.9 G/DL (14.2-18.0); LYMPHOCYTES % (AUTO) 20.9 % (20.0-45.0); MEAN CORPUSCULAR VOLUME 83 FL (80-99); MONOCYTES % (AUTO) 9.4 % (1.0-10.0); NEUTROPHILS % (AUTO) 62.1 % (45.0-75.0); PLATELET COUNT 228 K/UL (150-450); RED BLOOD COUNT 3.71 M/UL (4.70-6.10); WHITE BLOOD COUNT 6.7 K/UL (4.8-10.8)
[2019-01-19 07:06] LABS: ANION GAP 5 mmol/L (5-15); BLOOD UREA NITROGEN 33 mg/dL (7-18); CALCIUM 8.4 MG/DL (8.5-10.1); CARBON DIOXIDE 26 MMOL/L (21-32); CHLORIDE 109 MMOL/L (98-107); CREATININE 1.6 MG/DL (0.55-1.30); POTASSIUM 4.2 MMOL/L (3.5-5.1); SODIUM 139 MMOL/L (136-145)
[2019-01-19 08:00] VITALS: BP 126/53
[2019-01-19] MEDS: Lisinopril 20mg tab ORAL SCH (09:00)
[2019-01-19 12:00] VITALS: BP 122/57
[2019-01-19] MEDS ORDERED: AMBIEN5 MG ORAL (13:20)
[2019-01-19] MEDS ORDERED: PRINIVIL20 MG ORAL (13:20)
[2019-01-19] MEDS ORDERED: OLANZAPINE5 MG ORAL (13:20)
--- NOTE | 2019-01-19 13:21 | Pulmonology Progress Note ---
Assessment/Plan Problems: (1) Acute encephalopathy (2) History of hypertension (3) History of CVA (cerebrovascular accident) Assessment/Plan no new complains doing better still confused renal function fluctuating no new complains dc to [facility] today Subjective ROS Limited/Unobtainable: No Constitutional: Reports: no symptoms HEENT: Repors: no symptoms Respiratory: Reports: no symptoms Allergies: Coded Allergies: No Known Allergies (Unverified , 10/07/18) Objective Last 24 Hour Vital Signs Date Time Temp Pulse Resp B/P (MAP) Pulse Ox O2 Delivery O2 Flow Rate FiO2 01/19/19 12:00 97.8 61 18 122/57 (78) 98 01/19/19 09:13 53 126/53 01/19/19 09:00 Room Air 01/19/19 09:00 126/53 01/19/19 08:00 97.4 53 18 126/53 (77) 98 01/19/19 04:00 98.9 56 20 115/53 (73) 99 01/19/19 00:00 99.5 81 20 128/67 (87) 97 01/18/19 20:00 97.9 62 20 146/84 (104) 97 01/18/19 19:34 Room Air 01/18/19 15:58 97.9 60 20 108/68 (81) 97 Intake and Output 01/18/19 01/19/19 19:00 07:00 Intake Total 840 ml Balance 840 ml Intake Oral 840 ml # Voids 3 2 # Bowel Movements 1 General Appearance: WD/WN HEENT: normocephalic, atraumatic Respiratory/Chest: chest wall non-tender, normal breath sounds Cardiovascular: normal peripheral pulses, normal rate, regularly irregular Abdomen: non distended Extremities: no clubbing Skin: no rash, no ulcers 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 Complete 01/16/19 14:10 Rectum VRE Culture - Final NO VANCOMYCIN RESISTANT ENTEROCOCCUS ... Complete Laboratory Tests 01/19/19 06:10: White Blood Count 6.7, Red Blood Count 3.71L, Hemoglobin 9.9L, Hematocrit 30.7L , Mean Corpuscular Volume 83, Mean Corpuscular Hemoglobin 26.8L, Mean Corpuscular Hemoglobin Concent 32.4, Red Cell Distribution Width 13.0, Platelet Count 228, Mean Platelet Volume 5.8L, Neutrophils (%) (Auto) 62.1, Lymphocytes ( %) (Auto) 20.9, Monocytes (%) (Auto) 9.4, Eosinophils (%) (Auto) 6.4H, Basophils (%) (Auto) 1.1, Sodium Level 139, Potassium Level 4.2, Chloride Level 109H, Carbon Dioxide Level 26, Anion Gap 5, Blood Urea Nitrogen 33H, Creatinine 1.6H, Estimat Glomerular Filtration Rate , Glucose Level 87, Calcium Level 8.4L Current Medications Medications (Trade) Dose Ordered Sig/[place] Route PRN Reason Start Time Stop Time Status Last Admin Dose Admin Acetaminophen (Tylenol) 650 mg Q4H PRN ORAL fever 01/16/19 12:15 02/15/19 12:14 Amlodipine Besylate (Norvasc) 10 mg DAILY ORAL 01/17/19 09:00 02/16/19 08:59 01/19/19 09:13 Clonidine HCl (Catapres Tab) 0.1 mg Q6H PRN ORAL For High Blood Pressure 01/16/19 16:00 02/15/19 15:59 Dextrose (Dextrose 50%) 25 ml Q30M PRN IV Hypoglycemia 01/16/19 12:15 02/15/19 12:14 Dextrose (Dextrose 50%) 50 ml Q30M PRN IV Hypoglycemia 01/16/19 12:15 02/15/19 12:14 Lisinopril (Prinivil) 20 mg DAILY ORAL 01/17/19 10:30 02/16/19 10:29 01/18/19 08:22 Lorazepam (Ativan 2mg/ml 1ml) 0.5 mg Q4H PRN IV For Anxiety 01/16/19 12:15 01/23/19 12:14 Morphine Sulfate (Morphine Sulfate) 1 mg Q4H PRN IVP For Pain 01/16/19 12:15 01/23/19 12:14 Olanzapine (ZyPREXA) 5 mg EVERY 4 HOURS PRN ORAL agitation 01/17/19 22:45 02/16/19 22:44 Ondansetron HCl (Zofran) 4 mg Q6H PRN IVP Nausea & Vomiting 01/16/19 12:15 02/15/19 12:14 Polyethylene Glycol (Miralax) 17 gm HSPRN PRN ORAL Constipation 01/16/19 12:15 02/15/19 12:14 Zolpidem Tartrate (Ambien) 5 mg HSPRN PRN ORAL Insomnia 01/16/19 12:15 01/23/19 12:14 Casie Frye MD Jan 19, 2019 13:21
--- NOTE | 2019-01-19 15:03 | Internal Med Progress Note ---
Subjective Physician Name Tripp Estevez Attending Physician Tripp Estevez MD Current Medications Medications (Trade) Dose Ordered Sig/[place] Route PRN Reason Start Time Stop Time Status Last Admin Dose Admin Acetaminophen (Tylenol) 650 mg Q4H PRN ORAL fever 01/16/19 12:15 02/15/19 12:14 Amlodipine Besylate (Norvasc) 10 mg DAILY ORAL 01/17/19 09:00 02/16/19 08:59 01/19/19 09:13 Clonidine HCl (Catapres Tab) 0.1 mg Q6H PRN ORAL For High Blood Pressure 01/16/19 16:00 02/15/19 15:59 Dextrose (Dextrose 50%) 25 ml Q30M PRN IV Hypoglycemia 01/16/19 12:15 02/15/19 12:14 Dextrose (Dextrose 50%) 50 ml Q30M PRN IV Hypoglycemia 01/16/19 12:15 02/15/19 12:14 Lisinopril (Prinivil) 20 mg DAILY ORAL 01/17/19 10:30 02/16/19 10:29 01/18/19 08:22 Lorazepam (Ativan 2mg/ml 1ml) 0.5 mg Q4H PRN IV For Anxiety 01/16/19 12:15 01/23/19 12:14 Morphine Sulfate (Morphine Sulfate) 1 mg Q4H PRN IVP For Pain 01/16/19 12:15 01/23/19 12:14 Olanzapine (ZyPREXA) 5 mg EVERY 4 HOURS PRN ORAL agitation 01/17/19 22:45 02/16/19 22:44 Ondansetron HCl (Zofran) 4 mg Q6H PRN IVP Nausea & Vomiting 01/16/19 12:15 02/15/19 12:14 Polyethylene Glycol (Miralax) 17 gm HSPRN PRN ORAL Constipation 01/16/19 12:15 02/15/19 12:14 Zolpidem Tartrate (Ambien) 5 mg HSPRN PRN ORAL Insomnia 01/16/19 12:15 01/23/19 12:14 Allergies: Coded Allergies: No Known Allergies (Unverified , 10/07/18) Subjective Awake, alert, responsive, calm and relaxed, denies any chest pain or shortness of breath. Objective Last Vital Signs Date Time Temp Pulse Resp B/P (MAP) Pulse Ox O2 Delivery O2 Flow Rate FiO2 01/19/19 12:00 97.8 61 18 122/57 (78) 98 01/19/19 09:00 Room Air Laboratory Tests Test 01/19/19 06:10 White Blood Count 6.7 K/UL (4.8-10.8) Red Blood Count 3.71 M/UL (4.70-6.10) L Hemoglobin 9.9 G/DL (14.2-18.0) L Hematocrit 30.7 % (42.0-52.0) L Mean Corpuscular Volume 83 FL (80-99) Mean Corpuscular Hemoglobin 26.8 PG (27.0-31.0) L Mean Corpuscular Hemoglobin Concent 32.4 G/DL (32.0-36.0) Red Cell Distribution Width 13.0 % (11.6-14.8) Platelet Count 228 K/UL (150-450) Mean Platelet Volume 5.8 FL (6.5-10.1) L Neutrophils (%) (Auto) 62.1 % (45.0-75.0) Lymphocytes (%) (Auto) 20.9 % (20.0-45.0) Monocytes (%) (Auto) 9.4 % (1.0-10.0) Eosinophils (%) (Auto) 6.4 % (0.0-3.0) H Basophils (%) (Auto) 1.1 % (0.0-2.0) Sodium Level 139 MMOL/L (136-145) Potassium Level 4.2 MMOL/L (3.5-5.1) Chloride Level 109 MMOL/L (98-107) H Carbon Dioxide Level 26 MMOL/L (21-32) Anion Gap 5 mmol/L (5-15) Blood Urea Nitrogen 33 mg/dL (7-18) H Creatinine 1.6 MG/DL (0.55-1.30) H Estimat Glomerular Filtration Rate mL/min (>60) Glucose Level 87 MG/DL (74-106) Calcium Level 8.4 MG/DL (8.5-10.1) L Intake and Output 01/18/19 01/19/19 19:00 07:00 Intake Total 840 ml Balance 840 ml Intake Oral 840 ml # Voids 3 2 # Bowel Movements 1 Objective General: No acute distress, awake and alert HEENT: NCAT, sclera anicteric, PERRL, EOMI. Neck: Supple, no significant jugular venous distention, Lungs: Fair inspiratory effort, clear to auscultation bilaterally, no Wheeze or Rales. Heart: Regular rate and rhythm, normal S1/S2, no murmurs Abdomen: soft, nontender, nondistended. Normoactive bowel sounds. / Rectal: Refused and deferred. Extremities: No Cyanosis , clubbing or edema. Neuro: A&O x 3, Able to move all extremities Skin: warm, no rashes or lesions Psych: Normal mood and affect Assessment/Plan Assessment/Plan 1. Altered mental status. 2. Increased agitation. 3. Alzheimer's dementia with psychotic features. 4. Hypertension. 5. Cerebrovascular disease. 6. Left hemiplegia. TREATMENT: 1. Altered mental status/increased agitation. A psychiatric consultation has been obtained with Dr. Aguirre. We will follow recommendations of Psychiatry. 2. Dementia with psychotic features. As above, a psychiatric consultation has been obtained with Dr. Aguirre. We will follow recommendations of Psychiatry. 3. Hypertension. Continue amlodipine as above. 4. Cerebrovascular disease/left hemiplegia. Plan to discharge to the custodial today to be followed by myself. Tripp Estevez MD Jan 19, 2019 15:03
[2019-01-19 16:00] VITALS: BP 130/72
--- NOTE | 2019-01-20 05:15 | Progress Note ---
DATE: 01/19/2019 SUBJECTIVE: The patient is calm. Able to answer the question, not confused. Would like to be discharged. No episodes of agitation noted today. MENTAL STATUS EXAMINATION: The patient is alert, oriented times self, place, and situation. Mood is neutral. Affect is flat. Thought process is concrete. Thought content, no suicidal or homicidal ideation. ASSESSMENT: Acute encephalopathy, improved. PLAN: 1. The patient will be continued on current medications. 2. The patient will be discharged to [facility]. Nikkie Aguirre M.D. DR: TABITHA JOB#: [id number] CC:
--- NOTE | 2019-01-20 08:59 | Discharge Summary ---
Discharge Summary Discharge Summary _ DATE OF ADMISSION: 01/16/2019 DATE OF DISCHARGE: 01/19/2019 DISCHARGED BY: Dr. Estevez REASON FOR ADMISSION: 83 years old male with past medical history of hypertension, CVA, psychosis resident of correction facility, was sent for evaluation due to increased agitation. Upon arrival patient was screaming and yelling. He was not taking his medication at the facility. Patient had prior history of psychosis. He denied hearing voices. He denied suicidal or homicidal ideations. No fever or chills. No chest pain or shortness of breath. Upon evaluation vital signs revealed elevated blood pressure 169/81 , heart rate 100 , patient was afebrile. Laboratory work-up revealed mild leukocytosis WBC 12.9, hemoglobin 11.2 , hematocrit 24.6. Platelet count 233. Urinalysis revealed no evidence of urinary tract infection. Sodium 147, BUN 30, creatinine 1.5. Glucose 105. Stable LFT. Albumin 4.0. Urine toxicology screen was negative. Serum alcohol level was less than 3. Chest x-ray revealed an ovoid opacity in the left lateral lung, probably a prominent first subchondral junction , equally similar to the prior study. Patient subsequently admitted for further management. CONSULTANTS: hospitalist Dr. Frye psychiatrist [facility]: Patient admitted to medical surgical floor. Patient started on gentle IV hydration. Anxiolytic provided as needed. Blood pressure was managed with antihypertensive medication regimen. Patient initially was on beta-arnaldo and then changed to SURAJ inhibitor and amlodipine. Clonidine was on board as needed for blood pressure spikes. Blood pressure stabilized with current regimen. Lipid panel revealed elevated LDL of 119. Patient was counseled on low-fat low cardiac diet. Consider starting statin as outpatient, given history of CVA Psychiatrist seen and evaluated patient. Per psychiatrist, patient had dementia with behavioral disturbances and acute encephalopathy. Psychiatric medication regimen was optimized. Patient started on Zyprexa on as-needed basis. SNF medication continued. Patient clinically stabilized and was ready for transfer back to correction facility for continuation of care. FINAL DIAGNOSES: Acute encephalopathy Dementia with behavioral disturbance Alzheimer's dementia with psychotic features Hypertension Cerebrovascular disease with history of CVA and left hemiplegia DISCHARGE MEDICATIONS: See Medication Reconciliation list. DISCHARGE INSTRUCTIONS: Patient was discharged to the correction facility. Follow up with medical doctor at the facility. I have been assigned to dictate discharge summary for this account. I was not involved in the patient's management. Kadi San NP Jan 20, 2019 08:59
--- NOTE | 2019-01-20 09:02 | Cardiology Report ---
APPROVED REPORT EKG Measurement Heart [id number] VT [id number] Sinus bradycardia Abnormal ECG
== END 2019-01-19 16:15 | DRG 57 ==
LOC: EDBD 10:28 → EDBEDREQ 10:53 → EMR 11:35 → 4E 11:45 → EDBEDREQ 13:30 → 4E 01-18 20:28
DX: G30.9 Alzheimer's disease, unspecified (principal); I69.354 Hemiplegia and hemiparesis following cerebral infarction affecting left non-dominant side; G93.40 Encephalopathy, unspecified; F02.81 Dementia in other diseases classified elsewhere, unspecified severity, with behavioral disturbance; I10 Essential (primary) hypertension
CPT/HCPCS: 36415; 71045; 80048; 80053; 80061; 80307; 81003; 82140; 82270; 82378; 82607; 82746; 83540; 83550; 83615; 84443; 85007; 85025; 85044; 85060; 85610; 85651; 85730; 87081; 93005; 96372; 99285; G0480